=== PATIENT | female | born 1945 | race Caucasian/White ===

== ENCOUNTER → 2018-05-14 | Day surgery (SDC) | payer OTHER ==
--- NOTE | 2018-05-14 11:06 | RAD REPORT ---
EXAM DESCRIPTION: US - Breast Core BX w/US Guidance - 05/14/2018 10:41 am CLINICAL HISTORY: R92.8 COMPARISON: Breast ultrasound May 05, 2018, mammogram April 08, 2018 TECHNIQUE: The patient presents for ultrasound-guided biopsy of a previously detailed 6 mm mass in t he upper inner quadrant of the right breast. The ultrasound-guided core biopsy procedure, risks and alternatives were discussed with the patient i n detail. After answering all questions, both oral and written consent were obtained. Time out proced ure was performed. The patient had no contraindicated allergy or medication history. Patient has been off 81 milligram aspirin therapy for 6 days. Preliminary imaging identified the mass in question. The anterior breast was prepped and draped in th e usual sterile fashion. From a lateral approach, skin and deeper tissues were anesthetized with 1% l idocaine. Under direct sonographic visualization a 14 gauge vacuum assisted core biopsy needle was ad vanced and placed at the inferior margin of the mass. There were a total of 3 core biopsies obtained under direct sonographic guidance. The mass did appear to have distortion in contour supporting trans it of the biopsy needle through the small mass. At the conclusion of the procedure a localization clip was placed under sonographic guidance. Post biopsy imaging showed no hematoma or measurable bleeding within the breast. Hemostasis was obtai lauren at the skin site with a sterile bandage placed. Post procedure care and precaution instructions were given to the patient. IMPRESSION: 1. Ultrasound-guided core biopsy was performed of the right breast upper inner quadrant 6 mm mass. All obtained material was given to pathology for histologic assessment. 2. Post biopsy localization clip was placed under ultrasound guidance.
== END | disposition home or self-care (01) ==
LOC: DS 09:36
PROVIDERS: ATTEND Obstetrics & Gynecology
PROC: 0HBT3ZX Excision of Right Breast, Percutaneous Approach, Diagnostic (ICD-10-PCS; principal; 2018-05-14)
DX: C50.911 Malignant neoplasm of unspecified site of right female breast (principal); Z17.0 Estrogen receptor positive status [ER+]
CPT/HCPCS: 19083; 88305

== ENCOUNTER 2023-10-01 14:50 | Inpatient (IN) | payer OTHER ==
--- OUTSIDE RECORDS SUMMARY | 2023-10-01 14:58 | XMS REPORT | Clinical Summary ---
Author Name Unknown Organization [facility] Address [address] [place] [address] Care Team Providers Care Brush Polisher Name Role Phone Elizabeth Burrell MD Primary Care Provider + [phone] Jennifer Woo MD Unavailable [phone] Beverly Matias MD Unavailable Tameka Jaramillo MD Unavailable [phone] Bree Rodriguez DDS Unavailable [phone] Allergies Active Allergy Reactions Criticality Noted Date Comments Codeine GI Intolerance 03/03/2015 Sulfa (Sulfonamide Antibiotics) Hives 12/2014 Medications Medication Sig Dispensed Refills Start Date End Date Status aspirin 81 mg chewable tablet Chew 1 tablet (81 mg) daily. 0 Active calcium carbonate/vitami n D3 (CALCIUM 600 + D,3, ORAL) Take 1 tablet by mouth every morning. 0 Active pantoprazole (PROTONIX) 40 mg EC tablet Take 1 tablet (40 mg) by mouth every morning before breakfast. 0 Active furosemide (LASIX) 20 mg tabletIndication s:Pleural effusion,Maligna nt pleural effusion Take 1 tablet (20 mg) by mouth twice daily. 60 tablet 3 3 Active Additional Information Patient not taking.Reason: No longer taking, Informant: Self, Reported on 08/29/2023 senna (SENOKOT) 8.6 mg tabletIndication s:Slow transit constipation Take 2 tablets by mouth twice daily. Do not use if diarrhea/loose stools 120 tablet 3 3 Active Additional Information Patient not taking.Reason: No longer taking, Informant: Self, Reported on 08/13/2023 polyethylene glycol (MIRALAX) 17 g packetIndication s:Slow transit constipation Take 17 g by mouth daily. 30 each 3 3 Active ipratropium-albu terol (Combivent Respimat) 20 mcg-100 mcg/puff inhalerIndicatio ns:Human rhinovirus present,Malignan t pleural effusion Inhale 1 puff by mouth every 6 (six) hours. 4 g 3 3 Active meloxicam (Mobic) 7.5 mg tabletIndication s:Postoperative pain Take 1 tablet (7.5 mg) by mouth daily as needed for mild pain. 5 tablet 0 3 Active Additional Information Patient not taking.Reason: No longer taking, Informant: Self, Reported on 07/30/2023 lidocaine-priloc keturah (EMLA) 2.5-2.5% creamIndications :Encounter for adjustment and management of vascular access device Apply to Port-A-Cath area 30 to 45 minutes prior to port access as directed (topical anesthetic use to the anterior chest only). 30 g 0 3 Active prochlorperazine (Compazine) 10 mg tabletIndication s:Metastatic cancer to axillary lymph nodes,Infiltrati ng duct carcinoma, NOS of upper-inner quadrant of breast <Female; Right> Take 1 tablet (10 mg) by mouth every 6 (six) hours as needed for nausea or vomiting. 30 tablet 3 4 Active Additional Information Patient not taking.Reason: No longer taking, Informant: Self, Reported on 08/29/2023 magnesium oxide 500 mg tabletIndication s:Infiltrating duct carcinoma, NOS of upper-inner quadrant of breast <Female; Right>,Infiltrat ing duct carcinoma, NOS of upper-inner quadrant of breast <Female; Right>,Hypomagne semia Take 1 tablet (500 mg) by mouth twice daily. 56 tablet 2 4 Active capecitabine (Xeloda) 500 mg tabletIndication s:Metastatic cancer to axillary lymph nodes,Infiltrati ng duct carcinoma, NOS of upper-inner quadrant of breast <Female; Right> Take 2 tablets by mouth every morning and 2 tablets every evening for 7 days, then none for 7 days. 56 tablet 2 4 Active venlafaxine (Effexor XR) 75 mg 24 hr capsuleIndicatio ns:Adjustment disorder with anxiety Take 1 capsule (75 mg) by mouth at bedtime. 30 capsule 1 4 Active potassium chloride (Klor-Con) 20 mEq packetIndication s:Infiltrating duct carcinoma, NOS of upper-inner quadrant of breast <Female; Right>,Hypokalem ia Take 1 packet (20 mEq) by mouth twice daily. Mix contents of 1 packet in 4 ounces (120 mL) of water or juice. Stir well and drink promptly. 60 packet 2 4 Active losartan (COZAAR) 25 mg tablet 1 tablet (25 mg) twice daily. 0 1 06/17/20 23 Discontinued(Sto p Taking at Discharge) nystatin (Nystop) 100,000 units/g powderIndication s:Infiltrating duct carcinoma, NOS of upper-inner quadrant of breast <Female; Right>,Rash Apply topically to affected area(s) 3 (three) times a day. 60 g 3 1 11/30/19 23 Discontinued anastrozole (ARIMIDEX) 1 mg tabletIndication s:Infiltrating duct carcinoma, NOS of upper-inner quadrant of breast <Female; Right> TAKE ONE TABLET BY MOUTH DAILY 90 tablet 3 2 10/25/19 23 Discontinued pantoprazole (PROTONIX) 40 mg EC tablet Take 40 mg by mouth. 0 11/30/19 Discontinued(Oth er/Not Applicable) gabapentin (NEURONTIN) 100 mg capsule Take 100 mg by mouth at bedtime. 0 11/30/19 Discontinued(Oth er/Not Applicable) TURMERIC ORAL Take by mouth. 0 11/30/19 23 Discontinued(Oth er/Not Applicable) BENFOTIAMINE ORAL Take by mouth. With Thiamine 0 05/31/20 Discontinued anastrozole (ARIMIDEX) 1 mg tabletIndication s:Infiltrating duct carcinoma, NOS of upper-inner quadrant of breast <Female; Right> TAKE ONE TABLET BY MOUTH DAILY 90 tablet 3 3 06/17/20 23 Discontinued(Sto p Taking at Discharge) esomeprazole (NexIUM) 20 MG capsule take 1 capsule by oral route every day Oral 0 05/31/20 23 Discontinued furosemide (LASIX) 20 mg tablet Take 1 tablet (20 mg) by mouth daily. 0 3 06/17/20 23 Discontinued(Sto p Taking at Discharge) venlafaxine (EFFEXOR-XR) 37.5 mg 24 hr capsuleIndicatio ns:Metastatic malignant neoplasm to lung <Unspecified side>,Anxiety depression Take 1 capsule (37.5 mg) by mouth at bedtime. 30 capsule 3 3 07/30/19 24 Discontinued potassium chloride (Klor-Con M20) 20 mEq tabletIndication s:hypokalemia Take 1 tablet (20 mEq) by mouth twice daily. 14 tablet 0 3 08/09/19 24 Discontinued magnesium oxide 500 mg tabletIndication s:hypomagnesemia Take 1 tablet (500 mg) by mouth twice daily. 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 90 capsule 3 4 09/04/19 24 Discontinued magnesium oxide 500 mg tabletIndication s:Hypomagnesemia ,Infiltrating duct carcinoma, NOS of upper-inner quadrant of breast <Female; Right> Take 1 tablet (500 mg) by mouth twice daily. 28 tablet 0 4 08/13/19 24 Discontinued(Reo rder) potassium chloride (Klor-Con M20) 20 mEq tabletIndication s:Hypokalemia,In filtrating duct carcinoma, NOS of upper-inner quadrant of breast <Female; Right> Take 1 tablet (20 mEq) by mouth twice daily. 6 tablet 0 4 08/13/19 24 Discontinued(Reo rder) potassium chloride (Klor-Con M20) 20 mEq tabletIndication s:Infiltrating duct carcinoma, NOS of upper-inner quadrant of breast <Female; Right>,Hypokalem ia,Infiltrating duct carcinoma, NOS of upper-inner quadrant of breast <Female; Right> Take 1 tablet (20 mEq) by mouth twice daily. 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 Chest xray completed shows no evidence of re accumulation after removal of the IPC. There is stability .in the effusion. We will evaluate on an as needed basis. Secondary malignant neoplasm of bilateral lungs 06/02/2023 Secondary malignant neoplasm of liver and intrahepatic bile duct 06/02/2023 DNR status 06/02/2023 Advance directive discussed with patient 023 Pleural effusion 05/31/2023 Dyspnea 05/31/2023 Hyposmolality and/or hyponatremia 05/31/2023 Numbness of face 09/11/2019 Last Assessment & Plan: Symptoms have completely resolved. She had previously declined completing the work up with MRI brain and continues to decline it today. We will defer future appointements for now, but she knows to call if symptoms recur or she develops new neurologic symtpoms. Blind left eye 08/05/2018 Hypertension 06/18/2018 Overview: Due to optic stoke dx in 2014, she was asked to take a BP medication to have her BP lowered. Has been taking losartan since 2014, BP well controlled. PCP and disintegrator outside. Had stress test in 2014. Last Assessment & Plan: ERNIE release of intormation will be obtained to get outside stress test results. Stroke 06/18/2018 Overview: Dx optic stroke of left eye in 2014, in [place]. Has left eye blindness. On Aspirin Last Assessment & Plan: POEMS team will obtain ERNIE from disintegrator outside. Sees outside opthalmologist in [place]. Does not follow up with neurologist. 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 No residual weakness. 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 Stable, does not need intervention or follow up per outside hepatology records. 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 female who presents with a history of right IDC, G2, ER/SD+, HER2- that was originally diagnosed on 05/14/2018. She underwent a right segmental mastectomy with SLNB revealing IDC 1.7 cm, G2, DCIS and LVI+. She had 3+/4 SLN, therefore underwent a right ALND that revealed 7+/9 for a total of 10+/13 LN removed. The largest deposit was on a SLN 2.5 cm with DAVID. Staging studies revealed no distant metastases. She declined chemotherapy, so she completed radiation and took Anastrozole starting on 11/11/2018. She continued on this therapy until she presented to an [facility] in April with SOB. All oncologic management and surveillance will be deferred to the primary team. Resolved Problems Problem Noted Date Diagnosed Date Resolved Date Enterovirus infection 06/02/20232022 Human rhinovirus present 06/02/202312/2022 Acute respiratory failure with hypoxia 06/01/2023 07/03/2023 Encounters Date Type Department Care Team Description 09/27/2023 1:45 PM GAMING COMMISSIONER Infusion [facility] - [facility] [address] [address] Kaity Gilliland, Caryn Ascencio, KRISTINA Infiltrating duct carcinoma, NOS of upper-inner quadrant of breast <Female; Right> (Primary Dx); Metastatic malignant neoplasm to bone 09/27/2023 Travel 09/26/2023 Orders Only [facility] Medical Oncology [address] [place] [id number] Almaz Merchant, Aleyda Metastatic malignant neoplasm to bone (Primary Dx); Infiltrating duct carcinoma, NOS of upper-inner quadrant of breast <Female; Right> 09/25/2023 Orders Only [facility] Oncology [address] [place] [address], [address] [place] [id number] Almaz Merchant, PharmD 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; Metastatic malignant neoplasm to bone; Metastatic cancer to axillary lymph nodes; Estrogen receptor negative status (ER-); Hypomagnesemia; Hypokalemia; Secondary malignant neoplasm of liver and intrahepatic bile duct 09/12/2023 11:49 AM GAMING COMMISSIONER - 09/12/2023 11:59 PM GAMING COMMISSIONER Hospital Encounter [facility] [address] [place] [id number] Kaity Gilliland APRN 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; Secondary malignant neoplasm of bilateral lungs; Metastatic malignant neoplasm to lung <Unspecified side>; 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; Metastatic malignant neoplasm to bone; Metastatic cancer to axillary lymph nodes; Estrogen receptor negative status (ER-); Hypomagnesemia; Hypokalemia; Secondary malignant neoplasm of liver and intrahepatic bile duct Discharge Disposition: Home 09/12/2023 Specialty Pharmacy [facility] [address] [place] [id number] Jorge L Eugene PharmD Refill Coordination Outreach (capecitabine) for Breast Cancer 09/12/2023 Travel 08/29/2023 3:00 PM GAMING COMMISSIONER - 08/29/2023 11:59 PM GAMING COMMISSIONER Hospital Encounter [facility] - [facility] [address] [facility], 2nd [place] [address] Elizabeth Burrell MD Neely, Chunmei Huang, RN 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 Discharge Disposition: Home 08/29/2023 9:20 AM [facility]Up [facility] Oncology [address] [place] [address], 5th [place] [address] Elizabeth Burrell MD Encounter for examination prior to antineoplastic chemotherapy (Primary Dx); 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; Secondary malignant neoplasm of bilateral lungs; Metastatic malignant neoplasm to lung <Unspecified side>; 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; Metastatic malignant neoplasm to bone; Metastatic cancer to axillary lymph nodes; Estrogen receptor negative status (ER-); Hypomagnesemia; Hypokalemia; Secondary malignant neoplasm of liver and intrahepatic bile duct 08/29/2023 8:15 AM GAMING COMMISSIONER - 08/29/2023 2:59 PM GAMING COMMISSIONER Hospital Encounter [facility] [address] [place] [id number] Elizabeth Burrell MD 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 Discharge Disposition: Home 08/29/2023 Travel 08/27/2023 Orders Only [facility] [address] [facility], 5th [place] [address] Elizabeth Burrell MD 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 (Primary Dx) 08/21/2023 12:00 PM GAMING COMMISSIONER - 08/21/2023 11:59 PM GAMING COMMISSIONER Hospital Encounter [facility] [address] [place] [address], [place] [address] Francois Santacruz MD Metastatic cancer to axillary lymph nodes; 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 Discharge Disposition: Home 08/21/2023 10:43 AM GAMING COMMISSIONER - 08/21/2023 11:59 AM GAMING COMMISSIONER Hospital Encounter Oral Oncology [facility], 9th [place] [address] Bree Rodriguez DDS Encounter for observation for other suspected disease ruled out Discharge Disposition: Home 08/21/2023 10:00 AM GAMING COMMISSIONER - 08/21/2023 10:42 AM GAMING COMMISSIONER Hospital Encounter Oral Oncology [facility], 9th [place] [address] Bree Rodriguez DDS Encounter for observation for other suspected disease ruled out (Primary Dx); 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; Secondary malignant neoplasm of bilateral lungs; Metastatic malignant neoplasm to lung <Unspecified side>; 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; Metastatic malignant neoplasm to bone; Metastatic cancer to axillary lymph nodes; Lymphangitis carcinomatosa; Estrogen receptor negative status (ER-); Hypokalemia; Hypomagnesemia Discharge Disposition: Home 08/21/2023 Travel 08/20/2023 Orders Only Oral Oncology [address] [facility], 9th [place] [address] Gabriela Donohue MD Encounter for observation for other suspected disease ruled out (Primary Dx) 08/13/2023 11:20 AM GAMING COMMISSIONER Follow-Up [facility] [address] [place] [address], 5th [place] [address] Elizabeth Burrell MD Ramirez, David L, MD 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 (Primary Dx); Secondary malignant neoplasm of bilateral lungs; Metastatic malignant neoplasm to lung <Unspecified side>; 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; Metastatic malignant neoplasm to bone; Metastatic cancer to axillary lymph nodes; Lymphangitis carcinomatosa; Estrogen receptor negative status (ER-); Hypokalemia; Infiltrating duct carcinoma, NOS of upper-inner quadrant of breast <Female; Right>; Hypomagnesemia 08/13/2023 Specialty Pharmacy [facility] [address] [place] [id number] Jazzmine Chandra, PharmD Set up Initial Fill for Breast Cancer, Benefits Investigation for Breast Cancer 08/13/2023 Travel 08/09/2023 2:00 PM GAMING COMMISSIONER Infusion [facility] - Infusion [address] [address] Elizabeth Burrell MD 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 (Primary Dx); Metastatic cancer to axillary lymph nodes; Infiltrating duct carcinoma, NOS of upper-inner quadrant of breast <Female; Right>; Metastatic malignant neoplasm to lung <Unspecified side> 08/09/2023 Orders Only [facility] [address] [place] [address], 5th [place] [address] Ashleigh Kelley, PharmD 08/09/2023 Orders Only [facility] [address] [place] [address], 5th [place] [address] Anabela Menendez [facility] 08/09/2023 Orders Only [facility] [address] [place] [address], 5th [place] [address] Danita Clay, Aleyda Hypokalemia (Primary Dx); Hypomagnesemia; Infiltrating duct carcinoma, NOS of upper-inner quadrant of breast <Female; Right> 08/09/2023 Orders Only [facility] [address] [place] [address], 5th [place] [address] Raymond Jennings, [facility] 08/09/2023 Orders Only [facility] [address] [place] [address], [facility] [place] [address] Anabela Menendez, [facility] 08/09/2023 Orders Only [facility] [address] [place] [address], [address] [place] [address] [place] [address] Kaity Gilliland, WILLOW ANALYST 08/09/2023 Travel 08/08/2023 12:30 PM GAMING COMMISSIONER Ancillary Procedure [facility] [address] [address] Kaity Gilliland, WILLOW ANALYST Secondary malignant neoplasm of bilateral lungs; Metastatic malignant neoplasm to lung <Unspecified side>; 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; Metastatic malignant neoplasm to bone; Metastatic cancer to axillary lymph nodes; Lymphangitis carcinomatosa; 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; Estrogen receptor negative status (ER-) 08/08/2023 Travel 08/08/2023 Orders Only [facility] [address] [place] [address], [address] [place], [place] [address] [address] Elizabeth Burrell MD 08/05/2023 10:00 AM GAMING COMMISSIONER [facility] Medicine [address] [facility], 6th [place] [address] Gertrude Brar, WILLOW ANALYST Pleural effusion 08/05/2023 9:15 AM GAMING COMMISSIONER Ancillary Procedure [facility] [address] [facility], 7th [place] [address] Zeynep Diop WILLOW ANALYST Pleural effusion 08/05/2023 Travel 08/02/2023 1:30 PM GAMING COMMISSIONER Infusion [facility] - Infusion [address] [address] Elizabeth Burrell MD Infiltrating duct carcinoma, NOS of upper-inner quadrant of breast <Female; Right> (Primary Dx); Metastatic cancer to axillary lymph nodes; 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; Metastatic malignant neoplasm to lung <Unspecified side> 08/02/2023 Orders Only [facility] Medical Oncology [address] [place] [address], 5th [place] [address] Elizabeth Burrell MD 08/02/2023 Travel 08/02/2023 Orders Only [facility] Oncology [address] [place] [address], [address] [place] [phone] Kaity Gilliland, WILLOW ANALYST 08/01/2023 Orders Only [facility] Oncology [address] [place] [address], [address] [place] [phone] Kaity Gilliland, WILLOW ANALYST 07/30/2023 11:00 AM GAMING COMMISSIONER Follow-Up [facility] Oncology [address] [place] [address], [address] [place] [address] Kaity Gilliland, WILLOW ANALYST Encounter for examination prior to antineoplastic chemotherapy (Primary Dx); 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; Secondary malignant neoplasm of bilateral lungs; Metastatic malignant neoplasm to lung <Unspecified side>; 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; Metastatic malignant neoplasm to bone; Metastatic cancer to axillary lymph nodes; Lymphangitis carcinomatosa; Estrogen receptor negative status (ER-); Infiltrating duct carcinoma, NOS of upper-inner quadrant of breast <Female; Right>; Secondary malignant neoplasm of liver and intrahepatic bile duct; Malignant pleural effusion; Anxiety depression 07/30/2023 Orders Only [facility] Medical Oncology [address] [place] [address], [address] [place] [address] [place] [address] Kaity Gilliland, WILLOW ANALYST Metastatic cancer to axillary lymph nodes (Primary Dx); Infiltrating duct carcinoma, NOS of upper-inner quadrant of breast <Female; Right> 07/30/2023 Travel 07/29/2023 Orders Only [facility] [address] [place] [address], 5th [place] [address] Elizabeth Burrell MD 07/17/[address] [facility] - Medical Oncology [address] [place] [address], 5th [place] [address] Kaity Gilliland, WILLOW ANALYST 07/15/[address] [facility] - Medical Oncology [address] [place] [address], 5th [place] [address] Elizabeth Burrell MD Metastatic cancer to axillary lymph nodes (Primary Dx); Infiltrating duct carcinoma, NOS of upper-inner quadrant of breast <Female; Right> 07/15/[address] [facility] - Medical Oncology [address] [place] [address], [facility] [place] [address] Kaity Gilliland, WILLOW ANALYST 07/11/2023 1:00 PM GAMING COMMISSIONER Infusion [facility] - Infusion [address] [place] [address] Elizabeth Burrell MD Infiltrating duct carcinoma, NOS of upper-inner quadrant of breast <Female; Right> (Primary Dx); Metastatic cancer to axillary lymph nodes 07/11/[address] [facility] - Medical Oncology [address] [place] [address], 5th [place] [address] Elizabteh Burrell MD 07/11/2023 Orders Only [facility] [address] [place] [address], 5th [place] [address] Kareem Garcia, PharmD 07/11/2023 Orders Only [facility] [address] [place] [address], 5th [place] [address] Danita Clay, PharmD 07/11/2023 Travel 07/08/2023 10:30 AM GAMING COMMISSIONER Ancillary Procedure [facility] [address] [place] [id number] 07/08/2023 8:49 AM GAMING COMMISSIONER Anesthesia Event Pre-Op/Surgery Check-In [address] [place] [address] Valery Sylvester MD 07/08/2023 8:40 AM GAMING COMMISSIONER Ancillary Procedure [facility] [address] [place] [id number] Malignant neoplasm of upper-inner quadrant of right female breast 07/08/2023 8:40 AM GAMING COMMISSIONER - 07/08/2023 10:20 AM GAMING COMMISSIONER Surgery Pre-Op/Surgery Check-In [address] [place] [id number] Josue Salinas MD PORT-A-CATH PLACEMENT 07/08/2023 8:35 AM GAMING COMMISSIONER Ancillary Procedure Pre-Op/Surgery Check-In [address] [place] [address] Josue Salinas MD 07/08/2023 7:08 AM GAMING COMMISSIONER - 07/08/2023 12:30 PM GAMING COMMISSIONER Hospital Encounter Pre-Op/Surgery Check-In [address] [place] [id number] Josue Salinas MD 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 (Primary Dx); Metastatic cancer to axillary lymph nodes; Metastatic malignant neoplasm to bone Discharge Disposition: Home 07/08/2023 6:31 AM GAMING COMMISSIONER - 07/08/2023 7:07 AM GAMING COMMISSIONER Hospital Encounter Diagnostic [facility] Center [address] [place] [address] Susy Hernandez PA Secondary malignant neoplasm of liver and intrahepatic bile duct; Malignant pleural effusion; 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; Metastatic malignant neoplasm to lung <Unspecified side>; Metastatic malignant neoplasm to bone; Secondary malignant neoplasm of bilateral lungs; Metastatic cancer to axillary lymph nodes; 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; Preoperative laboratory examination Discharge Disposition: Home 07/08/2023 Travel 07/05/2023 11:59 PM GAMING COMMISSIONER Anesthesia Event [facility] [address] [place] [address], [address] [place] [id number] Raymond Ng PA 07/05/2023 10:30 AM GAMING COMMISSIONER POEM Appointments [facility] [address] [place] [id number] Saritha Barreto APRN 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; Pre-surgery evaluation 07/05/2023 Orders Only [facility] [address] [place], [place] [address] [address] Susy Hernandez PA 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 (Primary Dx); Secondary malignant neoplasm of liver and intrahepatic bile duct; Malignant pleural effusion; 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; Metastatic malignant neoplasm to lung <Unspecified side>; Metastatic malignant neoplasm to bone; Secondary malignant neoplasm of bilateral lungs; Metastatic cancer to axillary lymph nodes; Preoperative laboratory examination 07/04/2023 1:00 PM GAMING COMMISSIONER Infusion [facility] - Infusion [facility] [address] [address] Elizabeth Burrell MD Infiltrating duct carcinoma, NOS of upper-inner quadrant of breast <Female; Right> (Primary Dx); Metastatic cancer to axillary lymph nodes 07/04/2023 Orders Only [facility] [address] [place] [address], 5th [facility] [place] [address] Kaity Gilliland APRN Weakness (Primary Dx); Infiltrating duct carcinoma, NOS of upper-inner quadrant of breast <Female; Right>; Secondary malignant neoplasm of bilateral lungs; Metastatic malignant neoplasm to lung <Unspecified side>; 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; Metastatic malignant neoplasm to bone; Metastatic cancer to axillary lymph nodes; Lymphangitis carcinomatosa 07/04/2023 Travel 07/03/2023 12:30 PM GAMING COMMISSIONER - 07/03/2023 11:59 PM GAMING COMMISSIONER Hospital Encounter [facility] Access [facility] Procedures [facility] [address] [place] [address] [place] [address] Kaity Gilliland APRN Borromeo, Mary J, RN Sutherland, Elizabeth W, PA Infiltrating duct carcinoma, NOS of upper-inner quadrant of breast <Female; Right> (Primary Dx); Secondary malignant neoplasm of bilateral lungs; Metastatic malignant neoplasm to lung <Unspecified side>; 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; Metastatic malignant neoplasm to bone; Metastatic cancer to axillary lymph nodes; Lymphangitis carcinomatosa; Estrogen receptor negative status (ER-); Postoperative pain; Secondary malignant neoplasm of liver and intrahepatic bile duct; Encounter for adjustment and management of vascular access device; Antineoplastic chemotherapy induced anemia; Advance care planning Discharge Disposition: Home 07/03/2023 12:20 PM GAMING COMMISSIONER Ancillary Procedure [facility] - Pulmonology Procedures [address] [place] [address], [address] [place] [address] Jadon, Zeynep, WILLOW ANALYST 07/03/2023 12:15 PM GAMING COMMISSIONER Ancillary Procedure Diagnostic Center [address] [place] [address], 2nd [place] [address] Jadon, Zeynep, WILLOW ANALYST Pleural effusion 07/03/2023 10:00 AM GAMING COMMISSIONER Follow-Up Cardiopulmonary Center - Pulmonology Medicine [address] [place] [address], [address] [place] [address] Gertrude Brar APRN Jadon, Zeynep, WILLOW ANALYST Pleural effusion 07/03/2023 Travel 07/01/2023 9:57 AM GAMING COMMISSIONER - 07/01/2023 11:59 PM GAMING COMMISSIONER Hospital Encounter [facility] [address] [place] [address], [address] [place] [address] Elizabeth Burrell MD Pham, Juanita Inman, specialist employee labor relations Disposition: Home 07/01/2023 Orders Only [facility] [address] [place] [address], [address] [place] [address] Saritha Barreto, WILLOW ANALYST 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 (Primary Dx); Pre-surgery evaluation 06/27/2023 12:00 PM GAMING COMMISSIONER Follow-Up [facility] [address] [place] [address], 5th [place] [address] Elizabeth Burrell MD 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 (Primary Dx); Secondary malignant neoplasm of bilateral lungs; Metastatic malignant neoplasm to lung <Unspecified side>; 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; Metastatic malignant neoplasm to bone; Metastatic cancer to axillary lymph nodes; Lymphangitis carcinomatosa; Estrogen receptor negative status (ER-); Anxiety depression; Infiltrating duct carcinoma, NOS of upper-inner quadrant of breast <Female; Right>; Hypokalemia; Hypomagnesemia; Malignant pleural effusion; Pleural effusion; Shortness of breath; 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; Secondary malignant neoplasm of liver and intrahepatic bile duct 06/27/2023 11:13 AM GAMING COMMISSIONER - 06/27/2023 11:59 PM GAMING COMMISSIONER Hospital Encounter Diagnostic Laboratory Center [facility], [facility] [place] [id number] Sixto Tolentino MD Metastatic cancer to axillary lymph nodes; Infiltrating duct carcinoma, NOS of upper-inner quadrant of breast <Female; Right> Discharge Disposition: Home 06/27/2023 Orders Only [facility] [address] [place] [address], [address] [place] [address] [place] [address] Elizabeth Burrell MD 06/27/2023 Orders Only [facility] [address] [place] [address], [facility] [place] [address] Danita lCay, PharmD 06/27/2023 Travel 06/19/2023 Orders Only [facility] [address] [place] [address], 5th [place] [address] Sixto Tolentino MD Metastatic cancer to axillary lymph nodes (Primary Dx); Infiltrating duct carcinoma, NOS of upper-inner quadrant of breast <Female; Right> 06/18/[address] 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; Estrogen receptor negative status (ER-) 06/14/2023 Orders Only [facility] Oncology [address] [facility], 5th [place] [address] Smooth Pham MD 06/11/2023 Orders Only [facility] Oncology [address] [facility], 5th [place] [address] Smooth Pham MD 06/07/2023 4:51 PM GAMING COMMISSIONER Anesthesia Event Main Interventional Radiology [address] [facility], 3rd [place] [address] Francois Howe MD Kim, Kyu, CRNA 06/07/2023 Orders Only [facility] Oncology [address] [facility], 5th [place] [address] Kareem Garcia, PharmD Metastatic cancer to axillary lymph nodes (Primary Dx); Infiltrating duct carcinoma, NOS of upper-inner quadrant of breast <Female; Right> 06/07/2023 Orders Only [facility] Oncology [address] [place] [address], 5th [place] [address] Kareem Garcia PharmD 06/07/2023 Orders Only [facility] Medical Oncology [address] [facility], 5th [place] [address] Almaz Merchant, PharmD Metastatic cancer to axillary lymph nodes (Primary Dx); Infiltrating duct carcinoma, NOS of upper-inner quadrant of breast <Female; Right> 06/03/2023 3:52 PM GAMING COMMISSIONER - 06/03/2023 5:02 PM GAMING COMMISSIONER Surgery Cardiopulmonary Center - Pulmonology Procedures [address] [facility], 6th [place] [address] Sushila Perry MD INSERTION OF INDWELLING TUNNELED PLEURAL CATHETER WITH CUFF-RIGHT 06/03/2023 Orders Only Card[facility]ulmonary Center - Pulmonology Medicine [address] [place] [address] Main [facility], 6th Floor Elev[place] [address] [place], [place] [id number] Rena Almazan APRN Pleural effusion (Primary Dx) 05/31/2023 2:34 PM CDT - 06/17/2023 5:54 PM GAMING COMMISSIONER Hospital Encounter MAIN [address] [place], [place] [id number] Nurys Valdez MD Altay, MD Vero Perdue, MD Alessia Sweet Joanna-Grace, MD Tanwir, Hira, MD Brito-Dellan, Norman, MD 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 (Primary Dx); Pleural effusion; Dyspnea; Hyposmolality and/or hyponatremia; Secondary malignant neoplasm of liver and intrahepatic bile duct; Secondary malignant neoplasm of bilateral lungs; Lymphangitis carcinomatosa; Acute respiratory failure with hypoxia; Metastatic cancer to axillary lymph nodes; Estrogen receptor positive status (ER+); Metastatic malignant neoplasm to bone; 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; Metastatic malignant neoplasm to lung <Unspecified side>; 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; Advance care planning; Human rhinovirus present; DNR status; Malignant pleural effusion; Numbness of face; Blind left eye; Hemangioma of liver; 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; Hypertension; Generalized muscle weakness; Abnormality of gait, not otherwise specified; Personal history of breast cancer; Infiltrating duct carcinoma, NOS of upper-inner quadrant of breast <Female; Right>; Estrogen receptor negative status (ER-); Slow transit constipation Discharge Disposition: Home with Home-Health or Physical Therapy 05/31/2023 Travel 05/31/2023 Orders Only [facility] - Pulmonology Medicine [address] [place] [address] Main [facility], 6th [place] [address] Peggy Sutton APRN Pleural effusion (Primary Dx) 05/31/2023 Prep for Surgery [facility] - Pulmonology Medicine [address] [place] [address] Main [facility], 6th [place] [address] Zuhair Zambrano MD Pleural effusion (Primary Dx) 05/28/2023 Telephone [facility] [address] [place] [address], 5th [place] [address] Neetu Moreno, WILLOW ANALYST 05/27/2023 Telephone Cardiopulmonary Center - Pulmonology Medicine [facility] Main [facility], 6th [place] [address] Zeynep Diop, WILLOW ANALYST 05/27/2023 Orders Only Card[facility]ulmonary Center - Pulmonology Medicine [facility] Main [facility], 6th [place] [address] Zeynep Diop, WILLOW ANALYST Pleural effusion (Primary Dx) 05/25/2023 9:55 AM CDT - 05/25/2023 11:59 PM CDT Hospital Encounter Breast Imaging [address] [place] [address], 5th [place] [address] Neetu Moreno, WILLOW ANALYST Infiltrating duct carcinoma, NOS of upper-inner quadrant of breast <Female; Right> Discharge Disposition: Home 05/23/2023 Orders Only [facility] [address] [place] [address], [facility] [place] [address] Kaity Gilliland, WILLOW ANALYST Infiltrating duct carcinoma, NOS of upper-inner quadrant of breast <Female; Right> (Primary Dx); Malignant pleural effusion; Multiple nodules of lung 05/23/2023 Orders Only [facility] [address] [place] [address], 5th [place] [address] Neetu Moreno, WILLOW ANALYST 11/30/2022 Orders Only Internal Medicine Center - Rheumatology [address] [place] [address], [facility] [place] [address] Corky Mitchell RN 11/29/2022 11:30 AM CDT Consult Internal Medicine Center - Rheumatology [address] [place] [address], [facility] [place] [address] Beverly Matias MD Osteopenia (Primary Dx); Infiltrating duct carcinoma, NOS of upper-inner quadrant of breast <Female; Right> 11/29/2022 10:30 AM CDT Follow-Up [facility] [address] [place] [address], 5th [place] [address] Neetu Moreno, WILLOW ANALYST Infiltrating duct carcinoma, NOS of upper-inner quadrant of breast <Female; Right> 11/29/2022 Travel 10/23/2022 Refill [facility] [address] [place] [address], 5th [place] [address] Jess Lazaro, WILLOW ANALYST Infiltrating duct carcinoma, NOS of upper-inner quadrant of breast <Female; Right> after 10/01/2022 Surgical History Surgery Date Site/Laterality Comments TOTAL ABDOMINAL HYSTERECTOMY 07/29/1973 - 07/28/1974 KNEE SURGERY 07/29/2013 - 07/28/2014 Left replacement SD MASTECTOMY PARTIAL 07/01/2018 Breast/Right Procedure: MAGSEED SEGMENTAL MASTECTOMY, RIGHT ; Surgeon: Domi Redding MD; Location: [facility]; Service: BREAST SD INTRAOP SENTINEL LYMPH NODE ID W/DYE INJECTION 07/01/2018 Left Procedure: IOLM; Surgeon: Domi Redding MD; Location: [facility]; Service: BREAST SD BX/EXC LYMPH NODE OPEN DEEP AXILLARY NODE 07/01/2018 Axilla/Right Procedure: SLNB; Surgeon: Domi Redding MD; Location: [facility]; Service: BREAST SD BX/EXC LYMPH NODE OPEN DEEP AXILLARY NODE 07/01/2018 Axilla/Right Procedure: Magnetic seed guided excision of clipped RIGHT axillary lymph node; Surgeon: Domi Redding MD; Location: [facility]; Service: BREAST SD AXILLARY LYMPHADENECTOMY COMPLETE 07/11/2018 Axilla/Right Procedure: AXILLARY LYMPHADENECTOMY; COMPLETE; Surgeon: Domi Redding MD; Location: [facility]; Service: BREAST SD INSERTION INDWELLING TUNNELED PLEURAL CATHETER 06/03/2023 Chest/Right Procedure: INSERTION OF INDWELLING TUNNELED PLEURAL CATHETER WITH CUFF-RIGHT; Surgeon: Sushila Perry MD; Location: [facility]; Service: PULMONARY EXTRACTION INTRACAPSULAR CATARACT 07/29/2009 - 07/28/2010 Right SD INSJ TUNNELED CTR VAD W/SUBQ PORT AGE 5 YR/> 07/08/2023 Chest/Left Procedure: PORT-A-CATH PLACEMENT; Surgeon: Josue Salinas MD; Location: [facility]; Service: SURG ONC - PORT Medical devices from this surgery are in the Medical Devices section. SD FLUORO CENTRAL VENOUS ACCESS DEV PLACEMENT 07/08/2023 Neck/Left Procedure: FLUORO GUIDANCE FOR CENTRAL VENOUS ACCESS DEVICE PLACEMENT, REPLACEMENT, OR REMOVAL; Surgeon: Josue Salinas MD; Location: [facility]; Service: SURG ONC - PORT Medical devices from this surgery are in the Medical Devices section. SD US VASC ACCESS SITS VSL PATENCY NDL ENTRY 07/08/2023 Neck/Left Procedure: US GUIDANCE WITH EVAL OF POTENTIAL ACCESS SITES, REALTIME US VISUALIZATION OF VASC NEEDLE ENTRY; Surgeon: Josue Salinas MD; Location: [facility]; Service: SURG ONC - PORT Medical devices from this surgery are in the Medical Devices section. 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 Cyst of breast 1989 Secondary malignant neoplasm of bilateral lungs 04/29/2023 Right pleural drain removed 07/03/2023 Dependence on supplemental oxygen 04/2023 Oxygen therapy at night only lowest dose 1L via nasal cannula Secondary malignant neoplasm of liver 04/29/2023 Acute respiratory failure wi th hypoxia 06/01/2023 Hypokalemia 06/30/2023 Family History Medical History Relation Name Comments Liver cancer Brother 1 Heart attack Father Dementia Mother Uterine cancer Mother Colon cancer Paternal Uncle -Breast cancer Neg Hx Ovarian cancer Neg Hx Relation Name Status Comments Brother 1 Brother 2 Alive Brother 3 Alive Daughter Alive Father Mother Paternal Uncle Sister 1 Alive Sister 2 Alive Sister 3 Alive Sister 4 Alive Sister 5 Alive Sister 6 Alive Son Alive Social History Tobacco Use Types Packs/Day Years Used Date Smoking Tobacco: Never Smokeless Tobacco: Never Tobacco Cessation:Counseling Given: Not Answered Alcohol Use Standard Drinks/Week Comments No 0 (1 standard drink = 0.6 oz pur e alcohol) Education Answer Date Recorded What is the highest level of school you have completed or the highest degree you have received? Master's degree (e.g., MA, MS, Niki, MEd, SERVICE DESK LEAD, HIREN) 07/03/2023 Sex and Gender Information Value Date Recorded Sex Assigned at Female 10/29/2020 3:54 PM CDT Gender Identity Female 10/29/2020 3:54 PM CDT Sexual Orientation Straight 10/29/2020 3: 54 PM CDT Job Start Date Occupation Industry Not on file Not on file Not on file Obstetrics History Para Term AB IAB SAB Ectopic Multiple Livin g Live Births 2 2 Date Outcome GA Total Labor Labor/2nd/3rd Weight Sex Delivery Anes PTL Aleena A1 A5 Name Cl in Para Para Comments STRATEGY CONSULTANT History: Menarche: 15 Age at first parity: 25 history: no control pill use: yes 1-2 years Hormone Replacement Therapy use: yes, 20 Last Filed Vital Signs Vital Sign Reading Time Taken Comments Blood Pressure 142/80 09/27/2023 3:05 PM GAMING COMMISSIONER Pulse 98 09/27/2023 3:05 PM GAMING COMMISSIONER Temperature 37.2 C (98.9 F) 09/27/2023 3:05 PM CS T Respiratory Rate 18 09/27/2023 3:05 PM GAMING COMMISSIONER Oxygen Saturation 99% 09/27/2023 2:01 PM GAMING COMMISSIONER Inhaled Oxygen Concentration - - Weight 61.1 kg (134 lb 11.2 oz) 09/27/2023 2:01 PM GAMING COMMISSIONER Height 152.4 cm (5') 05/31/2023 9:25 PM CDT Body Mass Index 26.31 05/31/2023 9:25 PM CDT Plan of Treatment Upcoming Encounters Date Type Department Care Team Description 10/10/2023 10:30 AM CDT Appointment Diagnostic Laboratory Center [address] [place] [address] Kaity Gilliland, SHIRA [address] [place] [address] 10/10/2023 11:30 AM CDT Follow-Up Breast Center - Medical Oncology [address] [place] [address], 5th [place] [address] Kaity Gilliland, SHIRA [address] [place] [address] 10/25/2023 11:45 AM CDT Infusion MD [facility] [place] - Infusion [address] [facility] 4th [place] [address] Elizabeth Burrell MD [address] [place] [address] 12/02/2023 12:00 PM CDT Ancillary Procedure Nuclear Medicine [address] [facility], 6th Floor, [place] [address] Beverly Matias MD [facility] [place] [address] 12/02/2023 1:30 PM CDT Office Visit Internal Medicine Center - Rheumatology [address] [facility], 6th [place] [address] Beverly Matias MD [facility] [place] [address] Health Maintenance Due Date Last Done Comments COVID-19 Vaccination (#1) 1950 Medical Devices Implanted Type Area Activated Sludge Operator Device Identifier Shelf Expiration Date Model / Serial / Lot Pwrport Clearvue Slim 6fr W/Sm - Sn/A Implanted:Qty: 1 on 07/08/2023 by Josue [facility]inas MD at [facility] Implant Left: Internal Jugular BARD PERIPHERAL VASCULAR [id number] 02/25/2025 [id number] / N/A / [id number] Description:Catheter length- 27 cm. 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 cancer to axillary lymph nodes Estrogen receptor negative status (ER-) Hypomagnesemia Hypokalemia Secondary malignant neoplasm of liver and intrahepatic bile duct MAGNESIUM LEVEL Routine 09/12/2023 12:25 PM GAMING COMMISSIONER 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 Metastatic malignant neoplasm to lung <Unspecified side> 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 cancer to axillary lymph nodes Estrogen receptor negative status (ER-) Hypomagnesemia Hypokalemia Secondary malignant neoplasm of liver and intrahepatic bile duct COMPREHENSIVE METABOLIC PANEL Routine 09/12/2023 12:25 PM GAMING COMMISSIONER 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 Metastatic malignant neoplasm to lung <Unspecified side> 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 cancer to axillary lymph nodes Estrogen receptor negative status (ER-) Hypomagnesemia Hypokalemia Secondary malignant neoplasm of liver and intrahepatic bile duct COMPLETE BLOOD COUNT W/ DIFFERENTIAL Routine 09/12/2023 12:25 PM GAMING COMMISSIONER 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 Metastatic malignant neoplasm to lung <Unspecified side> 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 cancer to axillary lymph nodes Estrogen receptor negative status (ER-) Hypomagnesemia Hypokalemia Secondary malignant neoplasm of liver and intrahepatic bile duct TRANSFUSE RED BLOOD CELLS Routine 08/29/2023 7:30 PM GAMING COMMISSIONER 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 TRANSFUSE RED BLOOD CELLS Routine 08/29/2023 5:00 PM GAMING COMMISSIONER 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 .CBC Routine 08/29/2023 8:45 AM GAMING COMMISSIONER 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 COMPREHENSIVE METABOLIC PANEL Routine 08/29/2023 8:45 AM GAMING COMMISSIONER 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 COMPLETE BLOOD COUNT W/ DIFFERENTIAL Routine 08/29/2023 8:45 AM GAMING COMMISSIONER 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 TYPE AND SCREEN Routine 08/29/2023 8:45 AM GAMING COMMISSIONER 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 PREPARE RBC Routine 08/27/2023 3:44 PM GAMING COMMISSIONER 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 .CBC Routine 08/21/2023 12:30 PM GAMING COMMISSIONER 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 BLOOD UREA NITROGEN Routine 08/21/2023 12:30 PM GAMING COMMISSIONER 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 CREATININE Routine 08/21/2023 12:30 PM GAMING COMMISSIONER 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 BILIRUBIN TOTAL Routine 08/21/2023 12:30 PM GAMING COMMISSIONER 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 ALKALINE PHOSPHATASE Routine 08/21/2023 12:30 PM GAMING COMMISSIONER 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 ALANINE AMINOTRANSFERASE Routine 08/21/2023 12:30 PM GAMING COMMISSIONER 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 ASPARTATE AMINOTRANSFERASE Routine 08/21/2023 12:30 PM GAMING COMMISSIONER 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 COMPLETE BLOOD COUNT W/ DIFFERENTIAL Routine 08/21/2023 12:30 PM GAMING COMMISSIONER 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 POTASSIUM LEVEL Routine 08/21/2023 12:30 PM GAMING COMMISSIONER 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 MAGNESIUM LEVEL Routine 08/21/2023 12:30 PM GAMING COMMISSIONER 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 3D DENTAL IMAGING (ICAT) Routine 08/21/2023 10:43 AM GAMING COMMISSIONER Encounter for observation for other suspected disease ruled out DIFFERENTIAL Routine 08/09/2023 12:41 PM GAMING COMMISSIONER 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 duct carcinoma, NOS of upper-inner quadrant of breast <Female; Right> .CBC Routine 08/09/2023 12:41 PM GAMING COMMISSIONER 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 duct carcinoma, NOS of upper-inner quadrant of breast <Female; Right> COMPLETE BLOOD COUNT W/ DIFFERENTIAL Routine 08/09/2023 12:41 PM GAMING COMMISSIONER 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 duct carcinoma, NOS of upper-inner quadrant of breast <Female; Right> CANCER ANTIGEN 27 29 Routine 08/09/2023 12:41 PM GAMING COMMISSIONER Secondary malignant neoplasm of bilateral lungs Metastatic malignant neoplasm to lung <Unspecified side> 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 Estrogen receptor negative status (ER-) CARBOHYDRATE ANTIGEN 15-3 Routine 08/09/2023 12:41 PM GAMING COMMISSIONER Secondary malignant neoplasm of bilateral lungs Metastatic malignant neoplasm to lung <Unspecified side> 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 Estrogen receptor negative status (ER-) MAGNESIUM LEVEL Routine 08/09/2023 12:41 PM GAMING COMMISSIONER Secondary malignant neoplasm of bilateral lungs Metastatic malignant neoplasm to lung <Unspecified side> 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 Estrogen receptor negative status (ER-) Hypomagnesemia COMPREHENSIVE METABOLIC PANEL Routine 08/09/2023 12:41 PM GAMING COMMISSIONER Secondary malignant neoplasm of bilateral lungs Metastatic malignant neoplasm to lung <Unspecified side> 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 Estrogen receptor negative status (ER-) Hypokalemia CT CHEST ABDOMEN PELVIS W CONTRAST Routine 08/08/2023 1:59 PM GAMING COMMISSIONER Secondary malignant neoplasm of bilateral lungs Metastatic malignant neoplasm to lung <Unspecified side> 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 Estrogen receptor negative status (ER-) POC CREATININE Routine 08/08/2023 1:37 PM GAMING COMMISSIONER XR CHEST 2 VW Routine 08/05/2023 10:25 AM GAMING COMMISSIONER Pleural effusion .CBC Routine 08/01/2023 1:21 PM GAMING COMMISSIONER 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 duct carcinoma, NOS of upper-inner quadrant of breast <Female; Right> PHOSPHORUS LEVEL Routine 08/01/2023 1:21 PM GAMING COMMISSIONER 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 duct carcinoma, NOS of upper-inner quadrant of breast <Female; Right> MAGNESIUM LEVEL Routine 08/01/2023 1:21 PM GAMING COMMISSIONER 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 duct carcinoma, NOS of upper-inner quadrant of breast <Female; Right> COMPLETE BLOOD COUNT W/ DIFFERENTIAL Routine 08/01/2023 1:21 PM GAMING COMMISSIONER 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 duct carcinoma, NOS of upper-inner quadrant of breast <Female; Right> COMPREHENSIVE METABOLIC PANEL Routine 08/01/2023 1:21 PM GAMING COMMISSIONER 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 duct carcinoma, NOS of upper-inner quadrant of breast <Female; Right> .CBC Routine 07/11/2023 11:50 AM GAMING COMMISSIONER 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 CREATININE Routine 07/11/2023 11:50 AM GAMING COMMISSIONER 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 COMPLETE BLOOD COUNT W/ DIFFERENTIAL Routine 07/11/2023 11:50 AM GAMING COMMISSIONER 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 XR CHEST 1 VW POST IMPLANT STAT 07/08/2023 10:56 AM GAMING COMMISSIONER [place] CENTRAL VENOUS PLACE EXCHANGE Routine 07/08/2023 10:13 AM GAMING COMMISSIONER Malignant neoplasm of upper-inner quadrant of right female breast VASCULAR ACCESS BUNDLE Routine 8:54 AM GAMING COMMISSIONER US GUIDANCE WITH EVAL OF POTENTIAL ACCESS SITES, REALTIME US VISUALIZATION OF VASC NEEDLE ENTRY 07/08/2023 8:39 AM GAMING COMMISSIONER Infiltrating duct carcinoma, NOS of upper-inner quadrant of breast <Female; Right> Special Needs PW @ 6:30 AM LEAL 4 F/M FLUORO GUIDANCE FOR CENTRAL VENOUS ACCESS DEVICE PLACEMENT, REPLACEMENT, OR REMOVAL 07/08/2023 8:39 AM GAMING COMMISSIONER Infiltrating duct carcinoma, NOS of upper-inner quadrant of breast <Female; Right> Special Needs PW @ 6:30 AM LEAL 4 F/M PORT-A-CATH PLACEMENT 07/08/2023 8:39 AM GAMING COMMISSIONER Infiltrating duct carcinoma, NOS of upper-inner quadrant of breast <Female; Right> Special Needs PW @ 6:30 AM LEAL 4 F/M INTRAOPERATIVE US STAT 07/08/2023 8:3 3 AM GAMING COMMISSIONER .CBC Routine 07/08/2023 7:03 AM GAMING COMMISSIONER 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 neoplasm to lung <Unspecified side> 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 Preoperative laboratory examination HEMOGLOBIN A1C Routine 07/08/2023 7:03 AM GAMING COMMISSIONER 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 neoplasm to lung <Unspecified side> 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 Preoperative laboratory examination ELECTROLYTE PANEL Routine 07/08/2023 7:0 3 AM GAMING COMMISSIONER 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 neoplasm to lung <Unspecified side> 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 Preoperative laboratory examination CREATININE Routine 07/08/2023 7:03 AM GAMING COMMISSIONER 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 neoplasm to lung <Unspecified side> 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 Preoperative laboratory examination COMPLETE BLOOD COUNT W/ DIFFERENTIAL Routine 07/08/2023 7:03 AM GAMING COMMISSIONER 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 neoplasm to lung <Unspecified side> 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 Preoperative laboratory examination BLOOD UREA NITROGEN Routine 07/08/2023 7 :03 AM GAMING COMMISSIONER 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 neoplasm to lung <Unspecified side> 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 Preoperative laboratory examination .CBC Routine 07/04/2023 10:10 AM GAMING COMMISSIONER 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 duct carcinoma, NOS of upper-inner quadrant of breast <Female; Right> PHOSPHORUS LEVEL Routine 07/04/2023 10:10 AM GAMING COMMISSIONER 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 duct carcinoma, NOS of upper-inner quadrant of breast <Female; Right> MAGNESIUM LEVEL Routine 07/04/2023 10:10 AM GAMING COMMISSIONER 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 duct carcinoma, NOS of upper-inner quadrant of breast <Female; Right> COMPLETE BLOOD COUNT W/ DIFFERENTIAL Routine 07/04/2023 10:10 AM GAMING COMMISSIONER 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 duct carcinoma, NOS of upper-inner quadrant of breast <Female; Right> COMPREHENSIVE METABOLIC PANEL Routine 07/04/2023 10:10 AM GAMING COMMISSIONER 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 duct carcinoma, NOS of upper-inner quadrant of breast <Female; Right> PULMONARY ULTRASOUND Routine 07/03/2023 12:15 PM GAMING COMMISSIONER Pleural effusion XR CHEST 2 VW Routine 07/03/2023 11:30 AM GAMING COMMISSIONER Pleural effusion .CBC Routine 06/27/2023 11:23 AM GAMING COMMISSIONER 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 duct carcinoma, NOS of upper-inner quadrant of breast <Female; Right> PHOSPHORUS LEVEL Routine 06/27/2023 11:23 AM GAMING COMMISSIONER 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 duct carcinoma, NOS of upper-inner quadrant of breast <Female; Right> MAGNESIUM LEVEL Routine 06/27/2023 11:23 AM GAMING COMMISSIONER 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 duct carcinoma, NOS of upper-inner quadrant of breast <Female; Right> COMPLETE BLOOD COUNT W/ DIFFERENTIAL Routine 06/27/2023 11:23 AM GAMING COMMISSIONER 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 duct carcinoma, NOS of upper-inner quadrant of breast <Female; Right> COMPREHENSIVE METABOLIC PANEL Routine 06/27/2023 11:23 AM GAMING COMMISSIONER 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 duct carcinoma, NOS of upper-inner quadrant of breast <Female; Right> .CBC Routine 06/17/2023 5:21 AM GAMING COMMISSIONER COMPREHENSIVE METABOLIC PANEL Routine 06/17/2023 5:21 AM GAMING COMMISSIONER NT PRO BNP Routine 06/17/2023 5:21 AM GAMING COMMISSIONER PHOSPHORUS LEVEL Routine 06/17/2023 5:21 AM GAMING COMMISSIONER MAGNESIUM LEVEL Routine 06/17/2023 5:21 AM GAMING COMMISSIONER COMPLETE BLOOD COUNT W/ DIFFERENTIAL Routine 06/17/2023 5:21 AM GAMING COMMISSIONER OSCILLATORY PEP Routine 06/16/2023 2:00 PM GAMING COMMISSIONER .CBC Routine 06/16/2023 9:33 AM GAMING COMMISSIONER COMPREHENSIVE METABOLIC PANEL Routine 06/16/2023 9:33 AM GAMING COMMISSIONER NT PRO BNP Routine 06/16/2023 9:33 AM GAMING COMMISSIONER PHOSPHORUS LEVEL Routine 06/16/2023 9:33 AM GAMING COMMISSIONER MAGNESIUM LEVEL Routine 06/16/2023 9:33 AM GAMING COMMISSIONER COMPLETE BLOOD COUNT W/ DIFFERENTIAL Routine 06/16/2023 9:33 AM GAMING COMMISSIONER OSCILLATORY PEP Routine 06/16/2023 8:00 AM GAMING COMMISSIONER OSCILLATORY PEP Routine 06/15/2023 8:00 PM GAMING COMMISSIONER OSCILLATORY PEP Routine 06/15/2023 2:00 PM GAMING COMMISSIONER OSCILLATORY PEP Routine 06/15/2023 8:00 AM GAMING COMMISSIONER .CBC Routine 06/15/2023 6:56 AM GAMING COMMISSIONER COMPREHENSIVE METABOLIC PANEL Routine 06/15/2023 6:56 AM GAMING COMMISSIONER NT PRO BNP Routine 06/15/2023 6:56 AM GAMING COMMISSIONER PHOSPHORUS LEVEL Routine 06/15/2023 6:56 AM GAMING COMMISSIONER MAGNESIUM LEVEL Routine 06/15/2023 6:56 AM GAMING COMMISSIONER COMPLETE BLOOD COUNT W/ DIFFERENTIAL Routine 06/15/2023 6:56 AM GAMING COMMISSIONER OSCILLATORY PEP Routine 06/15/2023 2:00 AM GAMING COMMISSIONER OSCILLATORY PEP Routine 06/14/2023 8:00 PM GAMING COMMISSIONER OSCILLATORY PEP Routine 06/14/2023 2:00 PM GAMING COMMISSIONER OSCILLATORY PEP Routine 06/14/2023 8:00 AM GAMING COMMISSIONER .CBC Routine 06/14/2023 6:37 AM GAMING COMMISSIONER COMPREHENSIVE METABOLIC PANEL Routine 06/14/2023 6:37 AM GAMING COMMISSIONER NT PRO BNP Routine 06/14/2023 6:37 AM GAMING COMMISSIONER PHOSPHORUS LEVEL Routine 06/14/2023 6:37 AM GAMING COMMISSIONER MAGNESIUM LEVEL Routine 06/14/2023 6:37 AM GAMING COMMISSIONER COMPLETE BLOOD COUNT W/ DIFFERENTIAL Routine 06/14/2023 6:37 AM GAMING COMMISSIONER OSCILLATORY PEP Routine 06/14/2023 2:00 AM GAMING COMMISSIONER OSCILLATORY PEP Routine 06/13/2023 8:00 PM GAMING COMMISSIONER OSCILLATORY PEP Routine 06/13/2023 2:00 PM GAMING COMMISSIONER OSCILLATORY PEP Routine 06/13/2023 8:00 AM GAMING COMMISSIONER .CBC Routine 06/13/2023 6:39 AM GAMING COMMISSIONER COMPREHENSIVE METABOLIC PANEL Routine 06/13/2023 6:39 AM GAMING COMMISSIONER NT PRO BNP Routine 06/13/2023 6:39 AM GAMING COMMISSIONER PHOSPHORUS LEVEL Routine 06/13/2023 6:39 AM GAMING COMMISSIONER MAGNESIUM LEVEL Routine 06/13/2023 6:39 AM GAMING COMMISSIONER COMPLETE BLOOD COUNT W/ DIFFERENTIAL Routine 06/13/2023 6:39 AM GAMING COMMISSIONER ECHOCARDIOGRAM 2D LIMITED - FOLLOW UP Routine 06/12/2023 3:16 PM GAMING COMMISSIONER OSCILLATORY PEP Routine 06/12/2023 8:00 AM GAMING COMMISSIONER .CBC Routine 06/12/2023 4:37 AM GAMING COMMISSIONER COMPREHENSIVE METABOLIC PANEL Routine 06/12/2023 4:37 AM GAMING COMMISSIONER NT PRO BNP Routine 06/12/2023 4:37 AM GAMING COMMISSIONER PHOSPHORUS LEVEL Routine 06/12/2023 4:37 AM GAMING COMMISSIONER MAGNESIUM LEVEL Routine 06/12/2023 4:37 AM GAMING COMMISSIONER COMPLETE BLOOD COUNT W/ DIFFERENTIAL Routine 06/12/2023 4:37 AM GAMING COMMISSIONER OSCILLATORY PEP Routine 06/12/2023 2:00 AM GAMING COMMISSIONER OSCILLATORY PEP Routine 06/11/2023 11:51 PM GAMING COMMISSIONER OSCILLATORY PEP Routine 06/11/2023 11:51 PM GAMING COMMISSIONER OSCILLATORY PEP Routine 06/11/2023 11:51 PM GAMING COMMISSIONER OSCILLATORY PEP PLUS POSITIVE AIRWAY PRESSURE (OPEP+PAP) Routine 06/11/2023 10:18 PM GAMING COMMISSIONER .CBC Routine 06/11/2023 6:17 AM GAMING COMMISSIONER NT PRO BNP Routine 06/11/2023 6:17 AM GAMING COMMISSIONER COMPLETE BLOOD COUNT W/ DIFFERENTIAL Routine 06/11/2023 6:17 AM GAMING COMMISSIONER COMPREHENSIVE METABOLIC PANEL Routine 06/11/2023 6:16 AM GAMING COMMISSIONER PHOSPHORUS LEVEL Routine 06/11/2023 6:16 AM GAMING COMMISSIONER MAGNESIUM LEVEL Routine 06/11/2023 6:16 AM GAMING COMMISSIONER OSCILLATORY PEP PLUS POSITIVE AIRWAY PRESSURE (OPEP+PAP) Routine 06/10/2023 12:00 PM GAMING COMMISSIONER OSCILLATORY PEP PLUS POSITIVE AIRWAY PRESSURE (OPEP+PAP) Routine 06/10/2023 8:00 AM GAMING COMMISSIONER .CBC Routine 06/10/2023 7:52 AM GAMING COMMISSIONER COMPREHENSIVE METABOLIC PANEL Routine 06/10/2023 7:52 AM GAMING COMMISSIONER NT PRO BNP Routine 06/10/2023 7:52 AM GAMING COMMISSIONER PHOSPHORUS LEVEL Routine 06/10/2023 7:52 AM GAMING COMMISSIONER MAGNESIUM LEVEL Routine 06/10/2023 7:52 AM GAMING COMMISSIONER COMPLETE BLOOD COUNT W/ DIFFERENTIAL Routine 06/10/2023 7:52 AM GAMING COMMISSIONER OSCILLATORY PEP PLUS POSITIVE AIRWAY PRESSURE (OPEP+PAP) Routine 06/10/2023 4:00 AM GAMING COMMISSIONER OSCILLATORY PEP PLUS POSITIVE AIRWAY PRESSURE (OPEP+PAP) Routine 06/10/2023 12:00 AM GAMING COMMISSIONER OSCILLATORY PEP PLUS POSITIVE AIRWAY PRESSURE (OPEP+PAP) Routine 06/09/2023 8:00 PM GAMING COMMISSIONER OSCILLATORY PEP PLUS POSITIVE AIRWAY PRESSURE (OPEP+PAP) Routine 06/09/2023 4:00 PM GAMING COMMISSIONER OSCILLATORY PEP PLUS POSITIVE AIRWAY PRESSURE (OPEP+PAP) Routine 06/09/2023 3:07 PM GAMING COMMISSIONER OSCILLATORY PEP PLUS POSITIVE AIRWAY PRESSURE (OPEP+PAP) Routine 06/09/2023 3:07 PM GAMING COMMISSIONER OSCILLATORY PEP PLUS POSITIVE AIRWAY PRESSURE (OPEP+PAP) Routine 06/09/2023 3:07 PM GAMING COMMISSIONER OSCILLATORY PEP PLUS POSITIVE AIRWAY PRESSURE (OPEP+PAP) Routine 06/09/2023 3:07 PM GAMING COMMISSIONER XR CHEST 1 VW Routine 06/09/2023 10:08 AM GAMING COMMISSIONER .CBC Routine 06/09/2023 7:19 AM GAMING COMMISSIONER COMPREHENSIVE METABOLIC PANEL Routine 06/09/2023 7:19 AM GAMING COMMISSIONER NT PRO BNP Routine 06/09/2023 7:19 AM GAMING COMMISSIONER PHOSPHORUS LEVEL Routine 06/09/2023 7:19 AM GAMING COMMISSIONER MAGNESIUM LEVEL Routine 06/09/2023 7:19 AM GAMING COMMISSIONER COMPLETE BLOOD COUNT W/ DIFFERENTIAL Routine 06/09/2023 7:19 AM GAMING COMMISSIONER .CBC Routine 06/08/2023 6:32 AM GAMING COMMISSIONER COMPREHENSIVE METABOLIC PANEL Routine 06/08/2023 6:32 AM GAMING COMMISSIONER NT PRO BNP Routine 06/08/2023 6:32 AM GAMING COMMISSIONER PHOSPHORUS LEVEL Routine 06/08/2023 6:32 AM GAMING COMMISSIONER MAGNESIUM LEVEL Routine 06/08/2023 6:32 AM GAMING COMMISSIONER COMPLETE BLOOD COUNT W/ DIFFERENTIAL Routine 06/08/2023 6:32 AM GAMING COMMISSIONER IR CHEST XRAY 1 VIEW 30 STAT 06/07/2023 6:30 PM GAMING COMMISSIONER PATHOLOGY BIOPSY INTERPRETATION Routine 06/07/2023 5:44 PM GAMING COMMISSIONER Pleural effusion Dyspnea Hyposmolality and/or hyponatremia 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 Acute respiratory failure with hypoxia Metastatic cancer to axillary lymph nodes Estrogen receptor positive status (ER+) Infiltrating duct carcinoma, NOS of upper-inner quadrant of breast <Female; Right> Metastatic malignant neoplasm to bone 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 neoplasm to lung <Unspecified side> 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 Advance care planning Human rhinovirus present DNR status Malignant pleural effusion Numbness of face 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 Hypertension Generalized muscle weakness Abnormality of gait, not otherwise specified Personal history of breast cancer IR CT GUIDED BIOPSY LUNG/MEDIASTINAL 60 Routine 06/07/2023 5:29 PM GAMING COMMISSIONER Personal history of breast cancer .CBC Routine 06/07/2023 6:40 AM GAMING COMMISSIONER COMPREHENSIVE METABOLIC PANEL Routine 06/07/2023 6:40 AM GAMING COMMISSIONER NT PRO BNP Routine 06/07/2023 6:40 AM GAMING COMMISSIONER PHOSPHORUS LEVEL Routine 06/07/2023 6:40 AM GAMING COMMISSIONER MAGNESIUM LEVEL Routine 06/07/2023 6:40 AM GAMING COMMISSIONER COMPLETE BLOOD COUNT W/ DIFFERENTIAL Routine 06/07/2023 6:40 AM GAMING COMMISSIONER CONFIRM ABORH TYPE Routine 06/07/2023 6: 40 AM GAMING COMMISSIONER OSCILLATORY PEP PLUS POSITIVE AIRWAY PRESSURE (OPEP+PAP) Routine 06/07/2023 2:[address] ABDOMEN PELVIS W WO CONTRAST Routine 06/06/2023 11:14 PM GAMING COMMISSIONER OSCILLATORY PEP PLUS POSITIVE AIRWAY PRESSURE (OPEP+PAP) Routine 06/06/2023 8:00 PM GAMING COMMISSIONER TYPE AND SCREEN Routine 06/06/2023 4:58 PM GAMING COMMISSIONER OSCILLATORY PEP PLUS POSITIVE AIRWAY PRESSURE (OPEP+PAP) Routine 06/06/2023 8:00 AM GAMING COMMISSIONER OSCILLATORY PEP PLUS POSITIVE AIRWAY PRESSURE (OPEP+PAP) Routine 06/06/2023 7:50 AM GAMING COMMISSIONER OSCILLATORY PEP PLUS POSITIVE AIRWAY PRESSURE (OPEP+PAP) Routine 06/06/2023 7:50 AM GAMING COMMISSIONER OSCILLATORY PEP PLUS POSITIVE AIRWAY PRESSURE (OPEP+PAP) Routine 06/06/2023 7:50 AM GAMING COMMISSIONER OSCILLATORY PEP PLUS POSITIVE AIRWAY PRESSURE (OPEP+PAP) Routine 06/06/2023 7:50 AM GAMING COMMISSIONER .CBC Routine 06/06/2023 4:47 AM GAMING COMMISSIONER COMPREHENSIVE METABOLIC PANEL Routine 06/06/2023 4:47 AM GAMING COMMISSIONER NT PRO BNP Routine 06/06/2023 4:47 AM GAMING COMMISSIONER PHOSPHORUS LEVEL Routine 06/06/2023 4:47 AM GAMING COMMISSIONER MAGNESIUM LEVEL Routine 06/06/2023 4:47 AM GAMING COMMISSIONER COMPLETE BLOOD COUNT W/ DIFFERENTIAL Routine 06/06/2023 4:47 AM GAMING COMMISSIONER OSCILLATORY PEP Routine 06/05/2023 10:02 AM GAMING COMMISSIONER OSCILLATORY PEP Routine 06/05/2023 10:02 AM GAMING COMMISSIONER OSCILLATORY PEP Routine 06/05/2023 10:02 AM GAMING COMMISSIONER OSCILLATORY PEP Routine 06/05/2023 10:02 AM GAMING COMMISSIONER .CBC Routine 06/05/2023 7:28 AM GAMING COMMISSIONER COMPREHENSIVE METABOLIC PANEL Routine 06/05/2023 7:28 AM GAMING COMMISSIONER NT PRO BNP Routine 06/05/2023 7:28 AM GAMING COMMISSIONER PHOSPHORUS LEVEL Routine 06/05/2023 7:28 AM GAMING COMMISSIONER MAGNESIUM LEVEL Routine 06/05/2023 7:28 AM GAMING COMMISSIONER COMPLETE BLOOD COUNT W/ DIFFERENTIAL Routine 06/05/2023 7:28 AM GAMING COMMISSIONER NM BONE SCAN WHOLE BODY Routine 06/04/2023 12:38 PM GAMING COMMISSIONER XR CHEST 1 VW PORTABLE Routine 8:32 AM GAMING COMMISSIONER .CBC Routine 06/04/2023 7:03 AM GAMING COMMISSIONER NT PRO BNP Routine 06/04/2023 7:03 AM GAMING COMMISSIONER PHOSPHORUS LEVEL Routine 06/04/2023 7:03 AM GAMING COMMISSIONER MAGNESIUM LEVEL Routine 06/04/2023 7:03 AM GAMING COMMISSIONER BASIC METABOLIC PANEL, CALCIUM TOTAL Routine 06/04/2023 7:03 AM GAMING COMMISSIONER COMPLETE BLOOD COUNT W/ DIFFERENTIAL Routine 06/04/2023 7:03 AM GAMING COMMISSIONER OSCILLATORY PEP PLUS POSITIVE AIRWAY PRESSURE (OPEP+PAP) Routine 06/04/2023 4:00 AM GAMING COMMISSIONER OSCILLATORY PEP PLUS POSITIVE AIRWAY PRESSURE (OPEP+PAP) Routine 06/03/2023 8:00 PM GAMING COMMISSIONER XR CHEST 1 VW STAT 06/03/2023 5:09 PM GAMING COMMISSIONER PULMONARY ULTRASOUND Routine 06/03/2023 3:50 PM GAMING COMMISSIONER INSERTION OF INDWELLING TUNNELED PLEURAL CATHETER WITH CUFF-RIGHT 06/03/2023 3:50 PM GAMING COMMISSIONER Pleural effusion URINALYSIS MICROSCOPIC EXAM Routine 06/03/2023 3:24 PM GAMING COMMISSIONER URINALYSIS WITH MICROSCOPIC IF INDICATED Routine 06/03/2023 3:24 PM GAMING COMMISSIONER URINE CULTURE Routine 06/03/2023 3:24 PM GAMING COMMISSIONER OSCILLATORY PEP PLUS POSITIVE AIRWAY PRESSURE (OPEP+PAP) Routine 06/03/2023 12:00 PM GAMING COMMISSIONER ECHOCARDIOGRAM 2D COMPLETE STAT 06/03/2023 10:07 AM GAMING COMMISSIONER OSCILLATORY PEP PLUS POSITIVE AIRWAY PRESSURE (OPEP+PAP) Routine 06/03/2023 8:00 AM GAMING COMMISSIONER HC PROCALCITONIN (PCT) Add-On 6:29 AM GAMING COMMISSIONER .CBC Routine 06/03/2023 6:29 AM GAMING COMMISSIONER NT PRO BNP Routine 06/03/2023 6:29 AM GAMING COMMISSIONER PHOSPHORUS LEVEL Routine 06/03/2023 6:29 AM GAMING COMMISSIONER MAGNESIUM LEVEL Routine 06/03/2023 6:29 AM GAMING COMMISSIONER BASIC METABOLIC PANEL, CALCIUM TOTAL Routine 06/03/2023 6:29 AM GAMING COMMISSIONER COMPLETE BLOOD COUNT W/ DIFFERENTIAL Routine 06/03/2023 6:29 AM GAMING COMMISSIONER APTT Routine 06/03/2023 6:29 AM GAMING COMMISSIONER OSCILLATORY PEP PLUS POSITIVE AIRWAY PRESSURE (OPEP+PAP) Routine 06/03/2023 12:01 AM GAMING COMMISSIONER OSCILLATORY PEP PLUS POSITIVE AIRWAY PRESSURE (OPEP+PAP) Routine 06/02/2023 8:00 PM GAMING COMMISSIONER OSCILLATORY PEP PLUS POSITIVE AIRWAY PRESSURE (OPEP+PAP) Routine 06/02/2023 12:00 PM GAMING COMMISSIONER OSCILLATORY PEP PLUS POSITIVE AIRWAY PRESSURE (OPEP+PAP) Routine 06/02/2023 8:00 AM GAMING COMMISSIONER VANCOMYCIN LEVEL TROUGH Timed Study 06/02/2023 5:31 AM GAMING COMMISSIONER .CBC Routine 06/02/2023 5:31 AM GAMING COMMISSIONER NT PRO BNP Routine 06/02/2023 5:31 AM GAMING COMMISSIONER CANCER ANTIGEN 27 29 Routine 06/02/2023 5:31 AM GAMING COMMISSIONER CARBOHYDRATE ANTIGEN 15-3 Routine 06/02/2023 5:31 AM GAMING COMMISSIONER CARCINOEMBRYONIC ANTIGEN Routine 06/02/2023 5:31 AM GAMING COMMISSIONER PHOSPHORUS LEVEL Routine 06/02/2023 5:31 AM GAMING COMMISSIONER MAGNESIUM LEVEL Routine 06/02/2023 5:31 AM GAMING COMMISSIONER BASIC METABOLIC PANEL, CALCIUM TOTAL Routine 06/02/2023 5:31 AM GAMING COMMISSIONER COMPLETE BLOOD COUNT W/ DIFFERENTIAL Routine 06/02/2023 5:31 AM GAMING COMMISSIONER OSMOLALITY Routine 06/02/2023 5:[address] HEAD WO CONTRAST Routine 06/02/2023 4 :45 AM GAMING COMMISSIONER OSCILLATORY PEP PLUS POSITIVE AIRWAY PRESSURE (OPEP+PAP) Routine 06/02/2023 4:00 AM GAMING COMMISSIONER OSCILLATORY PEP PLUS POSITIVE AIRWAY PRESSURE (OPEP+PAP) Routine 06/02/2023 12:01 AM CDT OSCILLATORY PEP PLUS POSITIVE AIRWAY PRESSURE (OPEP+PAP) Routine 06/01/2023 8:00 PM CDT OSCILLATORY PEP PLUS POSITIVE AIRWAY PRESSURE (OPEP+PAP) Routine 06/01/2023 4:00 PM CDT SODIUM URINE Routine 06/01/2023 12:17 PM CDT OSMOLALITY URINE Routine 06/01/2023 12:17 PM CDT OSCILLATORY PEP PLUS POSITIVE AIRWAY PRESSURE (OPEP+PAP) Routine 06/01/2023 12:[address] CHEST PULMONARY EMBOLISM W CONTRAST Routine 06/01/2023 9:55 AM CDT OSCILLATORY PEP PLUS POSITIVE AIRWAY PRESSURE (OPEP+PAP) Routine 06/01/2023 8:00 AM CDT MRSA SCREENING CULTURE Routine 7:35 AM CDT TROPONIN T Routine 06/01/2023 6:38 AM CDT VENOUS BLOOD GAS PLUS Routine 06/01/2023 6:38 AM CDT .CBC Routine 06/01/2023 6:38 AM CDT BASIC METABOLIC PANEL, CALCIUM TOTAL Routine 06/01/2023 6:38 AM CDT COMPLETE BLOOD COUNT W/ DIFFERENTIAL Routine 06/01/2023 6:38 AM CDT OSCILLATORY PEP PLUS POSITIVE AIRWAY PRESSURE (OPEP+PAP) Routine 06/01/2023 4:00 AM CDT XR CHEST 1 VW PORTABLE STAT 12:15 AM CDT EKG, 12-LEAD (PORTABLE) Routine 06/01/2023 OSCILLATORY PEP PLUS POSITIVE AIRWAY PRESSURE (OPEP+PAP) Routine 05/31/2023 8:00 PM CDT D DIMER Routine 05/31/2023 6:36 PM CDT APTT Routine 05/31/2023 6:36 PM CDT PROTHROMBIN TIME Routine 05/31/2023 6:36 PM CDT XR CHEST 1 VW PORTABLE STAT 4:45 PM CDT CYTOLOGY NON-SENIOR NET APPLICATION DEVELOPER INTERPRETATION Routine 05/31/2023 4:16 PM CDT Pleural effusion BODY FLUID DIFF PATH REVIEW Routine 05/31/2023 4:13 PM CDT BODY FLUID DIFFERENTIAL Routine 05/31/2023 4:13 PM CDT CELL COUNT BODY FLUID Routine 05/31/2023 4:13 PM CDT CELL COUNT W/ DIFF BODY FLUID Routine 05/31/2023 4:13 PM CDT LACTATE DEHYDROGENASE BODY FLUID Routine 05/31/2023 4:13 PM CDT AMYLASE LEVEL BODY FLUID Routine 05/31/2023 4:13 PM CDT GLUCOSE BODY FLUID Routine 05/31/2023 4: 13 PM CDT CHOLESTEROL BODY FLUID Routine 4:13 PM CDT TRIGLYCERIDE BODY FLUID Routine 05/31/2023 4:13 PM CDT PROTEIN BODY FLUID Routine 05/31/2023 4: 13 PM CDT BODY FLUID CULTURE W/ GRAM STAIN Routine 05/31/2023 4:13 PM CDT XR CHEST 1 VW Routine 05/31/2023 3:35 PM CDT BLOOD CULTURE Routine 05/31/2023 3:27 PM CDT OSCILLATORY PEP PLUS POSITIVE AIRWAY PRESSURE (OPEP+PAP) Routine 05/31/2023 3:20 PM CDT OSCILLATORY PEP PLUS POSITIVE AIRWAY PRESSURE (OPEP+PAP) Routine 05/31/2023 3:20 PM CDT OSCILLATORY PEP PLUS POSITIVE AIRWAY PRESSURE (OPEP+PAP) Routine 05/31/2023 3:20 PM CDT OSCILLATORY PEP PLUS POSITIVE AIRWAY PRESSURE (OPEP+PAP) Routine 05/31/2023 3:20 PM CDT OSCILLATORY PEP PLUS POSITIVE AIRWAY PRESSURE (OPEP+PAP) Routine 05/31/2023 3:20 PM CDT THYROID STIMULATING HORMONE Add-On 05/31/2023 3:12 PM CDT C REACTIVE PROTEIN Add-On 05/31/2023 3: 12 PM CDT HC PROCALCITONIN (PCT) Add-On 3:12 PM CDT LACTATE DEHYDROGENASE Add-On 05/31/2023 3:12 PM CDT .CBC STAT 05/31/2023 3:12 PM CDT NT PRO BNP STAT 05/31/2023 3:12 PM CDT COMPLETE BLOOD COUNT W/ DIFFERENTIAL STAT 05/31/2023 3:12 PM CDT CARDIAC PANEL STAT 05/31/2023 3:12 PM CDT PHOSPHORUS LEVEL Routine 05/31/2023 3:12 PM CDT MAGNESIUM LEVEL Routine 05/31/2023 3:12 PM CDT COMPREHENSIVE METABOLIC PANEL Routine 05/31/2023 3:12 PM CDT BLOOD CULTURE Routine 05/31/2023 3:12 PM CDT RESPIRATORY MULTIPLEX PCR PANEL, NASOPHARYNGEAL SWAB Routine 05/31/2023 2:45 PM CDT EKG, 12-LEAD (PORTABLE) STAT 05/31/2023 MAMMO DIGITAL DIAGNOSTIC BILATERAL W ODELL Routine 05/25/2023 10:37 AM CDT Infiltrating duct carcinoma, NOS of upper-inner quadrant of breast <Female; Right> after 10/01/2022 Results * (ABNORMAL) .CBC (09/12/2023 12:25 PM GAMING COMMISSIONER) Only the most recent of27 resultswithin the time period is included. White Blood Cell 5.1 4.1 - 10.5 K/uL 09/12/2023 12:30 PM GAMING COMMISSIONER [facility] Red Blood Cell 3.49(L) 3.99 - 5.46 M/uL 09/12/2023 12:30 PM GAMING COMMISSIONER [facility] Hemoglobin 10.9(L) 12.2 - 15.3 g/dL 09/12/2023 12:30 PM GAMING COMMISSIONER [facility] Hematocrit 34.2(L) 36.4 - 46.8 % 09/12/2023 12:30 PM GAMING COMMISSIONER [facility] Mean Cell Volume 98 82 - 99 fL 09/12/2023 12:30 PM [facility] Mean Cell Hemoglobin 31.2 26.6 - 33.2 pg 09/12/2023 12:30 PM [facility] Mean Cell Hemoglobin Concentration 31.9 31.1 - 35.2 g/dL 09/12/2023 12:30 PM [facility] RDW-SD 72.0(H) 37.5 - 49.7 fL 09/12/2023 12:30 PM [facility] Red Cell Diameter Width 19.9(H) 11.6 - 15.5 % 09/12/2023 12:30 PM [facility] Platelet 279 160 - 397 K/uL 09/12/2023 12:30 PM [facility] Mean Platelet Volume 9.3 9.1 - 12.6 fL 09/12/2023 12:30 PM [facility] INRBC 0.0 0.0 - 0.1 /100 WBC 09/12/2023 12:30 PM [facility] Comment: The INRBC (instrument NRBC) value reflects the enumeration of nucleated red blood cells contained in a 200uL sample of whole blood analyzed by the instrument. This value may differ from the NRBC value reported in a manual differential, which is based on a 100 cell differential. Neutrophil % 78.4(H) 43.2 - 72.7 % 09/12/2023 12:30 PM [facility] Lymphocyte % 8.9(L) 16.8 - 46.2 % 09/12/2023 12:30 PM [facility] Monocyte % 11.1 5.1 - 12.5 % 09/12/2023 12:30 PM [facility] Eosinophil % 0.6 0.4 - 6.3 % 09/12/2023 12:30 PM [facility] Basophil % 0.6 0.2 - 1.4 % 09/12/2023 12:30 PM [facility] IGRE % 0.4 0.1 - 1.5 % 09/12/2023 12:30 PM [facility] Comment:The IGRE% includes M etamyelocytes, Myelocytes and Promyelocytes. Neutrophil Abs 3.97 1.95 - 7.25 K/uL 09/12/2023 12:[address] [facility] Lymphocyte Abs 0.45(L) 1.01 - 3.24 K/uL 09/12/2023 12:30 PM [facility] Monocyte Abs 0.56 0.24 - 0.85 K/uL 09/12/2023 12:30 PM [facility] Eosinophil Abs 0.03 0.02 - 0.50 K/uL 09/12/2023 12:30 PM [facility] Basophil Abs 0.03 0.02 - 0.09 K/uL 09/12/2023 12:30 PM [facility] IG Abs 0.02 0.01 - 0.12 K/uL 09/12/2023 12:30 PM [facility] Blood Peripheral blood specimen / Unknown Venipuncture / Unknown 09/12/2023 12:25 PM GAMING COMMISSIONER 09/12/2023 12:27 PM GAMING COMMISSIONER Kaity Gilliland WILLOW ANALYST LAB BLOOD ORDERA [facility] Organization Address City/State/ZIP Co de Phone Number [facility] [address] [place] [address] * (ABNORMAL) Comprehensive Metabolic Panel (09/12/2023 12:25 PM GAMING COMMISSIONER) Only the most recent of20 resultswithin the time period is included. Bilirubin Total 0.4 <=1.2 mg/dL 09/12/2023 1:54 PM [facility] Comment:Indocyanine Green (I CG) may cause falsely elevated bilirubin results. Total and direct bilirubin must not be measured from samples containing indocyanine green. False elevation of total bilirubin can be seen in patients with IgG concentrations above 28 g/L. Bilirubin Direct 0.2 <=0.3 mg/dL 09/12/2023 1:54 PM [facility] Comment:Indocyanine Green (I CG) may cause falsely elevated bilirubin results. Total and direct bilirubin must not be measured from samples containing indocyanine green. Bilirubin Indirect 0.2 0.0 - 0.9 mg/dL 09/12/2023 1:54 PM [facility] eGFR 53(L) >=60 mL/min/1. 73 sq. m 09/12/2023 1:54 PM [facility] Comment: The eGFRcr is calculated with the 2020 CKD-EPI creatinine equation using creatinine, patient's age, and sex for adults 18 years of age and older. Other factors, especially muscle mass, may affect accuracy and need to be considered. According to the Kidney Disease: Improving Global Outcomes (KDIGO) CKD Work Group 2012 Clinical Practice Guideline, chronic kidney disease (CKD) is defined as the abnormalities of kidney structure or function, present for more than 3 months, with implications for health. CKD should be classified by cause, GFR category, and albuminuria category. KDIGO guidelines provide the following GFR categories. Stage / Description / GFR mL/min/1.73 m2: G1* / Normal or high / >= 90 G2* / Mildly decreased / 60-89 G3a / Mildly to moderately decreased / 45-59 G3b / Moderately to severely decreased / 30-44 G4 / Severely decreased / 15-29 G5 / Kidney failure / <15 *In the absence of evidence of kidney damage, neither G1 nor G2 fulfill criteria for CKD. Tot Protein 6.8 6.4 - 8.3 gm/dL 09/12/2023 1:54 PM GAMING COMMISSIONER [facility] Calcium Level Total 10.1 8.2 - 10.2 mg/dL 09/12/2023 1:54 PM GAMING COMMISSIONER [facility] Alkaline Phosphatase 199(H) 35 - 104 U/L 09/12/2023 1:54 PM GAMING COMMISSIONER [facility] Albumin Level 3.5 3.5 - 5.2 gm/dL 09/12/2023 1:54 PM GAMING COMMISSIONER [facility] AST 27 <=32 U/L 09/12/2023 1:54 PM GAMING COMMISSIONER [facility] ALT 9 <=33 U/L 09/12/2023 1:54 PM GAMING COMMISSIONER [facility] Sodium Level 137 136 - 145 mmol/L 09/12/2023 1:54 PM GAMING COMMISSIONER [facility] Potassium Level 4.3 3.4 - 4.5 mmol/L 09/12/2023 1:54 PM GAMING COMMISSIONER [facility] Chloride 96(L) 98 - 107 mmol/L 09/12/2023 1:54 PM GAMING COMMISSIONER [facility] CO2 31(H) 22 - 29 mmol/L 09/12/2023 1:54 PM GAMING COMMISSIONER [facility] Anion Gap 10 4 - 14 mmol/L 09/12/2023 1:54 PM GAMING COMMISSIONER [facility] Creatinine 1.08(H) 0.51 - 0.95 mg/dL 09/12/2023 1:54 PM [facility] BUN 22 6 - 23 mg/dL 09/12/2023 1:54 PM [facility] Glucose Level 100(H) 70 - 99 mg/dL 09/12/2023 1:54 PM [facility] Comment: Effective 02/22/16, the glucose reference intervals have been updated based on [place] [employer] guidelines (Standards of Medical Care in Diabetes 2016. Diabetes Care 2016; 39: S13-S22). Fasting blood glucose: Normal: 70-99 mg/dL Impaired fasting glucose (increased risk for diabetes or pre-diabetes): 100-125 mg/dL Diabetes mellitus: >/=126 mg/dL Random blood glucose: Normal: 70-199 mg/dL Note: Random glucose >100 mg/dL is associated with increased risk for diabetes. Blood Peripheral blood specimen / Unknown Venipuncture / Unknown 09/12/2023 12:25 PM GAMING COMMISSIONER 09/12/2023 12:26 PM GAMING COMMISSIONER Kaity Gilliland APRN LAB BLOOD ORDERA BLES Performing Organization Address City/[facility] Co de Phone Number [address] [place] [address] * (ABNORMAL) Magnesium Level (09/12/2023 12:25 PM GAMING COMMISSIONER) Only the most recent of23 resultswithin the time period is included. Magnesium Level 1.5(L) 1.6 - 2.6 mg/dL 09/12/2023 1:54 PM [facility] Blood Peripheral blood specimen / Unknown Venipuncture / Unknown 09/12/2023 12:25 PM GAMING COMMISSIONER 09/12/2023 12:26 PM GAMING COMMISSIONER Kaity Gilliland APRN LAB BLOOD ORDERA BLES Performing Organization Address City/[facility] Co de Phone Number [facility] [address] [place] [address]. [address] [place] [address] * Transfuse RBC:Transfusion Date: 08/29/2023 (08/29/2023 9:31 PM GAMING COMMISSIONER) Only the most recent of2 resultswithin the time period is included. Elizabeth Burrell MD BLOOD TRANSFUSION OR DERABLES * Type and screen (08/29/2023 8:45 AM GAMING COMMISSIONER) Only the most recent of2 resultswithin the time period is included. ABORh B POS 08/29/2023 8:18 AM GAMING COMMISSIONER [facility] ABSC Negative 08/29/2023 8:18 AM GAMING COMMISSIONER [facility] Clot Expiration 09/01/2023 23:59 08/29/2023 8:18 AM GAMING COMMISSIONER [facility] Historical Record Check Complete 08/29/2023 8:18 AM GAMING COMMISSIONER [facility] Blood Peripheral blood specimen / Unknown Venipuncture / Unknown 08/29/2023 8:45 AM GAMING COMMISSIONER 08/29/2023 8:48 AM GAMING COMMISSIONER Elizabeth Burrell MD BLOOD BANK TEST ORDE LEEANNA [facility] [address] [place] [address] * Prepare RBC:ATC Leal, 2 Units (08/27/2023 3:44 PM GAMING COMMISSIONER) Product Code [id number] [facility] Product Code Text Red Blood Cells [facility] QTY Ordered 2 [facility] Dispense Status Transfused [facility] Unit Expiration [id number] [facility] Unit Number [id number] [facility] Unit Blood Type B+ [facility] Bag Volume 308 [facility] XM Interpretation Compatible U [facility] Unit Blood Type Barcode 7300 [facility] Product Code [id number] [facility] Product Code Text Red Blood Cells [facility] QTY Ordered 2 [facility] Dispense Status Transfused [facility] Unit Expiration [id number] [facility] Unit Number [id number] [facility] Unit Blood Type B+ [facility] Bag Volume 294 [facility] XM Interpretation Compatible U [facility] Unit Blood Type Barcode 7300 [facility] RBC Product Status 1 RBC approved [facility] Comment:Order Form 03 when r lazaro for product issue. PRBC Product Ready For Night Supervisor B2 Blood Bank [facility] Blood Elizabeth Burrell MD BLOOD BANK PRODUCT O RDERABLES [facility] [address] [place] [address] * Blood Urea Nitrogen (08/21/2023 12:30 PM GAMING COMMISSIONER) Only the most recent of2 resultswithin the time period is included. BUN 13 6 - 23 mg/dL 08/21/2023 1:27 PM GAMING COMMISSIONER [facility] Blood Peripheral blood specimen / Unknown Venipuncture / Unknown 08/21/2023 12:30 PM GAMING COMMISSIONER 08/21/2023 12:41 PM GAMING COMMISSIONER Francois Santacruz MD LAB BLOOD ORDERABLES [facility] Unless otherwise noted, all lab tests performed by: Division of Pathology and Laboratory Medicine [address] [place] [id number] * ALT (08/21/2023 12:30 PM GAMING COMMISSIONER) ALT 10 <=33 U/L 08/21/2023 1:2 7 PM GAMING COMMISSIONER [facility] Blood Peripheral blood specimen / Unknown Venipuncture / Unknown 08/21/2023 12:30 PM GAMING COMMISSIONER 08/21/2023 12:41 PM GAMING COMMISSIONER Francois Santacruz MD LAB BLOOD ORDERABLES Performing Organization Address City/[facility]/ZIP Co de Phone Number [facility] Unless otherwise noted, all lab tests performed by: Division of Pathology and Laboratory Medicine [address] [place] [id number] * AST (08/21/2023 12:30 PM GAMING COMMISSIONER) AST 24 <=32 U/L 08/21/2023 1:2 7 PM GAMING COMMISSIONER [facility] Blood Peripheral blood specimen / Unknown Venipuncture / Unknown 08/21/2023 12:30 PM GAMING COMMISSIONER 08/21/2023 12:41 PM GAMING COMMISSIONER Francios Santacruz MD LAB BLOOD ORDERABLES Performing Organization Address [facility] Co de Phone Number [facility] Unless otherwise noted, all lab tests performed by: Division of Pathology and Laboratory Medicine [address] [place] [id number] * Potassium Level (08/21/2023 12:30 PM GAMING COMMISSIONER) Potassium Level 4.1 3.4 - 4.5 mmol/L 08/21/2023 1:27 PM GAMING COMMISSIONER [facility] Blood Peripheral blood specimen / Unknown Venipuncture / Unknown 08/21/2023 12:30 PM GAMING COMMISSIONER 08/21/2023 12:41 PM GAMING COMMISSIONER Narrative [facility] - 08/21/2023 1:27 PM GAMING COMMISSIONER Reference range established based on adult population Francois Santacruz MD LAB BLOOD ORDERABLES [facility] Unless otherwise noted, all lab tests performed by: Division of Pathology and Laboratory Medicine [address] [place] [id number] * (ABNORMAL) Alkaline phosphatase (08/21/2023 12:30 PM GAMING COMMISSIONER) Alkaline Phosphatase 204(H) 35 - 104 U/L 08/21/2023 1:27 PM GAMING COMMISSIONER [facility] Blood Peripheral blood specimen / Unknown Venipuncture / Unknown 08/21/2023 12:30 PM GAMING COMMISSIONER 08/21/2023 12:41 PM GAMING COMMISSIONER Francois Santacruz MD LAB BLOOD ORDERABLES [facility] Unless otherwise noted, all lab tests performed by: Division of Pathology and Laboratory Medicine [address] [place] [id number] * (ABNORMAL) Creatinine (08/21/2023 12:30 PM GAMING COMMISSIONER) Only the most recent of3 resultswithin the time period is included. Creatinine 1.03(H) 0.51 - 0.95 mg/dL 08/21/2023 1:27 PM GAMING COMMISSIONER [facility] eGFR 56(L) >=60 mL/min/1. 73 sq. m 08/21/2023 1:27 PM GAMING COMMISSIONER [facility] Comment: The eGFRcr is calculated with the 2020 CKD-EPI creatinine equation using creatinine, patient's age, and sex for adults 18 years of age and older. Other factors, especially muscle mass, may affect accuracy and need to be considered. According to the Kidney Disease: Improving Global Outcomes (KDIGO) CKD Work Group 2012 Clinical Practice Guideline, chronic kidney disease (CKD) is defined as the abnormalities of kidney structure or function, present for more than 3 months, with implications for health. CKD should be classified by cause, GFR category, and albuminuria category. KDIGO guidelines provide the following GFR categories. Stage / Description / GFR mL/min/1.73 m2: G1* / Normal or high / >= 90 G2* / Mildly decreased / 60-89 G3a / Mildly to moderately decreased / 45-59 G3b / Moderately to severely decreased / 30-44 G4 / Severely decreased / 15-29 G5 / Kidney failure / <15 *In the absence of evidence of kidney damage, neither G1 nor G2 fulfill criteria for CKD. Blood Peripheral blood specimen / Unknown Venipuncture / Unknown 08/21/2023 12:30 PM GAMING COMMISSIONER 08/21/2023 12:41 PM GAMING COMMISSIONER Francois Santacruz MD LAB BLOOD ORDERABLES [facility] Unless otherwise noted, all lab tests performed by: Division of Pathology and Laboratory Medicine [address] [place] [id number] * Bilirubin Total (08/21/2023 12:30 PM GAMING COMMISSIONER) Pathologist [facility] Bilirubin Total 0.6 <=1.2 mg/dL 08/21/2023 1:27 PM GAMING COMMISSIONER [facility] Blood Peripheral blood specimen / Unknown Venipuncture / Unknown 08/21/2023 12:30 PM GAMING COMMISSIONER 08/21/2023 12:41 PM GAMING COMMISSIONER Narrative [facility] - 08/21/2023 1:27 PM GAMING COMMISSIONER Infant/Children >/= 1 month Reference Ranges: 0 - 1.0 mg/dL Adult Reference Ranges: 0 - 1.2 mg/dL Indocyanine Green (ICG) may cause falsely elevated bilirubin results. Total and direct bilirubin must not be measured from samples containing indocyanine green. False elevation of total bilirubin can be seen in patients with IgG concentrations above 28 g/L. Francois Santacruz MD LAB BLOOD ORDERABLES [facility] Unless otherwise noted, all lab tests performed by: Division of Pathology and Laboratory Medicine [address] [place] [id number] * 3D Dental Imaging (iCAT) (08/21/2023 10:43 AM GAMING COMMISSIONER) Narrative Systemgenerated, Documentation - 08/21/2023 10:43 AM GAMING COMMISSIONER This procedure requires no interpretation from the radiologist. Bree Rodriguez DDS IM NON DI ORD ERABLES * (ABNORMAL) CA 27-29 (08/09/2023 12:41 PM GAMING COMMISSIONER) Only the most recent of2 resultswithin the time period is included. Pathologist [facility] Breast CA 27.29-Woo 185(H) <=38.0 U/mL 08/12/2023 12:00 PM GAMING COMMISSIONER [facility] ANTHONY Comment: ADDITIONAL INFORMATION The testing method is a chemiluminometric immunoassay manufactured by [employer] and performed on the [employer]'s Advia Centaur. Values obtained with different assay methods or kits may be different and cannot be used interchangeably. Test results cannot be interpreted as absolute evidence for the presence or absence of malignant disease. Test Performed by: [address] [address] Manager State: Guillermo Park M.D. Ph.D.; CLIA# [id number] Blood Peripheral blood specimen / Unknown Venipuncture / Unknown 08/09/2023 12:41 PM GAMING COMMISSIONER 08/09/2023 12:41 PM GAMING COMMISSIONER Kaity Gilliland APRN LAB BLOOD ORDERA BLES [facility] ANTHON[facility] * (ABNORMAL) Carbohydrate Antigen 15-3 (08/09/2023 12:41 PM GAMING COMMISSIONER) Only the most recent of2 resultswithin the time period is included. CA 15-3 142.9(H) <=25.0 U/mL 08/09/2023 1:18 PM GAMING COMMISSIONER [facility] Blood Peripheral blood specimen / Unknown Venipuncture / Unknown 08/09/2023 12:41 PM GAMING COMMISSIONER 08/09/2023 12:41 PM GAMING COMMISSIONER Narrative [facility] - 08/09/2023 1:18 PM GAMING COMMISSIONER Results greater than 2400.0 U/mL may not be reliable due to matrix effect with extended dilution as it exceeds the plaster caster's recommended limit. Caution should be exercised when interpreting such values and done in conjunction with clinical context. This test is measured by electrochemiluminescence immunoassay on Lazaro Luís immunoassay analyzers. Results obtained in different methods are not interchangeable. Kaity Gilliland APRN LAB BLOOD ORDERA BLES [facility] [address] [facility], [facility] [address] [place] [address] * (ABNORMAL) Differential (08/09/2023 12:41 PM GAMING COMMISSIONER) Total Cells 100 08/09/2023 1:08 PM [facility] Manual Neutrophil % 66.0 43.2 - 72.7 % 08/09/2023 1:08 PM [facility] Comment:The Neutrophil count includes Bands. Manual Lymphocyte % 21.0 16.8 - 46.2 % 08/09/2023 1:08 PM [facility] Manual Monocyte % 13.0(H) 5.1 - 12.5 % 08/09/2023 1:08 PM [facility] Metamyelocyte % 1:08 PM [facility] Comment:The Metamyelocyte co unt includes Myelocytes. Manual Neutrophil Abs 1.45(L) 1.95 - 7.25 K/uL 08/09/2023 1:08 PM [facility] Manual Lymphocyte Abs 0.46(L) 1.01 - 3.24 K/uL 08/09/2023 1:08 PM [facility] Manual Monocyte Abs 0.29 0.24 - 0.85 K/uL 08/09/2023 1:08 PM [facility] RBC Morphology PRESENT 08/09/2023 1:08 PM [facility] PLT Morph Normal Normal 08/09/2023 1:08 PM [facility] Anisocytosis Present(A) (none) 08/09/2023 1:08 PM [facility] Blood Peripheral blood specimen / Unknown Venipuncture / Unknown 08/09/2023 12:41 PM GAMING COMMISSIONER 08/09/2023 12:41 PM GAMING COMMISSIONER Kaity Gilliland WILLOW ANALYST LAB BLOOD ORDERA BLES [facility] [address] [facility], [facility] [address] [place] [address] * CT Chest Abdomen Pelvis with Contrast (08/08/2023 1:59 PM GAMING COMMISSIONER) Anatomical Region Laterality Modality Abdomen, Pelvis, Chest Computed Tomography 08/09/2023 3:53 PM GAMING COMMISSIONER Impressions 08/09/2023 4:42 PM GAMING COMMISSIONER 1. Interval decrease of small left pleural effusion and relatively unchanged appearance of moderate right pleural effusion. 2. Stable to marginally more prominent right basilar pleural thickening concerning for underlying metastatic disease when comparing to May 2023. 3. Similar appearance of nodular septal thickening. Some patchy airspace opacities are slightly smaller while some are slightly larger. 4. Interval worsening of bilobar hepatic metastatic disease with enlargement of some of the existing lesions and development of a some new lesions. 5. Unchanged right hepatic lobe giant hemangioma. 6. Few sclerotic lesions seen throughout the spine are slightly larger than in May 2023 and remain concerning for metastatic disease. ACTIONABLE ITEMS/RECOMMENDATIONS: None. Narrative 08/09/2023 4:42 PM GAMING COMMISSIONER FULL RESULT: Examination: CT CHEST ABDOMEN PELVIS W CONTRAST on 08/08/2023 1:59 PM. 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 Technique: CT CHEST ABDOMEN PELVIS W CONTRAST. Findings: CHEST: Lungs and Pleura: Similar appearance of moderate left pleural effusion and small right pleural effusion (previously moderate) with some loculated components. Suspected right basilar pleural thickening is stable to possibly more conspicuous. For example, focal area of nodular thickening measures 2.3 x 1.3 cm (6:97), previously 2.4 x 1.1 cm on 06/06/2023. Additional areas of nodularity are seen along the posterior pleura (for example 6:76). Pleural thickening along the anterior right lung base measures 2.8 cm (6:125), previously 2.5 cm on 06/06/2023. Similar appearance of interlobular septal thickening most prominent within the lung bases. Patchy airspace opacities predominantly along the periphery appears more conspicuous on the left (for example 1.21 cm left apical opacity, previously 1.4 cm) and less conspicuous on the right (for example 0.9 cm, previously 1.4 cm). Necks Mild peribronchial thickening is most apparent within the right lung base. No pleural effusion. Cardiomediastinum: The heart is normal in size. No pericardial effusion. Lymph nodes: No lymphadenopathy. Chest Wall: Redemonstration of postsurgical changes within the right breast with evidence of right axillary lymph node dissection. Previously described right breast seroma is no longer seen and there is residual stranding this region. Left IJ port catheter tip terminates in the distal SVC. ABDOMEN AND PELVIS: Hepatobiliary: Interval enlargement of metastatic lesions along the lateral hepatic segment and subcapsular margin. For example, the largest lesion in this region measures 1.5 cm (6:113), previously 1.1 cm. Immediately to this lesion there is a new 1.9 cm lesion (6:113). Interval enlargement of segment 2 lesion measuring 1.7 cm (6:130), previously 1.1 cm. Dominant suspicious metastatic lesion within the right hepatic lobe measures 3.1 cm, previously 1.8 cm. Interval development of multiple small lesions throughout the liver. For example 0.9 cm lesion in segment 4 (6:168). Another example includes a 2 subcentimeter lesions along anterior segment 4/8 (6:157). Grossly stable giant hemangioma within the right hepatic lobe measuring 10.3 cm. No biliary dilatation. No radiopaque cholelithiasis. Spleen: No splenomegaly. Pancreas: No mass or ductal dilatation. Adrenal Glands: Right adrenal gland is not clearly distinct delineated. Left adrenal is unremarkable. Kidneys, Ureters, Bladder: No hydronephrosis, nephrolithiasis or solid renal mass. Stable subcentimeter right lower renal pole cyst. Bladder is normal for the degree of distention. Gastrointestinal Tract: No obstruction. Normal appendix. Pelvic Organs: Uterus is absent. Peritoneum/Retroperitoneum: No ascites. Soft tissue attenuation at the transverse colon may be part of the transverse colon (favored) or represent soft tissue attenuation within the central mesentery measuring approximately 1.5 cm (6:195), previously this region measured approximately 1.6 cm in May 2023 and 1.7 cm in 2018. Lymph Nodes: No new suspicious lymphadenopathy. Vessels: Circumaortic configuration of the left renal vein. Patent main portal and splenic veins. MUSCULOSKELETAL: Unchanged sclerotic lesions along inferior T12 vertebral body measuring 1.2 cm and at the anterior L5 vertebral body measuring 0.9 cm. Both lesions are slightly larger when comparing to May 2023 (by approximately 1 to 2 mm). Slightly increased sclerotic lesion at T1 vertebral body measuring 1.3 cm, previously 1.0 cm. Few additional sclerotic foci within T6 vertebral body appear relatively stable. Procedure Note Ridge Stokes MD - 08/09/2023 FULL RESULT: Examination: CT CHEST ABDOMEN PELVIS W CONTRAST on 08/08/2023 1:59 PM. 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 Technique: CT CHEST ABDOMEN PELVIS W CONTRAST. Findings: CHEST: Lungs and Pleura: Similar appearance of moderate left pleural effusion andsmall right pleural effusion (previously moderate) with some loculatedcomponents. Suspected right basilar pleural thickening is stable topossibly more conspicuous. For example, focal area of nodular thickeningmeasures 2.3 x 1.3 cm (6:97), previously 2.4 x 1.1 cm on 06/06/2023.Additional areas of nodularity are seen along the posterior pleura (forexample 6:76). Pleural thickening along the anterior right lung basemeasures 2.8 cm (6:125), previously 2.5 cm on 06/06/2023. Similar appearance of interlobular septal thickening most prominent withinthe lung bases. Patchy airspace opacities predominantly along theperiphery appears more conspicuous on the left (for example 1.21 cm leftapical opacity, previously 1.4 cm) and less conspicuous on the right (forexample 0.9 cm, previously 1.4 cm). Necks Mild peribronchial thickening is most apparent within the right lungbase. No pleural effusion. Cardiomediastinum: The heart is normal in size. No pericardial effusion. Lymph nodes: No lymphadenopathy. Chest Wall: Redemonstration of postsurgical changes within the rightbreast with evidence of right axillary lymph node dissection. Previouslydescribed right breast seroma is no longer seen and there is residualstranding this region. Left IJ port catheter tip terminates in the distal SVC. ABDOMEN AND PELVIS: Hepatobiliary: Interval enlargement of metastatic lesions along thelateral hepatic segment and subcapsular margin. For example, the largestlesion in this region measures 1.5 cm (6:113), previously 1.1 cm.Immediately to this lesion there is a new 1.9 cm lesion (6:113). Interval enlargement of segment 2 lesion measuring 1.7 cm (6:130),previously 1.1 cm. Dominant suspicious metastatic lesion within the right hepatic lobemeasures 3.1 cm, previously 1.8 cm. Interval development of multiple small lesions throughout the liver. Forexample 0.9 cm lesion in segment 4 (6:168). Another example includes a 2subcentimeter lesions along anterior segment 4/8 (6:157). Grossly stable giant hemangioma within the right hepatic lobe [id number] cm. No biliary dilatation. No radiopaque cholelithiasis. Spleen: No splenomegaly. Pancreas: No mass or ductal dilatation. Adrenal Glands: Right adrenal gland is not clearly distinct delineated.Left adrenal is unremarkable. Kidneys, Ureters, Bladder: No hydronephrosis, nephrolithiasis or solidrenal mass. Stable subcentimeter right lower renal pole cyst. Bladder isnormal for the degree of distention. Gastrointestinal Tract: No obstruction. Normal appendix. Pelvic Organs: Uterus is absent. Peritoneum/Retroperitoneum: No ascites. Soft tissue attenuation at thetransverse colon may be part of the transverse colon (favored) orrepresent soft tissue attenuation within the central mesentery measuringapproximately 1.5 cm (6:195), previously this region measuredapproximately 1.6 cm in May 2023 and 1.7 cm in 2018. Lymph Nodes: No new suspicious lymphadenopathy. Vessels: Circumaortic configuration of the left renal vein. Patent mainportal and splenic veins. MUSCULOSKELETAL: Unchanged sclerotic lesions along inferior T12 vertebral body measuring1.2 cm and at the anterior L5 vertebral body measuring 0.9 cm. Bothlesions are slightly larger when comparing to May 2023 (byapproximately 1 to 2 mm). Slightly increased sclerotic lesion at T1 vertebral body measuring 1.3 cm,previously 1.0 cm. Few additional sclerotic foci within T6 vertebral bodyappear relatively stable. IMPRESSION: 1. Interval decrease of small left pleural effusion and relativelyunchanged appearance of moderate right pleural effusion. 2. Stable to marginally more prominent right basilar pleural thickeningconcerning for underlying metastatic disease when comparing to May2023. 3. Similar appearance of nodular septal thickening. Some patchy airspaceopacities are slightly smaller while some are slightly larger. 4. Interval worsening of bilobar hepatic metastatic disease withenlargement of some of the existing lesions and development of a some newlesions. 5. Unchanged right hepatic lobe giant hemangioma. 6. Few sclerotic lesions seen throughout the spine are slightly largerthan in May 2023 and remain concerning for metastatic disease. ACTIONABLE ITEMS/RECOMMENDATIONS: None. Kaity Gilliland APRN IMG CT ORDERABLE S * (ABNORMAL) POC Creatinine (08/08/2023 1:37 PM GAMING COMMISSIONER) POC Creatinine 1.0 0.6 - 1.3 mg/dL 08/08/2023 1:41 PM [facility] Comment:Medications, especia lly hydroxyurea or supplements, such as ascorbate, can interfere with test results causing a falsely and significantly higher result than expected. If a problem is suspected with a patient's result, a sample should be sent to the laboratory for confirmatory testing. POC eGFR 58(L) >=60 mL/min/1.7 3 sq. m 08/08/2023 1:41 PM [facility] Comment: The eGFRcr is calculated with the 2020 CKD-EPI creatinine equation using creatinine, patient's age, and sex for adults 18 years of age and older. Other factors, especially muscle mass, may affect accuracy and need to be considered. According to the Kidney Disease: Improving Global Outcomes (KDIGO) CKD Work Group 2012 Clinical Practice Guideline, chronic kidney disease (CKD) is defined as the abnormalities of kidney structure or function, present for more than 3 months, with implications for health. CKD should be classified by cause, GFR category, and albuminuria category. KDIGO guidelines provide the following GFR categories. Stage / Description / GFR mL/min/1.73 m2: G1* / Normal or high / >= 90 G2* / Mildly decreased / 60-89 G3a / Mildly to moderately decreased / 45-59 G3b / Moderately to severely decreased / 30-44 G4 / Severely decreased / 15-29 G5 / Kidney failure / <15 *In the absence of evidence of kidney damage, neither G1 nor G2 fulfill criteria for CKD. Blood 08/08/2023 1:37 PM GAMING COMMISSIONER 08/08/2023 1:41 PM GAMING COMMISSIONER Narrative [facility] - 08/08/2023 1:41 PM GAMING COMMISSIONER Method description: The i-STAT is an analyzer used for in vitro quantification of various analytes in whole blood. The device uses a single disposable cartridge which contains microfabricated sensors, a calibration solution, fluidics system, and a waste chamber. Each test cartridge contains chemically sensitive biosensors on a silicon chip that are configured to perform specific tests. The microfabricated sensors measure analyte concentration by an electrochemical assay. Kaity Gilliland APRN POCT ORDERABLES - DEVICE [facility] [address] [facility], [facility] [address] [place] [address] * X-ray Chest 2 Views (2 weeks) (08/05/2023 10:25 AM GAMING COMMISSIONER) Only the most recent of2 resultswithin the time period is included. Anatomical Region Laterality Modality Chest Digital Radiogra phy 08/05/2023 10:5 2 AM GAMING COMMISSIONER Impressions 08/05/2023 10:55 AM GAMING COMMISSIONER Stable effusions, slight improvement of airspace opacities and diffuse interstitial thickening, with extensive residual findings consistent with lymphangitis. ACTIONABLE ITEMS/RECOMMENDATIONS: None. Narrative 08/05/2023 10:55 AM GAMING COMMISSIONER FULL RESULT: Examination: XR CHEST 2 VW on 08/05/2023 10:25 AM. Clinical History: Pleural effusion Indication: Pleural Effusion Comparison: 07/08/2023 Technique: Posteroanterior, lateral and dual-energy radiographs of the chest Findings: Support Apparatus: Left-sided central venous access catheter tip projected over atriocaval junction. Lungs/Pleura/Mediastinum: Stable moderately large left-sided effusion and right-sided small loculated effusion. No pleural air. Persistent bibasilar passive atelectasis. Background interstitial and nodular abnormalities are suggestive of lymphangitis with slight improvement of diffuse thickening and associated airspace opacities. Procedure Note Sp Salas MD - 08/05/2023 FULL RESULT: Examination: XR CHEST 2 VW on 08/05/2023 10:25 AM. Clinical History: Pleural effusion Indication: Pleural Effusion Comparison: 07/08/2023 Technique: Posteroanterior, lateral and dual-energy radiographs of thechest Findings: Support Apparatus: Left-sided central venous access catheter tip projectedover atriocaval junction. Lungs/Pleura/Mediastinum: Stable moderately large left-sided effusion and right-sided smallloculated effusion. No pleural air. Persistent bibasilar passiveatelectasis. Background interstitial and nodular abnormalities aresuggestive of lymphangitis with slight improvement of diffuse thickeningand associated airspace opacities. IMPRESSION: Stable effusions, slight improvement of airspace opacities and diffuseinterstitial thickening, with extensive residual findings consistent withlymphangitis. ACTIONABLE ITEMS/RECOMMENDATIONS: None. Zeynep Diop APRN IMG DIAGNOSTIC IMAGI NG ORDERABLES * Phosphorus Level (08/01/2023 1:21 PM GAMING COMMISSIONER) Only the most recent of20 resultswithin the time period is included. Phosphorus Level 2.9 2.5 - 4.5 mg/dL 08/01/2023 1:44 PM GAMING COMMISSIONER [facility] Blood Venipuncture / Unknown 08/01/2023 1:21 PM GAMING COMMISSIONER 08/01/2023 1:21 PM GAMING COMMISSIONER Elizabeth Burrell MD LAB BLOOD ORDERABLES [facility] [address] [facility], [facility] [address] [place] [address] * XR Chest 1 View Post Implant (07/08/2023 10:56 AM GAMING COMMISSIONER) Anatomical Region Laterality Modality Chest Digital Radiogra phy 07/08/2023 11:0 0 AM GAMING COMMISSIONER Impressions 07/08/2023 11:01 AM GAMING COMMISSIONER Left IJ port catheter terminates in the right atrium. No pneumothorax. ACTIONABLE ITEMS/RECOMMENDATIONS: None. Narrative 07/08/2023 11:01 AM GAMING COMMISSIONER FULL RESULT: Examination: XR CHEST 1 VW POST IMPLANT on 07/08/2023 10:56 AM. 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 Right pleural drain has been removed in the interim. Lungs/Pleura/Mediastinum: No pneumothorax. Redemonstration of small pleural effusions. 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 Procedure Note Cristian Aldana MD - 07/08/2023 FULL RESULT: Examination: XR CHEST 1 VW POST IMPLANT on 07/08/2023 10:56 AM. Clinical History: Infiltrating duct carcinoma, NOS of upper-inner quadrantof breast <Female; Right> Indication: Check Central Line placement Comparison: 07/03/2023 Technique: Frontal radiograph of the chest Findings: Support Apparatus: A new left IJ port catheter terminates in the rightatrium. Right pleural drain has been removed in the interim. Lungs/Pleura/Mediastinum: No pneumothorax. Redemonstration of smallpleural effusions. Bilateral opacities, similar to slightly worse, aresuspected to represent a combination of infectious inflammatory processsuperimposed on lymphangitic carcinomatosis. IMPRESSION: Left IJ port catheter terminates in the right atrium. No pneumothorax. ACTIONABLE ITEMS/RECOMMENDATIONS: None. Josue MOROCHO DIAGNOSTIC IMAGI NG ORDERABLES * FL Central Venous Place Exchange (07/08/2023 10:13 AM GAMING COMMISSIONER) Narrative Systemgenerated, Documentation - 07/08/2023 10:15 AM GAMING COMMISSIONER This procedure requires no interpretation from the radiologist. Josue MOROCHO FLUOROSCOPY ORDE RABLES * Vascular Access Bundle (07/08/2023 8:54 AM GAMING COMMISSIONER) Narrative Josue Salinas MD - 07/08/2023 8:54 AM GAMING COMMISSIONER Josue Salinas MD 07/08/2023 10:47 AM [facility] Prevention Checklist -Hand hygiene performed prior to central venous catheter insertion. -Insertion site prepped and cleaned with aseptic technique (Sterile devices and equipment used. Doors closed and traffic minimized during procedure). -Insertion site prepped with chlorhexidine gluconate (Standard) -Skin prep agent completely dried prior to procedure. -Maximum sterile barriers used during central venous catheter insertion. -A sterile dressing placed over insertion site -Tip Verification: placement and tip verified by x-ray -Ready for use: central line is ready for use and in acceptable position Josue Salinas MD IV THERAPY ORDERABLE S * Intraoperative Ultrasound - For Image Storage (without Report) (07/08/2023 8:33 AM GAMING COMMISSIONER) Narrative Systemgenerated, Documentation - 07/08/2023 8:33 AM GAMING COMMISSIONER This procedure requires no interpretation from the radiologist. Josue Salinas MD IMG NON DI ORDERABLE S * (ABNORMAL) Hemoglobin A1c (07/08/2023 7:03 AM GAMING COMMISSIONER) Hemoglobin A1c 5.8(H) 4.3 - 5.6 % 07/08/2023 7:37 AM GAMING COMMISSIONER [facility] Blood Peripheral blood specimen / Unknown Venipuncture / Unknown 07/08/2023 7:03 AM GAMING COMMISSIONER 07/08/2023 7:14 AM GAMING COMMISSIONER Narrative [facility] - 07/08/2023 7:37 AM GAMING COMMISSIONER HbA1c values >=6.5% are diagnostic of diabetes mellitus. Diagnosis should be confirmed by repeat testing. Therapeutic Action suggested: >8.0% HbA1c; Goal of therapy: <7.0% HbA1c Susy VARGAS LAB BLOOD REGLA DURÁN [facility] Unless otherwise noted, all lab tests performed by: Division of Pathology and Laboratory Medicine [address] [place] [id number] * (ABNORMAL) Electrolyte Panel (07/08/2023 7:03 AM GAMING COMMISSIONER) Sodium Level 137 136 - 145 mmol/L 07/08/2023 7:47 AM GAMING COMMISSIONER [facility] Potassium Level 3.8 3.4 - 4.5 mmol/L 07/08/2023 7:47 AM [facility] Chloride 97(L) 98 - 107 mmol/L 07/08/2023 7:47 AM [facility] CO2 29 22 - 29 mmol/L 07/08/2023 7:47 AM [facility] Anion Gap 11 4 - 14 mmol/L 07/08/2023 7:47 AM [facility] Blood Peripheral blood specimen / Unknown Venipuncture / Unknown 07/08/2023 7:03 AM GAMING COMMISSIONER 07/08/2023 7:14 AM GAMING COMMISSIONER Susy VARGAS LAB BLOOD ORDE LEEANNA [facility] [address] [facility] [place] [address] * Pulmonary Ultrasound (Image Transfer) (07/03/2023 12:15 PM GAMING COMMISSIONER) Only the most recent of2 resultswithin the time period is included. Narrative Systemgenerated, Documentation - 07/03/2023 12:15 PM GAMING COMMISSIONER This procedure requires no interpretation from the radiologist. Zeynepashvin Diop WILLOW ANALYST IMG NON DI ORDERABLE S * NT-Pro BNP (In-House) (06/17/2023 5:21 AM GAMING COMMISSIONER) Only the most recent of17 resultswithin the time period is included. NT-ProBNP 372 <=450 pg/mL 06/17/2023 6:20 AM GAMING COMMISSIONER [facility] Blood Peripheral blood specimen / Unknown Venipuncture / Unknown 06/17/2023 5:21 AM GAMING COMMISSIONER 06/17/2023 5:40 AM GAMING COMMISSIONER Ivone Jitendra WILLOW ANALYST LAB BLOOD ORDERABLES [facility] Unless otherwise noted, all lab tests performed by: Division of Pathology and Laboratory Medicine [facility] [place] [address] * Echocardiogram 2D Limited - Follow Up (06/12/2023 3:16 PM GAMING COMMISSIONER) EF 57 ISCV 06/12/2023 1:50 PM GAMING COMMISSIONER Narrative ISCV - 06/12/2023 7:05 PM GAMING COMMISSIONER Echocardiographic Report Interpretation Summary A two-dimensional transthoracic echocardiogram was performed. Normal left ventricular size and systolic function. LV ejection fraction calculated using the bi-plane method of disks is 57 %. The right ventricle is normal in size and function. Atria are normal in size. Estimated RVSP is 31mmHg. Minimal pericardial effusion. Compared to the study dated on 06/03/2023, RVSP is now slightly lower. Otherwise, no significant changes. Left Ventricle: Normal left ventricular size and systolic function. Relative width thickness measures suggest concentric changes. LV ejection fraction calculated using the bi-plane method of disks is 57 %. The left ventricular wall motion is normal. I WMSI = 1.00 % Normal = 100 Strain -19.5 Segments Size X - Cannot 2 - 1-2 small Interpret 1 - Normal Hypokinetic 3 - Akinetic 4 - Dyskinetic3- 5 moderate 5 - Aneurysmal 6-14 large 15-16 diffuse 3D imaginD volumes were not performed in this study. Cardiac Mechanics/Speckle Tracking Imaging: Strain Imaging was performed; GLPS avg = -19.5%. Normal global longitudinal peak systolic value. Diastology: Tissue Doppler was not obtained. Right Ventricle: The right ventricle is normal in size and function. Normal RV systolic function using TAPSE criteria. Atria: Atria are normal in size. Mitral Valve: The mitral valve leaflets appear thickened, but open well. There is trace mitral regurgitation. Tricuspid Valve: The tricuspid valve is not well visualized, but is grossly normal. Estimated RVSP is 31mmHg. There is mild tricuspid regurgitation. Aortic Valve: The aortic valve is trileaflet. Pulmonic Valve: The pulmonic valve is not well visualized. Great Vessels: The aortic root is normal size. IVC is small, consistent with intravascular depletion. Pericardium/Pleural: Minimal pericardial effusion. MMode/2D Measurements IVSd: 1.00 cm LVIDd: 2.8 cm LVIDs: 2.0 cm LVPWd: 1.0 cm FS: 27.7 % Ao root diam: 2.9 cm Ao root area: 6.4 cm2 LA dimension: 2.2 cm LVOT diam: 1.9 cm EDV(MOD-A4C): 51.8 ml ESV(MOD-A4C): 20.9 ml LVOT area: 2.8 cm2 EF(MOD-A4C): 59.5 % EDV(MOD-A2C): 57.3 ml ESV(MOD-A2C): 25.1 ml EDV(MOD-bp): 55.5 ml EF(MOD-A2C): 56.2 % ESV(MOD-bp): 23.7 ml EF(MOD-bp): 57.2 % LAV(MOD-A2C): 20.0 ml IVC Diam Exp: 0.59 cm LAV(MOD-A4C): 34.7 ml IVC Diam Ins_phl: 0.23 cm LAV(MOD-bp): 27.0 ml LAV(MOD-bp) Indexed: 15.9 ml/m2 EDV (MOD-bp) Index: 32.7 ml/m2 ESV (MOD-bp) Index: 14.0 ml/m2 RWT: 0.73 cm TAPSE (>1.6): 1.8 cm Doppler Measurements Ao V2 max: 147.5 cm/sec LV V1 max P.9 mmHg Ao max P.7 mmHg LV V1 mean P.1 mmHg Ao V2 mean: 95.7 cm/sec LV V1 max: 149.4 cm/sec Ao mean P.3 mmHg LV V1 mean: 78.4 cm/sec Ao V2 VTI: 19.5 cm LV V1 VTI: 22.3 cm OSMANI(I,D): 3.2 cm2 OSMANI(V,D): 2.8 cm2 SV(LVOT): 62.0 ml TR max courtney: 261.2 cm/sec TR max P.3 mmHg RVSP(TR): 30.3 mmHg RAP systole: 3.0 mmHg OSMANI Index (I,D): 1.9 OSMANI Index (V,D): 1.7 Dimensionless Index: 1.0 Procedure Note Julienne Rivera MD - 06/12/2023 Echocardiographic Report Interpretation Summary A two-dimensional transthoracic echocardiogram was performed. Normal left ventricular size and systolic function. LV ejection fraction calculated using the bi-plane method of disks is 57%. The right ventricle is normal in size and function. Atria are normal in size. Estimated RVSP is 31mmHg. Minimal pericardial effusion. Compared to the study dated on 06/03/2023, RVSP is now slightly lower.Otherwise, no significant changes. Left Ventricle: Normal left ventricular size and systolic function. Relative widththickness measures suggest concentric changes. LV ejection fractioncalculated using the bi-plane method of disks is 57 %. The leftventricular wall motion is normal. I WMSI = 1.00 % Normal = 100 Strain -19.5 Segments Size X - Cannot 2 - 1-2small Interpret 1 - Normal Hypokinetic 3 - Akinetic 4 - Dyskinetic3-5moderate 5 - Aneurysmal6-14 large 15-16 diffuse 3D imaginD volumes were not performed in this study. Cardiac Mechanics/Speckle Tracking Imaging: Strain Imaging was performed; GLPS avg = -19.5%. Normal globallongitudinal peak systolic value. Diastology: Tissue Doppler was not obtained. Right Ventricle: The right ventricle is normal in size and function. Normal RV systolicfunction using TAPSE criteria. Atria: Atria are normal in size. Mitral Valve: The mitral valve leaflets appear thickened, but open well. There is tracemitral regurgitation. Tricuspid Valve: The tricuspid valve is not well visualized, but is grossly normal.Estimated RVSP is 31mmHg. There is mild tricuspid regurgitation. Aortic Valve: The aortic valve is trileaflet. Pulmonic Valve: The pulmonic valve is not well visualized. Great Vessels: The aortic root is normal size. IVC is small, consistent withintravascular depletion. Pericardium/Pleural: Minimal pericardial effusion. MMode/2D Measurements IVSd: 1.00 cmLVIDd: 2.8 cm LVIDs: 2.0 cm LVPWd: 1.0 cm FS: 27.7 %Ao root diam: 2.9 cm Ao root area: 6.4 cm2 LA dimension: 2.2 cm LVOT diam: 1.9 cmEDV(MOD-A4C): 51.8 ml ESV(MOD-A4C): 20.9 ml LVOT area: 2.8 cm2EF(MOD-A4C): 59.5 % EDV(MOD-A2C): 57.3 ml ESV(MOD-A2C): 25.1 mlEDV(MOD-bp): 55.5 ml EF(MOD-A2C): 56.2 %ESV(MOD-bp): 23.7 ml EF(MOD-bp): 57.2 % LAV(MOD-A2C): 20.0 mlIVC Diam Exp: 0.59 cm LAV(MOD-A4C): 34.7 mlIVC Diam Ins_phl: 0.23 cm LAV(MOD-bp): 27.0 ml LAV(MOD-bp) Indexed: 15.9 ml/m2 EDV (MOD-bp) Index: 32.7 ml/m2ESV (MOD-bp) Index: 14.0 ml/m2 RWT: 0.73 cmTAPSE (>1.6): 1.8 cm Doppler Measurements Ao V2 max: 147.5 cm/secLV V1 max P.9 mmHg Ao max P.7 mmHgLV V1 mean P.1 mmHg Ao V2 mean: 95.7 cm/secLV V1 max: 149.4 cm/sec Ao mean P.3 mmHgLV V1 mean: 78.4 cm/sec Ao V2 VTI: 19.5 cmLV V1 VTI: 22.3 cm OSMANI(I,D): 3.2 cm2 OSMANI(V,D): 2.8 cm2 SV(LVOT): 62.0 mlTR max courtney: 261.2 cm/sec TR max P.3 mmHg RVSP(TR): 30.3 mmHg RAP systole: 3.0 mmHgAVA Index (I,D): 1.9 OSMANI Index (V,D): 1.7Dimensionless Index: 1.0 Jorge Alberto Pablo MD CV ECHO ORDERABLE S ISCV * XR Chest 1 View (06/09/2023 10:08 AM GAMING COMMISSIONER) Only the most recent of3 resultswithin the time period is included. Anatomical Region Laterality Modality Chest Digital Radiogra phy 06/09/2023 10:3 4 AM GAMING COMMISSIONER Impressions 06/09/2023 10:37 AM GAMING COMMISSIONER Persistent bilateral pulmonary opacities likely related to pneumonia superimposed on underlying lymphangitic carcinomatosis. Stable pleural effusions ACTIONABLE ITEMS/RECOMMENDATIONS: None. Narrative 06/09/2023 10:37 AM GAMING COMMISSIONER FULL RESULT: Examination: XR CHEST 1 VW on 06/09/2023 10:08 AM. 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 Lungs/Pleura/Mediastinum: The cardiomediastinal silhouette is stable. Bilateral pulmonary opacities are unchanged. No significant change in pleural effusions Procedure Note Monse Cody MD - 06/09/2023 FULL RESULT: Examination: XR CHEST 1 VW on 06/09/2023 10:08 AM. Clinical History: Metastatic cancer to axillary lymph nodes, breastcancer Indication: Respiratory Failure, Negative COVID-19 Test Result Comparison: 06/07/2023 Technique: Frontal radiograph of the chest Findings: Support Apparatus: Right pleural drainage catheter remains in place. Lungs/Pleura/Mediastinum: The cardiomediastinal silhouette is stable.Bilateral pulmonary opacities are unchanged. No significant change inpleural effusions IMPRESSION: Persistent bilateral pulmonary opacities likely related to pneumoniasuperimposed on underlying lymphangitic carcinomatosis. Stable pleuraleffusions ACTIONABLE ITEMS/RECOMMENDATIONS: None. Iron Phipps MD IMG DIAGNOSTIC IMAGI NG ORDERABLES * IR CHEST XRAY 1 VIEW (06/07/2023 6:30 PM GAMING COMMISSIONER) Anatomical Region Laterality Modality Chest Digital Radiogra phy Narrative 06/13/2023 9:06 AM GAMING COMMISSIONER Date of Procedure: 06/07/23 Attending Physician: Basia Whitman MD General Dentist: None Pre Procedure Diagnosis: Post Procedure Diagnosis: Unchanged Indication: Evaluate stability of post-biopsy pneumothorax. Title of Procedure: Follow-up Chest X-Ray. A single inspiratory chest radiograph was obtained and compared to the prior exam. It demonstrated no pneumothorax. The remainder of the chest is stable. Disposition: PACU Plan: No further follow-up with IR required. The patient was discharged home in stable condition. 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] Acute respiratory failure with hypoxia [J96.01] Metastatic cancer to axillary lymph nodes [C77.3] Estrogen receptor positive status (ER+) [Z17.0] Infiltrating duct carcinoma, NOS of upper-inner quadrant of breast <Female; Right> [C50.211] Metastatic malignant neoplasm to bone [C79.51] 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 [C78.2] Metastatic malignant neoplasm to lung <Unspecified side> [C78.00] 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] Advance care planning [Z71.89] Human rhinovirus present [B34.8] DNR status [Z66] Malignant pleural effusion [J91.0] Numbness of face [R20.0] 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 See comment 06/11/2023 4:52 PM GAMING COMMISSIONER [facility] Comment Immunohistochemical stains show focal staining for TRPS and GATA3,. However, due to the scantiness of the tissue, immunohistochemical stains for keratin and TTF-1 are unreliable. If clinically indicated a new biopsy should be considered. 06/11/2023 4:52 PM [facility] Gross Description A: Mediastinum, anterior, right anterior mediastinum; w/biomarkers: Two johnson-white core biopsies measuring 0.1 and 0.5 cm in length with a diameter of less than 0.1 cm, entirely submitted in A1. GM 06/11/2023 4:52 PM [facility] Biomarker Block(s) A - tissue in not appropriate for biomarkers or molecular analysis. 06/11/2023 4:52 PM [facility] Disclaimer "Some tests reported here may have been developed and performance characteristics determined by [facility]. These tests have not been specifically cleared or approved by the U.S. Food and Drug Administration. If applicable, controls were reviewed and showed appropriate reactivity." 06/11/2023 4:52 PM [facility] Tissue (Mediastinum, Anterior) 06/07/2023 5:44 PM GAMING COMMISSIONER 06/10/2023 8:00 AM GAMING COMMISSIONER Vivian Alicia WILLOW ANALYST LAB PATHOLOGY ORD ERABLES [facility] [place] [address], [place] * IR CT GUIDED BIOPSY LUNG/MEDIASTINAL (06/07/2023 5:29 PM GAMING COMMISSIONER) Anatomical Region Laterality Modality Chest Other Narrative 06/08/2023 9:16 AM GAMING COMMISSIONER Date of Procedure: 06/07/23 Attending Physician: Jed Mueller MD General Dentist: None Pre Procedure Diagnosis: Personal history of breast cancer [[id number]] Post Procedure Diagnosis: Unchanged Indication: New mass / nodule for tissue diagnosis Protocol Number: N/A Title of Procedure: Percutaneous CT-Guided Biopsy Operative Findings: 1. Percutaneous image-guided biopsy of 1.0 cm midline anterior mediastinal lesion. 2. The follow-up chest x-rays show no evidence of pneumothorax Consent: The procedure, risks, indications and alternatives were explained. All questions were answered and informed consent was obtained. I have reviewed the history and physical dictated by the mid-level practitioner/fellow. Sedation/Anesthesia: Anesthesia provided by Anesthesia Department. Procedure in Detail: A time out was performed prior to the start of the procedure and the correct patient, procedure, presence of consent, site, and side were confirmed with all members of the team. With the patient in the supine position, the skin overlying the area of interest was prepped and draped in the usual sterile fashion. Lidocaine 1% was used for local anesthesia. Using an anterior approach under CT image-guidance, an 18 gauge needle was advanced down to the lesion in the midline lung. An image was obtained and placed into the medical record. Samples were obtained for evaluation. Sampling: Core Biopsy: A 20 gauge needle used to obtain samples for surgical pathology evaluation. Total number of samples: 3 Biosentry: Post-biopsy radiographs: The initial follow-up chest radiograph demonstrates: No pneumothorax. Specimens Disposition: Diagnostic Biopsy: The biopsy samples were submitted to pathology. Additional Comments: None Estimated Blood Loss: Minimal Immediate Complications: None Disposition: PACU Plan: No follow-up with Interventional Radiology required. I certify my physical presence at the time of the procedure. I personally reviewed the image(s) and the resident's/fellow's interpretation and agree with the written report. Vivian Vargas APRN IMG IR ORDERABLES * Confirm ABORh (06/07/2023 6:40 AM GAMING COMMISSIONER) ABORh Confirm B POS 06/06/2023 4:55 PM GAMING COMMISSIONER [facility] Blood Peripheral blood specimen / Unknown Venipuncture / Unknown 06/07/2023 6:40 AM GAMING COMMISSIONER 06/07/2023 7:00 AM GAMING COMMISSIONER Jess VARGAS BLOOD BANK TEST REGLA DURÁN [facility] [id number] [place] [address] * CT Abdomen Pelvis with and without Contrast (06/06/2023 11:14 PM GAMING COMMISSIONER) Anatomical Region Laterality Modality Abdomen, Pelvis Computed Tomogra phy 06/06/2023 11:5 8 PM GAMING COMMISSIONER Impressions 06/07/2023 7:06 AM GAMING COMMISSIONER 1. Bilateral pleural effusions and pleural thickening compatible with the known pleural disease. Right Pleural catheter is in place. 2. Scattered airspace opacities in the bilateral lung bases may represent pneumonia and may be correlated with chest CT findings. 3. Right hepatic lobe hemangioma has increased in size since the prior study of 2018. Multiple hepatic metastases are also seen. 4. New focus of sclerosis in the L5 vertebral body. Sclerosis also noted in the posterior inferior aspect of the L1 vertebral body. These findings are concerning for metastatic disease. ACTIONABLE ITEMS/RECOMMENDATIONS: See Impression I personally reviewed these image(s) along with the resident's/fellow's interpretations, certify that if a procedure was performed I was physically present, and agree with the final report. Narrative 06/07/2023 7:06 AM GAMING COMMISSIONER FULL RESULT: Examination: CT ABDOMEN PELVIS W WO CONTRAST on 06/06/2023 11:14 PM. 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 CT abdomen and pelvis ordered for staging. Indication: 78/F with recurrent breast ca with lymphangitic spread, for treatment recs Comparison: CT chest abdomen pelvis dated 07/24/2018. Technique: CT ABDOMEN PELVIS W WO CONTRAST. FINDINGS: Lower Thorax: Areas of pleural thickening are noted compatible with the known pleural metastases. Small bilateral pleural effusions with adjacent compressive atelectasis. Scattered airspace opacities at the bilateral lung bases that may represent pneumonia. Right pleural drain is in place. Small pericardial effusion. Hepatobiliary: Right hepatic lobe cavernous hemangioma has increased in size in the interim today measuring 10.6 cm, previously 9.4 cm. Additional less conspicuous hepatic hypodensities are compatible with metastatic disease. A freight representative lesion in the anterior right liver measures 1.8 cm (series 5 image 53). A lesion in the lateral left liver measures 1.2 cm (series 5 image 62). No biliary dilatation. No cholecystitis. Spleen: No splenomegaly. Pancreas: No mass or ductal dilatation. Adrenal Glands: No mass. Kidneys, Ureters, Bladder: No hydronephrosis. No renal masses seen. No bladder mass. Normal contrast excretion on delayed phase imaging. Gastrointestinal Tract: No obstruction. Pelvic Organs: The uterus is surgically absent. Peritoneum/Retroperitoneum: No ascites. Lymph Nodes: No lymphadenopathy. Musculoskeletal: Stable sclerotic lesion within the left iliac bone. Multilevel degenerative changes. Sclerotic lesion within the anterior aspect of the L5 vertebral body appears new when compared to prior CT dated 07/24/2018. Sclerosis is also seen at the posterior inferior aspect of the L1 vertebral body, new when compared to prior CT dated 07/24/2018, possibly metastatic. Procedure Note Maura Carlson MD - 06/07/2023 FULL RESULT: Examination: CT ABDOMEN PELVIS W WO CONTRAST on 06/06/2023 11:14 PM. Clinical History: 78-year-old female with history of intraductal carcinomawith recurrence and known pleural and likely osseous metastases. CTabdomen and pelvis ordered for staging. Indication: 78/F with recurrent breast ca with lymphangitic spread, fortreatment recs Comparison: CT chest abdomen pelvis dated 07/24/2018. Technique: CT ABDOMEN PELVIS W WO CONTRAST. FINDINGS: Lower Thorax: Areas of pleural thickening are noted compatible with theknown pleural metastases. Small bilateral pleural effusions with adjacentcompressive atelectasis. Scattered airspace opacities at the bilaterallung bases that may represent pneumonia. Right pleural drain is in place.Small pericardial effusion. Hepatobiliary: Right hepatic lobe cavernous hemangioma has increased insize in the interim today measuring 10.6 cm, previously 9.4 cm. Additionalless conspicuous hepatic hypodensities are compatible with metastaticdisease. A freight representative lesion in the anterior right liver measures 1.8cm (series 5 image 53). A lesion in the lateral left liver measures 1.2 cm(series 5 image 62). No biliary dilatation. No cholecystitis. Spleen: No splenomegaly. Pancreas: No mass or ductal dilatation. Adrenal Glands: No mass. Kidneys, Ureters, Bladder: No hydronephrosis. No renal masses seen. Nobladder mass. Normal contrast excretion on delayed phase imaging. Gastrointestinal Tract: No obstruction. Pelvic Organs: The uterus is surgically absent. Peritoneum/Retroperitoneum: No ascites. Lymph Nodes: No lymphadenopathy. Musculoskeletal: Stable sclerotic lesion within the left iliac bone.Multilevel degenerative changes. Sclerotic lesion within the anterioraspect of the L5 vertebral body appears new when compared to prior CTdated 07/24/2018. Sclerosis is also seen at the posterior inferior aspectof the L1 vertebral body, new when compared to prior CT dated 07/24/2018,possibly metastatic. IMPRESSION: 1. Bilateral pleural effusions and pleural thickening compatible with theknown pleural disease. Right Pleural catheter is in place. 2. Scattered airspace opacities in the bilateral lung bases may representpneumonia and may be correlated with chest CT findings. 3. Right hepatic lobe hemangioma has increased in size since the priorstudy of 2018. Multiple hepatic metastases are also seen. 4. New focus of sclerosis in the L5 vertebral body. Sclerosis also notedin the posterior inferior aspect of the L1 vertebral body. These findingsare concerning for metastatic disease. ACTIONABLE ITEMS/RECOMMENDATIONS: See Impression I personally reviewed these image(s) along with the resident's/fellow'sinterpretations, certify that if a procedure was performed I wasphysically present, and agree with the final report. Vivian Alicia WILLOW ANALYST [facility] CT ORDERABLES * NM Bone Scan Whole Body (06/04/2023 12:38 PM GAMING COMMISSIONER) Anatomical Region Laterality Modality Whole Body Nuclear Medicine 06/04/2023 12:5 8 PM GAMING COMMISSIONER Impressions 06/04/2023 1:21 PM GAMING COMMISSIONER 1. A small focus of avid radiotracer uptake in the posterior left 9th rib at the costovertebral junction is new since previous bone scan in 2018, which does not have abnormal CT correlation. This uptake is not specific and may be reactive. 2. No other evidence of osseous metastatic disease. No suspicious radiotracer uptake is seen in the thoracic spine to correlate with sclerotic lesions seen on the CT exam. ACTIONABLE ITEMS/RECOMMENDATIONS: None. Narrative 06/04/2023 1:21 PM GAMING COMMISSIONER FULL RESULT: Examination: Whole-Body Bone Scan, 06/04/2023 12:38 PM Clinical History: A 78-year-old female with newly diagnosed metastatic breast cancer. Indication: To evaluate for osseous metastatic disease. Comparison: CT chest on 06/01/2023. NM bone scan on 07/28/2018. Technique: Following the intravenous administration of 22 mCi of technetium-99m MDP, anterior and posterior delayed whole body planar images were acquired. Findings: There is expected and normal biodistribution of radiotracer uptake in the axial and appendicular skeleton. Physiologic uptake and excretion are seen in the kidneys and bladder. A small focus of increased uptake is seen in the left posterior 9th rib at the costovertebral junction, which is new since previous bone scan in 2018. This does not have abnormal correlation on the recent CT chest exam. No other focal abnormal radiotracer uptake is seen to suggest osseous metastatic disease. In particular, no suspicious radiotracer uptake is seen in the thoracic spine to correlate with the sclerotic lesions seen on the CT exam. Multiple foci of mildly increased radiotracer uptake are seen including multiple levels of thoracolumbar spine, and knees, consistent with degenerative changes. Procedure Note Pepe Matta MD - 06/04/2023 FULL RESULT: Examination: Whole-Body Bone Scan, 06/04/2023 12:38 PM Clinical History: A 78-year-old female with newly diagnosed metastaticbreast cancer. Indication: To evaluate for osseous metastatic disease. Comparison: CT chest on 06/01/2023. NM bone scan on 07/28/2018. Technique: Following the intravenous administration of 22 mCi oftechnetium-99m MDP, anterior and posterior delayed whole body planarimages were acquired. Findings: There is expected and normal biodistribution of radiotracer uptake in theaxial and appendicular skeleton. Physiologic uptake and excretion are seenin the kidneys and bladder. A small focus of increased uptake is seen in the left posterior 9th rib atthe costovertebral junction, which is new since previous bone scan [id number]. This does not have abnormal correlation on the recent CT chest exam. No other focal abnormal radiotracer uptake is seen to suggest osseousmetastatic disease. In particular, no suspicious radiotracer uptake isseen in the thoracic spine to correlate with the sclerotic lesions seen onthe CT exam. Multiple foci of mildly increased radiotracer uptake are seen includingmultiple levels of thoracolumbar spine, and knees, consistent withdegenerative changes. IMPRESSION: 1. A small focus of avid radiotracer uptake in the posterior left 9th ribat the costovertebral junction is new since previous bone scan in 2018,which does not have abnormal CT correlation. This uptake is not specificand may be reactive. 2. No other evidence of osseous metastatic disease. No suspiciousradiotracer uptake is seen in the thoracic spine to correlate withsclerotic lesions seen on the CT exam. ACTIONABLE ITEMS/RECOMMENDATIONS: None. Kayla Gabriel WILLOW ANALYST IMG NM ORDERABLE S * XR Chest 1 View Portable (06/04/2023 8:32 AM GAMING COMMISSIONER) Only the most recent of3 resultswithin the time period is included. 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 Malignant pleural effusions. ACTIONABLE ITEMS/RECOMMENDATIONS: See IMPRESSION Narrative 06/04/2023 9:23 AM GAMING COMMISSIONER FULL RESULT: Examination: XR CHEST 1 VW PORTABLE on 06/04/2023 8:32 AM. 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 Lungs/Pleura/Mediastinum: The lung inflation is similar to the previous study. Again seen is diffuse reticular opacity compatible with known lymphangitic carcinomatosis. Nodular and patchy opacities are also unchanged. Bilateral pleural effusions are partially loculated. No pneumothorax. Other: Surgical clips in the right chest wall from right segmental mastectomy and axillary brenda dissection. Procedure Note Rosa Maria Vanegas MD - 06/04/2023 FULL RESULT: Examination: XR CHEST 1 VW PORTABLE on 06/04/2023 8:32 AM. Clinical History: Infiltrating duct carcinoma of upper inner quadrant ofright female breast Indication: Shortness of breath, Pleural effusion, Negative COVID-19 TestResult, Acute respiratory failure with hypoxia Comparison: Chest portable 06/03/2023 at 1656 [address] CT chest 06/01/2023 Technique: Frontal radiograph of the chest Findings: Support Apparatus: Right tunneled pleural catheter is unchanged.. Lungs/Pleura/Mediastinum: The lung inflation is similar to the previousstudy. Again seen is diffuse reticular opacity compatible with knownlymphangitic carcinomatosis. Nodular and patchy opacities are alsounchanged. Bilateral pleural effusions are partially loculated. Nopneumothorax. Other: Surgical clips in the right chest wall from right segmentalmastectomy and axillary brenda dissection. IMPRESSION: Atelectasis and/or pneumonia superimposed upon lymphangiticcarcinomatosis. Malignant pleural effusions. ACTIONABLE ITEMS/RECOMMENDATIONS: See IMPRESSION Vivian Alicia WILLOW ANALYST IMG DIAGNOSTIC IM AGING ORDERABLES * (ABNORMAL) Basic Metabolic Panel- Total Calcium (06/04/2023 7:03 AM GAMING COMMISSIONER) Only the most recent of4 resultswithin the time period is included. eGFR 53(L) >=60 mL/min/1. 73 sq. m 06/04/2023 7:47 AM GAMING COMMISSIONER [facility] Comment: The eGFRcr is calculated with the 2020 CKD-EPI creatinine equation using creatinine, patient's age, and sex for adults 18 years of age and older. Other factors, especially muscle mass, may affect accuracy and need to be considered. According to the Kidney Disease: Improving Global Outcomes (KDIGO) CKD Work Group 2012 Clinical Practice Guideline, chronic kidney disease (CKD) is defined as the abnormalities of kidney structure or function, present for more than 3 months, with implications for health. CKD should be classified by cause, GFR category, and albuminuria category. KDIGO guidelines provide the following GFR categories. Stage / Description / GFR mL/min/1.73 m2: G1* / Normal or high / >= 90 G2* / Mildly decreased / 60-89 G3a / Mildly to moderately decreased / 45-59 G3b / Moderately to severely decreased / 30-44 G4 / Severely decreased / 15-29 G5 / Kidney failure / <15 *In the absence of evidence of kidney damage, neither G1 nor G2 fulfill criteria for CKD. Calcium Level Total 9.3 8.2 - 10.2 mg/dL 06/04/2023 7:47 AM GAMING COMMISSIONER [facility] Comment:This result was prev iously suppressed from the chart. Sodium Level 136 136 - 145 mmol/L 06/04/2023 7:47 AM GAMING COMMISSIONER [facility] Comment:This result was prev iously suppressed from the chart. Potassium Level 4.0 3.4 - 4.5 mmol/L 06/04/2023 7:47 AM [facility] Comment:This result was prev iously suppressed from the chart. Chloride 97(L) 98 - 107 mmol/L 06/04/2023 7:47 AM [facility] Comment:This result was prev iously suppressed from the chart. CO2 31(H) 22 - 29 mmol/L 06/04/2023 7:47 AM [facility] Comment:This result was prev iously suppressed from the chart. Anion Gap 8 4 - 14 mmol/L 06/04/2023 7:47 AM [facility] Comment:This result was prev iously suppressed from the chart. Creatinine 1.08(H) 0.51 - 0.95 mg/dL 06/04/2023 7:47 AM [facility] Comment:This result was prev iously suppressed from the chart. BUN 26(H) 6 - 23 mg/dL 06/04/2023 7:47 AM [facility] Comment:This result was prev iously suppressed from the chart. Glucose Level 108(H) 70 - 99 mg/dL 06/04/2023 7:47 AM [facility] Comment: Effective 02/22/16, the glucose reference intervals have been updated based on [place] Diabetes [employer] guidelines (Standards of Medical Care in Diabetes 2016. Diabetes Care 2016; 39: S13-S22). Fasting blood glucose: Normal: 70-99 mg/dL Impaired fasting glucose (increased risk for diabetes or pre-diabetes): 100-125 mg/dL Diabetes mellitus: >/=126 mg/dL Random blood glucose: Normal: 70-199 mg/dL Note: Random glucose >100 mg/dL is associated with increased risk for diabetes. This result was previously suppressed from the chart. Blood Peripheral blood specimen / Unknown Venipuncture / Unknown 06/04/2023 7:03 AM GAMING COMMISSIONER 06/04/2023 7:10 AM [facility] Fermin Pham MD LAB BLOOD ORDERABLES [facility] Unless otherwise noted, all lab tests performed by: Division of Pathology and Laboratory Medicine [address] [place] [id number] * (ABNORMAL) Urinalysis Microscopic Exam (06/03/2023 3:24 PM GAMING COMMISSIONER) [facility] Urine Mucous Not Seen Not Seen, Trace /HPF 06/03/2023 5:16 PM GAMING COMMISSIONER [facility] Urine Bacteria Not Seen Not Seen /HPF 06/03/2023 5:16 PM GAMING COMMISSIONER [facility] Urine Squamous Epithelial Cells OCC Not Seen, OCC, Rare /HPF 06/03/2023 5:16 PM GAMING COMMISSIONER [facility] UA Transitional Epi OCC(A) Not Seen, <1 /HPF 06/03/2023 5:16 PM GAMING COMMISSIONER [facility] Urine WBC 1 <=2 /HPF 06/03/2023 5:16 PM GAMING COMMISSIONER [facility] Urine RBC <1 <=2 /HPF 06/03/2023 5:16 PM GAMING COMMISSIONER [facility] Urine Voided urine specimen / Unknown Non-blood Collection / Unknown 06/03/2023 3:24 PM GAMING COMMISSIONER 06/03/2023 3:33 PM GAMING COMMISSIONER Ivone Ham APRN LAB BLOOD ORDERABLES [facility] Unless otherwise noted, all lab tests performed by: Division of Pathology and Laboratory Medicine [address] [place] [id number] * (ABNORMAL) Urinalysis w/Microscopic if Indicated (06/03/2023 3:24 PM GAMING COMMISSIONER) [facility] Urine Appearance Hazy(A) Clear 06/03/20 3:45 PM GAMING COMMISSIONER [facility] Urine Color Straw-Yellow Colorless, Straw, Yellow, Dark Yellow, Straw-Yello w 06/03/2023 3:45 PM GAMING COMMISSIONER [facility] Urine Specific Sherman 1.017 1.003 - 1.035 06/03/2023 3:45 PM GAMING COMMISSIONER [facility] Urine pH 6.0 5.0 - 9.0 06/03/2023 3:45 PM GAMING COMMISSIONER [facility] Urine Glucose Negative Negative mg/dL 06/03/2023 3:45 PM GAMING COMMISSIONER [facility] Urine Ketones Trace(A) Negative mg/dL 06/03/2023 3:45 PM GAMING COMMISSIONER [facility] Urine Blood Small(A) Negative 06/03/2023 3:45 PM GAMING COMMISSIONER [facility] Urine Protein 30(A) Negative mg/dL 06/03/2023 3:45 PM GAMING COMMISSIONER [facility] Urine Bilirubin Negative Negative 3:45 PM GAMING COMMISSIONER [facility] Urine Urobilinogen Negative Negative 06/03/2023 3:45 PM GAMING COMMISSIONER [facility] Urine Nitrite Negative Negative 06/03/2023 3:45 PM GAMING COMMISSIONER [facility] Urine Leukocyte Esterase Negative Negative 06/03/2023 3:45 PM GAMING COMMISSIONER [facility] Urine Voided urine specimen / Unknown Non-blood Collection / Unknown 06/03/2023 3:24 PM GAMING COMMISSIONER 06/03/2023 3:33 PM GAMING COMMISSIONER Narrative [facility] - 06/03/2023 3:45 PM GAMING COMMISSIONER Some reporting parameters within the Urinalysis test have changed due to the implementation of new instrumentation in the Main [place], allowing greater sensitivity of measurement. Urinalysis results reported by the [facility] using existing instrumentation, as well as Urinalysis testing performed manually or by back-up methodology at the main [place], will remain relatively unchanged. New reporting parameters and units will now be reported for all campuses. Ivone Ham APRN URINE ORDERABLES Performing Organization Address City/[facility]/ZIP Co de Phone Number [facility] Unless otherwise noted, all lab tests performed by: Division of Pathology and Laboratory Medicine [address] [place] [phone] * Urine Culture (06/03/2023 3:24 PM GAMING COMMISSIONER) Urine Culture No Growth. 06/05/2023 9:56 AM GAMING COMMISSIONER [facility] Urine Voided urine specimen / Unknown Non-blood Collection / Unknown 06/03/2023 3:24 PM GAMING COMMISSIONER 06/03/2023 3:33 PM GAMING COMMISSIONER Ivone Jitendra WILLOW ANALYST MICROBIOLOGY - GENER AL ORDERABLES [facility] Unless otherwise noted, all lab tests performed by: Division of Pathology and Laboratory Medicine [address] [place] [address] * Echocardiogram 2D Complete (06/03/2023 10:07 AM GAMING COMMISSIONER) 06/03/2023 8:40 AM GAMING COMMISSIONER Narrative [facility] - 06/03/2023 12:14 PM GAMING COMMISSIONER Echocardiographic Report Interpretation Summary A complete two-dimensional transthoracic echocardiogram was performed (2D, M- mode, Spectral and color Doppler). Technically limited and difficult study. There is no comparison study available. Normal left ventricular size and systolic function. LV ejection fraction (LVEF) is in the range of 64% (calculated by method of discs). The right ventricle is grossly normal size with normal overall systolic function on limited views. The left atrial size is normal. Right ventricular systolic pressure is mildly elevated at 35-40 mmHg. Minimal pericardial effusion. Left Ventricle: Normal left ventricular size and systolic function. There is normal left ventricular wall thickness. LV ejection fraction (LVEF) is in the range of 64% (calculated by method of discs). The left ventricular wall motion is normal. I WMSI = 1.00 % Normal = 100 Segments Size X - Cannot 2 - 1-2 small Interpret 1 - Normal Hypokinetic 3 - Akinetic 4 - Dyskinetic3- 5 moderate 5 - Aneurysmal 6-14 large 15-16 diffuse 3D imaginD volumes were not performed in this study. Cardiac Mechanics/Speckle Tracking Imaging: Speckle tracking imaging was technically limited. Diastology: Impaired LV relaxation pattern as expected for age. Right Ventricle: The right ventricle is grossly normal size. The right ventricular systolic function is normal. Atria: The left atrial size is normal. Mitral Valve: The mitral valve is normal. There is no mitral valve stenosis. There is no mitral regurgitation noted. Tricuspid Valve: The tricuspid valve is not well visualized, but is grossly normal. There is no tricuspid valve stenosis. There is trace tricuspid regurgitation. Right ventricular systolic pressure is elevated at 35-40 mmHg. The tricuspid valve regurgitation velocity suggests mild pulmonary hypertension. Aortic Valve: The aortic valve opens well. No hemodynamically significant valvular aortic stenosis. No aortic regurgitation is present. Pulmonic Valve: The pulmonic valve is not well seen, but is grossly normal. There is no pulmonic valvular stenosis. Trace pulmonic valvular regurgitation. Great Vessels: The aortic root is normal size. The aortic arch is not well visualized. The inferior vena cava demonstrates normal size and normal respiratory variation. Pericardium/Pleural: Minimal pericardial effusion. MMode/2D Measurements IVSd: 0.91 cm LVIDd: 3.5 cm LVIDs: 3.1 cm LVPWd: 0.95 cm FS: 10.1 % Ao root diam: 2.7 cm Ao root area: 5.7 cm2 LA dimension: 3.1 cm LVOT diam: 2.0 cm EDV(MOD-A4C): 67.7 ml ESV(MOD-A4C): 22.1 ml LVOT area: 3.0 cm2 EF(MOD-A4C): 67.3 % EDV(MOD-A2C): 62.5 ml ESV(MOD-A2C): 23.5 ml EDV(MOD-bp): 64.9 ml EF(MOD-A2C): 62.5 % ESV(MOD-bp): 23.1 ml EF(MOD-bp): 64.4 % LAV(MOD-A2C): 28.7 ml LAV(MOD-A4C): 34.3 ml RA ESA_phl: 9.7 cm2 LAV(MOD-bp): 34.2 ml LAV(MOD-bp) Indexed: 20.2 ml/m2 EDV (MOD-bp) Index: 38.2 ml/m2 ESV (MOD-bp) Index: 13.6 ml/m2 RWT: 0.55 cm Doppler Measurements MV E max courtney: 52.0 cm/sec MV V2 max: 91.1 cm/sec MV A max courtney: 79.0 cm/sec MV max P.3 mmHg MV E/A: 0.66 MV V2 mean: 52.5 cm/sec MV mean P.2 mmHg MV V2 VTI: 15.3 cm MVA(VTI): 4.1 cm2 MV dec time: 0.21 sec Ao V2 max: 156.6 cm/sec Ao max P.8 mmHg Ao V2 mean: 91.2 cm/sec Ao mean P.9 mmHg Ao V2 VTI: 19.2 cm OSMANI(I,D): 3.3 cm2 OSMANI(V,D): 2.2 cm2 LV V1 max P.2 mmHg SV(LVOT): 63.6 ml LV V1 mean P.3 mmHg LV V1 max: 113.6 cm/sec LV V1 mean: 70.6 cm/sec LV V1 VTI: 21.1 cm Med [place] E' Courtney: 7.7 cm/sec Lat [place] E' [place]ney: 11.9 cm/sec TR max courtney: 292.5 cm/sec RAP systole: 3.0 mmHg TR max P.2 mmHg RVSP(TR): 37.2 mmHg RV S Vel_phl: 17.7 cm/sec OSMANI Index (I,D): 1.9 OSMANI Index (V,D): 1.3 Dimensionless Index: 0.73 E/e' (avg): 5.3 E/e' (lat): 4.4 E/e' (sept): 6.7 Procedure Note Phyllis Rodriguez MD - 06/03/2023 Echocardiographic Report Interpretation Summary A complete two-dimensional transthoracic echocardiogram was performed (2D,M- mode, Spectral and color Doppler). Technically limited and difficultstudy. There is no comparison study available. Normal left ventricular size and systolic function. LV ejection fraction (LVEF) is in the range of 64% (calculated by methodof discs). The right ventricle is grossly normal size with normal overall systolicfunction on limited views. The left atrial size is normal. Right ventricular systolic pressure is mildly elevated at 35-40 mmHg. Minimal pericardial effusion. Left Ventricle: Normal left ventricular size and systolic function. There is normal leftventricular wall thickness. LV ejection fraction (LVEF) is in the range of64% (calculated by method of discs). The left ventricular wall motion isnormal. I WMSI = 1.00 % Normal = 100 Segments Size X - Cannot 2 - 1-2small Interpret 1 - Normal Hypokinetic 3 - Akinetic 4 - Dyskinetic3-5moderate 5 - Aneurysmal6-14 large 15-16 diffuse 3D imaginD volumes were not performed in this study. Cardiac Mechanics/Speckle Tracking Imaging: Speckle tracking imaging was technically limited. Diastology: Impaired LV relaxation pattern as expected for age. Right Ventricle: The right ventricle is grossly normal size. The right ventricular systolicfunction is normal. Atria: The left atrial size is normal. Mitral Valve: The mitral valve is normal. There is no mitral valve stenosis. There is nomitral regurgitation noted. Tricuspid Valve: The tricuspid valve is not well visualized, but is grossly normal. Thereis no tricuspid valve stenosis. There is trace tricuspid regurgitation.Right ventricular systolic pressure is elevated at 35-40 mmHg. Thetricuspid valve regurgitation velocity suggests mild pulmonaryhypertension. Aortic Valve: The aortic valve opens well. No hemodynamically significant valvularaortic stenosis. No aortic regurgitation is present. Pulmonic Valve: The pulmonic valve is not well seen, but is grossly normal. There is nopulmonic valvular stenosis. Trace pulmonic valvular regurgitation. Great Vessels: The aortic root is normal size. The aortic arch is not well visualized.The inferior vena cava demonstrates normal size and normal respiratoryvariation. Pericardium/Pleural: Minimal pericardial effusion. MMode/2D Measurements IVSd: 0.91 cmLVIDd: 3.5 cm LVIDs: 3.1 cm LVPWd: 0.95 cm FS: 10.1 %Ao root diam: 2.7 cm Ao root area: 5.7 cm2 LA dimension: 3.1 cm LVOT diam: 2.0 cmEDV(MOD-A4C): 67.7 ml ESV(MOD-A4C): 22.1 ml LVOT area: 3.0 cm2EF(MOD-A4C): 67.3 % EDV(MOD-A2C): 62.5 ml ESV(MOD-A2C): 23.5 mlEDV(MOD-bp): 64.9 ml EF(MOD-A2C): 62.5 %ESV(MOD-bp): 23.1 ml EF(MOD-bp): 64.4 % LAV(MOD-A2C): 28.7 ml LAV(MOD-A4C): 34.3 mlRA ESA_phl: 9.7 cm2 LAV(MOD-bp): 34.2 ml LAV(MOD-bp) Indexed: 20.2 ml/m2 EDV (MOD-bp) Index: 38.2 ml/m2ESV (MOD-bp) Index: 13.6 ml/m2 RWT: 0.55 cm Doppler Measurements MV E max courtney: 52.0 cm/secMV V2 max: 91.1 cm/sec MV A max courtney: 79.0 cm/secMV max P.3 mmHg MV E/A: 0.66MV V2 mean: 52.5 cm/sec MV mean P.2 mmHg MV V2 VTI: 15.3 cm MVA(VTI): 4.1 cm2 MV dec time: 0.21 secAo V2 max: 156.6 cm/sec Ao max P.8 mmHg Ao V2 mean: 91.2 cm/sec Ao mean P.9 mmHg Ao V2 VTI: 19.2 cm OSMANI(I,D): 3.3 cm2 OSMANI(V,D): 2.2 cm2 LV V1 max P.2 mmHgSV(LVOT): 63.6 ml LV V1 mean P.3 mmHg LV V1 max: 113.6 cm/sec LV V1 mean: 70.6 cm/sec LV V1 VTI: 21.1 cm Med [place] E' [place]ney: 7.7 cm/secLat [place] E' Courtney: 11.9 cm/sec TR max courtney: 292.5 cm/secRAP systole: 3.0 mmHg TR max P.2 mmHg RVSP(TR): 37.2 mmHg RV S Vel_phl: 17.7 cm/secAVA Index (I,D): 1.9 OSMANI Index (V,D): 1.3Dimensionless Index: 0.73 E/e' (avg): 5.3E/e' (lat): 4.4 E/e' (sept): 6.7 Ivone Jitendra WILLOW ANALYST CV ECHO ORDERABLES [facility] * (ABNORMAL) Procalcitonin (06/03/2023 6:29 AM GAMING COMMISSIONER) Only the most recent of2 resultswithin the time period is included. Procalcitonin 0.16(H) <=0.08 ng/mL 06/03/2023 12:28 PM GAMING COMMISSIONER [facility] Blood Peripheral blood specimen / Unknown Venipuncture / Unknown 06/03/2023 6:29 AM GAMING COMMISSIONER 06/03/2023 6:50 AM GAMING COMMISSIONER Narrative [facility] - 06/03/2023 12:28 PM GAMING COMMISSIONER Procalcitonin > 2.00 ng/mL: Procalcitonin levels above 2.00 ng/mL are highly suggestive of a high risk for systematic bacterial infection/ severe sepsis and/or septic shock. Procalcitonin < 0.50 ng/mL: Procalcitonin levels below 0.50 ng/mL are at low risk for progression to severe sepsis and/ or septic shock. Procalcitonin (ProCT) between 0.15 and 2.0 ng/mL do not exclude infection, because localized infections (without systemic signs) may be associated with such low levels. Results greater than 400 ng/mL may not be reliable due to the matrix effect with extended dilution as it exceeds the plaster caster's recommended limit. Caution should be exercised when interpreting such values and done in conjunction with clinical context. Ivone Ham APRN LAB BLOOD ORDERABLES Performing Organization Address City/[facility]/ZIP Co de Phone Number [facility] Unless otherwise noted, all lab tests performed by: Division of Pathology and Laboratory Medicine [address] [place] [phone] * aPTT (06/03/2023 6:29 AM GAMING COMMISSIONER) Only the most recent of2 resultswithin the time period is included. Pathologist [facility] [place] Activated PTT 33.3 24.1 - 35.5 second(s) 06/03/2023 7:21 AM [facility] Blood Peripheral blood specimen / Unknown Venipuncture / Unknown 06/03/2023 6:29 AM GAMING COMMISSIONER 06/03/2023 6:50 AM GAMING COMMISSIONER Ivone Jitendra WILLOW ANALYST LAB BLOOD ORDERABLES [facility] Unless otherwise noted, all lab tests performed by: Division of Pathology and Laboratory Medicine [address] [place] [phone] * Osmolality (06/02/2023 5:31 AM GAMING COMMISSIONER) Pathologist [facility] [place] Osmolality 287 275 - 300 mOsm/kg 06/02/2023 9:28 AM GAMING COMMISSIONER [facility] Comment:Units in mOsm per kg of water. Blood Peripheral blood specimen / Unknown Venipuncture / Unknown 06/02/2023 5:31 AM GAMING COMMISSIONER 06/02/2023 6:14 AM GAMING COMMISSIONER Ivonechelo Ham APRN LAB BLOOD ORDERABLES Performing Organization Address [facility] Co de Phone Number [facility] Unless otherwise noted, all lab tests performed by: Division of Pathology and Laboratory Medicine [address] [place] [id number] * CEA (06/02/2023 5:31 AM GAMING COMMISSIONER) Carcinoembryonic Antigen 1.7 <=3.8 ng/mL 06/02/2023 6:51 AM GAMING COMMISSIONER [facility] Blood Peripheral blood specimen / Unknown Venipuncture / Unknown 06/02/2023 5:31 AM GAMING COMMISSIONER 06/02/2023 6:13 AM GAMING COMMISSIONER Narrative [facility] - 06/02/2023 6:51 AM GAMING COMMISSIONER Reference Ranges (age 20-69 years): Non-smoker: 0.0 - 3.8 ng/mL Smoker: 0.0 - 5.5 ng/mL This test is measured by electrochemiluminescence immunoassay on Lazaro Luís immunoassay analyzers. Results obtained in different methods are not interchangeable. Kayla Gabriel APRN LAB BLOOD ORDERA BLES Performing Organization Address [facility] Co de Phone Number [facility] Unless otherwise noted, all lab tests performed by: Division of Pathology and Laboratory Medicine [address] [place] [phone] * (ABNORMAL) Vancomycin Trough (06/02/2023 5:31 AM GAMING COMMISSIONER) Vancomycin Trough 21.2(C) 5.0 - 20.0 mcg/mL 06/02/2023 7:32 AM GAMING COMMISSIONER [facility] Vancomycin Trough Dose Time unknown 06/02/2023 7:32 AM GAMING COMMISSIONER [facility] Vancomycin Trough Dose Date unknown 06/02/2023 7:32 AM GAMING COMMISSIONER [facility] Blood Peripheral blood specimen / Unknown Venipuncture / Unknown 06/02/2023 5:31 AM GAMING COMMISSIONER 06/02/2023 6:14 AM GAMING COMMISSIONER Narrative [facility] - 06/02/2023 7:32 AM GAMING COMMISSIONER Toxic Trough Level: >20 mcg/mL Therapeutic Trough Level: 5-20 mcg/mL Ivone Ham APRN LAB BLOOD ORDERABLES [facility] Unless otherwise noted, all lab tests performed by: Division of Pathology and Laboratory Medicine [address] [place] [phone] * CT Head without Contrast (06/02/2023 4:45 AM GAMING COMMISSIONER) Anatomical Region Laterality Modality Head Computed Tomogra phy 06/02/2023 7:14 AM GAMING COMMISSIONER Impressions 06/02/2023 7:14 AM GAMING COMMISSIONER No acute intracranial abnormality is seen. ACTIONABLE ITEMS/RECOMMENDATIONS: None. Narrative 06/02/2023 7:14 AM GAMING COMMISSIONER FULL RESULT: Examination: CT HEAD WO CONTRAST on 06/02/2023 4:45 AM. CLINICAL HISTORY: Acute respiratory failure with hypoxia INDICATION: R/O BRAIN METS COMPARISON: None. TECHNIQUE: CT head without IV contrast was performed. FINDINGS: Intracranial: There is no acute hemorrhage or large vascular territory infarct. There is no mass effect or midline shift. The ventricles and extra-axial spaces are appropriate for age. Bone: There are no suspicious lytic or sclerotic calvarial and skull base lesions. The mastoid air cells are clear. Extracranial: The orbits are unremarkable. The visualized paranasal sinuses are predominantly clear. Procedure Note Peace Meng MD - 06/02/2023 FULL RESULT: Examination: CT HEAD WO CONTRAST on 06/02/2023 4:45 AM. CLINICAL HISTORY: Acute respiratory failure with hypoxia INDICATION: R/O BRAIN METS COMPARISON: None. TECHNIQUE: CT head without IV contrast was performed. FINDINGS: Intracranial: There is no acute hemorrhage or large vascular territory infarct. There is no mass effect or midline shift. The ventricles and extra-axial spaces are appropriate for age. Bone: There are no suspicious lytic or sclerotic calvarial and skull baselesions. The mastoid air cells are clear. Extracranial: The orbits are unremarkable. The visualized paranasal sinuses are predominantly clear. IMPRESSION: No acute intracranial abnormality is seen. ACTIONABLE ITEMS/RECOMMENDATIONS: None. Ivone Jitendra WILLOW ANALYST IMG CT ORDERABLES * Sodium Level, Urine (06/01/2023 12:17 PM CDT) Urine Sodium 61 mmol/L 06/01/2023 1:46 PM CDT [facility] Comment:Normal range not osmani ilable for collections less than 24 hours in duration. Urine Voided urine specimen / Unknown Non-blood Collection / Unknown 06/01/2023 12:17 PM CDT 06/01/2023 1:18 PM CDT Ivone Jitendra WILLOW ANALYST URINE ORDERABLES Performing Organization Address [facility] de Phone Number [facility] Unless otherwise noted, all lab tests performed by: Division of Pathology and Laboratory Medicine [address] [place] [phone] * Osmolality Urine (06/01/2023 12:17 PM CDT) Urine Osmolality 338 50 - 1,400 mOsm/kg H2O 06/01/2023 2:38 PM CDT [facility] Comment:Urinary osmolality m ay vary widely, depending on the state of hydration. Random urine osmolality can range from 50 to 1400 mOsm/kg H2O depending on fluid intake. In individuals on average fluid intake, urine osmolality is typically 300-900 mOsm/kg H2O. Units of measure: mOsm per Kg of water. Urine Voided urine specimen / Unknown Non-blood Collection / Unknown 06/01/2023 12:17 PM CDT 06/01/2023 1:18 PM CDT Ivone Jitendra WILLOW ANALYST URINE ORDERABLES Performing Organization Address [facility] Co de Phone Number [facility] Unless otherwise noted, all lab tests performed by: Division of Pathology and Laboratory Medicine [address] [place] [id number] * CT Chest Pulmonary Embolism with Contrast (06/01/2023 9:55 AM CDT) Anatomical Region Laterality Modality Chest Computed Tomogra phy 06/01/2023 10:0 5 AM CDT Impressions 06/01/2023 10:48 AM CDT 1. No evidence of pulmonary embolism. No evidence of right heart strain. 2. 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 However, concurrent infection and/or drug toxicity may present. 3. Increased right hilar/mediastinal adenopathy 4. Enlarging and new sclerotic lesions within the thoracic vertebral body suggestive of osseous metastatic disease. 5. Surgical changes within the right breast and axilla. No evidence of local recurrence. ACTIONABLE ITEMS/RECOMMENDATIONS: None. This is a preliminary senior resident/fellow report and has not been reviewed by an attending radiologist * * * * * * * * * * * * * * * * * * * * * * * * * * * * * * * * * * FINAL FACULTY IMPRESSION: I agree with the above preliminary report which now constitutes the final authorized report. * * * * * * * * * * * * * * * * * * * * * * * * * * * * * * * * * * I personally reviewed these image(s) along with the resident's/fellow's interpretations, certify that if a procedure was performed I was physically present, and agree with the final report. Narrative 06/01/2023 10:48 AM CDT FULL RESULT: Examination: CT CHEST PULMONARY EMBOLISM W CONTRAST on 06/01/2023 9:55 AM. Clinical History: Acute respiratory failure with hypoxia Indication: D-dimer elevated, Hypoxia, Tachypnea Comparison: CT chest, abdomen and pelvis from 07/24/2018 Technique: CT of the chest is performed using intravenous contrast. Findings: Lungs/Airways/Pleura: Bilateral moderately large pleural effusions are present, partially loculated anteriorly, particularly on the right side. Suspected basilar right-sided pleural thickening, however, the study does not extend to the inferior most aspect of the pleural space. Associated areas of passive right lower lobe atelectasis., However, additionally there are areas of consolidative opacity in the middle lobe and left upper lobe. Upper lobe predominant interlobular septal thickening is present with numerous ill-defined upper lobe nodular opacities. Neck/Mediastinum/Nodes/Heart: New soft tissue is present in the right superior mediastinum measuring 34 x 13 mm. There is edematous change within the mediastinal fat, however, potentially enlarged right paratracheal, right hilar and subcarinal lymph nodes are suspected. Excellent opacification of the pulmonary arteries. No evidence of pulmonary embolism. No evidence of right heart strain. The heart is normal in size. Small new pericardial effusion. No significant coronary artery calcifications. The main pulmonary artery and aorta are normal in caliber. Upper abdomen: Large right liver lobe lesion is partially visualized, corresponding to sites of prior hemangioma, phase of evaluation of the liver is too early to definitively evaluate this lesion and exclude other lesions within partially visualized liver. Right adrenal not assessed. Partial visualization of left adrenal gland unremarkable. Bones/Soft Tissues: Postoperative changes of the right breast and lymph node dissection. No definite local recurrence. Resolution of a previous right breast seroma. Sclerotic osseous metastasis in the thoracic vertebrae with a new lesion in the T1 vertebral body since 2018. Sclerotic osseous lesions have increased in size in the T6 vertebral body. Procedure Note Sp Salas MD - 06/01/2023 FULL RESULT: Examination: CT CHEST PULMONARY EMBOLISM W CONTRAST on 06/01/2023 9:55AM. Clinical History: Acute respiratory failure with hypoxia Indication: D-dimer elevated, Hypoxia, Tachypnea Comparison: CT chest, abdomen and pelvis from 07/24/2018 Technique: CT of the chest is performed using intravenous contrast. Findings: Lungs/Airways/Pleura: Bilateral moderately large pleural effusions arepresent, partially loculated anteriorly, particularly on the right side.Suspected basilar right-sided pleural thickening, however, the study doesnot extend to the inferior most aspect of the pleural space. Associatedareas of passive right lower lobe atelectasis., However, additionallythere are areas of consolidative opacity in the middle lobe and left upperlobe. Upper lobe predominant interlobular septal thickening is presentwith numerous ill-defined upper lobe nodular opacities. Neck/Mediastinum/Nodes/Heart: New soft tissue is present in the right superior mediastinum measuring 34x 13 mm. There is edematous change within the mediastinal fat, however,potentially enlarged right paratracheal, right hilar and subcarinal lymphnodes are suspected. Excellent opacification of the pulmonary arteries. No evidence ofpulmonary embolism. No evidence of right heart strain. The heart is normal in size. Small new pericardial effusion. Nosignificant coronary artery calcifications. The main pulmonary artery andaorta are normal in caliber. Upper abdomen: Large right liver lobe lesion is partially visualized,corresponding to sites of prior hemangioma, phase of evaluation of theliver is too early to definitively evaluate this lesion and exclude otherlesions within partially visualized liver. Right adrenal not assessed.Partial visualization of left adrenal gland unremarkable. Bones/Soft Tissues: Postoperative changes of the right breast and lymphnode dissection. No definite local recurrence. Resolution of a previousright breast seroma. Sclerotic osseous metastasis in the thoracicvertebrae with a new lesion in the T1 vertebral body since 2018. Scleroticosseous lesions have increased in size in the T6 vertebral body. IMPRESSION: 1. No evidence of pulmonary embolism. No evidence of right heartstrain. 2. Lung parenchymal changes are suspected multifactorial, interlobularseptal thickening with peribronchial thickening and nodularity, associatedwith effusions is likely at least in part due to lymphangitic/pleuralmetastatic disease. However, concurrent infection and/or drug toxicity maypresent. 3. Increased right hilar/mediastinal adenopathy 4. Enlarging and new sclerotic lesions within the thoracic vertebral bodysuggestive of osseous metastatic disease. 5. Surgical changes within the right breast and axilla. No evidence oflocal recurrence. ACTIONABLE ITEMS/RECOMMENDATIONS: None. This is a preliminary senior resident/fellow report and has not beenreviewed by an attending radiologist * * * * * * * * * * * * * * * * * * * * * * * * * * * * * * * * * * FINAL FACULTY IMPRESSION: I agree with the above preliminary report which now constitutes the finalauthorized report. * * * * * * * * * * * * * * * * * * * * * * * * * * * * * * * * * * I personally reviewed these image(s) along with the resident's/fellow'sinterpretations, certify that if a procedure was performed I wasphysically present, and agree with the final report. Fermin Pham MD IMG CT ORDERABLES * MRSA Screening Culture (06/01/2023 7:35 AM CDT) MRSA Screening Culture No Methicillin-Resist ant Staphylococcus aureus isolated. 06/03/2023 12:29 PM GAMING COMMISSIONER [facility] Swab (Nares, Right) Non-blood Collection / Unknown 06/01/2023 7:35 AM CDT 06/01/2023 7:43 AM CDT Narrative [facility] - 06/03/2023 12:29 PM GAMING COMMISSIONER Testing is performed using PBP2a antigen detection and cefoxitin screen on isolated S. aureus colonies. This methodology may not detect uncommon mechanisms of methicillin resistance in S. aureus. Fermin Pham MD MICROBIOLOGY - [place] [place] ORDERABLES [facility] Unless otherwise noted, all lab tests performed by: Division of Pathology and Laboratory Medicine [address] [place] [id number] * (ABNORMAL) VBG+ (06/01/2023 6:38 AM CDT) Pathologist [facility] Venous Sodium 133(L) 136 - 146 mmol/L 06/01/2023 6:52 AM CDT [facility] Venous Potassium 3.5 3.4 - 4.5 mmol/L 06/01/2023 6:52 AM CDT [facility] Venous Chloride 87(L) 98 - 106 mmol/L 06/01/2023 6:52 AM CDT [facility] Venous Glucose 122(H) 70 - 105 mg/dL 06/01/2023 6:52 AM CDT [facility] V Hgb 11.2(L) 12.0 - 16.0 g/dL 06/01/2023 6:52 AM CDT [facility] Venous Hematocrit 34(L) 37 - 48 % 06/01/2023 6:52 AM CDT [facility] Venous Lactate 0.9 0.5 - 1.6 mmol/L 06/01/2023 6:52 AM CDT [facility] Venous Ionized Calcium 1.21 1.15 - 1.29 mmol/L 06/01/2023 6:52 AM CDT [facility] pH Venous 7.47(H) 7.32 - 7.43 06/01/2023 6:52 AM CDT [facility] P CO2 Venous 55.0(H) 41.0 - 51.0 mmHg 06/01/2023 6:52 AM CDT [facility] P O2 Venous 58 mmHg 06/01/2023 6:52 AM CDT [facility] Bicarbonate Venous 40(H) 21 - 28 mmol/L 06/01/2023 6:52 AM CDT [facility] V Anion Gap 6(L) 7 - 16 mmol/L 06/01/2023 6:52 AM CDT [facility] Base Excess Venous 14(H) -2 - 3 mmol/L 06/01/2023 6:52 AM CDT [facility] Oxygen Saturation Venous 92 % 06/01/2023 6:52 AM CDT [facility] Oxygen FLOW Rate/ FiO2 06/01/2023 6:52 AM CDT [facility] O2 Therapy 06/01/2023 6:52 AM CDT [facility] Blood Peripheral blood specimen / Unknown Venipuncture / Unknown 06/01/2023 6:38 AM CDT 06/01/2023 6:49 AM CDT Fermin Pham MD LAB BLOOD ORDERABLES [facility] Unless otherwise noted, all lab tests performed by: Division of Pathology and Laboratory Medicine [address] [place] [id number] * Troponin T (In-House) (06/01/2023 6:38 AM CDT) Troponin T 17 <=19 ng/L 06/01/2023 7:14 AM CDT [facility] Blood Peripheral blood specimen / Unknown Venipuncture / Unknown 06/01/2023 6:38 AM CDT 06/01/2023 6:49 AM CDT Narrative [facility] - 06/01/2023 7:14 AM CDT Reference range established for age 21 - 89 years < 19 ng/L, suggest retest at 3 to 6 hours later to rule out myocardial infarction >= 19 to <=52 ng/L, possible myocardial injury; suggest retest at 3 hours - a change of < 20 ng/L, retest at 6 hours - a change of >= 20 ng/L, suggestive of myocardial infarction > 52 ng/L, suggestive of myocardial infarction Critical value will be reported when cTnT isf > 52 ng/L and only reported for the first in a series. Hemolyzed specimens with Hemolysis Index >100 (100 mg/dl or moderate hemolysis) may cause interferences and falsely low results. Fermin Pham MD LAB BLOOD ORDERABLES Performing Organization Address [facility] Co de Phone Number [facility] Unless otherwise noted, all lab tests performed by: Division of Pathology and Laboratory Medicine [address] [place] [id number] * EKG, 12-Lead (Portable) (06/01/2023) Only the most recent of2 resultswithin the time period is included. Fermin Pham MD ECG ORDERABLES Performing Organization Address [facility] Co de Phone Number [facility] * Prothrombin Time with INR (05/31/2023 6:36 PM CDT) Prothrombin Time 13.6 11.9 - 14.5 second(s) 05/31/2023 7:24 PM CDT [facility] International Normalization Ratio 1.05 0.87 - 1.12 05/31/2023 7:24 PM CDT [facility] Blood Peripheral blood specimen / Unknown Venipuncture / Unknown 05/31/2023 6:36 PM CDT 05/31/2023 6:43 PM CDT Alexandre Nascimento MD LAB BLOOD ORDERABLES Performing Organization Address City/[facility] Co de Phone Number [facility] Unless otherwise noted, all lab tests performed by: Division of Pathology and Laboratory Medicine [address] [place] [id number] * (ABNORMAL) D-dimer (05/31/2023 6:36 PM CDT) D-Dimer 3.75(H) 0.10 - 0.50 mcg/ml FEU 05/31/2023 7:41 PM CDT [facility] Blood Peripheral blood specimen / Unknown Venipuncture / Unknown 05/31/2023 6:36 PM CDT 05/31/2023 6:43 PM CDT Narrative [facility] - 05/31/2023 7:41 PM CDT The cut off value for exclusion of venous thromboembolism is <0.51 mcg/mL FEUs (fibrinogen equivalent units). Alexandre Nascimento MD LAB BLOOD ORDERABLES [facility] Unless otherwise noted, all lab tests performed by: Division of Pathology and Laboratory Medicine [address] [place] [id number] * (ABNORMAL) Cytology Non-Boring [employer] Operator For [employer] Interpretation (05/31/2023 4:16 PM CDT) Addendum 3 This addendum reports the results of clinically requested studies. RESULTS Ki-67, immunoperoxidase stain (MIB1) - 60-70% COMMENTS Immunoperoxidase staining was performed on cell block sections with appropriate controls. Tumor cells are strongly positive for GATA3, which was performed to ensure accurate accounting of tumor. 10:49 AM [facility] Addendum electronically signed by Raymond Lancaster MD on 06/13/2023 at 10:49 AM Addendum 2 This addendum is issued to provide results for additional clinically requested studies. RESULTS PD-L1 (Clone [id number], [employer]) Combined Positive Score (CPS): 0 Assay Information: This assay is manufactured by [employer] and uses a monoclonal anti-PD-L1, clone [id number]. It is performed on formalin-fixed paraffin-embedded tissue using an [employer] autostainer and polymer based detection kit, as specified by the plaster caster. It is approved for use as a roll forger diagnostic for specific therapies on certain tumor types.Combined positive score (CPS) is calculated as the number of PD-L1 staining cells (viable invasive tumor cells showing membranous staining of any intensity; lymphocytes and macrophages in the tumor area showing membranous or cytoplasmic staining of any intensity) divided by the total number of viable invasive tumor cells, multiplied by 100. The maximum score is defined as CPS 100. 3 10:49 AM [facility] Addendum electronically signed by Kerrie Albright MD on 06/07/2023 at 1:38 PM Addendum 1 This addendum reports the results of clinically requested studies. RESULTS Estrogen receptor, immunoperoxidase stain (clone [id number], [employer]) - Negative (<1%) Progesterone receptor, immunoperoxidase stain (clone16, [employer]) - Negative (0%) HER2, immunoperoxidase stain (clone [id number], [place] [employer]) - Negative (score 0) COMMENTS Immunoperoxidase staining was performed on cell block sections with appropriate controls. 3 10:49 AM [facility] Addendum electronically signed by Susy German MD on 06/07/2023 at 8:32 AM Gross Description 1 Diff Quik; 3 Pap Stain Slides 1700 ml. slightly cloudy yellow fluid Specimen concentrated by cytocentrifugation technique 1 Cell Block Date/Time Placed in Formalin: 06/03/23 5:27 PM 3 10:49 AM [employer] Major Classification MALIGNANT(A) 3 10:49 AM [employer] Diagnosis Pleural fluid, right, thoracentesis: RARE METASTATIC CARCINOMA (see comment) 3 10:49 AM [employer]) Comment Cytospin slides and cell block preparation demonstrate rare clusters of carcinoma. Immunoperoxidase stains, performed on cell block sections with appropriate controls, show that the tumor cells are diffusely positive for TRPS1 (favoring breast origin), equivocal for ER, and negative for SD and HER2 (score 0). The morphology and immunoprofile favor metastasis from a breast primary. It is noted that the patient's previously reported breast cancer was ER/SD positive and in light of the paucicellularity of tumor cells in the current pleural effusion sample, it is recommended that these results are correlated clinically. 3 10:49 AM GAMING COMMISSIONER [facility] Retained/Biomark er Testing SR: 4 S, 2 CB, 4 IP Biomarker Testing: MDL CB: <50 MDL PAP: 0 S MDL DQ: 0 S FISH DQ: 0 S 3 10:49 AM GAMING COMMISSIONER [facility] Informational Points Some tests reported here may have been developed and performance characteristics determined by [facility] Pathology and Laboratory Medicine. These tests have not been specifically cleared or approved by the U.S. Food and Drug Administration. 3 10:49 AM [employer] COMMISSIONER [facility] Fluid (Pleural Fluid, Right) Non-blood Collection / Unknown 05/31/2023 4:16 PM CDT 06/03/2023 8:19 AM GAMING COMMISSIONER Comment:Vacuum bottle to Cyt opathology for analysis. Sushila Perry MD LAB CYTOLOGY ORDERAB LES Performing Organization Address City/State/[facility] Co de Phone Number [facility] [address] [id number], * Body Fluid Differential (05/31/2023 4:13 PM CDT) Total Cells Body Fluid 100 05/31/2023 8:47 PM CDT [facility] Segmented Neutrophils Body Fluid 12 0 - 25 % 05/31/2023 8:47 PM CDT [facility] Lymphocyte Body Fluid 34 % 05/31/2023 8:47 PM CDT [facility] Histiocyte Body Fluid 29 % 05/31/2023 8:47 PM CDT [facility] Eosinophil Body Fluid 12 % 05/31/2023 8:47 PM CDT [facility] Basophil Body Fluid 1 % 05/31/2023 8:47 PM CDT [facility] Other Cell Body Fluid 12 % 05/31/2023 8:47 PM CDT [facility] Fluid (Pleural Fluid, Right) Non-blood Collection / Unknown 05/31/2023 4:13 PM CDT 05/31/2023 4:55 PM CDT Narrative [facility] - 05/31/2023 8:47 PM CDT This assay has been validated for body fluids. No reference ranges have been established. Test results should be interpreted in context with the patient's clinical condition. Pathologist consult is available. Sushila Perry MD BODY FLUIDS AND STOO LS ORDERABLES Performing Organization Address [facility] Co de Phone Number [facility] Unless otherwise noted, all lab tests performed by: Division of Pathology and Laboratory Medicine [address] [place] [id number] * Body Fluid Diff Path Review (05/31/2023 4:13 PM CDT) Body Fluid Diff Interp Malignant cells identified, suggest correlation with cytology result. 06/03/2023 12:00 PM GAMING COMMISSIONER [facility] Pathologist Signature . 06/03/2023 12:00 PM GAMING COMMISSIONER [facility] Fluid (Pleural Fluid, Right) Non-blood Collection / Unknown 05/31/2023 4:13 PM CDT 05/31/2023 4:55 PM CDT Sushila Perry MD BODY FLUIDS AND STOO LS ORDERABLES Performing Organization Address [facility] Co de Phone Number [facility] Unless otherwise noted, all lab tests performed by: Division of Pathology and Laboratory Medicine [address] [place] [id number] * Cholesterol Body Fluid (05/31/2023 4:13 PM CDT) Cholesterol Body Fluid 78 mg/dL 05/31/2023 6:18 PM CDT [facility] Fluid (Pleural Fluid, Right) Non-blood Collection / Unknown 05/31/2023 4:13 PM CDT 05/31/2023 4:55 PM CDT Narrative [facility] - 05/31/2023 6:18 PM CDT This body fluid test has not been cleared or approved by the FDA. Its performance characteristics have been validated by our laboratory. No reference ranges have been established unless otherwise stated. Comparison of this result with the concentration in the blood (serum or plasma) is recommended. The test result must be interpreted in conjunction with the patient's clinical context. Sushila Perry MD BODY FLUIDS AND STOO LS ORDERABLES Performing Organization Address City/[facility]/ZIP Co de Phone Number [facility] Unless otherwise noted, all lab tests performed by: Division of Pathology and Laboratory Medicine [address] [place] [id number] * Body Fluid Culture w/ Gram Stain (05/31/2023 4:13 PM CDT) Body Fluid Culture No Growth. 06/07/2023 9:05 AM GAMING COMMISSIONER [facility] Gram Stain Few WBCs seen. 06/07/2023 9:05 AM GAMING COMMISSIONER [facility] Gram Stain No organisms seen. 06/07/2023 9:05 AM GAMING COMMISSIONER [facility] Fluid (Pleural Fluid, Right) Non-blood Collection / Unknown 05/31/2023 4:13 PM CDT 05/31/2023 4:55 PM CDT Sushila Perry MD MICROBIOLOGY - GENER AL ORDERABLES Performing Organization Address City/[facility]/ZIP Co de Phone Number [facility] Unless otherwise noted, all lab tests performed by: Division of Pathology and Laboratory Medicine [address] [place] [id number] * Cell Count BF (05/31/2023 4:13 PM CDT) Appearance Body Fluid Clear 05/31/2023 8:44 PM CDT [facility] WBC Count Body Fluid 307 /mcL 05/31/2023 8:44 PM CDT [facility] RBC Count Body Fluid <2,000 /mcL 05/31/2023 8:44 PM CDT [facility] Fluid (Pleural Fluid, Right) Non-blood Collection / Unknown 05/31/2023 4:13 PM CDT 05/31/2023 4:55 PM CDT Narrative [facility] - 05/31/2023 8:44 PM CDT This assay has been validated for body fluids. No reference ranges have been established. Test results should be interpreted in context with the patient's clinical condition. Pathologist consult is available. Sushila Perry MD BODY FLUIDS AND STOO LS ORDERABLES Performing Organization Address [facility] Co de Phone Number [facility] Unless otherwise noted, all lab tests performed by: Division of Pathology and Laboratory Medicine [address] [place] [address] [id number] * Triglyceride Body Fluid (05/31/2023 4:13 PM CDT) Triglyceride Body Fluid 37 mg/dL 05/31/2023 6:18 PM CDT [facility] Fluid (Pleural Fluid, Right) Non-blood Collection / Unknown 05/31/2023 4:13 PM CDT 05/31/2023 4:55 PM CDT Narrative [facility] - 05/31/2023 6:18 PM CDT This body fluid test has not been cleared or approved by the FDA. Its performance characteristics have been validated by our laboratory. No reference ranges have been established unless otherwise stated. Comparison of this result with the concentration in the blood (serum or plasma) is recommended. The test result must be interpreted in conjunction with the patient's clinical context. Sushila Perry MD BODY FLUIDS AND STOO LS ORDERABLES Performing Organization Address [facility] de Phone Number [facility] Unless otherwise noted, all lab tests performed by: Division of Pathology and Laboratory Medicine [address] [place] [id number] * Protein BF (05/31/2023 4:13 PM CDT) Protein Body Fluid 3.7 gm/dL 05/31/2023 6:18 PM CDT [facility] Fluid (Pleural Fluid, Right) Non-blood Collection / Unknown 05/31/2023 4:13 PM CDT 05/31/2023 4:55 PM CDT Narrative [facility] - 05/31/2023 6:18 PM CDT This body fluid test has not been cleared or approved by the FDA. Its performance characteristics have been validated by our laboratory. No reference ranges have been established unless otherwise stated. Comparison of this result with the concentration in the blood (serum or plasma) is recommended. The test result must be interpreted in conjunction with the patient's clinical context. Sushila Watson BODY FLUIDS AND STOO LS ORDERABLES Performing Organization Address [facility] Co de Phone Number [facility] Unless otherwise noted, all lab tests performed by: Division of Pathology and Laboratory Medicine [address] [place] [id number] * LDH, BF (05/31/2023 4:13 PM CDT) Lactate Dehydrogenase Body Fluid 175 U/L 05/31/2023 6:18 PM CDT [facility] Fluid (Pleural Fluid, Right) Non-blood Collection / Unknown 05/31/2023 4:13 PM CDT 05/31/2023 4:55 PM CDT Narrative [facility] - 05/31/2023 6:18 PM CDT This body fluid test has not been cleared or approved by the FDA. Its performance characteristics have been validated by our laboratory. No reference ranges have been established unless otherwise stated. Comparison of this result with the concentration in the blood (serum or plasma) is recommended. The test result must be interpreted in conjunction with the patient's clinical context. Sushila Mckeoncecy LAWTON BODY FLUIDS AND STOO LS ORDERABLES Performing Organization Address [facility] de Phone Number [facility] Unless otherwise noted, all lab tests performed by: Division of Pathology and Laboratory Medicine [address] [place] [id number] * Glucose Body Fluid (05/31/2023 4:13 PM CDT) Glucose Body Fluid 127 mg/dL 2022 6:18 PM CDT [facility] Comment:This body fluid test has not been cleared or approved by the FDA. Its performance characteristics have been validated by our laboratory. No reference ranges have been established unless otherwise stated. Comparison of this result with the concentration in the blood (serum or plasma) is recommended. The test result must be interpreted in conjunction with the patient's clinical context. Fluid (Pleural Fluid, Right) Non-blood Collection / Unknown 05/31/2023 4:13 PM CDT 05/31/2023 4:55 PM CDT Sushila Perry MD BODY FLUIDS AND STOO LS ORDERABLES Performing Organization Address [facility] Co de Phone Number [facility] Unless otherwise noted, all lab tests performed by: Division of Pathology and Laboratory Medicine [address] [place] [phone] * Amylase Level Body Fluid (05/31/2023 4:13 PM CDT) Amylase Body Fluid 47 U/L 05/31/2023 6:18 PM CDT [facility] Fluid (Pleural Fluid, Right) Non-blood Collection / Unknown 05/31/2023 4:13 PM CDT 05/31/2023 4:55 PM CDT Narrative [facility] - 05/31/2023 6:18 PM CDT This body fluid test has not been cleared or approved by the FDA. Its performance characteristics have been validated by our laboratory. No reference ranges have been established unless otherwise stated. Comparison of this result with the concentration in the blood (serum or plasma) is recommended. The test result must be interpreted in conjunction with the patient's clinical context. Sushila Perry MD BODY FLUIDS AND STOO LS ORDERABLES Performing Organization Address [facility] de Phone Number [facility] Unless otherwise noted, all lab tests performed by: Division of Pathology and Laboratory Medicine [address] [place] [phone] * Blood culture (05/31/2023 3:27 PM CDT) Only the most recent of2 resultswithin the time period is included. Blood Culture No Growth. 06/05/2023 4:01 PM GAMING COMMISSIONER [facility] Blood Peripheral blood specimen / Unknown Venipuncture / Unknown 05/31/2023 3:27 PM CDT 05/31/2023 3:32 PM CDT Narrative [facility] - 06/05/2023 4:01 PM GAMING COMMISSIONER One or both culture bottles underfilled (<5 mL). This will result in decreased sensitivity in pathogen detection. Nurys Valdez MD MICROBIOLOGY - GENER AL ORDERABLES Performing Organization Address [facility] Co de Phone Number [facility] Unless otherwise noted, all lab tests performed by: Division of Pathology and Laboratory Medicine [address] [place] [id number] * Cardiac Panel (05/31/2023 3:12 PM CDT) [facility] Creatine Kinase 58 26 - 192 U/L 05/31/2023 4:25 PM CDT [facility] CKMB 3.0 <=5.3 ng/mL 05/31/2023 4:25 PM CDT [facility] Troponin T 16 <=19 ng/L 05/31/2023 4:25 PM CDT [facility] Comment: Specimen is hemolyzed. Results may be falsely decreased. Repeat test if needed. < 19 ng/L Suggest retest at 3 to 6 hours later to rule out myocardial infarction >= 19 to <=52 ng/L Possible myocardial injury. Suggest retest at 3 hours. - a change of < 20 ng/L, retest at 6 hours - a change of >= 20 ng/L, suggestive of myocardial infarction > 52 ng/L Suggestive of myocardial infarction Critical value will be reported when cTnT is > 52 ng/L and only reported for the first in a series. Hemolyzed specimens with Hemolysis Index >100 (100 mg/dl or moderate hemolysis) may cause interferences and falsely low results. Blood Peripheral blood specimen / Unknown Venipuncture / Unknown 05/31/2023 3:12 PM CDT 05/31/2023 3:24 PM CDT Nurys Valdez MD LAB BLOOD ORDERABLES [facility] Unless otherwise noted, all lab tests performed by: Division of Pathology and Laboratory Medicine [address] [place] [id number] * CRP (05/31/2023 3:12 PM CDT) [facility] CRP (C Reactive Protein) 109.21 mg/L 06/01/2023 12:56 AM CDT [facility] Blood Peripheral blood specimen / Unknown Venipuncture / Unknown 05/31/2023 3:12 PM CDT 05/31/2023 3:20 PM CDT Narrative [facility] - 06/01/2023 12:56 AM CDT Adult Reference ranges for HS CRP assay are as follows: Reference ranges when used to assess cardiac risk: <1.00 mg/L Low cardiovascular risk 1.00-3.00 mg/L Average cardiovascular risk >3.00 mg/L High cardiovascular risk Reference ranges when used to assess inflammatory responses: Less than or equal to 10.00 mg/L. Fermin Pham MD LAB BLOOD ORDERABLES Performing Organization Address City/[facility]/ZIP Co de Phone Number [facility] Unless otherwise noted, all lab tests performed by: Division of Pathology and Laboratory Medicine [address] [place] [phone] * TSH (05/31/2023 3:12 PM CDT) [facility] Thyroid Stimulating Hormone 2.91 0.27 - 4.20 mcunit/mL 06/01/2023 12:59 AM CDT [facility] Blood Peripheral blood specimen / Unknown Venipuncture / Unknown 05/31/2023 3:12 PM CDT 05/31/2023 3:20 PM CDT Fermin Pham MD LAB BLOOD ORDERABLES [facility] Unless otherwise noted, all lab tests performed by: Division of Pathology and Laboratory Medicine [address] [place] [id number] * (ABNORMAL) LDH (05/31/2023 3:12 PM CDT) [facility] LDH 339(H) 135 - 214 U/L 06/01/2023 12:59 AM CDT [facility] Comment:Specimen is hemolyze d. Results may be falsely elevated. Repeat test if needed. Blood Peripheral blood specimen / Unknown Venipuncture / Unknown 05/31/2023 3:12 PM CDT 05/31/2023 3:20 PM CDT [facility] - 06/01/2023 12:59 AM CDT Results greater than 1651 U/L may not be reliable due to matrix effect with extended dilution as it exceeds the plaster caster's recommended limit. Caution should be exercised when interpreting such values and done in conjunction with clinical context. Fermin Pham MD LAB BLOOD ORDERABLES [facility] Unless otherwise noted, all lab tests performed by: Division of Pathology and Laboratory Medicine [address] [place] [phone] * (ABNORMAL) Respiratory Multiplex PCR Panel, Nasopharyngeal Swab (05/31/2023 2:45 PM CDT) Adenovirus Not Detected Not Detected 05/31/2023 4:21 PM CDT [facility] Coronavirus 229E Not Detected Not Detected 05/31/2023 4:21 PM CDT [facility] Coronavirus HKU1 Not Detected Not Detected 05/31/2023 4:21 PM CDT [facility] Coronavirus NL63 Not Detected Not Detected 05/31/2023 4:21 PM CDT [facility] Coronavirus OC43 Not Detected Not Detected 05/31/2023 4:21 PM CDT [facility] COVID-19 (SARS-CoV-2) Not Detected Not Detected 05/31/2023 4:21 PM CDT [facility] Human Metapneumovirus Not Detected Not Detected 05/31/2023 4:21 PM CDT [facility] Human Rhinovirus/Enterov irus Detected(A) Not Detected 05/31/2023 4:21 PM CDT [facility] Influenza A Not Detected Not Detected 05/31/2023 4:21 PM CDT [facility] Influenza A H1 Not Detected Not Detected 05/31/2023 4:21 PM CDT [facility] Influenza A H1 2009 Not Detected Not Detected 05/31/2023 4:21 PM CDT [facility] Influenza A H3 Not Detected Not Detected 05/31/2023 4:21 PM CDT [facility] Influenza B Not Detected Not Detected 05/31/2023 4:21 PM CDT [facility] Parainfluenza Virus 1 Not Detected Not Detected 05/31/2023 4:21 PM CDT [facility] Parainfluenza Virus 2 Not Detected Not Detected 05/31/2023 4:21 PM CDT [facility] Parainfluenza Virus 3 Not Detected Not Detected 05/31/2023 4:21 PM CDT [facility] Parainfluenza Virus 4 Not Detected Not Detected 05/31/2023 4:21 PM CDT [facility] Respiratory Syncytial Virus Not Detected Not Detected 05/31/2023 4:21 PM CDT [facility] Bordetella parapertussis Not Detected Not Detected 05/31/2023 4:21 PM CDT [facility] Bordetella pertussis Not Detected Not Detected 05/31/2023 4:21 PM CDT [facility] Chlamydophila pneumoniae Not Detected Not Detected 05/31/2023 4:21 PM CDT [facility] Mycoplasma pneumoniae Not Detected Not Detected 05/31/2023 4:21 PM CDT [facility] Swab Nasopharyngeal structure / Unknown Non-blood Collection / Unknown 05/31/2023 2:45 PM CDT 05/31/2023 2:53 PM CDT [facility] - 05/31/2023 4:21 PM CDT The assay is a qualitative multiplex PCR assay to aid in the diagnosis of respiratory pathogens through simultaneous qualitative detection and identification of multiple pathogens directly from nasopharyngeal swabs (QUANTOMETER OPERATOR) from individuals with respiratory symptoms. Testing is performed using the Met[employer] Protect FilmArray Respiratory Panel 2.1 (RP2.1) on the [employer] System. The following organisms are identified using the Met[employer] Protect RP 2.1 Panel: Adenovirus, Human Coronavirus (229E, HKU1, NL63, and OC43), Severe Acute Respiratory Syndrome Coronavirus 2 (SARS-CoV-2), Human Metapneumovirus, Human Rhinovirus/Enterovirus, Influenza A, including subtypes (H1, H3 and H1-2009), Influenza B, Parainfluenza Virus (1, 2, 3, and 4), Respiratory Syncytial Virus, Bordetella parapertussis, Bordetella pertussis, Chlamydia pneumoniae, and Mycoplasma pneumoniae A result of Not Detected" does not exclude the possibility of the presence of one or more of the pathogens at or below the detection limits of this assay nor does exclude the possibility of pathogens not detected by this panel. Non-infectious causes of respiratory symptoms should also be considered in such cases. Internal controls are used to monitor all stages of the testing process including amplification inhibition. If inhibition is detected, testing is repeated and if inhibition is confirmed the specimen is resulted as "Invalid". When an "Invalid" result occurs, it is recommended to wait 3 days before submitting a new specimen for testing if clinically indicated. This is an FDA-approved assay and its performance characteristics were verified by the microbiology laboratory at the [facility] (CLIA Accreditation # [id number] and CAP Accreditation # [id number]). Results must be interpreted within the context of all relevant clinical and laboratory findings. Assay should not be used for monitoring response to therapy. Alexandre Nascimento MD MICROBIOLOGY - BANNER AL ORDERABLES [facility] Unless otherwise noted, all lab tests performed by: Division of Pathology and Laboratory Medicine [address] [place] [phone] * Mammography Digital Diagnostic Bilateral with Odell (05/25/2023 10:37 AM CDT) Anatomical Region Laterality Modality Breast Bilateral Mammography 05/25/2023 10:3 7 AM CDT Impressions 05/25/2023 10:37 AM CDT There is no mammographic evidence of malignancy. Follow-up mammogram in 1 year is recommended. BI-RADS Category 2: Benign Finding(s) Narrative 05/25/2023 10:37 AM CDT CLINICAL INDICATION: Patient is a 78 year old female and is seen for history of breast cancer MAMMO DIGITAL DIAGNOSTIC BILATERAL W ODELL Digital Mammogram evaluated with Computer Aided Detection (CAD). COMPARISON: The present examination has been compared to prior imaging studies performed at [facility] on 06/16/2018, 02/16/2019, 03/31/2020, 05/09/2021 and 05/31/2022. FINDINGS: There are scattered areas of fibroglandular density. There is a stable post surgical scar with associated post radiation change and surgical clips in the right breast. In the left breast, no dominant mass, distortion, or suspicious calcifications are identified. Tomosynthesis performed in CC and MLO projections. Procedure Note Brigette Calderón MD - 05/25/2023 CLINICAL INDICATION: Patient is a 78 year old female and is seen for history of breast cancer MAMMO DIGITAL DIAGNOSTIC BILATERAL W ODELL Digital Mammogram evaluated with Computer Aided Detection (CAD). COMPARISON: The present examination has been compared to prior [facility] on 06/16/2018, 02/16/2019,03/31/2020, 05/09/2021 and 05/31/2022. FINDINGS: There are scattered areas of fibroglandular density. There is a stable post surgical scar with associated post radiation changeand surgical clips in the right breast. In the left breast, no dominant mass, distortion, or suspiciouscalcifications are identified. Tomosynthesis performed in CC and MLO projections. IMPRESSION: There is no mammographic evidence of malignancy. Follow-up mammogram in 1 year is recommended. BI-RADS Category 2: Benign Finding(s) Neetu Moreno APRN IMG MAMMOGRAPHY OR DERABLES after 10/01/2022 Advance Directives Latest Code Status on File Code Status Date Activated Date Inactivated Comments DNR 06/02/2023 10:58 AM 06/17/2023 7:54 PM Question Answer Comments DNR obtained from: Patient Patient Provided: Written Authorization (DNR Con sent) Code Status History Code Status Date Activated Date Inactivated Comments Full Code 05/31/2023 5:07 PM 06/02/2023 10:58 AM Full Code 07/11/2018 3:53 PM 07/12/2018 2:34 PM Care Teams Brush Polisher Relationship Specialty Start Date End Date Elizabeth Burrell MD [address] [place] [address] [phone] PCP - General Breast Medical Oncology 02/16/19 Jennifer Woo MD [address] [place] [address] [phone] Consulting Physician Radiation Oncology 08/19/18 Beverly Matias MD [address] [place] [address] [phone] Consulting Physician Rheumatology 11/29/22 Tameka Jaramillo MD [address] [place] [address] [phone] Consulting Physician Internal Medicine 06/18/18 Bree Rodriguez DDS [address] [place] [address] [phone] Consulting Physician Dental Oncology 08/21/23
[2023-10-01 15:11] LABS: Absolute Basophils 0.1 K/uL (0-0.5); Absolute Lymphocytes (CBC) 0.9 K/uL (0.7-4.9); Basophils % 0.3 % (0-1.3); Hematocrit 35.5 % (36.0-45.0); Lymphocytes % 5.2 % (15.3-44.8); MCV 94.4 fL (80-100); MPV 7.8 fL (7.6-11.3); Platelets 357 thou/uL (152-406); RBC Red Blood Cell Count 3.76 M/uL (3.86-4.86)
[2023-10-01 15:42] LABS: Protime INR 1.16
[2023-10-01] MEDS ORDERED: NA CHLORIDE 0.9% 1,000 ML ONE (15:50)
[2023-10-01 15:52] LABS: Albumin 2.8 g/dL (3.4-5.0); Albumin/Globulin Ratio 0.6 (1.1-1.8); Anion Gap 13.4 mEq/L (5.0-15.0); Bilirubin Total 0.7 mg/dL (0.2-1.0); Potassium 4.4 mEq/L (3.5-5.1); Protein, Total 7.4 g/dL (6.4-8.2)
[2023-10-01 15:57] LABS: Troponin High Sensitivity 5256.1 pg/mL (<58.9)
[2023-10-01] MEDS ORDERED: CEFTRIAXONE 1000 MG/VIAL ONE (16:01)
[2023-10-01] MEDS ORDERED: AZITHROMYCIN 500 MG INJ IVPB ONE (16:02)
--- NOTE | 2023-10-01 16:54 | RAD REPORT ---
EXAM DESCRIPTION: Samanthat Single View10/01/2023 3:31 pm CLINICAL HISTORY: DYSPNEA COMPARISON: CHEST SINGLE VIEW dated 03/24/2012 TECHNIQUE: Portable AP view of the chest. FINDINGS: Patchy bilateral central predominant airspace opacities. Small right and moderate left ple ural effusions. Left chest wall medication port in place with catheter tip projecting at the superior cavoatrial junction. No pneumothorax. The cardiomediastinal contours are unremarkable. IMPRESSION: Findings suggestive of pulmonary edema. Superimposed pneumonia would be difficult to exc lude.
[2023-10-01] MEDS ORDERED: NOREPINEPHRINE BITARTRATE/D5W 4 MG/250 ML BAG IV ONE (17:37)
--- NOTE | 2023-10-01 19:00 | RAD REPORT ---
EXAM DESCRIPTION: CT - Chest For Pe Angio - 10/01/2023 6:10 pm CLINICAL HISTORY: DYSPNEA COMPARISON: Chest Single View dated 10/01/2023 TECHNIQUE: Thin axial CT images of the chest were obtained following administration of 100 mL Isovue 370 IV contrast. Multiplanar reconstructions, and maximum intensity projection reconstructions were generated and reviewed. Exam utilizes a protocol for optimal evaluation of pulmonary arterial tree. All CT scans are performed using dose optimization technique as appropriate and may include automated exposure control or mA/KV adjustment according to patient size. FINDINGS: Pulmonary arteries are normal. No emboli or other suspicious finding. No acute or signific ant aorta findings. Patchy airspace opacities, centrally predominant, with interlobular septal thickening and bronchovasc ular wall thickening. Moderate left and small right layering pleural effusions. No pneumothorax. No abnormal mediastinal or hilar masses or lymphadenopathy seen. No chest wall mass or abnormal axill iary lymphadenopathy. IMPRESSION: No evidence of acute central pulmonary emboli. Findings suggestive of pulmonary edema with layering effusions bilaterally larger on the left. Superi mposed pneumonia would be difficult to exclude.
--- NOTE | 2023-10-01 19:28 | ER ---
Nurse's Notes [facility] Name: Marcelle Krishnamurthy Age: 78 yrs Sex: Female : 1945 Arrival Date: 10/01/2023 Time: 14:50 Bed 3 Private MD: Diagnosis: Acute pulmonary edema;Hypoxemia;Hypotension, unspecified Presentation: 09/30 14:56 Chief complaint: EMS states: they were called to the patients house for a sudden onset ap3 of shortness of breath approx one hour prior to their arrival. EMS reports they had a SPO2 reading of 50% room air at the patients house. Coronavirus screen: At this time, the client does not indicate any symptoms associated with coronavirus-19. Ebola Screen: No symptoms or risks identified at this time. Initial Sepsis Screen: Does the patient meet any 2 criteria? RR > 20 per min. HR > 90 bpm. Yes Does the patient have a suspected source of infection? No. Patient's initial sepsis screen is negative. Risk Assessment: Do you want to hurt yourself or someone else? Patient reports no desire to harm self or others. Onset of symptoms was October 01, 2023. Care prior to arrival: IV initiated. 18 GA, in the left wrist, Oxygen administered. via a non-rebreather mask. 14:56 Method Of Arrival: EMS: [facility] ap3 14:56 Acuity: RISSA 2 ap3 Triage Assessment: 14:59 General: Appears distressed, Behavior is anxious. Pain: Complains of pain in chest. ap3 Neuro: Level of Consciousness is awake. Respiratory: Respiratory effort is labored, Respiratory pattern is regular, tachypnea. Historical: - Allergies: 15:56 Codeine; ko1 - Immunization history:: Adult Immunizations up to date. - Family history:: not pertinent. - Social history:: Smoking status: Patient denies any tobacco usage or history of. - Hospitalizations: : No recent hospitalization is reported. Screenin:56 [facility] ED Fall Risk Assessment (Adult) History of falling in the last 3 months, ko1 including since admission No falls in past 3 months (0 pts) Confusion or Disorientation Yes (5 pts) Intoxicated or Sedated No (0 pts) Impaired Gait Yes (1 pt) Mobility Assist Device Used Yes (1 pt) Altered Elimination Yes (1 pt) Score/Fall Risk Level 3 or more points = High Risk Oriented to surroundings, Maintained a safe environment, Educated pt \T\ family on fall prevention, incl call for assistance when getting out of bed, Assessed \T\ reinforced patient's understanding of fall precautions, Provided non-skid footwear, Hourly rounding (assess needs \T\ fall precautionary measures) done, Used ambulatory aids as needed (educated on \T\ assisted with), Used gait belt as appropriate Implemented a Fall Risk Plan of Care, Apply high fall risk patient identification: yellow non skid footwear/ fall signage, Remained w/in arm's length of patient and in sight while toileting, Offered frequent toileting (1:1 observation), Remained with patient while ambulating, Utilized family, sitter, or virtual oyster grader as indicated. Abuse screen: Denies threats or abuse. Denies injuries from another. Nutritional screening: No deficits noted. Tuberculosis screening: No symptoms or risk factors identified. Assessment: 15:00 General: Appears distressed, uncomfortable, ill, Behavior is anxious, restless. Pain: ko1 Denies pain. Neuro: No deficits noted. Cardiovascular: Rhythm is sinus tachycardia. Respiratory: Respiratory effort is labored, using tripod position, Respiratory pattern is tachypnea. GI: No deficits noted. : No deficits noted. EENT: No deficits noted. Derm: No deficits noted. Musculoskeletal: No deficits noted. 19:29 General: Appears distressed, uncomfortable, ill, Behavior is anxious, restless. Pain: bp Denies pain. Neuro: No deficits noted. Casey Agitation-Sedation Scale (RASS): +1 Restless Level of Consciousness is awake, alert, obeys commands, Oriented to person, place, time, situation. Cardiovascular: Capillary refill < 3 seconds Clubbing of nail beds is absent Rhythm is sinus tachycardia. Respiratory: Respiratory effort is labored, using tripod position, Respiratory pattern is tachypnea. GI: No deficits noted. No signs and/or symptoms were reported involving the gastrointestinal system. Abdomen is round non-distended. : No deficits noted. No signs and/or symptoms were reported regarding the genitourinary system. EENT: No deficits noted. No signs and/or symptoms were reported regarding the EENT system. Derm: No deficits noted. No signs and/or symptoms reported regarding the dermatologic system. Skin is intact, is thin, Skin is dry, Skin is normal, Skin temperature is warm. Musculoskeletal: No deficits noted. Circulation, motion, and sensation intact. Range of motion: intact in all extremities. Vital Signs: 14:56 BP 132 / 103; Pulse 144; Resp 40; Pulse Ox 94% on BiPAP; Weight 69.85 kg; ap3 15:27 Temp 98.3(A); ko1 16:41 BP 92 / 53; Pulse 123; Resp 42; Pulse Ox 100% on BiPAP; FiO2 70 %; ko1 16:45 BP 94 / 72; Pulse 125; Resp 38; Pulse Ox 100% on BiPAP; ko1 17:00 BP 123 / 109; Pulse 123; Resp 48; Pulse Ox 95% on BiPAP; ko1 17:30 BP 111 / 52; Pulse 123; Resp 35; Pulse Ox 96% on BiPAP; ko1 17:47 BP 107 / 82; Pulse 131; Resp 38; Pulse Ox 95% on BiPAP; ko1 18:23 BP 114 / 99; Pulse 127; Resp 34; Pulse Ox 96% on BiPAP; ko1 18:37 BP 122 / 59; Pulse 126; Resp 45; Pulse Ox 94% on BiPAP; ko1 19:15 BP 146 / 64; Pulse 131; Resp 36; Pulse Ox 94% on BiPAP; bp 19:50 BP 133 / 55; Pulse 127; Resp 33; Pulse Ox 95% on BiPAP; bp 21:20 BP 124 / 75; Pulse 120; Resp 33 S; Pulse Ox 97% on BiPAP; bp ED Course: 14:54 Patient arrived in ED. rn 14:54 Clemente Krueger MD is Attending Physician. rn 14:59 Triage completed. ap3 15:00 Arm band placed on right wrist. ap3 15:00 PO fluids given. Oral care given. ko1 15:00 Inserted saline lock: 22 gauge in right antecubital area, using aseptic technique. ko1 Blood collected. Maintain EMS IV. Dressing intact. Good blood return noted. Site clean \T\ dry. Gauge \T\ site: 18g left wrist. 15:05 Tia Stewart, KRISTINA is Primary Nurse. ko1 15:05 Troponin High Sensitivity Sent. ko1 15:05 BIPAP Sent. ko1 15:05 BNP Sent. ko1 15:05 CBC with Diff Sent. ko1 15:05 Lactate w/ 2H reflex if indic. Sent. ko1 15:20 Initial lab(s) drawn, by me, sent to lab. First set of blood cultures drawn by me, ko1 Second set of blood cultures drawn by ED staff, EKG done, by ED staff, reviewed by Clemente Krueger MD X-ray(s) taken. Inserted saline lock: 22 gauge in left antecubital area, using aseptic technique. Blood collected. 15:22 Blood Culture Adult (2) Sent. ko1 15:33 Chest Single View XRAY In Process Unspecified. EDMS 15:56 Patient has correct armband on for positive identification. Allergy band placed. Placed ko1 in gown. Bed in low position. Call light in reach. Side rails up X2. Client placed on continuous cardiac and pulse oximetry monitoring. NIBP monitoring applied. trip follower on. Door closed. Noise minimized. Lights dimmed. Warm blanket given. 16:41 Provided Education on: na. ko1 17:45 Accessed Port-a-Cath. using accessed w/ # 20 Gloria needle, ,sterile technique, per [facility] hospital protocol. Clean \T\ dry. Dressing intact. Good blood return. Flushes easily. 18:12 CT Chest For PE Angio In Process Unspecified. EDMS 18:38 No provider procedures requiring assistance completed. ko1 19:12 Primary Nurse role handed off by Tia Stewart, KRISTINA as6 19:28 Alberto Wilson MD is Hospitalizing Provider. rn 20:00 Pagan cath inserted, using sterile technique, 18 Fr., by sd, balloon inflated, to bp gravity drainage. 20:12 Urinalysis W/Microscopic Sent. rv1 20:12 Blood Culture Adult (2) Sent. rv1 Administered Medications: 16:05 Drug: Rocephin IV 1 grams IV at calculated rate once; Given slow IV push per pharmacy ko1 instructions Route: IV; Rate: calculated rate; Site: left antecubital; 20:03 Follow up: Response: No adverse reaction; IV Status: Completed infusion; IV Intake: 10mlbp 16:11 Drug: Zithromax IVPB 500 mg IVPB once over 1 hrs; mix in 250 mL NS Route: IVPB; Infused ko1 Over: 1 hrs; Site: left antecubital; 20:03 Follow up: Response: No adverse reaction; IV Status: Completed infusion; IV Intake: bp 250ml 16:51 Drug: NS 0.9% IV 500 ml IV at bolus once Route: IV; Rate: bolus; Site: left upper arm; ko1 20:03 Follow up: Response: No adverse reaction; IV Status: Completed infusion; IV Intake: bp 500ml 17:50 Drug: Norepinephrine IV 0.1 mcg/kg/min IV at calculated rate See Administration ap3 Instructions; (Standard concentration 4 mg / 250 mL D5W); Recommended max rate 3 mcg/kg/min; Titrate 0.05 mcg/kg/min as often as every 5 minutes to achieve goal (see titration policy); Goal parameter MAP greater than 65 mmHg. Route: IV; Rate: calculated rate; Site: Other; 18:38 Follow up: Rate change 0.05 mcg/kg/min ko1 20:00 Drug: Furosemide IVP 40 mg IVP once; give over 2 minutes Route: IVP; Site: Port-a-cath; bp Medication: 16:41 VIS not applicable for this client. ko1 Intake: 20:03 IV: 500ml; Total: 500ml. bp 20:03 IV: 250ml; Total: 750ml. bp 20:03 IV: 10ml; Total: 760ml. bp Outcome: 19:28 Decision to Hospitalize by Provider. rn 21:57 Patient left the ED. jb4 Signatures: Dispatcher [employer] EDMS Clemente Krueger MD MD rn Bryson, James RN KRISTINA jb4 Alexandre Sharp RN Seema Shelley RN RN ap3 Ryan Jordan RN RN as6 Tia Stewart RN RN ko1 Mariza Johns rv1 Corrections: (The following items were deleted from the chart) 18:34 16:45 BP 94 / 72; Pulse 125bpm; Resp 18bpm; Pulse Ox 100% BiPAP; ko1 ko1
--- NOTE | 2023-10-01 19:28 | EDPHYS ---
Physician Documentation [facility] Name: Marcelle Krishnamurthy Age: 78 yrs Sex: Female : 1945 Arrival Date: 10/01/2023 Time: 14:50 Bed 3 Private MD: ED Physician Clemente Krueger HPI: 09/30 15:46 This 78 yrs old Female presents to ER via EMS with complaints of shortness of breath. rn 15:46 The patient has shortness of breath at rest. Onset: The symptoms/episode began/occurred rn this morning. Duration: The symptoms are continuous. The patient's shortness of breath is aggravated by exertion, light activity, is alleviated by application of supplemental oxygen. Severity of symptoms: At their worst the symptoms were moderate in the emergency department the symptoms are unchanged. The patient has experienced similar episodes in the past. EMS reports patient began with shortness of breath this morning. Patient with known breast cancer with metastases to the bone and lung. Patient is on home O2, 3 L, was doing okay last night and got worse this morning. No history of DVT or PE.. Historical: - Allergies: 15:56 Codeine; ko1 - Immunization history:: Adult Immunizations up to date. - Family history:: not pertinent. - Social history:: Smoking status: Patient denies any tobacco usage or history of. - Hospitalizations: : No recent hospitalization is reported. ROS: 15:46 Constitutional: Negative for fever, chills, and weight loss, Cardiovascular: Negative rn for chest pain, palpitations Respiratory: Positive for shortness of breath and cough Abdomen/GI: Negative for abdominal pain, nausea, vomiting, diarrhea, and constipation, MS/Extremity: Negative for injury and deformity, Skin: Negative for injury, rash, and discoloration, Neuro: Positive for generalized weakness and malaise Exam: 15:19 ECG was reviewed by the Attending Physician. rn 15:46 Constitutional: This is a well developed, well nourished patient who is awake, alert, rn on nonrebreather, tachypnea and coarse bilateral breath sounds. Retractions present Head/Face: Normocephalic, atraumatic. ENT: No stridor, dry mucous membranes Cardiovascular: Tachycardic, regular.. No pulse deficits. Respiratory: Positive for moderate tachypnea with coarse bilateral breath sounds. Abdomen/GI: Soft, non-tender Skin: Warm, dry MS/ Extremity: Pulses equal, no cyanosis. Neuro: Awake and alert, GCS 15 Vital Signs: 14:56 BP 132 / 103; Pulse 144; Resp 40; Pulse Ox 94% on BiPAP; Weight 69.85 kg; ap3 15:27 Temp 98.3(A); ko1 16:41 BP 92 / 53; Pulse 123; Resp 42; Pulse Ox 100% on BiPAP; FiO2 70 %; ko1 16:45 BP 94 / 72; Pulse 125; Resp 38; Pulse Ox 100% on BiPAP; ko1 17:00 BP 123 / 109; Pulse 123; Resp 48; Pulse Ox 95% on BiPAP; ko1 17:30 BP 111 / 52; Pulse 123; Resp 35; Pulse Ox 96% on BiPAP; ko1 17:47 BP 107 / 82; Pulse 131; Resp 38; Pulse Ox 95% on BiPAP; ko1 18:23 BP 114 / 99; Pulse 127; Resp 34; Pulse Ox 96% on BiPAP; ko1 18:37 BP 122 / 59; Pulse 126; Resp 45; Pulse Ox 94% on BiPAP; ko1 19:15 BP 146 / 64; Pulse 131; Resp 36; Pulse Ox 94% on BiPAP; bp 19:50 BP 133 / 55; Pulse 127; Resp 33; Pulse Ox 95% on BiPAP; bp 21:20 BP 124 / 75; Pulse 120; Resp 33 S; Pulse Ox 97% on BiPAP; bp MDM: 14:54 Patient medically screened. rn 16:07 ED course: Patient with bilateral pulmonary opacities, most likely pulmonary edema in rn the setting of known lung malignancy and history of malignant effusions. Elevated lactic acid of 5, likely secondary to extreme hypoxia of 50% on room air. Patient is not hypotensive is in fact hypertensive. Will not give additional fluids at this time, specifically not the 30/kg bolus, due to extreme pulmonary edema and requirement for BiPAP. Antibiotics ordered after blood cultures and lactate obtained.. 16:45 ED course: Blood pressure recently dropped to the 90s systolic, never dropped below 98, rn will give 500 cc bolus at this time, again in place of the 30/kg bolus because of pulmonary edema on the chest x-ray History of pleural effusions. Will reassess after 500 bolus given patient already on BiPAP due to respiratory distress. 17:35 ED course: Blood pressure continues to remain low, severe pulmonary edema on imaging. rn Patient has port, will access and started on Levophed for blood pressure support.. ED course: Spoke to family regarding CODE STATUS daughter who is medical power of corporate attorney states patient wants DNR and no ventilator support. Patient is with it and alert and oriented and capable of making medical decisions at this time, she states that she would want CPR and ACLS protocols but does not want intubation or ventilator support.. 17:53 ED course: Blood pressure after Levophed initiation is now 105/65. Levophed initiated rn due to severe pulmonary edema and inability to give patient full 30/kg bolus. Showing good response to Levophed at this time. Sepsis reevaluation complete.. 19:25 Differential diagnosis: CHF exacerbation, Myocardial Infarction pneumonia, Pneumothorax rn pulmonary edema, Pulmonary Embolism. Data reviewed: vital signs, nurses notes, lab test result(s), EKG, radiologic studies, CT scan, plain films, and as a result, I will admit patient. Consideration of Admission/Observation Patient was admitted/placed on observation. Escalation of care including admission/observation considered. Independent interpretation of the following test(s) in the Emergency Department X-Ray: My interpretation is Chest x-ray images show severe bilateral pulmonary edema. Care significantly affected by the following chronic conditions: Metastatic cancer. Counseling: I had a detailed discussion with the patient and/or guardian regarding the historical points, exam findings, and any diagnostic results supporting the discharge/admit diagnosis, lab results, radiology results, the need for further work-up and treatment in the hospital. Response to treatment: the patient's symptoms have mildly improved after treatment, and as a result, I will admit patient. 19:25 ED course: I personally spent 85 minutes engaged in work directly related to the rn individual patient's care. This does not include any time spent performing procedures. The patient has been deemed critically ill because of severe respiratory distress, pulmonary edema, possible severe sepsis with septic shock complicated by severe pulmonary edema and requiring BiPAP. Consultation with hospitalist service regarding CODE STATUS as well as multiple conversations with family regarding CODE STATUS and care.. 09/30 14:54 Order name: Blood Culture Adult (2) rn 09/30 14:54 Order name: CBC with Diff; Complete Time: 19:36 rn 09/30 14:54 Order name: CMP; Complete Time: 15:58 rn 09/30 14:54 Order name: Lactate w/ 2H reflex if indic.; Complete Time: 15:44 rn 09/30 14:54 Order name: Protime (+inr); Complete Time: 15:44 rn 09/30 14:54 Order name: Ptt, Activated; Complete Time: 15:44 rn 09/30 14:54 Order name: BNP; Complete Time: 15:58 rn 09/30 14:54 Order name: Troponin High Sensitivity; Complete Time: 15:58 rn 09/30 15:42 Order name: Glucose, Ancillary Testing; Complete Time: 15:44 EDMS 09/30 19:32 Order name: Manual Differential; Complete Time: 19:36 EDMS 09/30 19:46 Order name: Lactate Sepsis 2 HR Follow-up EDMS 09/30 20:01 Order name: Urinalysis W/Microscopic sp4 09/30 21:03 Order name: CBC with Automated Diff EDMS 09/30 21:03 Order name: CBC with Automated Diff EDMS 09/30 21:03 Order name: CBC with Automated Diff EDMS 09/30 21:03 Order name: CBC with Automated Diff EDMS 09/30 21:03 Order name: Comprehensive Metabolic Panel EDMS 09/30 21:03 Order name: Comprehensive Metabolic Panel EDMS 09/30 21:03 Order name: Comprehensive Metabolic Panel EDMS 09/30 21:03 Order name: Comprehensive Metabolic Panel EDMS 09/30 14:54 Order name: Chest Single View XRAY; Complete Time: 17:02 rn 09/30 14:54 Order name: BIPAP rn 09/30 15:59 Order name: CT Chest For PE Angio; Complete Time: 19:23 rn 09/30 14:54 Order name: EKG; Complete Time: 14:55 rn 09/30 14:54 Order name: Accucheck; Complete Time: 15:34 rn 09/30 14:54 Order name: Cardiac monitoring; Complete Time: 15:05 rn 09/30 14:54 Order name: EKG - Nurse/Tech; Complete Time: 15:05 rn 09/30 14:54 Order name: IV Saline Lock - Large Bore; Complete Time: 15:05 rn 09/30 14:54 Order name: Labs collected and sent; Complete Time: 15:22 rn 09/30 14:54 Order name: O2 Per Protocol; Complete Time: 15:05 rn 09/30 14:54 Order name: O2 Sat Monitoring; Complete Time: 15:05 rn 09/30 14:54 Order name: Vital Signs; Complete Time: 15:05 rn 09/30 20:00 Order name: Ej; Complete Time: 20:00 bp EC:19 Rate is 139 beats/min. Rhythm is regular. QRS [place] is Normal. [place] interval is normal. rn QRS interval is normal. QT interval is normal. No Q waves. T waves are Normal. No ST changes noted. Clinical impression: Sinus tachycardia. Interpreted by me. Reviewed by me. Administered Medications: 16:05 Drug: Rocephin IV 1 grams IV at calculated rate once; Given slow IV push per pharmacy ko1 instructions Route: IV; Rate: calculated rate; Site: left antecubital; 20:03 Follow up: Response: No adverse reaction; IV Status: Completed infusion; IV Intake: 10mlbp 16:11 Drug: Zithromax IVPB 500 mg IVPB once over 1 hrs; mix in 250 mL NS Route: IVPB; Infused ko1 Over: 1 hrs; Site: left antecubital; 20:03 Follow up: Response: No adverse reaction; IV Status: Completed infusion; IV Intake: bp 250ml 16:51 Drug: NS 0.9% IV 500 ml IV at bolus once Route: IV; Rate: bolus; Site: left upper arm; ko1 20:03 Follow up: Response: No adverse reaction; IV Status: Completed infusion; IV Intake: bp 500ml 17:50 Drug: Norepinephrine IV 0.1 mcg/kg/min IV at calculated rate See Administration ap3 Instructions; (Standard concentration 4 mg / 250 mL D5W); Recommended max rate 3 mcg/kg/min; Titrate 0.05 mcg/kg/min as often as every 5 minutes to achieve goal (see titration policy); Goal parameter MAP greater than 65 mmHg. Route: IV; Rate: calculated rate; Site: Other; 18:38 Follow up: Rate change 0.05 mcg/kg/min ko1 20:00 Drug: Furosemide IVP 40 mg IVP once; give over 2 minutes Route: IVP; Site: Port-a-cath; bp Disposition: 19:25 Critical Care:. rn Disposition Summary: 10/01/23 19:28 Hospitalization Ordered Notes: Hospitalization Status: Inpatient Admission rn Provider: Alberto Wilson rn Location: Intensive Care Unit rn Condition: Serious rn Problem: new rn Symptoms: have improved rn Bed/Room Type: Standard rn Room Assignment: 6-(10/01/23 19:33) jb4 Diagnosis - Acute pulmonary edema rn - Hypoxemia rn - Hypotension, unspecified rn Forms: - Medication Reconciliation Form rn - SBAR form rn - Leadership Thank You Letter pattern illustrator time excluding procedures: 19:25 Critical care time: Bedside Care: 65 minutes, Consultation: 10 minutes, Family rn Intervention: 10 minutes. Total time: 85 minutes Signatures: Dispatcher [employer] EDMS Clemente Krueger MD MD rn Bryson, James RN RN jb4 Alexandre Sharp RN RN Seema Kumar RN RN ap3 Tia Stewart, RN RN ko1 Corrections: (The following items were deleted from the chart) 17:54 17:53 ED course: Blood pressure after Levophed initiation is now 105/65. Showing good rn response to Levophed at this time.. rn 19:33 19:28 rn jb4
[2023-10-01 19:32] LABS: Band Neutrophils 1 % (0-1); Blood Morphology Comment NOT SEEN (NOT SEEN); Platelet Estimate ADEQ
[2023-10-01] MEDS ORDERED: FUROSEMIDE 40 MG/4 ML VIAL ONE (19:41)
[2023-10-01 20:40] LABS: Urine Bacteria <20 /HPF (<20); Urine Bilirubin NEGATIVE (Negative); Urine Blood Negative (Negative); Urine Clarity Clear (Clear); Urine Color Yellow (Yellow); Urine Glucose NEGATIVE (Negative); Urine Mucus Slight /HPF (None Seen); Urine Protein 1+ (Negative); Urine Urobilinogen Normal (Normal)
[2023-10-01] MEDS ORDERED: ACETAMINOPHEN 325 MG TABLET PO PRN (20:56)
[2023-10-01] MEDS ORDERED: ALPRAZOLAM 0.25 MG TABLET PO PRN (20:56)
[2023-10-01] MEDS ORDERED: ONDANSETRON 4 MG/2 ML VIAL IV PRN (20:56)
[2023-10-01 20:58] LABS: Specific Gravity > 1.030 (1.005-1.030)
--- NOTE | 2023-10-01 21:03 | P.HP ---
Certification for Inpatient Patient admitted to: Inpatient With expected LOS: >2 Midnights Practitioner: I am a practitioner with admitting privileges, knowledge of patient current condition, hospital course, and medical plan of care. Services: Services provided to patient in accordance with Admission requirements found in Title 42 Section 412.3 of the Code of Federal Regulations Patient History Date of Service: 10/02/23 Reason for admission: Shortness of breath, weakness. History of Present Illness: 78-year-old female patient with medical history significant for metastatic stage IV breast cancer who is on palliative chemotherapy was brought in by family for worsening shortness of breath. Patient has had issues with being on hospice and being on hospice and is at recent chemotherapy sessions for palliative purposes. She was brought into the emergency room with worsening shortness of breath and was found to have respiratory failure with hypoxia so she was started on BiPAP therapy imaging studies done with a CT PE protocol ruled out pulmonary embolism however there was suspicion for underlying pneumonia. Patient was started on broad-spectrum antibiotic therapy and NIPPV and she was admitted for inpatient care. Allergies codeine [Codeine] Allergy (Verified 03/24/12 13:03) Nausea/Vomiting Sulfa (Sulfonamide Antibiotics) [Sulfa(Sulfonamide Antibiotics)] Allergy (Verified 03/24/12 13:03) Hives Home Medications: Capecitabine [Xeloda] BID 10/01/23 Magnesium Oxide [Magnesium] 500 mg PO BID* 10/01/23 Meloxicam [Mobic*] PRN 10/01/23 Potassium Oral Tab [Klor-Con 10 mEq Tab] 20 meq PO BID 10/01/23 Prochlorperazine Maleate [Compazine] PRN 10/01/23 Venlafaxine HCl [Effexor*] 1X 10/01/23 - Past Medical/Surgical History Diabetic: No - Social History Alcohol use: No CD- Drugs: No Caffeine use: Yes Review of Systems General: Weakness, Malaise Eyes: Unremarkable ENT: Unremarkable Respiratory: Shortness of Breath Cardiovascular: Unremarkable Gastrointestinal: Unremarkable Genitourinary: Unremarkable Musculoskeletal: Unremarkable Neurological: Unremarkable Lymphatics: Unremarkable Physical Examination - Vital Signs Pulse: 125 Pulse Ox (%): 97 - Physical Exam General: Alert, Severe distress HEENT: Atraumatic Neck: Supple Respiratory: Diminished Cardiovascular: Regular rate/rhythm, Normal S1 S2 Gastrointestinal: Soft and benign Musculoskeletal: No swelling - Studies Laboratory Data (last 24 hrs) 10/01/23 10/01/23 10/01/23 15:15 15:15 15:00 WBC 17.30 H Hgb 11.9 L Hct 35.5 L Plt Count 357 PT 12.7 H INR 1.16 APTT 31.8 Sodium 135 L Potassium 4.4 BUN 16 Creatinine 1.15 H Glucose 197 H Total Bilirubin 0.7 AST 64 H ALT 19 Alkaline Phosphatase 367 H Assessment and Plan - Plan Respiratory failure with hypoxia: Deemed secondary to metastatic lung breast cancer. BiPAP therapy to be continued. Will continue on as needed steroid therapy. Antibiotic therapy started for suspected pneumonia. Pneumonia: Will continue empiric antibiotic therapy with Rocephin and azithromycin pending further review. There may be component of obstruction. Will consider steroid therapy also. History of metastatic breast cancer: Management as per oncology service. Prophylaxis: Lovenox for DVT prophylaxis CODE STATUS: DO NOT INTUBATE. Disposition: We will treat her respiratory failure, suspected pneumonia and she will be discharged once plan of care is finalized and she is deemed stable for home care. - Advance Directives Does patient have a Living Will: No Does patient have a Durable POA for Healthcare: Yes
[2023-10-02] MEDS ORDERED: NA CHLORIDE 0.9% 1,000 ML ONE (05:00)
[2023-10-02] MEDS: NA CHLORIDE 0.9% 1,000 ML IV SCH (05:03)
[2023-10-02 05:23] LABS: Absolute Lymphocytes (CBC) 0.5 K/uL (0.7-4.9); Basophils % 0.3 % (0-1.3); Hematocrit 36.5 % (36.0-45.0); Lymphocytes % 5.4 % (15.3-44.8); MCV 93.8 fL (80-100); MPV 8.1 fL (7.6-11.3); Platelets 227 thou/uL (152-406); RBC Red Blood Cell Count 3.89 M/uL (3.86-4.86)
[2023-10-02 05:39] LABS: Albumin 2.6 g/dL (3.4-5.0); Albumin/Globulin Ratio 0.6 (1.1-1.8); Anion Gap 14.8 mEq/L (5.0-15.0); Bilirubin Total 0.4 mg/dL (0.2-1.0); Potassium 3.8 mEq/L (3.5-5.1); Protein, Total 6.9 g/dL (6.4-8.2)
[2023-10-02] MEDS: MORPHINE 4 MG/ML SYR IV PRN (07:32)
[2023-10-02] MEDS: CEFTRIAXONE 1,000 MG in NA CHLORIDE 0.9% 50 ML IVPB SCH (07:33)
[2023-10-02] MEDS: ENOXAPARIN 40 MG/0.4 ML SQ SCH (07:33)
[2023-10-02] MEDS: DEXMEDETOMIDINE HCL 1,000 MCG in NA CHLORIDE 0.9% 490 ML IV SCH (08:00)
[2023-10-02] MEDS ORDERED: NA CHLORIDE 0.9% 250 ML ONE (09:08)
[2023-10-02] MEDS ORDERED: AZITHROMYCIN 500 MG INJ IVPB ONE (09:08)
[2023-10-02] MEDS: AZITHROMYCIN IV 500 MG in NA CHLORIDE 0.9% 250 ML IVPB SCH (09:22)
--- NOTE | 2023-10-02 12:27 | P.CNS ---
Date of Consult: 10/02/23 Reason for Consult: Respiratory failure high Chief Complaint: Respiratory failure History of Present Illness: Patient is 78 years of age has metastatic breast cancer treated at [facility] apparently developed some respiratory distress was brought into the hospital with respiratory failure is currently on BiPAP patient was given a dose of Zometa and she was having some aches and pains in her bones came in very hypoxic complaining of progressive shortness of breath prior history of smoking she is alert septic shock with severe hypotension Patient has also had a malignant effusion drained at [facility] in April Allergies codeine [Codeine] Allergy (Verified 03/24/12 13:03) Nausea/Vomiting Sulfa (Sulfonamide Antibiotics) [Sulfa(Sulfonamide Antibiotics)] Allergy (Verified 03/24/12 13:03) Hives Home Medications: Capecitabine [Xeloda] BID 10/01/23 Magnesium Oxide [Magnesium] 500 mg PO BID* 10/01/23 Meloxicam [Mobic*] PRN 10/01/23 Potassium Oral Tab [Klor-Con 10 mEq Tab] 20 meq PO BID 10/01/23 Prochlorperazine Maleate [Compazine] PRN 10/01/23 Venlafaxine HCl [Effexor*] 1X 10/01/23 - Past Medical/Surgical History Diabetic: No -: Metastatic breast cancer -: History of malignant pleural effusion -: Is postthoracentesis - Social History Smoking Status: Never smoker Alcohol use: No CD- Drugs: No Caffeine use: Yes Review of Systems General: Weakness Respiratory: Shortness of Breath Physical Examination Temp Pulse Resp BP Pulse Ox 97.1 F 95 H 21 H 86/67 L 99 10/02/23 08:00 10/02/23 10:00 10/02/23 10:00 10/02/23 10:00 10/02/23 10:00 General: Alert, Moderate distress Respiratory: Diminished, Crackles/rales Cardiovascular: No edema, Regular rate/rhythm, Normal S1 S2 Gastrointestinal: Normal bowel sounds, Soft and benign, Non-distended Musculoskeletal: No clubbing, No swelling Laboratory Data (last 24 hrs) 10/01/23 10/01/23 10/01/23 15:15 15:15 15:00 WBC 17.30 H Hgb 11.9 L Hct 35.5 L Plt Count 357 PT 12.7 H INR 1.16 APTT 31.8 Sodium 135 L Potassium 4.4 BUN 16 Creatinine 1.15 H Glucose 197 H Total Bilirubin 0.7 AST 64 H ALT 19 Alkaline Phosphatase 367 H - Problems (1) Respiratory failure Current Visit: Yes Status: Acute Plan: Patient is 78 years of age admitted with acute respiratory failure she has metastatic breast cancer was on experimental therapy at [facility] his lactic acid was elevated renal function is improved white count declined chest CT scan chest x-ray shows diffuse bilateral recurrent consolidation bilateral pleural effusion continue with BiPAP Precedex vasopressors steroids change antibiotics to meropenem vancomycin she is at risk for multiresistant organism due to persistent healthcare exposure
[2023-10-02] MEDS ORDERED: Meropenem 1000 MG/VIAL IV ONE ×2 (14:06→21:03)
[2023-10-02] MEDS ORDERED: METHYLPREDNISOLONE 125 MG INJ ONE ×2 (14:06→21:03)
[2023-10-02] MEDS ORDERED: NA CHLORIDE 0.9% 100 ML ONE ×2 (14:06→21:03)
[2023-10-02] MEDS: Meropenem 1,000 MG in NA CHLORIDE 0.9% 100 ML IV SCH (14:10)
[2023-10-02] MEDS: VANCOMYCIN 1.5 GM in NA CHLORIDE 0.9% 500 ML IVPB ONE (14:11)
[2023-10-02] MEDS: METHYLPREDNISOLONE 125 MG INJ IV SCH (14:11)
[2023-10-02] MEDS: FUROSEMIDE 40 MG/4 ML VIAL IV SCH (17:31)
[2023-10-02] MEDS: NOREPINEPHRINE 4 MG in D5W 250 ML IV SCH (17:41)
--- NOTE | 2023-10-02 17:50 | P.PN ---
Subjective Date of Service: 10/02/23 Chief Complaint: Respiratory failure Patient noted to be quite agitated and was placed on Precedex so she can tolerate the BiPAP. Blood pressure has been running low with systolic in the 70s. No recorded fever. Patient is currently BiPAP dependent. Physical Examination - Vital Signs Temperature: 97.9 F Blood Pressure: 120/73 Pulse: 120 Respirations: 35 Pulse Ox (%): 95 - Physical Exam General: Moderate distress, Confused HEENT: Other (On BiPAP) Neck: JVD not distended Respiratory: Crackles/rales (Diffuse) Cardiovascular: No edema, Normal S1 S2, Other (Tachycardia) Gastrointestinal: Normal bowel sounds, Soft and benign, Non-distended Musculoskeletal: No swelling Integumentary: No rashes, No cyanosis Neurological: Other (No focal motor deficit) - Studies Laboratory Data (last 24 hrs) 10/01/23 15:00 WBC 17.30 H Hgb 11.9 L Hct 35.5 L Plt Count 357 Assessment And Plan - Current Problems (Diagnosis) (1) Acute respiratory failure with hypoxia Current Visit: Yes Status: Acute (2) Bilateral pneumonia Current Visit: Yes Status: Acute (3) Lymphangitic lung metastasis Current Visit: Yes Status: Acute (4) NSTEMI (non-ST elevated myocardial infarction) Current Visit: Yes Status: Acute (5) Hypotension Current Visit: Yes Status: Acute - Plan Acute respiratory failure with hypoxia Bilateral pneumonia pulmonary lymphangitic carcinomatosis Septic shock. Patient with stage IV lung cancer with multiorgan metastasis. Currently on palliative chemo. Poor prognosis. Aggressive IV antibiotics Lasix as tolerated Pulmonology Dr. Marin's input appreciated. Patient is started on IV steroid. Continue BiPAP On Precedex. Goals of care discussed with patient's daughter who is her MPOA and patient's oncologist at [facility] Dr. Ramsay. Dr. Ramsay recommended treating any reversible causes, and if no response to initiate comfort measures. Daughter agrees with comfort measures. Patient is DNI Daughter agrees to DNR. NSTEMI Patient has markedly elevated troponin. Etiology of hypotension secondary to cardiogenic shock versus septic shock. Patient is critically ill and not a candidate for any procedure. Start full dose Lovenox Obtain echocardiogram to assess EF. Cardiology consult. Critical care time spent managing patient's acute respiratory failure, septic shock and NSTEMI was about 58 minutes.
[2023-10-02] MEDS: ENOXAPARIN 80 MG/0.8 ML SQ SCH (21:06)
[2023-10-03 05:14] LABS: Absolute Lymphocytes (CBC) 0.2 K/uL (0.7-4.9); Basophils % 0.2 % (0-1.3); Hematocrit 47.1 % (36.0-45.0); Lymphocytes % 2.5 % (15.3-44.8); MPV 8.2 fL (7.6-11.3); Platelets 179 thou/uL (152-406); RBC Red Blood Cell Count 5.01 M/uL (3.86-4.86)
[2023-10-03 05:40] LABS: Albumin 2.4 g/dL (3.4-5.0); Albumin/Globulin Ratio 0.6 (1.1-1.8); Anion Gap 12.9 mEq/L (5.0-15.0); Bilirubin Total 0.3 mg/dL (0.2-1.0); Potassium 3.9 mEq/L (3.5-5.1); Protein, Total 6.6 g/dL (6.4-8.2)
[2023-10-03 08:24] LABS: Anion Gap 9.8 mEq/L (5.0-15.0); Potassium 3.8 mEq/L (3.5-5.1)
[2023-10-03] MEDS ORDERED: Meropenem 1000 MG/VIAL IV ONE ×2 (08:43→20:09)
[2023-10-03] MEDS ORDERED: METHYLPREDNISOLONE 125 MG INJ ONE (08:44)
[2023-10-03] MEDS: KCL 20 MEQ/100 mL IVPB 20 MEQ/100 ML BAG IV SCH (08:53)
--- NOTE | 2023-10-03 08:55 | RAD REPORT ---
EXAM DESCRIPTION: Donita Single View10/03/2023 8:44 am CLINICAL HISTORY: Chest pain COMPARISON: September 30, 2023 FINDINGS: Minimal improvement in the diffuse bilateral alveolar lung opacities Heart remains enlarged Central venous line in place Moderate left and small right pleural effusions unchanged IMPRESSION: Minimal improvement in the diffuse bilateral alveolar lung opacities which could represe nt pulmonary edema or pneumonia
[2023-10-03] MEDS ORDERED: FUROSEMIDE 40 MG/4 ML VIAL ONE (10:07)
--- NOTE | 2023-10-03 11:47 | P.PN ---
Subjective Date of Service: 10/03/23 Chief Complaint: Respiratory failure Subjective: Improving (Patient is improving stable requiring Precedex) Review of Systems is unable to be obtained Physical Examination - Vital Signs Temperature: 97.2 F Blood Pressure: 125/99 Pulse: 112 Respirations: 25 Pulse Ox (%): 95 - Physical Exam General: Unresponsive Respiratory: Clear to auscultation bilaterally, Diminished, Crackles/rales Cardiovascular: No edema, Normal pulses, Normal S1 S2 Assessment And Plan - Current Problems (Diagnosis) (1) Respiratory failure Current Visit: Yes Status: Acute Plan: Patient admitted with respiratory failure currently stable on Precedex and BiPAP will try Vapotherm labs reviewed renal function is normal white count is normal x-ray shows bilateral infiltrate with left-sided basilar effusion blood pressure is satisfactory on FiO2 60% sat is 98% blood cultures are negative so far continue with meropenem and vancomycin reduce dose of Lasix to 40 mg daily DC IV fluid with tube feeds patient also has non-STEMI continue to monitor may need thoracentesis on the left side echocardiogram pending Qualifiers: Chronicity: acute on chronic
--- NOTE | 2023-10-03 14:20 | EKG ---
Test Date: 2023-10-01 Test Time: 14:55:46 Tetryl Dissolver Operator: DULCE MEASUREMENT RESULTS: Intervals: Rate: 139 DC: 132 QRSD: 58 QT: 346 QTc: 526 [place]: P: 49 DC: 132 QRS: -6 T: 71 INTERPRETIVE STATEMENTS: Sinus tachycardia Low voltage QRS Cannot rule out Anteroseptal infarct, age undetermined T wave abnormality, consider inferior ischemia Abnormal ECG Compared to ECG 03/24/2012 14:16:18 Low QRS voltage now present Myocardial infarct finding now present T-wave abnormality now present Possible ischemia now present Sinus rhythm no longer present Ventricular premature complex(es) no longer present Electronically Signed On 10-03-23 14:14:25 BULLARD OPERATOR by Adams Lei
[2023-10-03] MEDS: VANCOMYCIN 1.25 GM in NA CHLORIDE 0.9% 250 ML IVPB SCH (16:11)
--- NOTE | 2023-10-03 18:40 | P.PN ---
Subjective Date of Service: 10/03/23 Chief Complaint: Respiratory failure No major changes from yesterday. Patient in respiratory distress on BiPAP. Blood pressure has been running low with systolic in the 70s. No recorded fever. Patient is currently BiPAP dependent. Physical Examination - Vital Signs Temperature: 97.2 F Blood Pressure: 85/72 Pulse: 92 Respirations: 24 Pulse Ox (%): 99 Assessment And Plan - Current Problems (Diagnosis) (1) Acute respiratory failure with hypoxia Current Visit: Yes Status: Acute (2) Bilateral pneumonia Current Visit: Yes Status: Acute (3) Lymphangitic lung metastasis Current Visit: Yes Status: Acute (4) NSTEMI (non-ST elevated myocardial infarction) Current Visit: Yes Status: Acute (5) Hypotension Current Visit: Yes Status: Acute - Plan Acute respiratory failure with hypoxia Bilateral pneumonia pulmonary lymphangitic carcinomatosis Septic shock. Patient with stage IV lung cancer with multiorgan metastasis. She has been receiving palliative chemo. Patient is in respiratory distress on BiPAP Poor prognosis. On Aggressive IV antibiotics IV Lasix Pulmonology Dr. Marin is following. No significant change in clinical condition. She is on IV steroid. Continue BiPAP Precedex as needed. IV hydromorphone as needed for dyspnea. Ativan as needed for anxiety. Goals of care discussed with patient's daughter who is her MPOA and patient's oncologist at [facility] Dr. Ramsay, patient PCP Dr. Varner and cardiology Dr. Lei. General consensus is grim prognosis and comfort measures recommended. Patient and daughter agreed to comfort measures. Patient stated she would like to see as many family members as possible before initiating comfort measures. Continue current treatment, no escalation of care. Daughter agrees with comfort measures. Patient is DNI NSTEMI Patient has markedly elevated troponin. Etiology of hypotension secondary to cardiogenic shock versus septic shock. Patient is critically ill and not a candidate for any procedure. Start full dose Lovenox. Cardiology Dr. Lei input appreciated. Echocardiogram is pending.
[2023-10-03] MEDS ORDERED: LORazepam 2 MG/ML VIAL IV PRN (19:27)
--- NOTE | 2023-10-03 19:45 | CON ---
Date of Consultation: 10/03/2023 Reason For Consultation: Elevated troponin in the setting of respiratory failure. History Of Present Illness: A 78-year-old female, history of metastatic stage IV breast cancer, on p alliative chemotherapy, presented for worsening shortness of breath. She does have baseline shortnes s of breath, but her symptoms became worse and was having chest pain also, but she does have pains al l over her body as she has bone metastases. Evaluation in the emergency room showed elevated troponi n, hence I was consulted. Past Medical History: Metastatic breast cancer as above. Medications: Refer reconciliation sheet for detailed list. Allergies: CODEINE AND SULFA. Family History: No premature coronary artery disease or cancer. Social History: She does not smoke or drink. Does not use any drugs. Review of Systems: All systems reviewed and they were negative except as mentioned in the HPI. Physical Examination: Vital Signs: Reviewed. Head and Neck: Pupils are equal, reactive to light. Intact eye movements. No JVD. No cervical lym phadenopathy. Neck is supple. Thyroid is not enlarged. Lungs: Diffuse rhonchi and decreased breathing sounds with slight increased respiratory effort. Heart: Regular rate and rhythm. No extra sounds. Abdomen: Soft, nontender. Bowel sounds positive. No organomegaly. No masses or hernia. No rigidi ty or rebound. Extremities: No clubbing, cyanosis. Intact pulses. Skin: No rash. Neurologic: Alert, awake, oriented x3. No acute focal deficits appreciated. Investigations: Troponin 5256 on admission and BUN 27, creatinine 0.86, and hemoglobin is 15.4. Assessment And Recommendation: 1.[id number] myocardial infarction. The patient is in acute respiratory failure and she has m etastatic breast cancer, on palliative care. I had a long discussion with the patient and her family . Ideally, this patient would require coronary angiogram. However, due to the terminal condition naheed de has, at this point, I recommend medical management only with baby aspirin 81 mg and Plavix 75 mg if she tolerates that and also beta-trever, metoprolol 25 mg twice a day. She is not a candidate for invasive workup due to overall poor status and being terminally ill. 2.Acute respiratory failure, on BiPAP and palliative measures. 3.Metastatic breast cancer, on palliative care. Cardiology will sign off. SR/MODL Voice ID: [id number] Report ID: [id number]
[2023-10-03] MEDS ORDERED: METHYLPREDNISOLONE 40 MG INJ ONE (20:08)
[2023-10-03] MEDS ORDERED: NA CHLORIDE 0.9% 100 ML ONE (20:09)
[2023-10-03] MEDS: ENSURE ENLIVE 237 ML CAN PO SCH (20:21)
[2023-10-03 23:05] VITALS: BMI 26.0
[2023-10-04 04:50] LABS: Absolute Lymphocytes (CBC) 0.5 K/uL (0.7-4.9); Basophils % 0.2 % (0-1.3); Lymphocytes % 3.3 % (15.3-44.8); MCV 95.6 fL (80-100); MPV 7.9 fL (7.6-11.3); Platelets 298 thou/uL (152-406); RBC Red Blood Cell Count 3.76 M/uL (3.86-4.86)
[2023-10-04 05:06] LABS: Albumin 2.4 g/dL (3.4-5.0); Albumin/Globulin Ratio 0.6 (1.1-1.8); Anion Gap 11.2 mEq/L (5.0-15.0); Bilirubin Total 0.3 mg/dL (0.2-1.0); Potassium 4.2 mEq/L (3.5-5.1); Protein, Total 6.6 g/dL (6.4-8.2)
[2023-10-04] MEDS ORDERED: Meropenem 1000 MG/VIAL IV ONE (08:00)
[2023-10-04] MEDS ORDERED: NA CHLORIDE 0.9% 100 ML ONE (08:01)
[2023-10-04] MEDS ORDERED: FUROSEMIDE 40 MG/4 ML VIAL ONE (08:01)
[2023-10-04] MEDS ORDERED: METHYLPREDNISOLONE 40 MG INJ ONE (08:01)
[2023-10-04] MEDS: FUROSEMIDE 40 MG/4 ML VIAL IV SCH (08:17)
[2023-10-04] MEDS ORDERED: HYDROMORPHONE HCL 1 MG/ML INJ ONE ×2 (08:19→08:39)
--- NOTE | 2023-10-04 08:38 | P.PN ---
Subjective Date of Service: 10/04/23 Chief Complaint: Respiratory failure No significant change patient is on a Precedex drip requiring BiPAP responsive Review of Systems is unable to be obtained Physical Examination - Vital Signs Temperature: 97 F Blood Pressure: 106/69 Pulse: 89 Respirations: 29 Pulse Ox (%): 97 - Physical Exam General: Unresponsive Respiratory: Diminished, Crackles/rales Cardiovascular: No edema, Regular rate/rhythm, Normal S1 S2 Assessment And Plan - Current Problems (Diagnosis) (1) Respiratory failure Current Visit: Yes Status: Acute Plan: Patient has respiratory failure on a Precedex drip requiring BiPAP [place] otherwise patient will need TPN labs reviewed chest x-ray is ordered white count is mildly elevated prognosis very poor patient has metastatic breast cancer Qualifiers: Chronicity: acute on chronic
[2023-10-04] MEDS: HYDROMORPHONE HCL 1 MG/ML INJ IV PRN (08:42)
[2023-10-04] MEDS: METHYLPREDNISOLONE 125 MG INJ IV SCH (08:46)
--- NOTE | 2023-10-04 09:18 | RAD REPORT ---
EXAM DESCRIPTION: RAD - Chest Single View - 10/04/2023 9:02 am CLINICAL HISTORY: Respiratory failure Chest pain. COMPARISON: Chest Single View dated 10/03/2023; Chest Single View dated 10/01/2023; CHEST SINGLE VIEW da edna 03/24/2012 FINDINGS: Portable technique limits examination quality. Extensive bilateral pulmonary opacities show little overall change since 10/03/2023 prior study. The heart is moderately enlarged. Left-sided port catheter its tip in the SVC. Right axillary dissection clips. IMPRESSION: Stable chest since 10/03/2023.
--- NOTE | 2023-10-04 09:37 | ECHO ---
HEIGHT: 5 ft 3 in WEIGHT: 147 lb 1.6 oz DATE OF STUDY: 10/03/[address]: West Quintero MD 2-DIMENSIONAL: YES M.MODE: YES DOPPLER: YES COLOR FLOW: YES TDS: PORTABLE: YES DEFINITY: BUBBLE STUDY: DIAGNOSIS: HYPOTENSION CARDIAC HISTORY: CATHERIZATION: NO SURGERY: NO PROSTHETIC VALVE: NO PACEMAKER: NO MEASUREMENTS (cm) DIASTOLIC (NORMALS) SYSTOLIC (NORMALS) IVSd 1.0 (0.6-1.2) LA Diam 2.0 (1.9-4.0) LVEF 35% LVIDd 4.5 (3.5-5.7) LVIDs 3.6 (2.0-3.5) %FS 20% LVPWd 1.0 (0.6-1.2) Ao Diam 2.4 (2.0-3.7) 2 DIMENSIONAL ASSESSMENT: RIGHT ATRIUM: NORMAL LEFT ATRIUM: NORMAL RIGHT VENTRICLE: NORMAL LEFT VENTRICLE: DEPRESSED EJECTION FRACTION TRICUSPID VALVE: NORMAL MITRAL VALVE: NORMAL PULMONIC VALVE: NORMAL AORTIC VALVE: NORMAL PERICARDIAL EFFUSION: NONE AORTIC ROOT: NORMAL LEFT VENTRICULAR WALL MOTION: SEVERE APICAL HYPOKINESIS DOPPLER/COLOR FLOW: SEE BELOW COMMENTS: 1. MODERATELY DEPRESSED LEFT VENTRICULAR EJECTION FRACTION 30-35% 2. SEVERE APICAL HYPOKINESIS WITH HYPERDYMAINIC PROXIMAL SEGMENTS (POSSIBLE STRESS INDUCED CARDIOMYOPATHY VERSUS CORONARY ARTERY DISEASE). TECHNOLOGIST: PAWEL BAKER
--- NOTE | 2023-10-04 14:00 | P.PN ---
Subjective Date of Service: 10/04/23 Chief Complaint: Respiratory failure Patient remained on BiPAP Patient was complaining of pain and so was given IV hydromorphone. Patient was asleep during my interaction today. FiO2 decreased to 50%. Blood pressure has been running low, patient is currently on low-dose Levophed, No recorded fever. Physical Examination - Vital Signs Temperature: 97 F Blood Pressure: 95/63 Pulse: 92 Respirations: 16 Pulse Ox (%): 97 Assessment And Plan - Current Problems (Diagnosis) (1) Acute respiratory failure with hypoxia Current Visit: Yes Status: Acute (2) Bilateral pneumonia Current Visit: Yes Status: Acute (3) Lymphangitic lung metastasis Current Visit: Yes Status: Acute (4) NSTEMI (non-ST elevated myocardial infarction) Current Visit: Yes Status: Acute (5) Hypotension Current Visit: Yes Status: Acute - Plan Acute respiratory failure with hypoxia Bilateral pneumonia Pulmonary lymphangitic carcinomatosis Septic shock. Patient with stage IV lung cancer with multiorgan metastasis. She has been receiving palliative chemo. Patient is in respiratory distress on BiPAP Patient has pulmonary lymphangitic carcinomatosis Poor prognosis. On Aggressive IV antibiotics IV Lasix Pulmonology Dr. Marin is following. No significant improvement in clinical condition. She is on IV steroid. Continue BiPAP Precedex as needed. IV hydromorphone as needed for dyspnea. Ativan as needed for anxiety. Goals of care discussed with patient's daughter who is her MPOA and patient's oncologist at [facility] Dr. Ramsay, patient PCP Dr. Varner and cardiology Dr. Lei. General consensus is that patient is at end-of-life and comfort measures recommended. Patient understands she is end-of-life. Patient stated she would like to see as many family members as possible before initiating comfort measures. Continue current treatment, no escalation of care. Daughter agrees with comfort measures. Social service consulted for inpatient hospice placement. Patient is DNI NSTEMI Patient has markedly elevated troponin. Etiology of hypotension secondary to cardiogenic shock versus septic shock. Patient is critically ill and not a candidate for any procedure. On full dose Lovenox. Cardiology Dr. Lei input appreciated. Echocardiogram demonstrated EF of 30 to 35%, severe apical hypokinesis-possible coronary artery disease versus stress-induced cardiomyopathy. Noted elevated troponin with indicate possible ischemic heart disease. Dr. Lei recommend hospice.
[2023-10-04 17:59] VITALS: TEMP 98.3
[2023-10-04] MEDS: MORPHINE 2 MG/ML SYR IV ONE (18:37)
--- NOTE | 2023-10-04 18:50 | P.DS ---
Admission Date: 10/01/23 Discharge Date: 10/04/23 Disposition: HOSPICE-MEDICAL FACILITY Reason for Admission: Respiratory failure Hospital Course: MS BURNS IS A PATIENT WITH METASTATIC BREAST CANCER TO LUNGS. SHE HAS BEEN ON PALLIATIVE CHEMO BY [facility]. I WAS CALLED IN LATER ER BY ERROR ADMITTED HER TO [facility]. I TALKED TO PATIENT AND FAMILY TODAY. PATIENT IS IN MODERATE DISTRESS BUT WAS LUCID ENOUGH TO DECIDE. I EXPLAINED TO HER AND SHE AFTER STEP BY STEP EXPLANATION DECIDED TO HAVE FULL DNR STATUS. SHE ALSO ACCEPTED THAT SHE WANTS TO BE ON HOSPICE. FAMILY DECIDED TO GO WITH ME AND SO WENT WITH [facility]. WE HAVE NOT WRITTEN ORDERS YET WE ARE WAITING FOR [facility] TO BE CALLED IN. WE NEED ANSWER FROM [facility] WITHIN AN HOUR OTHERWISE WE WILL START HOSPICE NOW FAMILY IS INSISTANT ON IT RIGHT WITHIN A MINUTE AND NOT IN AN HOUR. WHILE I AM WRITING THIS NOTE ONCE AGAIN FAMILY DECIDED TO WAIT [facility] PATIENT TOLD THEM IN FRONT OF ME. WE WILL GET [facility] INVOLVED. Vital Signs/Physical Exam: Temp Pulse Resp BP Pulse Ox 98.3 F 115 H 28 H 99/88 92 10/04/23 16:00 10/04/23 18:32 10/04/23 17:45 10/04/23 17:45 10/04/23 18:32 Laboratory Data at Discharge: WBC 14.30 thou/uL (4.3-10.9) H 10/04/23 04:44 Hgb 11.8 g/dL (12.0-15.0) L D 10/04/23 04:44 Hct 36.0 % (36.0-45.0) 10/04/23 04:44 Plt Count 298 thou/uL (152-406) D 10/04/23 04:44 PT 12.7 SECONDS (9.5-12.5) H 10/01/23 15:15 INR 1.16 10/01/23 15:15 APTT 31.8 SECONDS (24.3-36.9) 10/01/23 15:15 Sodium 140 mEq/L (136-145) 10/04/23 04:44 Potassium 4.2 mEq/L (3.5-5.1) 10/04/23 04:44 BUN 38 mg/dL (7-18) H 10/04/23 04:44 Creatinine 1.06 mg/dL (0.55-1.02) H 10/04/23 04:44 Glucose 143 mg/dL (74-106) H 10/04/23 04:44 Magnesium 2.0 mg/dL (1.6-2.4) 10/04/23 04:44 Total Bilirubin 0.3 mg/dL (0.2-1.0) 10/04/23 04:44 AST 51 U/L (15-37) H 10/04/23 04:44 ALT 22 U/L (13-56) 10/04/23 04:44 Alkaline Phosphatase 287 U/L (45-117) H 10/04/23 04:44 Home Medications: Magnesium Oxide [Magnesium] 500 mg PO BID 10/01/23 Meloxicam [Mobic*] 1 tab PO DAILY PRN 10/01/23 Prochlorperazine Maleate [Compazine] 10 mg pe PO Q6H PRN 10/01/23 Venlafaxine HCl [Effexor*] 75 mg PO DAILY 10/01/23 Potassium Chloride 20 meq PO BID 10/02/23 Followup: Brian Varner MD [Primary Care Provider] -
[2023-10-04] MEDS ORDERED: LORazepam 2 MG/ML VIAL IV PRN (18:52)
[2023-10-04 21:52] VITALS: BP 95/58; O2SAT 96
[2023-10-05] MEDS ORDERED: ENOXAPARIN 40 MG/0.4 ML SQ SCH (09:00)
[2023-10-06] MEDS ORDERED: VANCOMYCIN 1.25 GM in NA CHLORIDE 0.9% 250 ML IVPB SCH (01:00)
== END 2023-10-04 22:05 | disposition hospice, inpatient (51) | DRG 871 ==
LOC: ER 14:50 → 3RD-ICU 20:56
PROVIDERS: ADMIT Internal Medicine Nephrology; ATTEND Internal Medicine
PROC: 5A09457 Assistance with Respiratory Ventilation, 24-96 Consecutive Hours, Continuous Positive Airway Pressure (ICD-10-PCS; principal; 2023-10-03)
PROC: 5A0945A Assistance with Respiratory Ventilation, 24-96 Consecutive Hours, High Flow/Velocity Cannula (ICD-10-PCS; 2023-10-03)
DX: A41.9 Sepsis, unspecified organism (principal); I21.4 Non-ST elevation (NSTEMI) myocardial infarction; J18.9 Pneumonia, unspecified organism; J96.01 Acute respiratory failure with hypoxia; R65.21 Severe sepsis with septic shock; C79.81 Secondary malignant neoplasm of breast; C80.0 Disseminated malignant neoplasm, unspecified; Z66 Do not resuscitate; Z51.5 Encounter for palliative care; Z88.2 Allergy status to sulfonamides; Z88.5 Allergy status to narcotic agent; Z79.899 Other long term (current) drug therapy
CPT/HCPCS: 36415; 51702; 71045; 71275; 80048; 80053; 80202; 81001; 82947; 83605; 83735; 83880; 84484; 85025; 85610; 85730; 87040; 93005; 93306; 94660; 99291; 99292; J0696; J1170; J1650; J1940; J2185; J2270; J2920; J2930; J3480; J7030; J7040; J7050; J7060; Q9967

== ENCOUNTER 2023-10-04 22:00 | Inpatient (IN) | payer OTHER ==
--- OUTSIDE RECORDS SUMMARY | 2023-10-04 23:08 | XMS REPORT | Clinical Summary ---
Author Name Unknown Organization [facility] Address [address] [place] [address] Care Team Providers Care Chimney Builder Name Role Phone Elizabeth Burrell MD Primary Care Provider + [phone] Jennifer Woo MD Unavailable [phone] Beverly Matias MD Unavailable Tameka Jaramillo MD Unavailable [phone] Bree Rodriguez DDS Unavailable [phone] Allergies Active Allergy Reactions Criticality Noted Date [...] since 2014, BP well controlled. PCP and associate director of development outside. Had stress test in 2014. Last Assessment & Plan: ERNIE release of intormation will be obtained to get outside stress test results. Stroke 06/18/2018 Overview: Dx optic stroke of left eye in 2014, in [place]. Has left eye blindness. On Aspirin Last Assessment & Plan: POEMS team will obtain ERNIE from associate director of development outside. Sees outside opthalmologist in [place]. Does not follow up with neurologist. 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 No residual weakness. Hemangioma of liver 06/18/2018 Overview: Dx 2014 Sees controls design engineer in [place], last seen in 2014. Stable, does not need intervention or follow up per outside hepatology records. 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 female who presents with a history of right IDC, G2, ER/MA+, HER2- that was originally diagnosed on 05/14/2018. [...] Encounters Date Type Department Care Team Description 10/04/[address] [facility] Medical Oncology [address] [place] [id number] Kaity Gilliland, SECTIONAL BELT MOLD ASSEMBLER 10/02/2023 Telephone [facility] Oncology [address] [place] [phone] Mary Schumacher BSN 10/02/2023 Telephone [facility] Oncology [address] [place] [phone] Sophia Valdovinos RN 09/27/2023 1:45 PM MOLYBDENUM STEAMER OPERATOR Infusion [facility] - Infusion [address] [address] Kaity Gilliland, SECTIONAL BELT MOLD ASSEMBLER Caryn Lopez, RN Infiltrating duct carcinoma, NOS of upper-inner quadrant of breast <Female; Right> (Primary Dx); Metastatic malignant neoplasm to bone 09/27/2023 Travel 09/26/2023 Orders Only [facility] Oncology [address] [place] [address] Almaz Merchant, PharmD Metastatic malignant neoplasm to bone (Primary Dx); Infiltrating duct carcinoma, NOS of upper-inner quadrant of breast <Female; Right> 09/25/[address] 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 [address] Kaity Gilliland APRN Metastatic malignant neoplasm to bone (Primary Dx); Infiltrating duct carcinoma, NOS of upper-inner quadrant of breast <Female; Right> 09/12/2023 1:20 PM MOLYBDENUM STEAMER OPERATOR Follow-Up [facility] Medical Oncology [address] [place] [address], [address] 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; Metastatic malignant neoplasm to bone; Metastatic cancer to axillary lymph nodes; Estrogen receptor negative status (ER-); Hypomagnesemia; Hypokalemia; Secondary malignant neoplasm of liver and intrahepatic bile duct 09/12/2023 11:49 AM MOLYBDENUM STEAMER OPERATOR - 09/12/2023 11:59 PM MOLYBDENUM STEAMER OPERATOR Hospital Encounter [facility] [address] [place] [address] Kaity Gilliland, SECTIONAL BELT MOLD ASSEMBLER 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; Secondary malignant neoplasm of bilateral lungs; Metastatic malignant neoplasm to lung <Unspecified side>; 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; Metastatic malignant neoplasm to bone; Metastatic cancer to axillary lymph nodes; Estrogen receptor negative status (ER-); Hypomagnesemia; Hypokalemia; Secondary malignant neoplasm of liver and intrahepatic bile duct Discharge Disposition: Home 09/12/2023 Specialty Pharmacy [facility] [address] [place] [id number] Jorge L Eugene, PharmD Refill Coordination Outreach (capecitabine) for Breast Cancer 09/12/2023 Travel 08/29/2023 3:00 PM MOLYBDENUM STEAMER OPERATOR - 08/29/2023 11:59 PM MOLYBDENUM STEAMER OPERATOR Hospital Encounter Ambulatory Treatment Center - Main Building [address] [facility], 2nd [place] [address] Elizabeth Burrell MD Neely, Chunmei Huang, RN 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 Discharge Disposition: Home 08/29/2023 9:20 AM MOLYBDENUM STEAMER OPERATOR Follow-Up [facility] Medical Oncology [address] [place] [address], 5th [place] [address] Elizabeth Burrell MD Encounter for examination prior [...] and intrahepatic bile duct 08/29/2023 8:15 AM MOLYBDENUM STEAMER OPERATOR - 08/29/2023 2:59 PM MOLYBDENUM STEAMER OPERATOR Hospital Encounter [facility] [address] [place] [address] Elizabeth Burrell MD 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 Discharge Disposition: Home 08/29/2023 Travel 08/27/2023 Orders Only [facility] [address] [place] [address], 5th [place] [address] Elizabeth Burrell MD 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 (Primary Dx) 08/21/2023 12:00 PM MOLYBDENUM STEAMER OPERATOR - 08/21/2023 11:59 PM MOLYBDENUM STEAMER OPERATOR Hospital Encounter [facility] [address] [place] [address], [place] [address] Francois Santacruz MD Metastatic cancer to axillary lymph nodes; 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, 9th [place] [address] Bree Rodriguez DDS Encounter for observation for other suspected disease ruled out Discharge Disposition: Home 08/21/2023 10:00 AM MOLYBDENUM STEAMER OPERATOR - 08/21/2023 10:42 AM MOLYBDENUM STEAMER OPERATOR Hospital Encounter Oral Oncology [address] [facility], 9th [place] [address] Bree Rodriguez DDS Encounter for observation for [...] Travel 08/20/2023 Orders Only [facility] [address] [facility], 9th [place] [address] Gabriela Donohue MD Encounter for observation for other suspected disease ruled out (Primary Dx) 08/13/2023 11:20 AM MOLYBDENUM STEAMER OPERATOR Follow-Up [facility] - Medical Oncology [address] [facility], 5th [place] [address] Elizabeth Burrell MD Ramirez, David L, MD [...] Specialty Pharmacy [facility] RX SPEC [facility] [address] [place] [address] Jazzmine Chandra, PharmD Set up Initial Fill for Breast Cancer, Benefits Investigation for Breast Cancer 08/13/2023 Travel 08/09/2023 2:00 PM MOLYBDENUM STEAMER OPERATOR Infusion [facility] - Infusion [address] [address] Elizabeth Burrell MD 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 (Primary Dx); Metastatic cancer to axillary lymph nodes; Infiltrating duct carcinoma, NOS of upper-inner quadrant of breast <Female; Right>; Metastatic malignant neoplasm to lung <Unspecified side> 08/09/2023 Orders Only [facility] On[facility] [address] [place] [address], [facility] [place] [address] Ashleigh Kelley, Aleyda 08/09/2023 Orders Only [facility] [address] [place] [address], [address] [place], [place] [address] [address] Anabela Menendez, [facility] 08/09/2023 Orders Only [facility] [address] [place] [address], [facility] [place] [address] Danita Clay, PharmD Hypokalemia (Primary Dx); Hypomagnesemia; Infiltrating duct carcinoma, NOS of upper-inner quadrant of breast <Female; Right> 08/09/2023 Orders Only [facility] [address] [place] [address], [address] [place] [address] Raymond Jennings, [facility] 08/09/2023 Orders Only [facility] Medical Oncology [address] [place] [address], [address] [place], [place] [address] [address] Anabela Menendez, [facility] 08/09/2023 Orders Only Breast [facility] Medical Oncology [address] [place] [address], [address] [place] [address] Kaity Gilliland APRN 08/09/2023 Travel 08/08/2023 12:30 PM MOLYBDENUM STEAMER OPERATOR Ancillary Procedure MD [facility] [address] [address] Kaity Gilliland, SECTIONAL BELT MOLD ASSEMBLER Secondary malignant neoplasm of bilateral lungs; Metastatic malignant neoplasm to lung <Unspecified side>; 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, 6th [place] [address] Gertrude Brar, SECTIONAL BELT MOLD ASSEMBLER Pleural effusion 08/05/2023 9:15 AM MOLYBDENUM STEAMER OPERATOR Ancillary Procedure [facility] [address] [place] [address], 7th [place] [address] Zeynep Diop, SECTIONAL BELT MOLD ASSEMBLER Pleural effusion 08/05/2023 Travel 08/02/2023 1:30 PM MOLYBDENUM STEAMER OPERATOR Infusion [facility] - Infusion [address] [address] Elizabeth Burrell MD Infiltrating duct carcinoma, NOS of upper-inner quadrant of breast <Female; Right> (Primary Dx); Metastatic cancer to axillary lymph nodes; 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; Metastatic malignant neoplasm to lung <Unspecified side> 08/02/2023 Orders Only [facility] [address] [place] [address], [address] [place], [place] [address] [address] Elizabeth Burrell MD 08/02/2023 Travel 08/02/2023 Orders Only [facility] [address] [place] [address], 5th [place] [address] Kaity Gilliland, SECTIONAL BELT MOLD ASSEMBLER 08/01/2023 Orders Only [facility] [address] [place] [address], 5th [place] [address] Kaity Gilliland, SECTIONAL BELT MOLD ASSEMBLER 07/30/2023 11:00 AM MOLYBDENUM STEAMER OPERATOR Follow-Up [facility] [address] [place] [address], 5th [place] [address] Kaity Gilliland, SECTIONAL BELT MOLD ASSEMBLER Encounter for examination prior to antineoplastic chemotherapy [...] pleural effusion; Anxiety depression 07/30/2023 Orders Only [facility] Oncology [address] [place] [address], [address] [place], [place] [address] [address] Kaity Gilliland P, SECTIONAL BELT MOLD ASSEMBLER Metastatic cancer to axillary lymph nodes (Primary Dx); Infiltrating duct carcinoma, NOS of upper-inner quadrant of breast <Female; Right> 07/30/2023 Travel 07/29/2023 Orders Only [facility] Oncology [address] [place] [address], [address] [place] [address] Elizabeth Burrell MD 07/17/2023 Orders Only [facility] Oncology [address] [place] [address], [facility] [place] [address] Kaity Gilliland, SECTIONAL BELT MOLD ASSEMBLER 07/15/2023 Orders Only [facility] Oncology [address] [place] [address], [address] [place] [address] Elizabeth Burrell MD Metastatic cancer to axillary lymph nodes (Primary Dx); Infiltrating duct carcinoma, NOS of upper-inner quadrant of breast <Female; Right> 07/15/2023 Orders Only [facility] Oncology [address] [place] [address], [facility] [place] [address] Kaity Gilliland, SECTIONAL BELT MOLD ASSEMBLER 07/11/2023 1:00 PM MOLYBDENUM STEAMER OPERATOR Infusion [facility] - Infusion [address] [place] [address] Elizabeth Burrell MD Infiltrating duct carcinoma, NOS of upper-inner quadrant of breast <Female; Right> (Primary Dx); Metastatic cancer to axillary lymph nodes 07/11/[address] [facility] Medical Oncology [address] [place] [address], [address] [place] [address] Elizabeth Burrell MD 07/11/2023 Orders Only [facility] [address] [place] [address], [address] [place] [address] Kareem Garcia, PharmD 07/11/2023 Orders Only [facility] [address] [place] [address], [address] [place] [address] Danita Clay, PharmD 07/11/2023 Travel 07/08/2023 10:30 AM MOLYBDENUM STEAMER OPERATOR Ancillary Procedure [facility] [address] [place] [address] 07/08/2023 8:49 AM MOLYBDENUM STEAMER OPERATOR Anesthesia Event Pre-Op/Surgery Check-In [address] [place] [address] Valery Sylvester MD 07/08/2023 8:40 AM MOLYBDENUM STEAMER OPERATOR Ancillary Procedure [facility] [address] [place] [address] Malignant neoplasm of upper-inner quadrant of right female breast 07/08/2023 8:40 AM MOLYBDENUM STEAMER OPERATOR - 07/08/2023 10:20 AM MOLYBDENUM STEAMER OPERATOR Surgery Pre-Op/Surgery Check-In [address] [place] [address] Josue Salinas MD PORT-A-CATH PLACEMENT 07/08/2023 8:35 AM MOLYBDENUM STEAMER OPERATOR Ancillary Procedure Pre-Op/Surgery Check-In [address] [place] [address] Josue Salinas MD 07/08/2023 7:08 AM MOLYBDENUM STEAMER OPERATOR - 07/08/2023 12:30 PM MOLYBDENUM STEAMER OPERATOR Hospital Encounter Pre-Op/Surgery Check-In [address] [place] [address] Josue Salinas MD 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 (Primary Dx); Metastatic cancer to axillary lymph nodes; Metastatic malignant neoplasm to bone Discharge Disposition: Home 07/08/2023 6:31 AM MOLYBDENUM STEAMER OPERATOR - 07/08/2023 7:07 AM MOLYBDENUM STEAMER OPERATOR Hospital Encounter [facility] [address] [place] [address] Susy Hernandez PA Secondary malignant neoplasm of liver and intrahepatic bile duct; Malignant pleural effusion; 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; Metastatic malignant neoplasm to lung <Unspecified side>; Metastatic malignant neoplasm to bone; Secondary malignant neoplasm of bilateral lungs; Metastatic cancer to axillary lymph nodes; 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; Preoperative laboratory examination Discharge Disposition: Home 07/08/2023 Travel 07/05/2023 11:59 PM MOLYBDENUM STEAMER OPERATOR Anesthesia Event [facility] [address] [place] [address], 6th [place] [address] Raymond Ng PA 07/05/2023 10:30 AM MOLYBDENUM STEAMER OPERATOR POEM Appointments [facility] [address] [place] [address], 6th [place] [address] Saritha Barreto APRN 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; Pre-surgery evaluation 07/05/2023 Orders Only [facility] [address] [place] [address], 8th [place] [address] Susy Hernandez PA 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 (Primary Dx); Secondary malignant neoplasm of liver and intrahepatic bile duct; Malignant pleural effusion; 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; Metastatic malignant neoplasm to lung <Unspecified side>; Metastatic malignant neoplasm to bone; Secondary malignant neoplasm of bilateral lungs; Metastatic cancer to axillary lymph nodes; Preoperative laboratory examination 07/04/2023 1:00 PM MOLYBDENUM STEAMER OPERATOR Infusion [facility] - Infusion [address] [place] [address] Elizbaeth Burrell MD Infiltrating duct carcinoma, NOS of upper-inner quadrant of breast <Female; Right> (Primary Dx); Metastatic cancer to axillary lymph nodes 07/04/2023 Orders Only [facility] [address] [place] [address], 5th [place] [address] Kaity Gilliland APRN Weakness (Primary Dx); Infiltrating duct carcinoma, NOS of upper-inner quadrant of breast <Female; Right>; Secondary malignant neoplasm of bilateral lungs; Metastatic malignant neoplasm to lung <Unspecified side>; 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; Metastatic malignant neoplasm to bone; Metastatic cancer to axillary lymph nodes; Lymphangitis carcinomatosa 07/04/2023 Travel 07/03/2023 12:30 PM MOLYBDENUM STEAMER OPERATOR - 07/03/2023 11:59 PM MOLYBDENUM STEAMER OPERATOR Hospital Encounter [facility] [address] [place] [address], 8th [place] [address] Kaity Gilliland, Luciana Titus RN Sutherland, Elizabeth W, PA Infiltrating duct [...] planning Discharge Disposition: Home 07/03/2023 12:20 PM MOLYBDENUM STEAMER OPERATOR Ancillary Procedure [facility] - Pulmonology Procedures [facility] [facility], 6th [place] [address] Zeynep Diop, SECTIONAL BELT MOLD ASSEMBLER 07/03/2023 12:15 PM MOLYBDENUM STEAMER OPERATOR Ancillary Procedure Diagnostic [facility] [address] [place] [address], 2nd Floor [facility] [place] [address] Jadon, Zeynep, SECTIONAL BELT MOLD ASSEMBLER Pleural effusion 07/03/2023 10:00 AM MOLYBDENUM STEAMER OPERATOR Follow-Up [facility] - Pulmonology Medicine [address] [place] [address], 6th [place] [address] Gertrude Brar APRN Jadon, Zeynep, SECTIONAL BELT MOLD ASSEMBLER Pleural effusion 07/03/2023 Travel 07/01/2023 9:57 AM MOLYBDENUM STEAMER OPERATOR - 07/01/2023 11:59 PM MOLYBDENUM STEAMER OPERATOR Hospital Encounter [facility] [address] [place] [address], 8th [place] [address] Elizabeth Burrell MD Pham, Kim Ho, manager search Disposition: Home 07/01/2023 Orders Only [facility] [address] [place] [address] 8th [place] [address] Saritha Barreto APRN 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 [address] Elizabeth Burrell MD Infiltrating duct carcinoma of [...] and intrahepatic bile duct 06/27/2023 11:13 AM MOLYBDENUM STEAMER OPERATOR - 06/27/2023 11:59 PM MOLYBDENUM STEAMER OPERATOR Hospital Encounter [facility] [address] [place] [address] [place] [address] Sixto Tolentino MD Metastatic cancer to axillary lymph nodes; Infiltrating duct carcinoma, NOS of upper-inner quadrant of breast <Female; Right> Discharge Disposition: Home 06/27/2023 Orders Only [facility] [address] [place] [address], 5th [place] [address] Elizabeth Burrell MD 06/27/2023 Orders Only [facility] [address] [place] [address], 5th [place] [address] Danita Clay, PharmD 06/27/2023 Travel 06/19/[address] [facility] Medical Oncology [address] [place] [address] Sixto Tolentino MD Metastatic cancer to axillary lymph nodes (Primary Dx); Infiltrating duct carcinoma, NOS of upper-inner quadrant of breast <Female; Right> 06/18/[address] 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 Medical Oncology [address] [place] [address] Smooth Pham MD 06/11/2023 Orders Only [facility] Oncology [address] [place] [address] Smooth Pham MD 06/07/2023 4:51 PM MOLYBDENUM STEAMER OPERATOR Anesthesia Event Main Interventional Radiology [address] [place] [id number] Francois Howe MD Kim, Kyu, CRNA 06/07/[address] [facility] Medical Oncology [address] [place] [address] Kareem Garcia, Aleyda Metastatic cancer to axillary lymph nodes (Primary Dx); Infiltrating duct carcinoma, NOS of upper-inner quadrant of breast <Female; Right> 06/07/2023 Orders Only [facility] Medical Oncology [address] [place] [address] Kareem Garcia PharmD 06/07/2023 Orders Only [facility] Medical Oncology [address] [facility], 5th [place] [address] Almaz Merchant, PharmD Metastatic cancer to axillary lymph nodes (Primary Dx); Infiltrating duct carcinoma, NOS of upper-inner quadrant of breast <Female; Right> 06/03/2023 3:52 PM MOLYBDENUM STEAMER OPERATOR - 06/03/2023 5:02 PM MOLYBDENUM STEAMER OPERATOR Surgery Cardiop[facility] Center - Pulmonology Procedures [address] [facility], 6th [place] [address] Sushila Perry MD INSERTION OF INDWELLING TUNNELED PLEURAL CATHETER WITH CUFF-RIGHT 06/03/2023 Orders Only [facility] - Pulmonology Medicine [address] [facility], 6th [place] [address] Rena Almazan C, SECTIONAL BELT MOLD ASSEMBLER Pleural effusion (Primary Dx) 05/31/2023 2:34 PM CDT - 06/17/2023 5:54 PM MOLYBDENUM STEAMER OPERATOR Hospital Encounter MAIN 21NW [address] [place] [address] Nurys Valdez MD Altay, Haider, MD Bhise, MD Alessia Sweet Joanna-Grace, MD Tanwir, Hira, [...] face; Blind left eye; Hemangioma of liver; [place] palsy of right side of face; Hypertension; Generalized muscle weakness; Abnormality of gait, not otherwise specified; Personal history of breast cancer; Infiltrating duct carcinoma, NOS of upper-inner quadrant of breast <Female; Right>; Estrogen receptor negative status (ER-); Slow transit constipation Discharge Disposition: Home with Home-Health or Physical Therapy 05/31/2023 Travel 05/31/2023 Orders Only [facility] Medicine [address] [place] [address], 6th [place] [address] Peggy Sutton, SECTIONAL BELT MOLD ASSEMBLER Pleural effusion (Primary Dx) 05/31/2023 Prep for Surgery Cardiopulmonary [place] - Pulmonology Medicine [facility] [facility], 6th [place] [address] Zuhair Zambrano MD Pleural effusion (Primary Dx) 05/28/2023 Telephone Breast [facility] - Medical Oncology [address] [place] [address], 5th [place] [address] Neetu Moreno, SECTIONAL BELT MOLD ASSEMBLER 05/27/2023 Telephone Cardiopulmonary [facility] Pulmonology Medicine [address] [place] [address], 6th [place] [address] Jadon, Zeynep, SECTIONAL BELT MOLD ASSEMBLER 05/27/2023 Orders Only Cardiopulmonary [facility] Pulmonology Medicine [address] [place] [address], [facility] [place] [address] Jadon, Zeynep, SECTIONAL BELT MOLD ASSEMBLER Pleural effusion (Primary Dx) 05/25/2023 9:55 AM CDT - 05/25/2023 11:59 PM CDT Hospital Encounter Breast Imaging [address] [place] [address], 5th [place] [address] Neetu Moreno, SECTIONAL BELT MOLD ASSEMBLER Infiltrating duct carcinoma, NOS of upper-inner quadrant of breast <Female; Right> Discharge Disposition: Home 05/23/2023 Orders Only Breast Center - Medical Oncology [address] [place] [address], 5th [place] [address] Kaity Gilliland, SECTIONAL BELT MOLD ASSEMBLER Infiltrating duct carcinoma, NOS of upper-inner quadrant of breast <Female; Right> (Primary Dx); Malignant pleural effusion; Multiple nodules of lung 05/23/2023 Orders Only Breast [place] - Medical Oncology [address] [place] [address], 5th [place] [address] Neetu Moreno APRN 11/30/2022 Orders Only Internal Medicine Center - Rheumatology [address] [place] [address], 6th [place] [address] Corky Mitchell RN 11/29/2022 11:30 AM CDT Consult Internal Medicine Center - Rheumatology [address] [place] [address], 6th [place] [address] Beverly Matias MD Osteopenia (Primary Dx); Infiltrating duct carcinoma, NOS of upper-inner quadrant of breast <Female; Right> 11/29/2022 10:30 AM CDT Follow-Up Breast [place] - Medical Oncology [address] [place] [address], [address] [place] [address] Neetu Moreno, SECTIONAL BELT MOLD ASSEMBLER Infiltrating duct carcinoma, NOS of upper-inner quadrant of breast <Female; Right> 11/29/2022 Travel 10/23/2022 Refill Breast [place] - Surgical Oncology [address] [place] [address], [address] [place] [id number] Jess Lazaro, SECTIONAL BELT MOLD ASSEMBLER Infiltrating duct carcinoma, NOS of upper-inner quadrant of breast <Female; Right> after 10/04/2022 Surgical History Surgery Date Site/Laterality Comments TOTAL ABDOMINAL HYSTERECTOMY 07/29/1973 - 07/28/1974 KNEE SURGERY 07/29/2013 - 07/28/2014 Left replacement MA MASTECTOMY PARTIAL 07/01/2018 Breast/Right Procedure: MAGSEED SEGMENTAL MASTECTOMY, RIGHT ; Surgeon: Domi Redding MD; Location: [facility]; Service: BREAST MA INTRAOP SENTINEL LYMPH NODE ID W/DYE INJECTION 07/01/2018 Left Procedure: IOLM; Surgeon: Domi Redding MD; Location: [facility]; Service: BREAST MA BX/EXC LYMPH NODE OPEN DEEP AXILLARY NODE 07/01/2018 Axilla/Right Procedure: SLNB; Surgeon: Domi Redding MD; Location: [facility]; Service: BREAST MA BX/EXC LYMPH NODE OPEN DEEP AXILLARY NODE 07/01/2018 Axilla/Right Procedure: Magnetic seed guided excision of clipped RIGHT axillary lymph node; Surgeon: Domi Redding MD; Location: [facility]; Service: BREAST MA AXILLARY LYMPHADENECTOMY COMPLETE 07/11/2018 Axilla/Right Procedure: AXILLARY LYMPHADENECTOMY; COMPLETE; Surgeon: Domi Redding MD; Location: [facility]; Service: BREAST MA INSERTION INDWELLING TUNNELED PLEURAL CATHETER 06/03/2023 Chest/Right Procedure: INSERTION OF INDWELLING TUNNELED PLEURAL CATHETER WITH CUFF-RIGHT; Surgeon: Sushila Perry MD; Location: [facility]; Service: PULMONARY EXTRACTION INTRACAPSULAR CATARACT 07/29/2009 - 07/28/2010 Right MA INSJ TUNNELED CTR VAD W/SUBQ PORT AGE 5 YR/> 07/08/2023 Chest/Left Procedure: PORT-A-CATH PLACEMENT; Surgeon: Josue Salinas MD; Location: [facility]; Service: SURG ONC - PORT Medical devices from this surgery are in the Medical Devices section. MA FLUORO CENTRAL VENOUS ACCESS DEV PLACEMENT 07/08/2023 Neck/Left Procedure: FLUORO GUIDANCE FOR CENTRAL VENOUS ACCESS DEVICE PLACEMENT, REPLACEMENT, OR REMOVAL; Surgeon: Josue Salinas MD; Location: [facility]; Service: SURG ONC - PORT Medical devices from this surgery are in the Medical Devices section. 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: Menarche: 15 Age at first parity: 25 history: no control pill use: yes 1-2 years Hormone Replacement Therapy use: yes, 20 Last Filed Vital Signs Vital Sign Reading Time Taken Comments Blood Pressure 142/80 09/27/2023 3:05 PM MOLYBDENUM STEAMER OPERATOR Pulse 98 09/27/2023 3:05 PM MOLYBDENUM STEAMER OPERATOR Temperature 37.2 C (98.9 F) 09/27/2023 3:05 PM CS T Respiratory Rate 18 09/27/2023 3:05 PM MOLYBDENUM STEAMER OPERATOR Oxygen Saturation 99% 09/27/2023 2:01 PM MOLYBDENUM STEAMER OPERATOR Inhaled Oxygen Concentration - - Weight 61.1 kg (134 lb 11.2 oz) 09/27/2023 2:01 PM MOLYBDENUM STEAMER OPERATOR Height 152.4 cm (5') 05/31/2023 9:25 PM CDT Body Mass Index 26.31 05/31/2023 9:25 PM CDT Plan of Treatment Upcoming Encounters Date Type Department Care Team Description 10/10/2023 10:30 AM CDT Appointment Diagnostic [facility] [address] [place] [id number] Kaity Gilliland, SECTIONAL BELT MOLD ASSEMBLER [address] [place] [address] 10/10/2023 11:30 AM CDT Follow-Up Breast Center - Medical Oncology [address] [place] [address], 5th [place] [address] Kaity Gilliland, SECTIONAL BELT MOLD ASSEMBLER [address] [place] [address] 10/25/2023 11:45 AM CDT Infusion MD [facility] - Infusion [address] [facility] [address] [place] [address] Elizabeth Burrell MD [address] [place] [address] 12/02/2023 12:00 PM CDT Ancillary Procedure Nuclear Medicine [address] [place] [address], 6th Floor, [place], [place] [id number] Beverly Matias MD [address] [place] [address] 12/02/2023 1:30 PM CDT Office Visit Internal Medicine Center - Rheumatology [address] [place] [address], [address] [place] [address] Beverly Matias MD [facility] [place] [address] Health Maintenance Due Date Last Done Comments COVID-19 Vaccination (#1) 1950 Medical Devices Implanted Type Area Systems Support Engineer Device Identifier Shelf Expiration Date Model / Serial / Lot [place] Clearvue Slim 6fr W/Sm - Sn/A Implanted:Qty: 1 on 07/08/2023 by Josue Salinas MD at [facility] Implant Left: Internal Jugular BARD PERIPHERAL VASCULAR [id number] 02/25/2025 [id number] / N/A / [id number] Description:Catheter length- 27 cm. 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 Estrogen receptor negative status (ER-) Hypomagnesemia Hypokalemia Secondary malignant neoplasm of liver and intrahepatic bile duct MAGNESIUM LEVEL Routine 09/12/2023 12:25 PM MOLYBDENUM STEAMER OPERATOR 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 Metastatic malignant neoplasm to lung <Unspecified side> 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 cancer to axillary lymph nodes Estrogen receptor negative status (ER-) Hypomagnesemia Hypokalemia Secondary malignant neoplasm of liver and intrahepatic bile duct COMPREHENSIVE METABOLIC PANEL Routine 09/12/2023 12:25 PM MOLYBDENUM STEAMER OPERATOR 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 Metastatic malignant neoplasm to lung <Unspecified side> 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 cancer to axillary lymph nodes Estrogen receptor negative status (ER-) Hypomagnesemia Hypokalemia Secondary malignant neoplasm of liver and intrahepatic bile duct COMPLETE BLOOD COUNT W/ DIFFERENTIAL Routine 09/12/2023 12:25 PM MOLYBDENUM STEAMER OPERATOR 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 Metastatic malignant neoplasm to lung <Unspecified side> 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 cancer to axillary lymph nodes Estrogen receptor negative status (ER-) Hypomagnesemia Hypokalemia Secondary malignant neoplasm of liver and intrahepatic bile duct TRANSFUSE RED BLOOD CELLS Routine 08/29/2023 7:30 PM MOLYBDENUM STEAMER OPERATOR 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 TRANSFUSE RED BLOOD CELLS Routine 08/29/2023 5:00 PM MOLYBDENUM STEAMER OPERATOR 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 .CBC Routine 08/29/2023 8:45 AM MOLYBDENUM STEAMER OPERATOR 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 COMPREHENSIVE METABOLIC PANEL Routine 08/29/2023 8:45 AM MOLYBDENUM STEAMER OPERATOR 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 COMPLETE BLOOD COUNT W/ DIFFERENTIAL Routine 08/29/2023 8:45 AM MOLYBDENUM STEAMER OPERATOR 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 TYPE AND SCREEN Routine 08/29/2023 8:45 AM MOLYBDENUM STEAMER OPERATOR 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 PREPARE RBC Routine 08/27/2023 3:44 PM MOLYBDENUM STEAMER OPERATOR 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 .CBC Routine 08/21/2023 12:30 PM MOLYBDENUM STEAMER OPERATOR 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 BLOOD UREA NITROGEN Routine 08/21/2023 12:30 PM MOLYBDENUM STEAMER OPERATOR 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 CREATININE Routine 08/21/2023 12:30 PM MOLYBDENUM STEAMER OPERATOR 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 BILIRUBIN TOTAL Routine 08/21/2023 12:30 PM MOLYBDENUM STEAMER OPERATOR 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 ALKALINE PHOSPHATASE Routine 08/21/2023 12:30 PM MOLYBDENUM STEAMER OPERATOR 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 ALANINE AMINOTRANSFERASE Routine 08/21/2023 12:30 PM MOLYBDENUM STEAMER OPERATOR 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 ASPARTATE AMINOTRANSFERASE Routine 08/21/2023 12:30 PM MOLYBDENUM STEAMER OPERATOR 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 COMPLETE BLOOD COUNT W/ DIFFERENTIAL Routine 08/21/2023 12:30 PM MOLYBDENUM STEAMER OPERATOR 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 POTASSIUM LEVEL Routine 08/21/2023 12:30 PM MOLYBDENUM STEAMER OPERATOR 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 MAGNESIUM LEVEL Routine 08/21/2023 12:30 PM MOLYBDENUM STEAMER OPERATOR 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 3D DENTAL IMAGING (ICAT) Routine 08/21/2023 10:43 AM MOLYBDENUM STEAMER OPERATOR Encounter for observation for other suspected disease ruled out DIFFERENTIAL Routine 08/09/2023 12:41 PM MOLYBDENUM STEAMER OPERATOR 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 duct carcinoma, NOS of upper-inner quadrant of breast <Female; Right> .CBC Routine 08/09/2023 12:41 PM MOLYBDENUM STEAMER OPERATOR 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 duct carcinoma, NOS of upper-inner quadrant of breast <Female; Right> COMPLETE BLOOD COUNT W/ DIFFERENTIAL Routine 08/09/2023 12:41 PM MOLYBDENUM STEAMER OPERATOR 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 duct carcinoma, NOS of upper-inner quadrant of breast <Female; Right> CANCER ANTIGEN 27 29 Routine 08/09/2023 12:41 PM MOLYBDENUM STEAMER OPERATOR Secondary malignant neoplasm of bilateral lungs Metastatic malignant neoplasm to lung <Unspecified side> 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 Estrogen receptor negative status (ER-) CARBOHYDRATE ANTIGEN 15-3 Routine 08/09/2023 12:41 PM MOLYBDENUM STEAMER OPERATOR Secondary malignant neoplasm of bilateral lungs Metastatic malignant neoplasm to lung <Unspecified side> 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 Estrogen receptor negative status (ER-) MAGNESIUM LEVEL Routine 08/09/2023 12:41 PM MOLYBDENUM STEAMER OPERATOR Secondary malignant neoplasm of bilateral lungs Metastatic malignant neoplasm to lung <Unspecified side> 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 Estrogen receptor negative status (ER-) Hypomagnesemia COMPREHENSIVE METABOLIC PANEL Routine 08/09/2023 12:41 PM MOLYBDENUM STEAMER OPERATOR Secondary malignant neoplasm of bilateral lungs Metastatic malignant neoplasm to lung <Unspecified side> 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 Estrogen receptor negative status (ER-) Hypokalemia CT CHEST ABDOMEN PELVIS W CONTRAST Routine 08/08/2023 1:59 PM MOLYBDENUM STEAMER OPERATOR Secondary malignant neoplasm of bilateral lungs Metastatic malignant neoplasm to lung <Unspecified side> 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 Estrogen receptor negative status (ER-) POC CREATININE Routine 08/08/2023 1:37 PM MOLYBDENUM STEAMER OPERATOR XR CHEST 2 VW Routine 08/05/2023 10:25 AM MOLYBDENUM STEAMER OPERATOR Pleural effusion .CBC Routine 08/01/2023 1:21 PM MOLYBDENUM STEAMER OPERATOR 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 duct carcinoma, NOS of upper-inner quadrant of breast <Female; Right> PHOSPHORUS LEVEL Routine 08/01/2023 1:21 PM MOLYBDENUM STEAMER OPERATOR 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 duct carcinoma, NOS of upper-inner quadrant of breast <Female; Right> MAGNESIUM LEVEL Routine 08/01/2023 1:21 PM MOLYBDENUM STEAMER OPERATOR 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 duct carcinoma, NOS of upper-inner quadrant of breast <Female; Right> COMPLETE BLOOD COUNT W/ DIFFERENTIAL Routine 08/01/2023 1:21 PM MOLYBDENUM STEAMER OPERATOR 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 duct carcinoma, NOS of upper-inner quadrant of breast <Female; Right> COMPREHENSIVE METABOLIC PANEL Routine 08/01/2023 1:21 PM MOLYBDENUM STEAMER OPERATOR 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 duct carcinoma, NOS of upper-inner quadrant of breast <Female; Right> .CBC Routine 07/11/2023 11:50 AM MOLYBDENUM STEAMER OPERATOR 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 CREATININE Routine 07/11/2023 11:50 AM MOLYBDENUM STEAMER OPERATOR 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 COMPLETE BLOOD COUNT W/ DIFFERENTIAL Routine 07/11/2023 11:50 AM MOLYBDENUM STEAMER OPERATOR 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 XR CHEST 1 VW POST IMPLANT STAT 07/08/2023 10:56 AM MOLYBDENUM STEAMER OPERATOR FL CENTRAL VENOUS PLACE EXCHANGE Routine 07/08/2023 10:13 AM MOLYBDENUM STEAMER OPERATOR Malignant neoplasm of upper-inner quadrant of right female breast VASCULAR ACCESS BUNDLE Routine 8:54 AM MOLYBDENUM STEAMER OPERATOR US GUIDANCE WITH EVAL OF POTENTIAL ACCESS SITES, REALTIME US VISUALIZATION OF VASC NEEDLE ENTRY 07/08/2023 8:39 AM MOLYBDENUM STEAMER OPERATOR Infiltrating duct carcinoma, NOS of upper-inner quadrant of breast <Female; Right> Special Needs PW @ 6:30 AM [facility] F/M FLUORO GUIDANCE FOR CENTRAL VENOUS ACCESS DEVICE PLACEMENT, REPLACEMENT, OR REMOVAL 07/08/2023 8:39 AM MOLYBDENUM STEAMER OPERATOR Infiltrating duct carcinoma, NOS of upper-inner quadrant of breast <Female; Right> Special Needs PW @ 6:30 AM [facility] F/M PORT-A-CATH PLACEMENT 07/08/2023 8:39 AM MOLYBDENUM STEAMER OPERATOR Infiltrating duct carcinoma, NOS of upper-inner quadrant of breast <Female; Right> Special Needs PW @ 6:30 AM [facility] F/M INTRAOPERATIVE US STAT 07/08/2023 8:3 3 AM MOLYBDENUM STEAMER OPERATOR .CBC Routine 07/08/2023 7:03 AM MOLYBDENUM STEAMER OPERATOR 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 neoplasm to lung <Unspecified side> 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 Preoperative laboratory examination HEMOGLOBIN A1C Routine 07/08/2023 7:03 AM MOLYBDENUM STEAMER OPERATOR 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 neoplasm to lung <Unspecified side> 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 Preoperative laboratory examination ELECTROLYTE PANEL Routine 07/08/2023 7:0 3 AM MOLYBDENUM STEAMER OPERATOR 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 neoplasm to lung <Unspecified side> 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 Preoperative laboratory examination CREATININE Routine 07/08/2023 7:03 AM MOLYBDENUM STEAMER OPERATOR 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 neoplasm to lung <Unspecified side> 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 Preoperative laboratory examination COMPLETE BLOOD COUNT W/ DIFFERENTIAL Routine 07/08/2023 7:03 AM MOLYBDENUM STEAMER OPERATOR 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 neoplasm to lung <Unspecified side> 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 Preoperative laboratory examination BLOOD UREA NITROGEN Routine 07/08/2023 7 :03 AM MOLYBDENUM STEAMER OPERATOR 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 neoplasm to lung <Unspecified side> 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 Preoperative laboratory examination .CBC Routine 07/04/2023 10:10 AM MOLYBDENUM STEAMER OPERATOR 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 duct carcinoma, NOS of upper-inner quadrant of breast <Female; Right> PHOSPHORUS LEVEL Routine 07/04/2023 10:10 AM MOLYBDENUM STEAMER OPERATOR 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 duct carcinoma, NOS of upper-inner quadrant of breast <Female; Right> MAGNESIUM LEVEL Routine 07/04/2023 10:10 AM MOLYBDENUM STEAMER OPERATOR 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 duct carcinoma, NOS of upper-inner quadrant of breast <Female; Right> COMPLETE BLOOD COUNT W/ DIFFERENTIAL Routine 07/04/2023 10:10 AM MOLYBDENUM STEAMER OPERATOR 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 duct carcinoma, NOS of upper-inner quadrant of breast <Female; Right> COMPREHENSIVE METABOLIC PANEL Routine 07/04/2023 10:10 AM MOLYBDENUM STEAMER OPERATOR 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 duct carcinoma, NOS of upper-inner quadrant of breast <Female; Right> PULMONARY ULTRASOUND Routine 07/03/2023 12:15 PM MOLYBDENUM STEAMER OPERATOR Pleural effusion XR CHEST 2 VW Routine 07/03/2023 11:30 AM MOLYBDENUM STEAMER OPERATOR Pleural effusion .CBC Routine 06/27/2023 11:23 AM MOLYBDENUM STEAMER OPERATOR 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 duct carcinoma, NOS of upper-inner quadrant of breast <Female; Right> PHOSPHORUS LEVEL Routine 06/27/2023 11:23 AM MOLYBDENUM STEAMER OPERATOR 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 duct carcinoma, NOS of upper-inner quadrant of breast <Female; Right> MAGNESIUM LEVEL Routine 06/27/2023 11:23 AM MOLYBDENUM STEAMER OPERATOR 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 duct carcinoma, NOS of upper-inner quadrant of breast <Female; Right> COMPLETE BLOOD COUNT W/ DIFFERENTIAL Routine 06/27/2023 11:23 AM MOLYBDENUM STEAMER OPERATOR 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 duct carcinoma, NOS of upper-inner quadrant of breast <Female; Right> COMPREHENSIVE METABOLIC PANEL Routine 06/27/2023 11:23 AM MOLYBDENUM STEAMER OPERATOR 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 duct carcinoma, NOS of upper-inner quadrant of breast <Female; Right> .CBC Routine 06/17/2023 5:21 AM MOLYBDENUM STEAMER OPERATOR COMPREHENSIVE METABOLIC PANEL Routine 06/17/2023 5:21 AM MOLYBDENUM STEAMER OPERATOR NT PRO BNP Routine 06/17/2023 5:21 AM MOLYBDENUM STEAMER OPERATOR PHOSPHORUS LEVEL Routine 06/17/2023 5:21 AM MOLYBDENUM STEAMER OPERATOR MAGNESIUM LEVEL Routine 06/17/2023 5:21 AM MOLYBDENUM STEAMER OPERATOR COMPLETE BLOOD COUNT W/ DIFFERENTIAL Routine 06/17/2023 5:21 AM MOLYBDENUM STEAMER OPERATOR OSCILLATORY PEP Routine 06/16/2023 2:00 PM MOLYBDENUM STEAMER OPERATOR .CBC Routine 06/16/2023 9:33 AM MOLYBDENUM STEAMER OPERATOR COMPREHENSIVE METABOLIC PANEL Routine 06/16/2023 9:33 AM MOLYBDENUM STEAMER OPERATOR NT PRO BNP Routine 06/16/2023 9:33 AM MOLYBDENUM STEAMER OPERATOR PHOSPHORUS LEVEL Routine 06/16/2023 9:33 AM MOLYBDENUM STEAMER OPERATOR MAGNESIUM LEVEL Routine 06/16/2023 9:33 AM MOLYBDENUM STEAMER OPERATOR COMPLETE BLOOD COUNT W/ DIFFERENTIAL Routine 06/16/2023 9:33 AM MOLYBDENUM STEAMER OPERATOR OSCILLATORY PEP Routine 06/16/2023 8:00 AM MOLYBDENUM STEAMER OPERATOR OSCILLATORY PEP Routine 06/15/2023 8:00 PM MOLYBDENUM STEAMER OPERATOR OSCILLATORY PEP Routine 06/15/2023 2:00 PM MOLYBDENUM STEAMER OPERATOR OSCILLATORY PEP Routine 06/15/2023 8:00 AM MOLYBDENUM STEAMER OPERATOR .CBC Routine 06/15/2023 6:56 AM MOLYBDENUM STEAMER OPERATOR COMPREHENSIVE METABOLIC PANEL Routine 06/15/2023 6:56 AM MOLYBDENUM STEAMER OPERATOR NT PRO BNP Routine 06/15/2023 6:56 AM MOLYBDENUM STEAMER OPERATOR PHOSPHORUS LEVEL Routine 06/15/2023 6:56 AM MOLYBDENUM STEAMER OPERATOR MAGNESIUM LEVEL Routine 06/15/2023 6:56 AM MOLYBDENUM STEAMER OPERATOR COMPLETE BLOOD COUNT W/ DIFFERENTIAL Routine 06/15/2023 6:56 AM MOLYBDENUM STEAMER OPERATOR OSCILLATORY PEP Routine 06/15/2023 2:00 AM MOLYBDENUM STEAMER OPERATOR OSCILLATORY PEP Routine 06/14/2023 8:00 PM MOLYBDENUM STEAMER OPERATOR OSCILLATORY PEP Routine 06/14/2023 2:00 PM MOLYBDENUM STEAMER OPERATOR OSCILLATORY PEP Routine 06/14/2023 8:00 AM MOLYBDENUM STEAMER OPERATOR .CBC Routine 06/14/2023 6:37 AM MOLYBDENUM STEAMER OPERATOR COMPREHENSIVE METABOLIC PANEL Routine 06/14/2023 6:37 AM MOLYBDENUM STEAMER OPERATOR NT PRO BNP Routine 06/14/2023 6:37 AM MOLYBDENUM STEAMER OPERATOR PHOSPHORUS LEVEL Routine 06/14/2023 6:37 AM MOLYBDENUM STEAMER OPERATOR MAGNESIUM LEVEL Routine 06/14/2023 6:37 AM MOLYBDENUM STEAMER OPERATOR COMPLETE BLOOD COUNT W/ DIFFERENTIAL Routine 06/14/2023 6:37 AM MOLYBDENUM STEAMER OPERATOR OSCILLATORY PEP Routine 06/14/2023 2:00 AM MOLYBDENUM STEAMER OPERATOR OSCILLATORY PEP Routine 06/13/2023 8:00 PM MOLYBDENUM STEAMER OPERATOR OSCILLATORY PEP Routine 06/13/2023 2:00 PM MOLYBDENUM STEAMER OPERATOR OSCILLATORY PEP Routine 06/13/2023 8:00 AM MOLYBDENUM STEAMER OPERATOR .CBC Routine 06/13/2023 6:39 AM MOLYBDENUM STEAMER OPERATOR COMPREHENSIVE METABOLIC PANEL Routine 06/13/2023 6:39 AM MOLYBDENUM STEAMER OPERATOR NT PRO BNP Routine 06/13/2023 6:39 AM MOLYBDENUM STEAMER OPERATOR PHOSPHORUS LEVEL Routine 06/13/2023 6:39 AM MOLYBDENUM STEAMER OPERATOR MAGNESIUM LEVEL Routine 06/13/2023 6:39 AM MOLYBDENUM STEAMER OPERATOR COMPLETE BLOOD COUNT W/ DIFFERENTIAL Routine 06/13/2023 6:39 AM MOLYBDENUM STEAMER OPERATOR ECHOCARDIOGRAM 2D LIMITED - FOLLOW UP Routine 06/12/2023 3:16 PM MOLYBDENUM STEAMER OPERATOR OSCILLATORY PEP Routine 06/12/2023 8:00 AM MOLYBDENUM STEAMER OPERATOR .CBC Routine 06/12/2023 4:37 AM MOLYBDENUM STEAMER OPERATOR COMPREHENSIVE METABOLIC PANEL Routine 06/12/2023 4:37 AM MOLYBDENUM STEAMER OPERATOR NT PRO BNP Routine 06/12/2023 4:37 AM MOLYBDENUM STEAMER OPERATOR PHOSPHORUS LEVEL Routine 06/12/2023 4:37 AM MOLYBDENUM STEAMER OPERATOR MAGNESIUM LEVEL Routine 06/12/2023 4:37 AM MOLYBDENUM STEAMER OPERATOR COMPLETE BLOOD COUNT W/ DIFFERENTIAL Routine 06/12/2023 4:37 AM MOLYBDENUM STEAMER OPERATOR OSCILLATORY PEP Routine 06/12/2023 2:00 AM MOLYBDENUM STEAMER OPERATOR OSCILLATORY PEP Routine 06/11/2023 11:51 PM MOLYBDENUM STEAMER OPERATOR OSCILLATORY PEP Routine 06/11/2023 11:51 PM MOLYBDENUM STEAMER OPERATOR OSCILLATORY PEP Routine 06/11/2023 11:51 PM MOLYBDENUM STEAMER OPERATOR OSCILLATORY PEP PLUS POSITIVE AIRWAY PRESSURE (OPEP+PAP) Routine 06/11/2023 10:18 PM MOLYBDENUM STEAMER OPERATOR .CBC Routine 06/11/2023 6:17 AM MOLYBDENUM STEAMER OPERATOR NT PRO BNP Routine 06/11/2023 6:17 AM MOLYBDENUM STEAMER OPERATOR COMPLETE BLOOD COUNT W/ DIFFERENTIAL Routine 06/11/2023 6:17 AM MOLYBDENUM STEAMER OPERATOR COMPREHENSIVE METABOLIC PANEL Routine 06/11/2023 6:16 AM MOLYBDENUM STEAMER OPERATOR PHOSPHORUS LEVEL Routine 06/11/2023 6:16 AM MOLYBDENUM STEAMER OPERATOR MAGNESIUM LEVEL Routine 06/11/2023 6:16 AM MOLYBDENUM STEAMER OPERATOR OSCILLATORY PEP PLUS POSITIVE AIRWAY PRESSURE (OPEP+PAP) Routine 06/10/2023 12:00 PM MOLYBDENUM STEAMER OPERATOR OSCILLATORY PEP PLUS POSITIVE AIRWAY PRESSURE (OPEP+PAP) Routine 06/10/2023 8:00 AM MOLYBDENUM STEAMER OPERATOR .CBC Routine 06/10/2023 7:52 AM MOLYBDENUM STEAMER OPERATOR COMPREHENSIVE METABOLIC PANEL Routine 06/10/2023 7:52 AM MOLYBDENUM STEAMER OPERATOR NT PRO BNP Routine 06/10/2023 7:52 AM MOLYBDENUM STEAMER OPERATOR PHOSPHORUS LEVEL Routine 06/10/2023 7:52 AM MOLYBDENUM STEAMER OPERATOR MAGNESIUM LEVEL Routine 06/10/2023 7:52 AM MOLYBDENUM STEAMER OPERATOR COMPLETE BLOOD COUNT W/ DIFFERENTIAL Routine 06/10/2023 7:52 AM MOLYBDENUM STEAMER OPERATOR OSCILLATORY PEP PLUS POSITIVE AIRWAY PRESSURE (OPEP+PAP) Routine 06/10/2023 4:00 AM MOLYBDENUM STEAMER OPERATOR OSCILLATORY PEP PLUS POSITIVE AIRWAY PRESSURE (OPEP+PAP) Routine 06/10/2023 12:00 AM MOLYBDENUM STEAMER OPERATOR OSCILLATORY PEP PLUS POSITIVE AIRWAY PRESSURE (OPEP+PAP) Routine 06/09/2023 8:00 PM MOLYBDENUM STEAMER OPERATOR OSCILLATORY PEP PLUS POSITIVE AIRWAY PRESSURE (OPEP+PAP) Routine 06/09/2023 4:00 PM MOLYBDENUM STEAMER OPERATOR OSCILLATORY PEP PLUS POSITIVE AIRWAY PRESSURE (OPEP+PAP) Routine 06/09/2023 3:07 PM MOLYBDENUM STEAMER OPERATOR OSCILLATORY PEP PLUS POSITIVE AIRWAY PRESSURE (OPEP+PAP) Routine 06/09/2023 3:07 PM MOLYBDENUM STEAMER OPERATOR OSCILLATORY PEP PLUS POSITIVE AIRWAY PRESSURE (OPEP+PAP) Routine 06/09/2023 3:07 PM MOLYBDENUM STEAMER OPERATOR OSCILLATORY PEP PLUS POSITIVE AIRWAY PRESSURE (OPEP+PAP) Routine 06/09/2023 3:07 PM MOLYBDENUM STEAMER OPERATOR XR CHEST 1 VW Routine 06/09/2023 10:08 AM MOLYBDENUM STEAMER OPERATOR .CBC Routine 06/09/2023 7:19 AM MOLYBDENUM STEAMER OPERATOR COMPREHENSIVE METABOLIC PANEL Routine 06/09/2023 7:19 AM MOLYBDENUM STEAMER OPERATOR NT PRO BNP Routine 06/09/2023 7:19 AM MOLYBDENUM STEAMER OPERATOR PHOSPHORUS LEVEL Routine 06/09/2023 7:19 AM MOLYBDENUM STEAMER OPERATOR MAGNESIUM LEVEL Routine 06/09/2023 7:19 AM MOLYBDENUM STEAMER OPERATOR COMPLETE BLOOD COUNT W/ DIFFERENTIAL Routine 06/09/2023 7:19 AM MOLYBDENUM STEAMER OPERATOR .CBC Routine 06/08/2023 6:32 AM MOLYBDENUM STEAMER OPERATOR COMPREHENSIVE METABOLIC PANEL Routine 06/08/2023 6:32 AM MOLYBDENUM STEAMER OPERATOR NT PRO BNP Routine 06/08/2023 6:32 AM MOLYBDENUM STEAMER OPERATOR PHOSPHORUS LEVEL Routine 06/08/2023 6:32 AM MOLYBDENUM STEAMER OPERATOR MAGNESIUM LEVEL Routine 06/08/2023 6:32 AM MOLYBDENUM STEAMER OPERATOR COMPLETE BLOOD COUNT W/ DIFFERENTIAL Routine 06/08/2023 6:32 AM MOLYBDENUM STEAMER OPERATOR IR CHEST XRAY 1 VIEW 30 STAT 06/07/2023 6:30 PM MOLYBDENUM STEAMER OPERATOR PATHOLOGY BIOPSY INTERPRETATION Routine 06/07/2023 5:44 PM MOLYBDENUM STEAMER OPERATOR Pleural effusion Dyspnea Hyposmolality and/or hyponatremia Secondary [...] face 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[place] palsy of right side of face Hypertension Generalized muscle weakness Abnormality of gait, not otherwise specified Personal history of breast cancer IR CT GUIDED BIOPSY LUNG/MEDIASTINAL 60 Routine 06/07/2023 5:29 PM MOLYBDENUM STEAMER OPERATOR Personal history of breast cancer .CBC Routine 06/07/2023 6:40 AM MOLYBDENUM STEAMER OPERATOR COMPREHENSIVE METABOLIC PANEL Routine 06/07/2023 6:40 AM MOLYBDENUM STEAMER OPERATOR NT PRO BNP Routine 06/07/2023 6:40 AM MOLYBDENUM STEAMER OPERATOR PHOSPHORUS LEVEL Routine 06/07/2023 6:40 AM MOLYBDENUM STEAMER OPERATOR MAGNESIUM LEVEL Routine 06/07/2023 6:40 AM MOLYBDENUM STEAMER OPERATOR COMPLETE BLOOD COUNT W/ DIFFERENTIAL Routine 06/07/2023 6:40 AM MOLYBDENUM STEAMER OPERATOR CONFIRM ABORH TYPE Routine 06/07/2023 6: 40 AM MOLYBDENUM STEAMER OPERATOR OSCILLATORY PEP PLUS POSITIVE AIRWAY PRESSURE (OPEP+PAP) Routine 06/07/2023 2:00 AM MOLYBDENUM STEAMER OPERATOR CT ABDOMEN PELVIS W WO CONTRAST Routine 06/06/2023 11:14 PM MOLYBDENUM STEAMER OPERATOR OSCILLATORY PEP PLUS POSITIVE AIRWAY PRESSURE (OPEP+PAP) Routine 06/06/2023 8:00 PM MOLYBDENUM STEAMER OPERATOR TYPE AND SCREEN Routine 06/06/2023 4:58 PM MOLYBDENUM STEAMER OPERATOR OSCILLATORY PEP PLUS POSITIVE AIRWAY PRESSURE (OPEP+PAP) Routine 06/06/2023 8:00 AM MOLYBDENUM STEAMER OPERATOR OSCILLATORY PEP PLUS POSITIVE AIRWAY PRESSURE (OPEP+PAP) Routine 06/06/2023 7:50 AM MOLYBDENUM STEAMER OPERATOR OSCILLATORY PEP PLUS POSITIVE AIRWAY PRESSURE (OPEP+PAP) Routine 06/06/2023 7:50 AM MOLYBDENUM STEAMER OPERATOR OSCILLATORY PEP PLUS POSITIVE AIRWAY PRESSURE (OPEP+PAP) Routine 06/06/2023 7:50 AM MOLYBDENUM STEAMER OPERATOR OSCILLATORY PEP PLUS POSITIVE AIRWAY PRESSURE (OPEP+PAP) Routine 06/06/2023 7:50 AM MOLYBDENUM STEAMER OPERATOR .CBC Routine 06/06/2023 4:47 AM MOLYBDENUM STEAMER OPERATOR COMPREHENSIVE METABOLIC PANEL Routine 06/06/2023 4:47 AM MOLYBDENUM STEAMER OPERATOR NT PRO BNP Routine 06/06/2023 4:47 AM MOLYBDENUM STEAMER OPERATOR PHOSPHORUS LEVEL Routine 06/06/2023 4:47 AM MOLYBDENUM STEAMER OPERATOR MAGNESIUM LEVEL Routine 06/06/2023 4:47 AM MOLYBDENUM STEAMER OPERATOR COMPLETE BLOOD COUNT W/ DIFFERENTIAL Routine 06/06/2023 4:47 AM MOLYBDENUM STEAMER OPERATOR OSCILLATORY PEP Routine 06/05/2023 10:02 AM MOLYBDENUM STEAMER OPERATOR OSCILLATORY PEP Routine 06/05/2023 10:02 AM MOLYBDENUM STEAMER OPERATOR OSCILLATORY PEP Routine 06/05/2023 10:02 AM MOLYBDENUM STEAMER OPERATOR OSCILLATORY PEP Routine 06/05/2023 10:02 AM MOLYBDENUM STEAMER OPERATOR .CBC Routine 06/05/2023 7:28 AM MOLYBDENUM STEAMER OPERATOR COMPREHENSIVE METABOLIC PANEL Routine 06/05/2023 7:28 AM MOLYBDENUM STEAMER OPERATOR NT PRO BNP Routine 06/05/2023 7:28 AM MOLYBDENUM STEAMER OPERATOR PHOSPHORUS LEVEL Routine 06/05/2023 7:28 AM MOLYBDENUM STEAMER OPERATOR MAGNESIUM LEVEL Routine 06/05/2023 7:28 AM MOLYBDENUM STEAMER OPERATOR COMPLETE BLOOD COUNT W/ DIFFERENTIAL Routine 06/05/2023 7:28 AM MOLYBDENUM STEAMER OPERATOR NM BONE SCAN WHOLE BODY Routine 06/04/2023 12:38 PM MOLYBDENUM STEAMER OPERATOR XR CHEST 1 VW PORTABLE Routine 8:32 AM MOLYBDENUM STEAMER OPERATOR .CBC Routine 06/04/2023 7:03 AM MOLYBDENUM STEAMER OPERATOR NT PRO BNP Routine 06/04/2023 7:03 AM MOLYBDENUM STEAMER OPERATOR PHOSPHORUS LEVEL Routine 06/04/2023 7:03 AM MOLYBDENUM STEAMER OPERATOR MAGNESIUM LEVEL Routine 06/04/2023 7:03 AM MOLYBDENUM STEAMER OPERATOR BASIC METABOLIC PANEL, CALCIUM TOTAL Routine 06/04/2023 7:03 AM MOLYBDENUM STEAMER OPERATOR COMPLETE BLOOD COUNT W/ DIFFERENTIAL Routine 06/04/2023 7:03 AM MOLYBDENUM STEAMER OPERATOR OSCILLATORY PEP PLUS POSITIVE AIRWAY PRESSURE (OPEP+PAP) Routine 06/04/2023 4:00 AM MOLYBDENUM STEAMER OPERATOR OSCILLATORY PEP PLUS POSITIVE AIRWAY PRESSURE (OPEP+PAP) Routine 06/03/2023 8:00 PM MOLYBDENUM STEAMER OPERATOR XR CHEST 1 VW STAT 06/03/2023 5:09 PM MOLYBDENUM STEAMER OPERATOR PULMONARY ULTRASOUND Routine 06/03/2023 3:50 PM MOLYBDENUM STEAMER OPERATOR INSERTION OF INDWELLING TUNNELED PLEURAL CATHETER WITH CUFF-RIGHT 06/03/2023 3:50 PM MOLYBDENUM STEAMER OPERATOR Pleural effusion URINALYSIS MICROSCOPIC EXAM Routine 06/03/2023 3:24 PM MOLYBDENUM STEAMER OPERATOR URINALYSIS WITH MICROSCOPIC IF INDICATED Routine 06/03/2023 3:24 PM MOLYBDENUM STEAMER OPERATOR URINE CULTURE Routine 06/03/2023 3:24 PM MOLYBDENUM STEAMER OPERATOR OSCILLATORY PEP PLUS POSITIVE AIRWAY PRESSURE (OPEP+PAP) Routine 06/03/2023 12:00 PM MOLYBDENUM STEAMER OPERATOR ECHOCARDIOGRAM 2D COMPLETE STAT 06/03/2023 10:07 AM MOLYBDENUM STEAMER OPERATOR OSCILLATORY PEP PLUS POSITIVE AIRWAY PRESSURE (OPEP+PAP) Routine 06/03/2023 8:00 AM MOLYBDENUM STEAMER OPERATOR HC PROCALCITONIN (PCT) Add-On 6:29 AM MOLYBDENUM STEAMER OPERATOR .CBC Routine 06/03/2023 6:29 AM MOLYBDENUM STEAMER OPERATOR NT PRO BNP Routine 06/03/2023 6:29 AM MOLYBDENUM STEAMER OPERATOR PHOSPHORUS LEVEL Routine 06/03/2023 6:29 AM MOLYBDENUM STEAMER OPERATOR MAGNESIUM LEVEL Routine 06/03/2023 6:29 AM MOLYBDENUM STEAMER OPERATOR BASIC METABOLIC PANEL, CALCIUM TOTAL Routine 06/03/2023 6:29 AM MOLYBDENUM STEAMER OPERATOR COMPLETE BLOOD COUNT W/ DIFFERENTIAL Routine 06/03/2023 6:29 AM MOLYBDENUM STEAMER OPERATOR APTT Routine 06/03/2023 6:29 AM MOLYBDENUM STEAMER OPERATOR OSCILLATORY PEP PLUS POSITIVE AIRWAY PRESSURE (OPEP+PAP) Routine 06/03/2023 12:01 AM MOLYBDENUM STEAMER OPERATOR OSCILLATORY PEP PLUS POSITIVE AIRWAY PRESSURE (OPEP+PAP) Routine 06/02/2023 8:00 PM MOLYBDENUM STEAMER OPERATOR OSCILLATORY PEP PLUS POSITIVE AIRWAY PRESSURE (OPEP+PAP) Routine 06/02/2023 12:00 PM MOLYBDENUM STEAMER OPERATOR OSCILLATORY PEP PLUS POSITIVE AIRWAY PRESSURE (OPEP+PAP) Routine 06/02/2023 8:00 AM MOLYBDENUM STEAMER OPERATOR VANCOMYCIN LEVEL TROUGH Timed Study 06/02/2023 5:31 AM MOLYBDENUM STEAMER OPERATOR .CBC Routine 06/02/2023 5:31 AM MOLYBDENUM STEAMER OPERATOR NT PRO BNP Routine 06/02/2023 5:31 AM MOLYBDENUM STEAMER OPERATOR CANCER ANTIGEN 27 29 Routine 06/02/2023 5:31 AM MOLYBDENUM STEAMER OPERATOR CARBOHYDRATE ANTIGEN 15-3 Routine 06/02/2023 5:31 AM MOLYBDENUM STEAMER OPERATOR CARCINOEMBRYONIC ANTIGEN Routine 06/02/2023 5:31 AM MOLYBDENUM STEAMER OPERATOR PHOSPHORUS LEVEL Routine 06/02/2023 5:31 AM MOLYBDENUM STEAMER OPERATOR MAGNESIUM LEVEL Routine 06/02/2023 5:31 AM MOLYBDENUM STEAMER OPERATOR BASIC METABOLIC PANEL, CALCIUM TOTAL Routine 06/02/2023 5:31 AM MOLYBDENUM STEAMER OPERATOR COMPLETE BLOOD COUNT W/ DIFFERENTIAL Routine 06/02/2023 5:31 AM MOLYBDENUM STEAMER OPERATOR OSMOLALITY Routine 06/02/2023 5:31 AM MOLYBDENUM STEAMER OPERATOR CT HEAD WO CONTRAST Routine 06/02/2023 4 :45 AM MOLYBDENUM STEAMER OPERATOR OSCILLATORY PEP PLUS POSITIVE AIRWAY PRESSURE (OPEP+PAP) Routine 06/02/2023 4:00 AM MOLYBDENUM STEAMER OPERATOR OSCILLATORY PEP PLUS POSITIVE AIRWAY PRESSURE (OPEP+PAP) [...] VW PORTABLE STAT 4:45 PM CDT CYTOLOGY NON-WORKERS COMPENSATION ATTORNEY INTERPRETATION Routine 05/31/2023 4:16 PM CDT Pleural [...] upper-inner quadrant of breast <Female; Right> after 10/04/2022 Results * (ABNORMAL) .CBC (09/12/2023 12:25 PM MOLYBDENUM STEAMER OPERATOR) Only the most recent of27 resultswithin the time period is included. [facility] White Blood Cell 5.1 4.1 - 10.5 K/uL 09/12/2023 12:30 PM [facility] Red Blood Cell 3.49(L) 3.99 - 5.46 M/uL 09/12/2023 12:30 PM [facility] Hemoglobin 10.9(L) 12.2 - 15.3 g/dL 09/12/2023 12:30 PM [facility] Hematocrit 34.2(L) 36.4 - 46.8 % 09/12/2023 12:30 PM [facility] Mean Cell Volume 98 82 - 99 fL 09/12/2023 12:30 PM [facility] Mean Cell Hemoglobin 31.2 26.6 - 33.2 pg 09/12/2023 12:30 PM [facility] Mean Cell Hemoglobin Concentration 31.9 31.1 - 35.2 g/dL 09/12/2023 12:30 PM [facility] RDW-SD 72.0(H) 37.5 - 49.7 fL 09/12/2023 12:30 PM [facility] Red Cell Diameter Width 19.9(H) 11.6 - 15.5 % 09/12/2023 12:30 PM [facility] Platelet 279 160 - 397 K/uL 09/12/2023 12:30 PM [facility] Mean Platelet Volume 9.3 9.1 - 12.6 fL 09/12/2023 12:30 PM [facility] INRBC 0.0 0.0 - 0.1 /100 WBC 09/12/2023 12:30 PM [facility] Comment: The INRBC (instrument NRBC) value reflects the enumeration of nucleated red blood cells contained in a 200uL sample of whole blood analyzed by the instrument. This value may differ from the NRBC value reported in a manual differential, which is based on a 100 cell differential. Neutrophil % 78.4(H) 43.2 - 72.7 % 09/12/2023 12:30 PM [facility] Lymphocyte % 8.9(L) 16.8 - 46.2 % 09/12/2023 12:30 PM M[facility]YBDENUM STEAMER [facility] Monocyte % 11.1 5.1 - 12.5 % 09/12/2023 12:30 PM [facility] Eosinophil % 0.6 0.4 - 6.3 % 09/12/2023 12:30 PM [facility] Basophil % 0.6 0.2 - 1.4 % 09/12/2023 12:30 PM [facility] IGRE % 0.4 0.1 - 1.5 % 09/12/2023 12:30 PM [facility] Comment:The IGRE% includes M etamyelocytes, Myelocytes and Promyelocytes. Neutrophil Abs 3.97 1.95 - 7.25 K/uL 09/12/2023 12:30 PM [facility] Lymphocyte Abs 0.45(L) 1.01 - 3.24 K/uL 09/12/2023 12:30 PM [facility] Monocyte Abs 0.56 0.24 - 0.85 K/uL 09/12/2023 12:30 PM [facility] Eosinophil Abs 0.03 0.02 - 0.50 K/uL 09/12/2023 12:30 PM [facility] Basophil Abs 0.03 0.02 - 0.09 K/uL 09/12/2023 12:30 PM [facility] IG Abs 0.02 0.01 - 0.12 K/uL 09/12/2023 12:30 PM [facility] Blood Peripheral blood specimen / Unknown Venipuncture / Unknown 09/12/2023 12:25 PM MOLYBDENUM STEAMER OPERATOR 09/12/2023 12:27 PM MOLYBDENUM STEAMER OPERATOR Kaity Gilliland SECTIONAL [employer]T MOLD ASSEMBLER LAB BLOOD [facility] [address] [place] [address] * (ABNORMAL) Comprehensive Metabolic Panel (09/12/2023 12:25 PM MOLYBDENUM STEAMER OPERATOR) Only the most recent of20 resultswithin the time period is included. Bilirubin Total 0.4 <=1.2 mg/dL 09/12/2023 1:54 PM [facility] Comment:Indocyanine Green (I CG) may cause falsely elevated bilirubin results. Total and direct bilirubin must not be measured from samples containing indocyanine green. False elevation of total bilirubin can be seen in patients with IgG concentrations above 28 g/L. Bilirubin Direct 0.2 <=0.3 mg/dL 09/12/2023 1:54 PM MOLYBDENUM STEAMER [facility] Comment:Indocyanine Green (I CG) may cause falsely elevated bilirubin results. Total and direct bilirubin must not be measured from samples containing indocyanine green. Bilirubin Indirect 0.2 0.0 - 0.9 mg/dL 09/12/2023 1:54 PM MOLYBDENUM STEAMER [facility]PER[facility] eGFR 53(L) >=60 mL/min/1. 73 sq. m 09/12/2023 1:54 PM [facility] Comment: The eGFRcr is calculated with the [...] 6.4 - 8.3 gm/dL 09/12/2023 1:54 PM MOLYBDENUM STEAMER [facility] Calcium Level Total 10.1 8.2 - 10.2 mg/dL 09/12/2023 1:54 PM [facility]YBDENUM STEAM[facility] Alkaline Phosphatase 199(H) 35 - 104 U/L 09/12/2023 1:54 PM M[facility]YBDENUM STEAMER [facility] Albumin Level 3.5 3.5 - 5.2 gm/dL 09/12/2023 1:54 PM M[facility]YBDENUM STEAMER [facility] AST 27 <=32 U/L 09/12/2023 1:54 PM MOLYBDENUM STEAMER [facility] ALT 9 <=33 U/L 09/12/2023 1:54 PM [facility] Sodium Level 137 136 - 145 mmol/L 09/12/2023 1:54 PM [facility] Potassium Level 4.3 3.4 - 4.5 mmol/L 09/12/2023 1:54 PM [facility] Chloride 96(L) 98 - 107 mmol/L 09/12/2023 1:54 PM [facility] CO2 31(H) 22 - 29 mmol/L 09/12/2023 1:54 PM [facility] Anion Gap 10 4 - 14 mmol/L 09/12/2023 1:54 PM [facility] Creatinine 1.08(H) 0.51 - 0.95 mg/dL 09/12/2023 1:54 PM [facility] BUN 22 6 - 23 mg/dL 09/12/2023 1:54 PM [facility] Glucose Level 100(H) 70 - 99 mg/dL 09/12/2023 1:54 PM [facility] Comment: Effective 02/22/16, the glucose reference intervals have been updated based on [place] [employer] guidelines (Standards of Medical Care [...] Unknown Venipuncture / Unknown 09/12/2023 12:25 PM MOLYBDENUM STEAMER OPERATOR 09/12/2023 12:26 PM MOLYBDENUM STEAMER OPERATOR Kaity Gilliland SECTIONAL BELT MOLD ASSEMBLER LAB BLOOD ORDER[facility] [address] [place] [address] * (ABNORMAL) Magnesium Level (09/12/2023 12:25 PM MOLYBDENUM STEAMER OPERATOR) Only the most recent of23 resultswithin the time period is included. Magnesium Level 1.5(L) 1.6 - 2.6 mg/dL 09/12/2023 1:54 PM MOLYBDENUM STEAMER OPERATOR [facility] Blood Peripheral blood specimen / Unknown Venipuncture / Unknown 09/12/2023 12:25 PM MOLYBDENUM STEAMER OPERATOR 09/12/2023 12:26 PM MOLYBDENUM STEAMER OPERATOR Kaity Gilliland SECTIONAL [employer]T MOLD ASSEMBLER LAB BLOOD [facility] [address] [place] [address] * Transfuse RBC:Transfusion Date: 08/29/2023 (08/29/2023 9:31 PM MOLYBDENUM STEAMER OPERATOR) Only the most recent of2 resultswithin the time period is included. Elizabeth Burrell MD BLOOD TRANSFUSION OR DERABLES * Type and screen (08/29/2023 8:45 AM MOLYBDENUM STEAMER OPERATOR) Only the most recent of2 resultswithin the time period is included. ABORh B POS 08/29/2023 8:18 AM MOLYBDENUM STEAMER OPERATOR [facility] ABSC Negative 08/29/2023 8:18 AM MOLYBDENUM STEAMER OPERATOR [facility] Clot Expiration 09/01/2023 23:59 08/29/2023 8:18 AM MOLYBDENUM STEAMER OPERATOR [facility] Historical Record Check Complete 08/29/2023 8:18 AM MOLYBDENUM STEAMER OPERATOR [facility] Blood Peripheral blood specimen / Unknown Venipuncture / Unknown 08/29/2023 8:45 AM MOLYBDENUM STEAMER OPERATOR 08/29/2023 8:48 AM MOLYBD[employer] STEAMER OPERATOR Elizabeth Burrell MD BLOOD BANK TEST ORDE RABLES [facility] [address] [place] [address] * Prepare RBC:ATC Leal, 2 Units (08/27/2023 3:44 PM MOLYBDENUM STEAMER OPERATOR) Product Code [id number] [facility] Product Code Text Red Blood Cells [facility] QTY Ordered 2 [facility] Dispense Status Transfused [facility] Unit Expiration [id number] [facility] Unit Number [id number] [facility] Unit Blood Type B+ [facility] Bag Volume 308 [facility] XM Interpretation Compatible U T [facility] Unit Blood Type Barcode 7300 [facility] Product Code [id number] [facility] Product Code Text Red Blood Cells [facility] QTY Ordered 2 [facility] Dispense Status Transfused [facility] Unit Expiration [id number] [facility] Unit Number [id number] [facility] Unit Blood Type B+ [facility] Bag Volume 294 [facility] XM Interpretation Compatible U T [facility] Unit Blood Type Barcode 7300 [facility] RBC Product Status 1 RBC approved [facility] Comment:Order Form 03 when r lazaro for product issue. PRBC Product Ready For [facility] B2 Blood Bank [facility] Blood Elizabeth Burrell MD BLOOD BANK PRODUCT O RDERABLES [facility] [address] [place] [address] * Blood Urea Nitrogen (08/21/2023 12:30 PM MOLYBD[employer] STEAMER OPERATOR) Only the most recent of2 resultswithin the time period is included. BUN 13 6 - 23 mg/dL 08/21/2023 1:27 PM MOLYBD[employer] STEAMER OPERATOR [facility] Blood Peripheral blood specimen / Unknown Venipuncture / Unknown 08/21/2023 12:30 PM MOLYBDENUM STEAMER OPERATOR 08/21/2023 12:41 PM MOLY[employer] STEAMER OPERATOR Francois Santacruz MD LAB BLOOD ORDERABLES Performing Organization Address City/[facility]/ZIP Co de Phone Number [facility] Unless otherwise noted, all lab tests performed by: Division of Pathology and Laboratory Medicine [address] [place] [id number] * ALT (08/21/2023 12:30 PM MOLYBDENUM STEAMER OPERATOR) ALT 10 <=33 U/L 08/21/2023 1:2 7 PM MOLYBDENUM STEAMER OPERATOR [facility] Blood Peripheral blood specimen / Unknown Venipuncture / Unknown 08/21/2023 12:30 PM MOLYBDENUM STEAMER OPERATOR 08/21/2023 12:41 PM MOLY[employer] STEAMER OPERATOR Francois Santacruz MD LAB BLOOD ORDERABLES Performing Organization Address City/[facility]/ZIP Co de Phone Number [facility] Unless otherwise noted, all lab tests performed by: Division of Pathology and Laboratory Medicine [address] [place] [id number] * AST (08/21/2023 12:30 PM MOLYBDENUM STEAMER OPERATOR) AST 24 <=32 U/L 08/21/2023 1:2 7 PM MOLYBDENUM STEAMER OPERATOR [facility] Blood Peripheral blood specimen / Unknown Venipuncture / Unknown 08/21/2023 12:30 PM MOLYBDENUM STEAMER OPERATOR 08/21/2023 12:41 PM MOLY[employer] STEAMER OPERATOR Francois Santacruz MD LAB BLOOD ORDERABLES Performing Organization Address City/[facility]/ZIP Co de Phone Number [facility] Unless otherwise noted, all lab tests performed by: Division of Pathology and Laboratory Medicine [address] [place] [id number] * Potassium Level (08/21/2023 12:30 PM MOLYBDENUM STEAMER OPERATOR) Potassium Level 4.1 3.4 - 4.5 mmol/L 08/21/2023 1:27 PM MOLYBDENUM STEAMER OPERATOR [facility] Blood Peripheral blood specimen / Unknown Venipuncture / Unknown 08/21/2023 12:30 PM MOLYBDENUM STEAMER OPERATOR 08/21/2023 12:41 PM MOLYBDENUM STEAMER OPERATOR Narrative [facility] - 08/21/2023 1:27 PM MOLYBDENUM STEAMER OPERATOR Reference range established based on adult population Francois Santacruz MD LAB BLOOD ORDERABLES [facility] Unless otherwise noted, all lab tests performed by: Division of Pathology and Laboratory Medicine [address] [place] [id number] * (ABNORMAL) Alkaline phosphatase (08/21/2023 12:30 PM MOLYBDENUM STEAMER OPERATOR) Alkaline Phosphatase 204(H) 35 - 104 U/L 08/21/2023 1:27 PM MOLYBDENUM STEAMER OPERATOR [facility] Blood Peripheral blood specimen / Unknown Venipuncture / Unknown 08/21/2023 12:30 PM MOLYBDENUM STEAMER OPERATOR 08/21/2023 12:41 PM MOLYBDENUM STEAMER OPERATOR Francois Santacruz MD LAB BLOOD ORDERABLES Performing Organization Address [facility] Co de Phone Number [facility] Unless otherwise noted, all lab tests performed by: Division of Pathology and Laboratory Medicine [address] [place] [phone] * (ABNORMAL) Creatinine (08/21/2023 12:30 PM MOLYBDENUM STEAMER OPERATOR) Only the most recent of3 resultswithin the time period is included. Creatinine 1.03(H) 0.51 - 0.95 mg/dL 08/21/2023 1:27 PM MOLYBDENUM STEAMER OPERATOR [facility] eGFR 56(L) >=60 mL/min/1. 73 sq. m 08/21/2023 1:27 PM MOLYBDENUM STEAMER OPERATOR [facility] Comment: The eGFRcr is calculated [...] Unknown Venipuncture / Unknown 08/21/2023 12:30 PM MOLYBDENUM STEAMER OPERATOR 08/21/2023 12:41 PM MOLYBDENUM STEAMER OPERATOR Francois Santacruz MD LAB BLOOD ORDERABLES Performing Organization Address City/[facility]/ZIP Co de Phone Number [facility] Unless otherwise noted, all lab tests performed by: Division of Pathology and Laboratory Medicine [address] [place] [id number] * Bilirubin Total (08/21/2023 12:30 PM MOLYBDENUM STEAMER OPERATOR) Bilirubin Total 0.6 <=1.2 mg/dL 08/21/2023 1:27 PM MOLYBDENUM STEAMER OPERATOR [facility] Blood Peripheral blood specimen / Unknown Venipuncture / Unknown 08/21/2023 12:30 PM MOLYBDENUM STEAMER OPERATOR 08/21/2023 12:41 PM MOLYBDENUM STEAMER OPERATOR Narrative [facility] - 08/21/2023 1:27 PM MOLYBDENUM STEAMER OPERATOR Infant/Children >/= 1 month Reference Ranges: 0 - 1.0 mg/dL Adult Reference Ranges: 0 - 1.2 mg/dL Indocyanine Green (ICG) may cause falsely elevated bilirubin results. Total and direct bilirubin must not be measured from samples containing indocyanine green. False elevation of total bilirubin can be seen in patients with IgG concentrations above 28 g/L. Francois Santacruz MD LAB BLOOD ORDERABLES Performing Organization Address [facility] Co de Phone Number [facility] Unless otherwise noted, all lab tests performed by: Division of Pathology and Laboratory Medicine [address] [place] [phone] * 3D Dental Imaging (iCAT) (08/21/2023 10:43 AM MOLYBDENUM STEAMER OPERATOR) Narrative Systemgenerated, Documentation - 08/21/2023 10:43 AM MOLYBDENUM STEAMER OPERATOR This procedure requires no interpretation from the radiologist. Bree Rodriguez DDS IMG NON DI ORD ERABLES * (ABNORMAL) CA 27-29 (08/09/2023 12:41 PM MOLYBDENUM STEAMER OPERATOR) Only the most recent of2 resultswithin the time period is included. Breast CA 27.29-[place] 185(H) <=38.0 U/mL 08/12/2023 12:00 PM MOLYBDENUM STEAMER OPERATOR [facility] MARK ANTHONY Comment: ADDITIONAL INFORMATION The testing method is a chemiluminometric immunoassay manufactured by [employer] and performed on the [employer]aur. Values obtained with different assay methods or kits may be different and cannot be used interchangeably. Test results cannot be interpreted as absolute evidence for the presence or absence of malignant disease. Test Performed by: [place] [address] Check Grader: Guillermo Park M.D. Ph.D.; CLIA# [id number] Blood Peripheral blood specimen / Unknown Venipuncture / Unknown 08/09/2023 12:41 PM MOLYBDENUM STEAMER OPERATOR 08/09/2023 12:41 PM MOLYBDENUM STEAMER OPERATOR Kaity Gilliland SECTIONAL BELT MOLD ASSEMBLER LAB BLOOD ORDERA BLES [facility] MARK ANTHONY * (ABNORMAL) Carbohydrate Antigen 15-3 (08/09/2023 12:41 PM MOLYBDENUM STEAMER OPERATOR) Only the most recent of2 resultswithin the time period is included. CA 15-3 142.9(H) <=25.0 U/mL 08/09/2023 1:18 PM MOLYBDENUM STEAMER OPERATOR [facility] Blood Peripheral blood specimen / Unknown Venipuncture / Unknown 08/09/2023 12:41 PM MOLYBDENUM STEAMER OPERATOR 08/09/2023 12:41 PM MOLYBDENUM STEAMER OPERATOR Narrative [facility] - 08/09/2023 1:18 PM MOLYBDENUM STEAMER OPERATOR Results greater than 2400.0 U/mL may not be reliable due to matrix effect with extended dilution as it exceeds the test administrator's recommended limit. Caution should be exercised when interpreting such values and done in conjunction with clinical context. This test is measured by electrochemiluminescence immunoassay on Lazaro Luís immunoassay analyzers. Results obtained in different methods are not interchangeable. Kaity Gilliland SECTIONAL BELT MOLD ASSEMBLER LAB BLOOD ORDERA BLES [facility] [address], [facility] [address] [place] [address] * (ABNORMAL) Differential (08/09/2023 12:41 PM MOLYBDENUM STEAMER OPERATOR) Total Cells 100 08/09/2023 1:08 PM [facility] Manual Neutrophil % 66.0 43.2 - 72.7 % 08/09/2023 1:08 PM [facility] Comment:The Neutrophil count includes Bands. Manual Lymphocyte % 21.0 16.8 - 46.2 % 08/09/2023 1:08 PM [facility] Manual Monocyte % 13.0(H) 5.1 - 12.5 % 08/09/2023 1:08 PM [facility] Metamyelocyte % 1:08 PM [facility] Comment:The Metamyelocyte co unt includes Myelocytes. Manual Neutrophil Abs 1.45(L) 1.95 - 7.25 K/uL 08/09/2023 1:08 PM [facility] Manual Lymphocyte Abs 0.46(L) 1.01 - 3.24 K/uL 08/09/2023 1:08 PM [facility] Manual Monocyte Abs 0.29 0.24 - 0.85 K/uL 08/09/2023 1:08 PM [facility] RBC Morphology PRESENT 08/09/2023 1:08 PM [facility] PLT Morph Normal Normal 08/09/2023 1:08 PM [facility] Anisocytosis Present(A) (none) 08/09/2023 1:08 PM [facility] Blood Peripheral blood specimen / Unknown Venipuncture / Unknown 08/09/2023 12:41 PM MOLYBDENUM STEAMER OPERATOR 08/09/2023 12:41 PM MOLYBDENUM STEAMER OPERATOR Kaity Gilliland SECTIONAL BELT MOLD ASSEMBLER LAB BLOOD ORDERA BLES [place] [facility] [place] [address] [place] [address] [place] [address] * CT Chest Abdomen Pelvis with Contrast (08/08/2023 1:59 PM MOLYBDENUM STEAMER OPERATOR) Anatomical Region Laterality Modality Abdomen, Pelvis, Chest Computed Tomography 08/09/2023 3:53 PM MOLYBDENUM STEAMER OPERATOR Impressions 08/09/2023 4:42 PM MOLYBDENUM STEAMER OPERATOR 1. Interval decrease of small left pleural [...] ACTIONABLE ITEMS/RECOMMENDATIONS: None. Narrative 08/09/2023 4:42 PM MOLYBDENUM STEAMER OPERATOR FULL RESULT: Examination: CT CHEST ABDOMEN PELVIS [...] giant hemangioma within the right hepatic lobe [id number] cm. No biliary dilatation. No radiopaque cholelithiasis. [...] metastatic disease. ACTIONABLE ITEMS/RECOMMENDATIONS: None. Kaity Gilliland SECTIONAL BELT MOLD ASSEMBLER IMG CT ORDERABLE S * (ABNORMAL) POC Creatinine (08/08/2023 1:37 PM MOLYBDENUM STEAMER OPERATOR) POC Creatinine 1.0 0.6 - 1.3 mg/dL 08/08/2023 1:41 PM [facility] Comment:Medications, especia lly hydroxyurea or supplements, such as ascorbate, can interfere with test results causing a falsely and significantly higher result than expected. If a problem is suspected with a patient's result, a sample should be sent to the laboratory for confirmatory testing. POC eGFR 58(L) >=60 mL/min/1.7 3 sq. m 08/08/2023 1:41 PM [facility] Comment: The eGFRcr is calculated with [...] criteria for CKD. Blood 08/08/2023 1:37 PM MOLYBDENUM STEAMER OPERATOR 08/08/2023 1:41 PM MOLYBDENUM STEAMER OPERATOR [facility] - 08/08/2023 1:41 PM MOLYBDENUM STEAMER OPERATOR Method description: The i-STAT is an analyzer [...] Kaity Gilliland APRN POCT ORDERABLES - DEVICE Performing Organization Address City/State/[facility] Co de Phone Number [facility] [address], [facility] [address] [place] [address] * X-ray Chest 2 Views (2 weeks) (08/05/2023 10:25 AM MOLYBDENUM STEAMER OPERATOR) Only the most recent of2 resultswithin the time period is included. Anatomical Region Laterality Modality Chest Digital Radiogra phy 08/05/2023 10:5 2 AM MOLYBDENUM STEAMER OPERATOR Impressions 08/05/2023 10:55 AM MOLYBDENUM STEAMER OPERATOR Stable effusions, slight improvement of airspace opacities and diffuse interstitial thickening, with extensive residual findings consistent with lymphangitis. ACTIONABLE ITEMS/RECOMMENDATIONS: None. Narrative 08/05/2023 10:55 AM MOLYBDENUM STEAMER OPERATOR FULL RESULT: Examination: XR CHEST 2 VW [...] findings consistent withlymphangitis. ACTIONABLE ITEMS/RECOMMENDATIONS: None. Zeynep Jadon SECTIONAL BELT MOLD ASSEMBLER IMG DIAGNOSTIC IMAGI NG ORDERABLES * Phosphorus Level (08/01/2023 1:21 PM MOLYBDENUM STEAMER OPERATOR) Only the most recent of20 resultswithin the time period is included. Phosphorus Level 2.9 2.5 - 4.5 mg/dL 08/01/2023 1:44 PM [facility] Blood Venipuncture / Unknown 08/01/2023 1:21 PM MOLYBDENUM STEAMER OPERATOR 08/01/2023 1:21 PM MOLYBDENUM STEAMER OPERATOR Elizabeth Burrell MD LAB BLOOD ORDERABLES [place] [facility] [place] [address], [facility] [address] [place] [address] * XR Chest 1 View Post Implant (07/08/2023 10:56 AM MOLYBDENUM STEAMER OPERATOR) Anatomical Region Laterality Modality Chest Digital Radiogra phy 07/08/2023 11:0 0 AM MOLYBDENUM STEAMER OPERATOR Impressions 07/08/2023 11:01 AM MOLYBDENUM STEAMER OPERATOR Left IJ port catheter terminates in the right atrium. No pneumothorax. ACTIONABLE ITEMS/RECOMMENDATIONS: None. Narrative 07/08/2023 11:01 AM MOLYBDENUM STEAMER OPERATOR FULL RESULT: Examination: XR CHEST 1 VW [...] atrium. No pneumothorax. ACTIONABLE ITEMS/RECOMMENDATIONS: None. Josue LORENZOG DIAGNOSTIC IMAGI NG ORDERABLES * [place] Central Venous [facility] Exchange (07/08/2023 10:13 AM MOLYBDENUM STEAMER OPERATOR) Narrative Systemgenerated, Documentation - 07/08/2023 10:15 AM MOLYBDENUM STEAMER OPERATOR This procedure requires no interpretation from the radiologist. Josue LORENZOG FLUOROSCOPY ORDE RABLES * Vascular Access Bundle (07/08/2023 8:54 AM MOLYBDENUM STEAMER OPERATOR) Narrative Josue Salinas MD - 07/08/2023 8:54 AM MOLYBDENUM STEAMER OPERATOR Josue Salinas MD 07/08/2023 10:47 AM CLABSI [...] Image Storage (without Report) (07/08/2023 8:33 AM MOLYBDENUM STEAMER OPERATOR) Narrative Systemgenerated, Documentation - 07/08/2023 8:33 AM MOLYBDENUM STEAMER OPERATOR This procedure requires no interpretation from the radiologist. Josue LORENZOG NON DI ORDERABLE S * (ABNORMAL) Hemoglobin A1c (07/08/2023 7:03 AM MOLYBDENUM STEAMER OPERATOR) Hemoglobin A1c 5.8(H) 4.3 - 5.6 % 07/08/2023 7:37 AM MOLYBDENUM STEAMER OPERATOR [facility] Blood Peripheral blood specimen / Unknown Venipuncture / Unknown 07/08/2023 7:03 AM MOLYBDENUM STEAMER OPERATOR 07/08/2023 7:14 AM MOLYBDENUM STEAMER OPERATOR Narrative [facility] - 07/08/2023 7:37 AM MOLYBDENUM STEAMER OPERATOR HbA1c values >=6.5% are diagnostic of diabetes mellitus. Diagnosis should be confirmed by repeat testing. Therapeutic Action suggested: >8.0% HbA1c; Goal of therapy: <7.0% HbA1c Susy VARGAS LAB BLOOD REGLA MOONAMBERLY [facility] Unless otherwise noted, all lab tests performed by: Division of Pathology and Laboratory Medicine [address] [place] [phone] * (ABNORMAL) Electrolyte Panel (07/08/2023 7:03 AM MOLYBDENUM STEAMER OPERATOR) Pathologist [facility] Sodium Level 137 136 - 145 mmol/L 07/08/2023 7:47 AM MOLYBDENUM STEAMER OPERATOR [facility] Potassium Level 3.8 3.4 - 4.5 mmol/L 07/08/2023 7:47 AM MOLYBDENUM STEAMER OPERATOR [facility] Chloride 97(L) 98 - 107 mmol/L 07/08/2023 7:47 AM MOLYBDENUM STEAMER OPERATOR [facility] CO2 29 22 - 29 mmol/L 07/08/2023 7:47 AM [facility] Anion Gap 11 4 - 14 mmol/L 07/08/2023 7:47 AM [facility] Blood Peripheral blood specimen / Unknown Venipuncture / Unknown 07/08/2023 7:03 AM MOLYBDENUM STEAMER OPERATOR 07/08/2023 7:14 AM MOLYBDENUM STEAMER OPERATOR Susy VARGAS LAB BLOOD SAIGEKhushboo [facility] [address] [place] [address] * Pulmonary Ultrasound (Image Transfer) (07/03/2023 12:15 PM MOLYBDENUM STEAMER OPERATOR) Only the most recent of2 resultswithin the time period is included. Narrative Systemgenerated, Documentation - 07/03/2023 12:15 PM MOLYBDENUM STEAMER OPERATOR This procedure requires no interpretation from the radiologist. Zeynep Jadon SECTIONAL BELT MOLD ASSEMBLER IMG NON DI ORDERABLE S * NT-Pro BNP (In-House) (06/17/2023 5:21 AM MOLYBDENUM STEAMER OPERATOR) Only the most recent of17 resultswithin the time period is included. NT-ProBNP 372 <=450 pg/mL 06/17/2023 6:20 AM MOLYBDENUM STEAMER OPERATOR [facility] Blood Peripheral blood specimen / Unknown Venipuncture / Unknown 06/17/2023 5:21 AM MOLYBDENUM STEAMER OPERATOR 06/17/2023 5:40 AM MOLYBDENUM STEAMER OPERATOR Ivone Ham APRN LAB BLOOD ORDERABLES [facility] Unless otherwise noted, all lab tests performed by: Division of Pathology and Laboratory Medicine [facility] [place] [address] * Echocardiogram 2D Limited - Follow Up (06/12/2023 3:16 PM MOLYBDENUM STEAMER OPERATOR) EF 57 ISCV 06/12/2023 1:50 PM MOLYBDENUM STEAMER OPERATOR Narrative ISCV - 06/12/2023 7:05 PM MOLYBDENUM STEAMER OPERATOR Echocardiographic Report Interpretation Summary A two-dimensional transthoracic [...] XR Chest 1 View (06/09/2023 10:08 AM MOLYBDENUM STEAMER OPERATOR) Only the most recent of3 resultswithin the time period is included. 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 Stable pleural effusions ACTIONABLE ITEMS/RECOMMENDATIONS: None. Narrative 06/09/2023 10:37 AM MOLYBDENUM STEAMER OPERATOR FULL RESULT: Examination: XR CHEST 1 VW [...] CHEST XRAY 1 VIEW (06/07/2023 6:30 PM MOLYBDENUM STEAMER OPERATOR) Anatomical Region Laterality Modality Chest Digital Radiogra phy Narrative 06/13/2023 9:06 AM MOLYBDENUM STEAMER OPERATOR Date of Procedure: 06/07/23 Attending Physician: Basia Whitman MD Professor Of Literature: None Pre Procedure Diagnosis: Post Procedure Diagnosis: [...] * Pathology Biopsy Interpretation (06/07/2023 5:44 PM MOLYBDENUM STEAMER OPERATOR) Submitted Clinical History Pleural effusion [J90] Dyspnea [...] left eye [H54.62] Hemangioma of liver [D18.03] [place] 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 See comment 06/11/2023 4:52 PM [facility] Comment Immunohistochemical stains show focal staining for TRPS and GATA3,. However, due to the scantiness of the tissue, immunohistochemical stains for keratin and TTF-1 are unreliable. If clinically indicated a new biopsy should be considered. 06/11/2023 4:52 PM [facility] Gross Description A: Mediastinum, anterior, right anterior mediastinum; w/biomarkers: Two johnson-white core biopsies measuring 0.1 and 0.5 cm in length with a diameter of less than 0.1 cm, entirely submitted in A1. GM 06/11/2023 4:52 PM [facility] Biomarker Block(s) A - tissue in not appropriate for biomarkers or molecular analysis. 06/11/2023 4:52 PM [facility] Disclaimer "Some tests reported here may have been developed and performance characteristics determined by [facility] Pathology and Laboratory Medicine. These tests have not been specifically cleared or approved by the U.S. Food and Drug Administration. If applicable, controls were reviewed and showed appropriate reactivity." 06/11/2023 4:52 PM [facility] Tissue (Mediastinum, Anterior) 06/07/2023 5:44 PM MOLYBDENUM STEAMER OPERATOR 06/10/2023 8:00 AM MOLYBDENUM STEAMER OPERATOR Vivian Alicia SECTIONAL BELT MOLD ASSEMBLER LAB PATHOLOGY ORD ERABLES [facility] [place] [address], [place] * IR CT GUIDED BIOPSY LUNG/MEDIASTINAL (06/07/2023 5:29 PM MOLYBDENUM STEAMER OPERATOR) Anatomical Region Laterality Modality Chest Other Narrative 06/08/2023 9:16 AM MOLYBDENUM STEAMER OPERATOR Date of Procedure: 06/07/23 Attending Physician: Jed Mueller MD Professor Of Literature: None Pre Procedure Diagnosis: Personal history of breast cancer [[id number]] Post Procedure Diagnosis: Unchanged Indication: New mass [...] and agree with the written report. Vivian Alicia SECTIONAL BELT MOLD ASSEMBLER IMG IR ORDERABLES * Confirm ABORh (06/07/2023 6:40 AM MOLYBDENUM STEAMER OPERATOR) ABORh Confirm B POS 06/06/2023 4:55 PM MOLYBDENUM STEAMER OPERATOR [facility] Blood Peripheral blood specimen / Unknown Venipuncture / Unknown 06/07/2023 6:40 AM MOLYBDENUM STEAMER OPERATOR 06/07/2023 7:00 AM MOLYBDENUM STEAMER OPERATOR Jess VARGAS BLOOD BANK TEST ORDE LEEANNA [facility] [address] [place] [address] * CT Abdomen Pelvis with and without Contrast (06/06/2023 11:14 PM MOLYBDENUM STEAMER OPERATOR) Anatomical Region Laterality Modality Abdomen, Pelvis Computed Tomogra phy 06/06/2023 11:5 8 PM MOLYBDENUM STEAMER OPERATOR Impressions 06/07/2023 7:06 AM MOLYBDENUM STEAMER OPERATOR 1. Bilateral pleural effusions and pleural thickening [...] the final report. Narrative 06/07/2023 7:06 AM MOLYBDENUM STEAMER OPERATOR FULL RESULT: Examination: CT ABDOMEN PELVIS W [...] hypodensities are compatible with metastatic disease. A vendor representatives lesion in the anterior right liver measures [...] hepatic hypodensities are compatible with metastaticdisease. A vendor representatives lesion in the anterior right liver measures [...] agree with the final report. Vivian Alicia [facility] IMG CT ORDERABLES * NM Bone Scan Whole Body (06/04/2023 12:38 PM MOLYBDENUM STEAMER OPERATOR) Anatomical Region Laterality Modality Whole Body Nuclear Medicine 06/04/2023 12:5 8 PM MOLYBDENUM STEAMER OPERATOR Impressions 06/04/2023 1:21 PM MOLYBDENUM STEAMER OPERATOR 1. A small focus of avid radiotracer [...] ACTIONABLE ITEMS/RECOMMENDATIONS: None. Narrative 06/04/2023 1:21 PM MOLYBDENUM STEAMER OPERATOR FULL RESULT: Examination: Whole-Body Bone Scan, 06/04/2023 [...] which is new since previous bone scan [id number]. This does not have abnormal correlation on [...] CT exam. ACTIONABLE ITEMS/RECOMMENDATIONS: None. Kayla Gabriel APRN IMG NM ORDERABLE S * XR Chest 1 View Portable (06/04/2023 8:32 AM MOLYBDENUM STEAMER OPERATOR) Only the most recent of3 resultswithin the time period is included. Anatomical Region Laterality Modality Chest Digital Radiogra phy 06/04/2023 9:18 AM MOLYBDENUM STEAMER OPERATOR Impressions 06/04/2023 9:23 AM MOLYBDENUM STEAMER OPERATOR Atelectasis and/or pneumonia superimposed upon lymphangitic carcinomatosis. Malignant pleural effusions. ACTIONABLE ITEMS/RECOMMENDATIONS: See IMPRESSION Narrative 06/04/2023 9:23 AM MOLYBDENUM STEAMER OPERATOR FULL RESULT: Examination: XR CHEST 1 VW [...] mastectomy and axillary brenda dissection. Procedure Note de Groot, Rosa Maria, MD - 06/04/2023 FULL RESULT: Examination: XR [...] effusions. ACTIONABLE ITEMS/RECOMMENDATIONS: See IMPRESSION Vivian Alicia SECTIONAL BELT MOLD ASSEMBLER IMG DIAGNOSTIC IM AGING ORDERABLES * (ABNORMAL) Basic Metabolic Panel- Total Calcium (06/04/2023 7:03 AM MOLYBDENUM STEAMER OPERATOR) Only the most recent of4 resultswithin the time period is included. eGFR 53(L) >=60 mL/min/1. 73 sq. m 06/04/2023 7:47 AM MOLYBDENUM STEAMER OPERATOR [facility] Comment: The eGFRcr is calculated with the [...] 8.2 - 10.2 mg/dL 06/04/2023 7:47 AM [facility] Comment:This result was prev iously suppressed from the chart. Sodium Level 136 136 - 145 mmol/L 06/04/2023 7:47 AM [facility] Comment:This result was prev iously suppressed from the chart. Potassium Level 4.0 3.4 - 4.5 mmol/L 06/04/2023 7:47 AM [facility] Comment:This result was prev iously suppressed from the chart. Chloride 97(L) 98 - 107 mmol/L 06/04/2023 7:47 AM [facility] Comment:This result was prev iously suppressed from the chart. CO2 31(H) 22 - 29 mmol/L 06/04/2023 7:47 AM [facility] Comment:This result was prev iously suppressed from the chart. Anion Gap 8 4 - 14 mmol/L 06/04/2023 7:47 AM [facility] Comment:This result was prev iously suppressed from the chart. Creatinine 1.08(H) 0.51 - 0.95 mg/dL 06/04/2023 7:47 AM [facility] Comment:This result was prev iously suppressed from the chart. BUN 26(H) 6 - 23 mg/dL 06/04/2023 7:47 AM [facility] Comment:This result was prev iously suppressed from the chart. Glucose Level 108(H) 70 - 99 mg/dL 06/04/2023 7:47 AM [facility] Comment: Effective 02/22/16, the glucose reference intervals have been updated based on [place] [employer] guidelines (Standards of Medical Care [...] Unknown Venipuncture / Unknown 06/04/2023 7:03 AM MOLYBDENUM STEAMER OPERATOR 06/04/2023 7:10 AM MOLYBDENUM STEAMER OPERATOR Fermin Pham MD LAB BLOOD ORDERABLES [facility] Unless otherwise noted, all lab tests performed by: Division of Pathology and Laboratory Medicine [address] [place] [id number] * (ABNORMAL) Urinalysis Microscopic Exam (06/03/2023 3:24 PM MOLYBDENUM STEAMER OPERATOR) Urine Mucous Not Seen Not Seen, Trace /HPF 06/03/2023 5:16 PM MOLYBDENUM STEAMER OPERATOR [facility] Urine Bacteria Not Seen Not Seen /HPF 06/03/2023 5:16 PM MOLYBDENUM STEAMER OPERATOR [facility] Urine Squamous Epithelial Cells OCC Not Seen, OCC, Rare /HPF 06/03/2023 5:16 PM MOLYBDENUM STEAMER OPERATOR [facility] UA Transitional Epi OCC(A) Not Seen, <1 /HPF 06/03/2023 5:16 PM MOLYBDENUM STEAMER OPERATOR [facility] Urine WBC 1 <=2 /HPF 06/03/2023 5:16 PM MOLYBDENUM STEAMER OPERATOR [facility] Urine RBC <1 <=2 /HPF 06/03/2023 5:16 PM MOLYBDENUM STEAMER OPERATOR [facility] Urine Voided urine specimen / Unknown Non-blood Collection / Unknown 06/03/2023 3:24 PM MOLYBDENUM STEAMER OPERATOR 06/03/2023 3:33 PM MOLYBDENUM STEAMER OPERATOR Ivone Ham APRN LAB BLOOD ORDERABLES Performing Organization Address City/[facility]/ZIP Co de Phone Number [facility] Unless otherwise noted, all lab tests performed by: Division of Pathology and Laboratory Medicine [address] [place] [address] [phone] * (ABNORMAL) Urinalysis w/Microscopic if Indicated (06/03/2023 3:24 PM MOLYBDENUM STEAMER OPERATOR) Urine Appearance Hazy(A) Clear 06/03/20 3:45 PM MOLYBDENUM STEAMER OPERATOR [facility] Urine Color Straw-Yellow Colorless, Straw, Yellow, Dark Yellow, Straw-Yello w 06/03/2023 3:45 PM MOLYBDENUM STEAMER OPERATOR [facility] Urine Specific Rico 1.017 1.003 - 1.035 06/03/2023 3:45 PM MOLYBDENUM STEAMER OPERATOR [facility] Urine pH 6.0 5.0 - 9.0 06/03/2023 3:45 PM MOLYBDENUM STEAMER OPERATOR [facility] Urine Glucose Negative Negative mg/dL 06/03/2023 3:45 PM MOLYBDENUM STEAMER OPERATOR [facility] Urine Ketones Trace(A) Negative mg/dL 06/03/2023 3:45 PM MOLYBDENUM STEAMER OPERATOR [facility] Urine Blood Small(A) Negative 06/03/2023 3:45 PM MOLYBDENUM STEAMER OPERATOR [facility] Urine Protein 30(A) Negative mg/dL 06/03/2023 3:45 PM MOLYBDENUM STEAMER OPERATOR [facility] Urine Bilirubin Negative Negative 3:45 PM MOLYBDENUM STEAMER OPERATOR [facility] Urine Urobilinogen Negative Negative 06/03/2023 3:45 PM MOLYBDENUM STEAMER OPERATOR [facility] Urine Nitrite Negative Negative 06/03/2023 3:45 PM MOLYBDENUM STEAMER OPERATOR [facility] Urine Leukocyte Esterase Negative Negative 06/03/2023 3:45 PM MOLYBDENUM STEAMER OPERATOR [facility] Urine Voided urine specimen / Unknown Non-blood Collection / Unknown 06/03/2023 3:24 PM MOLYBDENUM STEAMER OPERATOR 06/03/2023 3:33 PM MOLYBDENUM STEAMER OPERATOR Narrative [facility] - 06/03/2023 3:45 PM MOLYBDENUM STEAMER OPERATOR Some reporting parameters within the Urinalysis test have changed due to the implementation of new instrumentation in the Main [facility], allowing greater sensitivity of measurement. Urinalysis results reported by the [facility] using existing instrumentation, as well as Urinalysis testing performed manually or by back-up methodology at the main [facility], will remain relatively unchanged. New reporting parameters and units will now be reported for all campuses. Ivone Ham APRN URINE ORDERABLES [facility] Unless otherwise noted, all lab tests performed by: Division of Pathology and Laboratory Medicine [facility] [place] [address] * Urine Culture (06/03/2023 3:24 PM MOLYBDENUM STEAMER OPERATOR) Urine Culture No Growth. 06/05/2023 9:56 AM MOLYBDENUM STEAMER OPERATOR [facility] Urine Voided urine specimen / Unknown Non-blood Collection / Unknown 06/03/2023 3:24 PM MOLYBDENUM STEAMER OPERATOR 06/03/2023 3:33 PM MOLYBDENUM STEAMER OPERATOR Ivone Ham APRN MICROBIOLOGY - GENER AL ORDERABLES [facility] Unless otherwise noted, all lab tests performed by: Division of Pathology and Laboratory Medicine [address] [place] [address] [phone] * Echocardiogram 2D Complete (06/03/2023 10:07 AM MOLYBDENUM STEAMER OPERATOR) 06/03/2023 8:40 AM MOLYBDENUM STEAMER OPERATOR Narrative [facility] - 06/03/2023 12:14 PM MOLYBDENUM STEAMER OPERATOR Echocardiographic Report Interpretation Summary A complete two-dimensional [...] (lat): 4.4 E/e' (sept): 6.7 Ivone Jitendra SECTIONAL BELT MOLD ASSEMBLER CV ECHO ORDERABLES Performing Organization Address City/[facility]/ZIP Co de Phone Number [facility] * (ABNORMAL) Procalcitonin (06/03/2023 6:29 AM MOLYBDENUM STEAMER OPERATOR) Only the most recent of2 resultswithin the time period is included. Procalcitonin 0.16(H) <=0.08 ng/mL 06/03/2023 12:28 PM MOLYBDENUM STEAMER OPERATOR [facility] Blood Peripheral blood specimen / Unknown Venipuncture / Unknown 06/03/2023 6:29 AM MOLYBDENUM STEAMER OPERATOR 06/03/2023 6:50 AM MOLYBDENUM STEAMER OPERATOR Narrative [facility] - 06/03/2023 12:28 PM MOLYBDENUM STEAMER OPERATOR Procalcitonin > 2.00 ng/mL: Procalcitonin levels above [...] with extended dilution as it exceeds the test administrator's recommended limit. Caution should be exercised when interpreting such values and done in conjunction with clinical context. Ivone Ham SECTIONAL BELT MOLD ASSEMBLER LAB BLOOD ORDERABLES Performing Organization Address City/[facility]/ZIP Co de Phone Number [facility] Unless otherwise noted, all lab tests performed by: Division of Pathology and Laboratory Medicine [address] [place] [address] [phone] * aPTT (06/03/2023 6:29 AM MOLYBDENUM STEAMER OPERATOR) Only the most recent of2 resultswithin the time period is included. Activated PTT 33.3 24.1 - 35.5 second(s) 06/03/2023 7:21 AM MOLYBDENUM STEAMER OPERATOR [facility] Blood Peripheral blood specimen / Unknown Venipuncture / Unknown 06/03/2023 6:29 AM MOLYBDENUM STEAMER OPERATOR 06/03/2023 6:50 AM MOLYBDENUM STEAMER OPERATOR Ivone Ham APRN LAB BLOOD ORDERABLES Performing Organization Address City/[facility] Co de Phone Number [facility] Unless otherwise noted, all lab tests performed by: Division of Pathology and Laboratory Medicine [address] [place] [address] [phone] * Osmolality (06/02/2023 5:31 AM MOLYBDENUM STEAMER OPERATOR) Pathologist [facility] Osmolality 287 275 - 300 mOsm/kg 06/02/2023 9:28 AM MOLYBDENUM STEAMER OPERATOR [facility] Comment:Units in mOsm per kg of water. Blood Peripheral blood specimen / Unknown Venipuncture / Unknown 06/02/2023 5:31 AM MOLYBDENUM STEAMER OPERATOR 06/02/2023 6:14 AM MOLYBDENUM STEAMER OPERATOR Ivone Ham APRN LAB BLOOD ORDERABLES Performing Organization Address [facility] Phone Number [facility] Unless otherwise noted, all lab tests performed by: Division of Pathology and Laboratory Medicine [address] [place] [address] [phone] * CEA (06/02/2023 5:31 AM MOLYBDENUM STEAMER OPERATOR) Pathologist [facility] Carcinoembryonic Antigen 1.7 <=3.8 ng/mL 06/02/2023 6:51 AM MOLYBDENUM STEAMER OPERATOR [facility] Blood Peripheral blood specimen / Unknown Venipuncture / Unknown 06/02/2023 5:31 AM MOLYBDENUM STEAMER OPERATOR 06/02/2023 6:13 AM MOLYBDENUM STEAMER OPERATOR Narrative [facility] - 06/02/2023 6:51 AM MOLYBDENUM STEAMER OPERATOR Reference Ranges (age 20-69 years): Non-smoker: 0.0 - 3.8 ng/mL Smoker: 0.0 - 5.5 ng/mL This test is measured by electrochemiluminescence immunoassay on [email or web address] immunoassay analyzers. Results obtained in different methods are not interchangeable. Kayla Gabriel APRN LAB BLOOD ORDERA BLES Performing Organization Address [facility] Co de Phone Number [facility] Unless otherwise noted, all lab tests performed by: Division of Pathology and Laboratory Medicine [address] [place] [address] [phone] * (ABNORMAL) Vancomycin Trough (06/02/2023 5:31 AM MOLYBDENUM STEAMER OPERATOR) Vancomycin Trough 21.2(C) 5.0 - 20.0 mcg/mL 06/02/2023 7:32 AM MOLYBDENUM STEAMER OPERATOR [facility] Vancomycin Trough Dose Time unknown 06/02/2023 7:32 AM MOLYBDENUM STEAMER OPERATOR [facility] Vancomycin Trough Dose Date unknown 06/02/2023 7:32 AM MOLYBDENUM STEAMER OPERATOR [facility] Blood Peripheral blood specimen / Unknown Venipuncture / Unknown 06/02/2023 5:31 AM MOLYBDENUM STEAMER OPERATOR 06/02/2023 6:14 AM MOLYBDENUM STEAMER OPERATOR Narrative [facility] - 06/02/2023 7:32 AM MOLYBDENUM STEAMER OPERATOR Toxic Trough Level: >20 mcg/mL Therapeutic Trough Level: 5-20 mcg/mL Ivone Waycecilia SILVA LAB BLOOD ORDERABLES [facility] Unless otherwise noted, all lab tests performed by: Division of Pathology and Laboratory Medicine [address] [place] [phone] * CT Head without Contrast (06/02/2023 4:45 AM MOLYBDENUM STEAMER OPERATOR) Anatomical Region Laterality Modality Head Computed Tomogra phy 06/02/2023 7:14 AM MOLYBDENUM STEAMER OPERATOR Impressions 06/02/2023 7:14 AM MOLYBDENUM STEAMER OPERATOR No acute intracranial abnormality is seen. ACTIONABLE ITEMS/RECOMMENDATIONS: None. Narrative 06/02/2023 7:14 AM MOLYBDENUM STEAMER OPERATOR FULL RESULT: Examination: CT HEAD WO CONTRAST [...] paranasal sinuses are predominantly clear. Procedure Note Meng, Peace, MD - 06/02/2023 FULL RESULT: Examination: CT [...] abnormality is seen. ACTIONABLE ITEMS/RECOMMENDATIONS: None. Ivone Ham APRN IMG CT ORDERABLES * Sodium Level, Urine (06/01/2023 12:17 PM CDT) Urine Sodium 61 mmol/L 06/01/2023 1:46 PM CDT [facility] Comment:Normal range not osmani ilable for collections less than 24 hours in duration. Urine Voided urine specimen / Unknown Non-blood Collection / Unknown 06/01/2023 12:17 PM CDT 06/01/2023 1:18 PM CDT Ivone Jitendra SECTIONAL BELT MOLD ASSEMBLER URINE ORDERABLES [facility] Unless otherwise noted, all lab tests performed by: Division of Pathology and Laboratory Medicine [address] [place] [address] [phone] * Osmolality Urine (06/01/2023 12:17 PM CDT) Urine Osmolality 338 50 - 1,400 mOsm/kg H2O 06/01/2023 2:38 PM CDT [facility] Comment:Urinary osmolality m ay vary [...] PM CDT 06/01/2023 1:18 PM CDT Ivone Ham APRN URINE ORDERABLES [facility] Unless otherwise noted, all lab tests performed by: Division of Pathology and Laboratory Medicine [address] [place] [phone] * CT Chest Pulmonary Embolism with Contrast [...] MRSA Screening Culture (06/01/2023 7:35 AM CDT) [facility] MRSA Screening Culture No Methicillin-Resist ant Staphylococcus aureus isolated. 06/03/2023 12:29 PM MOLYBDENUM STEAMER OPERATOR [facility] Swab (Nares, Right) Non-blood Collection / Unknown 06/01/2023 7:35 AM CDT 06/01/2023 7:43 AM CDT Narrative [facility] - 06/03/2023 12:29 PM MOLYBDENUM STEAMER OPERATOR Testing is performed using PBP2a antigen detection and cefoxitin screen on isolated S. aureus colonies. This methodology may not detect uncommon mechanisms of methicillin resistance in S. aureus. Fermin Pham MD MICROBIOLOGY - GENER AL ORDERABLES [facility] Unless otherwise noted, all lab tests performed by: Division of Pathology and Laboratory Medicine [address] [place] [address] [phone] * (ABNORMAL) VBG+ (06/01/2023 6:38 AM CDT) Pathologist [facility] Venous Sodium 133(L) 136 - 146 mmol/L 06/01/2023 6:52 AM CDT [facility] Venous Potassium 3.5 3.4 - 4.5 mmol/L 06/01/2023 6:52 AM CDT [facility] Venous Chloride 87(L) 98 - 106 mmol/L 06/01/2023 6:52 AM CDT [facility] Venous Glucose 122(H) 70 - 105 mg/dL 06/01/2023 6:52 AM CDT [facility] V Hgb 11.2(L) 12.0 - 16.0 g/dL 06/01/2023 6:52 AM CDT [facility] Venous Hematocrit 34(L) 37 - 48 % 06/01/2023 6:52 AM CDT [facility] Venous Lactate 0.9 0.5 - 1.6 mmol/L 06/01/2023 6:52 AM CDT [facility] Venous Ionized Calcium 1.21 1.15 - 1.29 mmol/L 06/01/2023 6:52 AM CDT [facility] pH Venous 7.47(H) 7.32 - 7.43 06/01/2023 6:52 AM CDT [facility] P CO2 Venous 55.0(H) 41.0 - 51.0 mmHg 06/01/2023 6:52 AM CDT [facility] P O2 Venous 58 mmHg 06/01/2023 6:52 AM CDT [facility] Bicarbonate Venous 40(H) 21 - 28 mmol/L 06/01/2023 6:52 AM CDT [facility] V Anion Gap 6(L) 7 - 16 mmol/L 06/01/2023 6:52 AM T [facility] Base Excess Venous 14(H) -2 - 3 mmol/L 06/01/2023 6:52 AM T [facility] Oxygen Saturation Venous 92 % 06/01/2023 6:52 AM CDT [facility] Oxygen FLOW Rate/ FiO2 06/01/2023 6:52 AM CDT [facility] O2 Therapy 06/01/2023 6:52 AM T [facility] Blood Peripheral blood specimen / Unknown Venipuncture / Unknown 06/01/2023 6:38 AM CDT 06/01/2023 6:49 AM CDT Fermin Pham MD LAB BLOOD ORDERABLES [facility] Unless otherwise noted, all lab tests performed by: Division of Pathology and Laboratory Medicine [address] [place] [address] [phone] * Troponin T (In-House) (06/01/2023 6:38 AM CDT) Troponin T 17 <=19 ng/L 06/01/2023 7:14 AM CDT [facility] Blood Peripheral blood specimen / Unknown Venipuncture / Unknown 06/01/2023 6:38 AM CDT 06/01/2023 6:49 AM CDT Narrative [facility] - 06/01/2023 7:14 AM CDT [...] MD LAB BLOOD ORDERABLES Performing Organization Address City/[facility] Co de Phone Number [facility] Unless otherwise noted, all lab tests performed by: Division of Pathology and Laboratory Medicine [address] [place] [address] [phone] * EKG, 12-Lead (Portable) (06/01/2023) Only the most recent of2 resultswithin the time period is included. Fermin Pham MD ECG ORDERABLES Performing Organization Address City/[facility]/ZIP Co de Phone Number [facility] * Prothrombin Time with INR (05/31/2023 6:36 PM CDT) Prothrombin Time 13.6 11.9 - 14.5 second(s) 05/31/2023 7:24 PM CDT [facility] International Normalization Ratio 1.05 0.87 - 1.12 05/31/2023 7:24 PM CDT [facility] Blood Peripheral blood specimen / Unknown Venipuncture / Unknown 05/31/2023 6:36 PM CDT 05/31/2023 6:43 PM CDT Alexandre Nascimento MD LAB BLOOD ORDERABLES Performing Organization Address City/[facility] Co de Phone Number [facility] Unless otherwise noted, all lab tests performed by: Division of Pathology and Laboratory Medicine [address] [place] [address] [phone] * (ABNORMAL) D-dimer (05/31/2023 6:36 PM CDT) Pathologist [facility] D-Dimer 3.75(H) 0.10 - 0.50 mcg/ml FEU 05/31/2023 7:41 PM CDT [facility] Blood Peripheral blood specimen / Unknown Venipuncture / Unknown 05/31/2023 6:36 PM CDT 05/31/2023 6:43 PM CDT Narrative [facility] - 05/31/2023 7:41 PM CDT The cut off value for exclusion of venous thromboembolism is <0.51 mcg/mL FEUs (fibrinogen equivalent units). Alexandre Nascimento MD LAB BLOOD ORDERABLES Performing Organization Address [facility] Co de Phone Number [facility] Unless otherwise noted, all lab tests performed by: Division of Pathology and Laboratory Medicine [address] [place] [address] [phone] * (ABNORMAL) Cytology Non-Laundry Tech Interpretation (05/31/2023 4:16 PM CDT) Addendum 3 This addendum reports the results of clinically requested studies. RESULTS Ki-67, immunoperoxidase stain (MIB1) - 60-70% COMMENTS Immunoperoxidase staining was performed on cell block sections with appropriate controls. Tumor cells are strongly positive for GATA3, which was performed to ensure accurate accounting of tumor. 3 10:49 AM [facility] Addendum electronically signed by Raymond Lancaster MD on 06/13/2023 at 10:49 AM Addendum 2 This addendum is issued to provide results for additional clinically requested studies. RESULTS PD-L1 (Clone [id number], [employer]) Combined Positive Score (CPS): 0 Assay Information: This assay is manufactured by [employer] and uses a monoclonal anti-PD-L1, clone [id number]. It is performed on formalin-fixed paraffin-embedded tissue using an [employer] autostainer and polymer based detection kit, as specified by the test administrator. It is approved for use as a corrective and manual arts therapist diagnostic for specific therapies on certain tumor [...] defined as CPS 100. 3 10:49 AM [facility] Addendum electronically signed by Kerrie Albright MD on 06/07/2023 at 1:38 PM Addendum 1 This addendum reports the results of clinically requested studies. RESULTS Estrogen receptor, immunoperoxidase stain (clone [id number], [employer]) - Negative (<1%) Progesterone receptor, immunoperoxidase stain (clone16, [employer]) - Negative (0%) HER2, immunoperoxidase stain (clone [id number], [place] [facility]) - Negative (score 0) COMMENTS Immunoperoxidase staining was performed on cell block sections with appropriate controls. 3 10:49 AM [facility] Addendum electronically signed by Susy German MD on 06/07/2023 at 8:32 AM Gross Description 1 Diff Quik; 3 Pap Stain Slides 1700 ml. slightly cloudy yellow fluid Specimen concentrated by cytocentrifugation technique 1 Cell Block Date/Time Placed in Formalin: 06/03/23 5:27 PM 3 10:49 AM [facility] Major Classification MALIGNANT(A) 3 10:49 AM [facility] Diagnosis Pleural fluid, right, thoracentesis: RARE METASTATIC CARCINOMA (see comment) 3 10:49 AM [facility] Comment Cytospin slides and cell block preparation demonstrate rare clusters of carcinoma. Immunoperoxidase stains, performed on cell block sections with appropriate controls, show that the tumor cells are diffusely positive for TRPS1 (favoring breast origin), equivocal for ER, and negative for MA and HER2 (score 0). The morphology and immunoprofile favor metastasis from a breast primary. It is noted that the patient's previously reported breast cancer was ER/MA positive and in light of the paucicellularity of tumor cells in the current pleural effusion sample, it is recommended that these results are correlated clinically. 3 10:49 AM [facility] Retained/Biomark er Testing SR: 4 S, 2 CB, 4 IP Biomarker Testing: MDL CB: <50 MDL PAP: 0 S MDL DQ: 0 S FISH DQ: 0 S 3 10:49 AM [facility] Informational Points Some tests reported here may have been developed and performance characteristics determined by [facility] Pathology and Laboratory Medicine. These tests have not been specifically cleared or approved by the U.S. Food and Drug Administration. 3 10:49 AM [facility] Fluid (Pleural Fluid, Right) Non-blood Collection / Unknown 05/31/2023 4:16 PM CDT 06/03/2023 8:19 AM MOLYBDENUM STEAMER OPERATOR Comment:Vacuum bottle to Cyt opathology for analysis. Sushila Perry MD LAB CYTOLOGY ORDERAB LES [facility] [address] [address], [place] * Body Fluid Differential (05/31/2023 4:13 PM CDT) Total Cells Body Fluid 100 05/31/2023 8:47 PM CDT [facility] Segmented Neutrophils Body Fluid 12 0 - 25 % 05/31/2023 8:47 PM CDT [facility] Lymphocyte Body Fluid 34 % 05/31/2023 8:47 PM CDT [facility] Histiocyte Body Fluid 29 % 05/31/2023 8:47 PM CDT [facility] Eosinophil Body Fluid 12 % 05/31/2023 8:47 PM CDT [facility] Basophil Body Fluid 1 % 05/31/2023 8:47 PM CDT [facility] Other Cell Body Fluid 12 % 05/31/2023 8:47 PM CDT [facility] Fluid (Pleural Fluid, Right) Non-blood Collection / Unknown 05/31/2023 4:13 PM CDT 05/31/2023 4:55 PM CDT Narrative [facility] - 05/31/2023 8:47 PM CDT This assay has been validated for body fluids. No reference ranges have been established. Test results should be interpreted in context with the patient's clinical condition. Pathologist consult is available. Sushila Perry MD BODY FLUIDS AND STOO LS ORDERABLES Performing Organization Address City/[facility] Co de Phone Number [facility] Unless otherwise noted, all lab tests performed by: Division of Pathology and Laboratory Medicine [address] [place] [address] [phone] * Body Fluid Diff Path Review (05/31/2023 4:13 PM CDT) Body Fluid Diff Interp Malignant cells identified, suggest correlation with cytology result. 06/03/2023 12:00 PM [facility] Pathologist Signature . 06/03/2023 12:00 PM [facility] Fluid (Pleural Fluid, Right) Non-blood Collection / Unknown 05/31/2023 4:13 PM CDT 05/31/2023 4:55 PM CDT Sushila Perry MD BODY FLUIDS AND STOO LS ORDERABLES [facility] Unless otherwise noted, all lab tests performed by: Division of Pathology and Laboratory Medicine [address] [place] [address] [phone] * Cholesterol Body Fluid (05/31/2023 4:13 PM CDT) Cholesterol Body Fluid 78 mg/dL 05/31/2023 6:18 PM CDT [facility] Fluid (Pleural Fluid, Right) Non-blood Collection / Unknown 05/31/2023 4:13 PM CDT 05/31/2023 4:55 PM CDT Narrative [facility] - 05/31/2023 6:18 PM CDT [...] AND STOO LS ORDERABLES Performing Organization Address City/[facility]/ZIP Co de Phone Number [facility] Unless otherwise noted, all lab tests performed by: Division of Pathology and Laboratory Medicine [address] [place] [address] [phone] * Body Fluid Culture w/ Gram Stain (05/31/2023 4:13 PM CDT) [facility] Body Fluid Culture No Growth. 06/07/2023 9:05 AM [facility] Gram Stain Few WBCs seen. 06/07/2023 9:05 AM [facility] Gram Stain No organisms seen. 06/07/2023 9:05 AM [facility] Fluid (Pleural Fluid, Right) Non-blood Collection / Unknown 05/31/2023 4:13 PM CDT 05/31/2023 4:55 PM CDT Sushila Perry MD MICROBIOLOGY - GENER AL ORDERABLES [facility] Unless otherwise noted, all lab tests performed by: Division of Pathology and Laboratory Medicine [address] [place] [address] [phone] * Cell Count BF (05/31/2023 4:13 PM CDT) Pathologist [facility] Appearance Body Fluid Clear 05/31/2023 8:44 PM CDT [facility] WBC Count Body Fluid 307 /mcL 05/31/2023 8:44 PM CDT [facility] RBC Count Body Fluid <2,000 /mcL 05/31/2023 8:44 PM CDT [facility] Fluid (Pleural Fluid, Right) Non-blood Collection / Unknown 05/31/2023 4:13 PM CDT 05/31/2023 4:55 PM CDT Narrative [facility] - 05/31/2023 8:44 PM CDT This assay has been validated for body fluids. No reference ranges have been established. Test results should be interpreted in context with the patient's clinical condition. Pathologist consult is available. Sushila Perry MD BODY FLUIDS AND STOO LS ORDERABLES Performing Organization Address [facility] Co de Phone Number [facility] Unless otherwise noted, all lab tests performed by: Division of Pathology and Laboratory Medicine [address] [place] [address] [phone] * Triglyceride Body Fluid (05/31/2023 4:13 PM CDT) Pathologist [facility] Triglyceride Body Fluid 37 mg/dL 05/31/2023 6:18 PM CDT [facility] Fluid (Pleural Fluid, Right) Non-blood Collection / Unknown 05/31/2023 4:13 PM CDT 05/31/2023 4:55 PM CDT Narrative [facility] - 05/31/2023 6:18 PM CDT [...] AND STOO LS ORDERABLES Performing Organization Address [facility] Co de Phone Number [facility] Unless otherwise noted, all lab tests performed by: Division of Pathology and Laboratory Medicine [address] [place] [address] 18192 * Protein BF (05/31/2023 4:13 PM CDT) Protein Body Fluid 3.7 gm/dL 05/31/2023 6:18 PM CDT [facility] Fluid (Pleural Fluid, Right) Non-blood Collection / Unknown 05/31/2023 4:13 PM CDT 05/31/2023 4:55 PM CDT Narrative [facility] - 05/31/2023 6:18 PM CDT [...] AND STOO LS ORDERABLES Performing Organization Address City/[facility] Co de Phone Number [facility] Unless otherwise noted, all lab tests performed by: Division of Pathology and Laboratory Medicine [address] [place] [id number] * LDH, BF (05/31/2023 4:13 PM CDT) Lactate Dehydrogenase Body Fluid 175 U/L 05/31/2023 6:18 PM CDT [facility] Fluid (Pleural Fluid, Right) Non-blood Collection / Unknown 05/31/2023 4:13 PM CDT 05/31/2023 4:55 PM CDT Narrative [facility] - 05/31/2023 6:18 PM CDT [...] AND STOO LS ORDERABLES Performing Organization Address City/[facility]/ZIP Co de Phone Number [facility] Unless otherwise noted, all lab tests performed by: Division of Pathology and Laboratory Medicine [facility] [place] [address] * Glucose Body Fluid (05/31/2023 4:13 PM CDT) Glucose Body Fluid 127 mg/dL 2022 6:18 PM CDT [facility] Comment:This body fluid test has [...] AND STOO LS ORDERABLES Performing Organization Address City/[facility] Co de Phone Number [facility] Unless otherwise noted, all lab tests performed by: Division of Pathology and Laboratory Medicine [facility] [place] [address] * Amylase Level Body Fluid (05/31/2023 4:13 PM CDT) Amylase Body Fluid 47 U/L 05/31/2023 6:18 PM CDT [facility] Fluid (Pleural Fluid, Right) Non-blood Collection / Unknown 05/31/2023 4:13 PM CDT 05/31/2023 4:55 PM CDT Narrative [facility] - 05/31/2023 6:18 PM CDT [...] MD BODY FLUIDS AND STOO LS ORDERABLES [facility] Unless otherwise noted, all lab tests performed by: Division of Pathology and Laboratory Medicine [address] [place] [id number] * Blood culture (05/31/2023 3:27 PM CDT) Only the most recent of2 resultswithin the time period is included. [facility] Blood Culture No Growth. 06/05/2023 4:01 PM MOLYBDENUM STEAMER OPERATOR [facility] Blood Peripheral blood specimen / Unknown Venipuncture / Unknown 05/31/2023 3:27 PM CDT 05/31/2023 3:32 PM CDT Narrative [facility] - 06/05/2023 4:01 PM MOLYBDENUM STEAMER OPERATOR One or both culture bottles underfilled (<5 mL). This will result in decreased sensitivity in pathogen detection. Nurys Valdez MD MICROBIOLOGY - GENER AL ORDERABLES [facility] Unless otherwise noted, all lab tests performed by: Division of Pathology and Laboratory Medicine [address] [place] [id number] * Cardiac Panel (05/31/2023 3:12 PM CDT) [facility] Creatine Kinase 58 26 - 192 U/L 05/31/2023 4:25 PM CDT [facility] CKMB 3.0 <=5.3 ng/mL 05/31/2023 4:25 PM CDT [facility] Troponin T 16 <=19 ng/L 05/31/2023 4:25 PM CDT [facility] Comment: Specimen is hemolyzed. Results [...] CDT Nurys Valdez MD LAB BLOOD ORDERABLES Performing Organization Address [facility] Co de Phone Number [facility] Unless otherwise noted, all lab tests performed by: Division of Pathology and Laboratory Medicine [address] [place] [address] * CRP (05/31/2023 3:12 PM CDT) CRP (C Reactive Protein) 109.21 mg/L 06/01/2023 12:56 AM CDT [facility] Blood Peripheral blood specimen / Unknown Venipuncture / Unknown 05/31/2023 3:12 PM CDT 05/31/2023 3:20 PM CDT Narrative [facility] - 06/01/2023 12:56 AM CDT [...] MD LAB BLOOD ORDERABLES Performing Organization Address City/[facility] Co de Phone Number [facility] Unless otherwise noted, all lab tests performed by: Division of Pathology and Laboratory Medicine [address] [place] [phone] * TSH (05/31/2023 3:12 PM CDT) Thyroid Stimulating Hormone 2.91 0.27 - 4.20 mcunit/mL 06/01/2023 12:59 AM CDT [facility] Blood Peripheral blood specimen / Unknown Venipuncture / Unknown 05/31/2023 3:12 PM CDT 05/31/2023 3:20 PM CDT Fermin Pham MD LAB BLOOD ORDERABLES Performing Organization Address [facility]/ZIP Co de Phone Number [facility] Unless otherwise noted, all lab tests performed by: Division of Pathology and Laboratory Medicine [address] [place] [address] * (ABNORMAL) LDH (05/31/2023 3:12 PM CDT) [facility] LDH 339(H) 135 - 214 U/L 06/01/2023 12:59 AM CDT [facility] Comment:Specimen is hemolyze d. Results may be falsely elevated. Repeat test if needed. Blood Peripheral blood specimen / Unknown Venipuncture / Unknown 05/31/2023 3:12 PM CDT 05/31/2023 3:20 PM CDT Narrative [facility] - 06/01/2023 12:59 AM CDT Results greater than 1651 U/L may not be reliable due to matrix effect with extended dilution as it exceeds the test administrator's recommended limit. Caution should be exercised when interpreting such values and done in conjunction with clinical context. Fermin Pham MD LAB BLOOD ORDERABLES Performing Organization Address [facility] Co de Phone Number [facility] Unless otherwise noted, all lab tests performed by: Division of Pathology and Laboratory Medicine [address] [place] [phone] * (ABNORMAL) Respiratory Multiplex PCR Panel, Nasopharyngeal Swab (05/31/2023 2:45 PM CDT) [facility] Adenovirus Not Detected Not Detected 05/31/2023 4:21 PM CDT [facility] Coronavirus 229E Not Detected Not Detected 05/31/2023 4:21 PM CDT [facility] Coronavirus HKU1 Not Detected Not Detected 05/31/2023 4:21 PM CDT [facility] Coronavirus NL63 Not Detected Not Detected 05/31/2023 4:21 PM CDT [facility] Coronavirus OC43 Not Detected Not Detected 05/31/2023 4:21 PM CDT [facility] COVID-19 (SARS-CoV-2) Not Detected Not Detected 05/31/2023 4:21 PM CDT [facility] Human Metapneumovirus Not Detected Not Detected 05/31/2023 4:21 PM CDT [facility] Human Rhinovirus/Enterov irus Detected(A) Not Detected 05/31/2023 4:21 PM CDT [facility] Influenza A Not Detected Not Detected 05/31/2023 4:21 PM CDT [facility] Influenza A H1 Not Detected Not Detected 05/31/2023 4:21 PM CDT [facility] Influenza A H1 2009 Not Detected Not Detected 05/31/2023 4:21 PM CDT [facility] Influenza A H3 Not Detected Not Detected 05/31/2023 4:21 PM CDT [facility] Influenza B Not Detected Not Detected 05/31/2023 4:21 PM CDT [facility] Parainfluenza Virus 1 Not Detected Not Detected 05/31/2023 4:21 PM CDT [facility] Parainfluenza Virus 2 Not Detected Not Detected 05/31/2023 4:21 PM CDT [facility] Parainfluenza Virus 3 Not Detected Not Detected 05/31/2023 4:21 PM CDT [facility] Parainfluenza Virus 4 Not Detected Not Detected 05/31/2023 4:21 PM CDT [facility] Respiratory Syncytial Virus Not Detected Not Detected 05/31/2023 4:21 PM CDT [facility] Bordetella parapertussis Not Detected Not Detected 05/31/2023 4:21 PM CDT [facility] Bordetella pertussis Not Detected Not Detected 05/31/2023 4:21 PM CDT [facility] Chlamydophila pneumoniae Not Detected Not Detected 05/31/2023 4:21 PM CDT [facility] Mycoplasma pneumoniae Not Detected Not Detected 05/31/2023 4:21 PM CDT [facility] Swab Nasopharyngeal structure / Unknown Non-blood Collection / Unknown 05/31/2023 2:45 PM CDT 05/31/2023 2:53 PM CDT [facility] - 05/31/2023 4:21 PM CDT The assay is a qualitative multiplex PCR assay to aid in the diagnosis of respiratory pathogens through simultaneous qualitative detection and identification of multiple pathogens directly from nasopharyngeal swabs (DIRECTOR OF TRANSPORTATION) from individuals with respiratory symptoms. Testing is performed using the [employer] Respiratory Panel 2.1 (RP2.1) on the [employer] System. The following organisms are identified using the [employer] RP 2.1 Panel: Adenovirus, Human Coronavirus (229E, [...] verified by the microbiology laboratory at the [facility] [place] (CLIA Accreditation # [id number] and CAP Accreditation # [id number]). Results must be interpreted within the context of all relevant clinical and laboratory findings. Assay should not be used for monitoring response to therapy. Alexandre Nascimento MD MICROBIOLOGY - [facility] AL ORDERABLES [facility] Unless otherwise noted, all lab tests performed by: Division of Pathology and Laboratory Medicine [address] [place] [phone] * Mammography Digital Diagnostic Bilateral with Oedll (05/25/2023 10:37 AM CDT) Anatomical Region Laterality [...] compared to prior imaging studies performed at [facility] on 06/16/2018, 02/16/2019, 03/31/2020, 05/09/2021 and 05/31/2022. [...] been compared to prior imaging studiesperformed at [facility] on 06/16/2018, 02/16/2019,03/31/2020, 05/09/2021 and 05/31/2022. FINDINGS: [...] Moreno APRN IMG MAMMOGRAPHY OR DERABLES after 10/04/2022 Advance Directives Latest Code Status on File Code Status Date Activated Date Inactivated Comments DNR 06/02/2023 10:58 AM 06/17/2023 7:54 PM Question Answer Comments DNR obtained from: Patient Patient Provided: Written Authorization (DNR Con sent) Code Status History Code Status Date Activated Date Inactivated Comments Full Code 05/31/2023 5:07 PM 06/02/2023 10:58 AM Full Code 07/11/2018 3:53 PM 07/12/2018 2:34 PM Care Teams Chimney Builder Relationship Specialty Start Date End Date Elizabeth Burrell MD [address] [place] [phone] PCP - General Breast Medical Oncology 02/16/19 Jennifer Woo MD [address] [place] [phone] Consulting Physician Radiation Oncology 08/19/18 Beverly Matias MD [address] [place] [address] Consulting Physician Rheumatology 11/29/22 Tameka Jaramillo MD [address] [place] [phone] Consulting Physician Internal Medicine 06/18/18 Bree Rodriguez DDS [address] [place] [phone] Consulting Physician Dental Oncology 08/21/23
[2023-10-04] MEDS ORDERED: HYDROMORPHONE HCL 1 MG/ML INJ ONE (23:19)
[2023-10-04] MEDS ORDERED: BISACODYL 10 MG RECTAL SUPP PR PRN (23:19)
[2023-10-04] MEDS ORDERED: LORazepam 2 MG/ML VIAL ONE (23:20)
[2023-10-04] MEDS: HYDROMORPHONE HCL 1 MG/ML INJ IV PRN (23:31)
[2023-10-04] MEDS: LORazepam 2 MG/ML VIAL IV PRN (23:32)
[2023-10-04 23:40] VITALS: O2SAT 97; BMI 26.0
[2023-10-05] MEDS ORDERED: LORazepam 2 MG/ML VIAL ONE ×2 (06:14→09:00)
[2023-10-05 08:13] VITALS: BP 96/67; TEMP 97.2
[2023-10-05] MEDS: SCOPOLAMINE HYDROBROMIDE PATCH TD SCH (09:45)
--- NOTE | 2023-10-05 11:16 | P.HP ---
Patient History Date of Service: 10/04/23 Reason for admission: RESPIRATORY FAILURE History of Present Illness: VALENTIN HAS METASTATIC BREAST CANCER TO LUNGS. SHE WAS ON PALLIATIVE CHEMO UNTIL LAST THERAPY AND THEN SHE GOT WORSE RAPIDLY WITH PNEUMONIA AND LUNG METS. I SPENT LONG TIME WITH HER AND FAMILY AT BEDSIDE. SHE WAS LUCID AT TIMES EVEN WITH SEVERE REPIRATORY DISTRESS. SHE WANTS TO HAVE DNR STATUS AND INPATIENT HOSPICE. SHE IS RAPIDLY BREATHING AND SHALLOW. DISORIENTED AND SOMNOLENT WITHOUT ANY DRUGS. FAMILY AFTER GIVEN CHOICE OF HOSPICE COMPANIES HAVE DECIDED TO GO WITH [facility] I WILL BE HER DOCTOR FOR THIS HOSPICE COMPANY. Allergies codeine [Codeine] Allergy (Verified 03/24/12 13:03) Nausea/Vomiting Sulfa (Sulfonamide Antibiotics) [Sulfa(Sulfonamide Antibiotics)] Allergy (Verified 03/24/12 13:03) Hives Home medications list reviewed: Yes Home Medications: Magnesium Oxide [Magnesium] 500 mg PO BID 10/01/23 Meloxicam [Mobic*] 1 tab PO DAILY PRN 10/01/23 Prochlorperazine Maleate [Compazine] 10 mg pe PO Q6H PRN 10/01/23 Venlafaxine HCl [Effexor*] 75 mg PO DAILY 10/01/23 Potassium Chloride 20 meq PO BID 10/02/23 - Past Medical/Surgical History Diabetic: No -: Metastatic breast cancer -: History of malignant pleural effusion -: thoracentesis - Social History Smoking Status: Unknown if ever smoked Alcohol use: No CD- Drugs: No Caffeine use: Yes Place of Residence: Home Review of Systems General: Weakness, Malaise Respiratory: Shortness of Breath Physical Examination - Vital Signs Temperature: 97.2 F Blood Pressure: 96/67 Pulse: 94 Respirations: 19 Pulse Ox (%): 97 - Physical Exam General: Severe distress (WITHOUT MEDS) HEENT: Atraumatic, PERRLA, Mucous membr. moist/pink, EOMI, Sclerae nonicteric Neck: Supple, 2+ carotid pulse no bruit, No LAD, Without JVD or thyroid abnormality Respiratory: Diminished, Rhonchi/gurgles Cardiovascular: Regular rate/rhythm, Normal S1 S2 Gastrointestinal: Normal bowel sounds, No tenderness Musculoskeletal: No tenderness Integumentary: No rashes Neurological: Normal gait, Normal speech, Normal strength at 5/5 x4 extr, Normal tone, Normal affect Lymphatics: No axilla or inguinal lymphadenopathy Assessment and Plan - Problems (Diagnosis) (1) Breast cancer metastasized to lung Current Visit: Yes Status: Chronic Plan: TERMINAL CONDITION FAMILY AND PATIENT HAVE SELECTED TO BE ON HOSPICE FAMILY AT BEDSIDE. (2) Acute respiratory failure with hypoxia Current Visit: No Status: Acute Plan: I HAVE TALKED TO DR[facility] DUFFY IN [facility] AND SHE ALSO AGREES WITH HOSPICE FAMILY WAS CONTENT TO HEAR THAT. SHE MAY NOT SURVIVE MORE THAN A DAY OR TWO. Orders (last 24 hrs) 10/04/23 23:16 Hydromorphone [Dilaudid] 1 mg IV Q3HP PRN 10/04/23 23:17 LORazepam [Ativan] 1 mg IV Q3HP PRN 10/04/23 23:19 Bisacodyl [Dulcolax] 10 mg NE DAILY PRN 10/04/23 23:21 Diet: NPO-Nothing by Mouth [DIET] 10/04/23 23:23 Nursing Orders Routine 10/04/23 23:24 SBAR Routine 10/04/23 23:36 Nursing Orders Routine 10/05/23 09:09 Oxygen Nasal Cannula 2 lpm 10/05/23 10:00 Scopolamine Hydrobromide [Transderm-Scop] 1 pat TD Q3D@0900 - Advance Directives Does patient have a Living Will: Yes Does patient have a Durable POA for Healthcare: Yes
--- NOTE | 2023-10-05 11:24 | P.PN ---
Subjective Date of Service: 10/05/23 Chief Complaint: RESPIRATORY FAILURE Subjective: Worsening SHE IS MOVED TO FLOOR NOW. CONTINUES TO HAVE SEVERE RESPIRATORY DISTRESS. MEDICATED FOR COMFORT. Review of Systems is unable to be obtained Physical Examination - Vital Signs Temperature: 97.2 F Blood Pressure: 96/67 Pulse: 94 Respirations: 19 Pulse Ox (%): 97 - Physical Exam General: Cachectic (USED TO BE OBESE BEFORE CANCER.), Severe distress Neck: Without JVD or thyroid abnormality Respiratory: Diminished (RAPID, SHALLOW) Cardiovascular: Normal S1 S2 Neurological: Other (OBTUNDED. NOT REPSONSIVE.) Assessment And Plan - Current Problems (Diagnosis) (1) Breast cancer metastasized to lung Current Visit: Yes Status: Chronic Plan: TERMINAL CONDITION FAMILY AND PATIENT HAVE SELECTED TO BE ON HOSPICE FAMILY AT BEDSIDE. TERMNIAL CONTINUE HOSPICE CARE. (2) Acute respiratory failure with hypoxia Current Visit: No Status: Acute Plan: I HAVE TALKED TO DR. DUFFY IN [facility] AND SHE ALSO AGREES WITH HOSPICE FAMILY WAS CONTENT TO HEAR THAT. SHE MAY NOT SURVIVE MORE THAN A DAY OR TWO. Orders (last 24 hrs) 10/04/23 23:16 Hydromorphone [Dilaudid] 1 mg IV Q3HP PRN 10/04/23 23:17 LORazepam [Ativan] 1 mg IV Q3HP PRN 10/04/23 23:19 Bisacodyl [Dulcolax] 10 mg OR DAILY PRN 10/04/23 23:21 Diet: NPO-Nothing by Mouth [DIET] 10/04/23 23:23 Nursing Orders Routine 10/04/23 23:24 SBAR Routine 10/04/23 23:36 Nursing Orders Routine 10/05/23 09:09 Oxygen Nasal Cannula 2 lpm 10/05/23 10:00 Scopolamine Hydrobromide [Transderm-Scop] 1 pat TD Q3D@0900
--- NOTE | 2023-10-06 21:22 | P.DS ---
Admission Date: 10/04/23 Discharge Date: 10/06/23 Disposition: Discharge Condition: Reason for Admission: RESPIRATORY FAILURE - Problems (1) Breast cancer metastasized to lung Status: Chronic (2) Acute respiratory failure with hypoxia Status: Acute Brief History of Present Illness: VALENTIN HAS METASTATIC BREAST CANCER TO LUNGS. SHE WAS ON PALLIATIVE CHEMO UNTIL LAST THERAPY AND THEN SHE GOT WORSE RAPIDLY WITH PNEUMONIA AND LUNG METS. I SPENT LONG TIME WITH HER AND FAMILY AT BEDSIDE. SHE WAS LUCID AT TIMES EVEN WITH SEVERE REPIRATORY DISTRESS. SHE WANTS TO HAVE DNR STATUS AND INPATIENT HOSPICE. SHE IS RAPIDLY BREATHING AND SHALLOW. DISORIENTED AND SOMNOLENT WITHOUT ANY DRUGS. FAMILY AFTER GIVEN CHOICE OF HOSPICE COMPANIES HAVE DECIDED TO GO WITH [facility] I WILL BE HER DOCTOR FOR THIS HOSPICE COMPANY. Hospital Course: VALENTIN IS A TERMINAL PATIENT WITH END STAGE BREAST CANCER. SHE ON HOSPICE AND WAS GIVEN DILAUDID AND ATIVAN FOR COMFORT CARE. Vital Signs/Physical Exam: Temp Pulse Resp BP Pulse Ox 97.2 F 94 H 19 96/67 97 10/05/23 11:23 10/05/23 11:23 10/05/23 11:23 10/05/23 11:23 10/05/23 11:23 Home Medications: Magnesium Oxide [Magnesium] 500 mg PO BID 10/01/23 Meloxicam [Mobic*] 1 tab PO DAILY PRN 10/01/23 Prochlorperazine Maleate [Compazine] 10 mg pe PO Q6H PRN 10/01/23 Venlafaxine HCl [Effexor*] 75 mg PO DAILY 10/01/23 Potassium Chloride 20 meq PO BID 10/02/23 Followup: Brian Varner MD [Primary Care Provider] -
[2023-10-07] MEDS ORDERED: SCOPOLAMINE HYDROBROMIDE PATCH TD SCH (09:00)
== END 2023-10-05 12:57 | disposition expired | DRG 951 ==
LOC: 3RD-ICU 22:00 → 2ND 10-05 09:22
PROVIDERS: ADMIT Internal Medicine; ATTEND Internal Medicine
DX: Z51.5 Encounter for palliative care (principal)
CPT/HCPCS: J1170